=== PATIENT | female | born 1945 | race Caucasian/White ===

== ENCOUNTER → 2018-05-13 08:54 | Outpatient (CLI) | payer MEDICARE, OTHER, SELFPAY ==
[2018-05-13 10:07] LABS: Alanine Aminotransferase 28 IU/L (9-52); Albumin 4.1 g/dL (3.5-5.0); Albumin Globulin Ratio 1.3 (1.0-2.8); Alkaline Phosphatase 64 U/L (38-126); Aspartate Aminotransferase 29 IU/L (14-36); Bilirubin Total 0.6 mg/dL (0.2-1.3); Blood Urea Nitrogen 14 mg/dL (7-17); Calcium 9.2 mg/dL (8.4-10.2); Carbon Dioxide 34 mmol/L (22-32); Chloride 105 mmol/L (98-107); Cholesterol 179 mg/dL (140-199); Estimated Glomerular Filt Rate > 60.0 mL/min (>60); Globulin 3.2 g/dL (1.7-4.1); Glucose 97 mg/dL (80-110); HDL Cholesterol 59 mg/dL (40-60); HEMOLYSIS < 15 (0-50); LDL Cholesterol Calculated 105 mg/dL (<100); Potassium 4.2 mmol/L (3.4-5.1); Sodium 144 mmol/L (137-145); Total Protein 7.3 g/dL (6.3-8.2); Triglycerides 74 mg/dL (35-150)
== END ==
PROVIDERS: PCP Physician Assistant; Visit Provider Physician Assistant
DX: Z51.81 Encounter for therapeutic drug level monitoring (principal)
CPT/HCPCS: 36415; 80053; 80061

== ENCOUNTER → 2018-09-25 09:41 | Outpatient (CLI) | payer MEDICARE, OTHER, SELFPAY | PROVIDERS: PCP Physician Assistant; Visit Provider Physician Assistant | DX: R52 Pain, unspecified (principal) | CPT/HCPCS: 87077; 87086; 87186 ==

== ENCOUNTER → 2018-10-17 10:43 | Outpatient (CLI) | payer MEDICARE, OTHER, SELFPAY ==
--- NOTE | 2018-10-17 | DI.MG.S_ITS ---
BILATERAL DIGITAL SCREENING MAMMOGRAM 3D/2D WITH CAD: 10/17/2018 CLINICAL: Routine screening. Comparison is made to exams dated: 09/04/2017 mammogram, 07/10/2016 mammogram, and 06/30/2015 mammogram - [facility]. The tissue of both breasts is heterogeneously dense. This may lower the sensitivity of mammography. Current study was also evaluated with a Computer Aided Detection (CAD) system. No significant masses, calcifications, or other findings are seen in either breast. There has been no significant interval change. IMPRESSION: NEGATIVE There is no mammographic evidence of malignancy. A 1 year screening mammogram is recommended. This exam was interpreted at Station ID: [id number]. NOTE: For mammograms, a report in lay terms will be sent to the patient. Approximately 15% of breast malignancies will not be visualized mammographically. In the management of a palpable breast mass, a negative mammogram must not discourage biopsy of a clinically suspicious lesion. Electronically Signed By: Jose conde/kianna:10/17/2018 18:21:24 letter sent: Normal Exam ACR BI-RADS Category 1: Negative 3341F
== END ==
PROVIDERS: PCP Physician Assistant; Visit Provider Physician Assistant
DX: Z12.31 Encounter for screening mammogram for malignant neoplasm of breast (principal)
CPT/HCPCS: 77063; 77067

== ENCOUNTER → 2018-11-02 09:36 | Outpatient (CLI) | payer MEDICARE, OTHER, SELFPAY | PROVIDERS: PCP Physician Assistant; Visit Provider Physician Assistant | DX: R39.9 Unspecified symptoms and signs involving the genitourinary system (principal) | CPT/HCPCS: 87077; 87086; 87186 ==

== ENCOUNTER → 2019-02-04 14:39 | Outpatient (CLI) | payer MEDICARE, OTHER, SELFPAY | PROVIDERS: PCP Physician Assistant; Visit Provider Physician Assistant | DX: M81.0 Age-related osteoporosis without current pathological fracture (principal); Z78.0 Asymptomatic menopausal state; Z82.62 Family history of osteoporosis | CPT/HCPCS: 77080 ==

== ENCOUNTER → 2019-02-26 16:23 | Outpatient (CLI) | payer MEDICARE, OTHER, SELFPAY ==
[2019-02-26 18:52] LABS: Vitamin D 25 Hydroxy (D3) 29.5 ng/mL (30.0-100.0)
[2019-02-26 18:56] LABS: Add Manual Diff / Slide Review NO; Basophils Absolute Auto 0 /uL (0-100); Basophils Percent Auto 0.5 % (0-2); Eosinophils Absolute Auto 100 /uL (0-450); Eosinophils Percent Auto 1.2 % (2-4); Hematocrit 40.6 % (36-46); Hemoglobin 13.2 g/dL (12.0-16.0); Lymphocytes Absolute Auto 1600 /uL (1100-4500); Lymphocytes Percent Auto 28.5 % (25-40); Mean Corpuscular HGB Conc 32.6 % (30-36); Mean Corpuscular Hemoglobin 30.6 PG (26-34); Mean Corpuscular Volume 93.9 fL (80-100); Monocytes Absolute Auto 600 /uL (0-900); Monocytes Percent Auto 11.8 % (3-14); Neutrophils Absolute Auto 3200 /uL (1500-7000); Platelet Count 234 X10^3/uL (150-400); Red Blood Cell Count 4.32 X10^6/uL (4.0-5.2); Red Cell Distribution Width 13.2 % (11.6-14.8); White Blood Cell Count 5.5 X10^3/uL (4.5-11.0)
== END ==
PROVIDERS: PCP Physician Assistant; Visit Provider Physician Assistant
DX: M81.0 Age-related osteoporosis without current pathological fracture (principal); R79.89 Other specified abnormal findings of blood chemistry
CPT/HCPCS: 36415; 82306; 85025

== ENCOUNTER 2019-08-04 12:52 | Day surgery (SDC) | payer MEDICARE, OTHER, SELFPAY ==
[2019-08-04] VITALS (7 sets, daily range): BP systolic 95–112; BP diastolic 52–74; PULSE 61–71; RESP 11–16; TEMP 36–36.8; O2SAT 96–100; BMI 19.3
--- NOTE | 2019-08-04 15:16 | PM.HP.1 ---
History of Present Illness History of Present Illness Date Patient Seen: 08/04/19 Time Patient Seen: 15:16 Chief complaint: [id number] Narrative: This is a 74 yo woman with history of polyps found on colonoscopy 5 years ago. She returns today for follow-up colonoscopy and polypectomy as needed. She denies any melena, hematochezia, abdominal pain or unexplained weight loss. ROS: Thirteen system review is negative other than as mentioned on scanned in questioning and in HPI. PE: GENERAL: Well groomed and cooperative. Appears stated age. Answers questions promptly and appropriately. Vital signs noted. HENT: Normocephalic, atraumatic. Hearing intact. Oral mucosa is pink and moist. EYES: Conjunctiva pink, sclera white, no periorbital swelling. CARDIOVASCULAR: Regular rate. No pedal edema. RESPIRATORY: Normal respiratory rate, breathing comfortably on room air. GASTROINTESTINAL: Abdomen soft and non-distended GENITALURINARY: No flank tenderness. MUSCULOSKELETAL: Normal gait and coordination. Equal tone and mass bilaterally. SKIN: Warm, dry, soft, appropriate color for ethnicity. No other lesions, rashes, or wounds. NEURO: Alert and Oriented X 3. Good coordination. No ataxia, or sensory deficits, or cognitive issues. PSYCH: Appropriate affect and mood. Patient History Surgical History H/O eye surgery (Acute) Social History household members: spouse Smoking Status: Never smoker second hand exposure: No alcohol intake: current (a glass of wine about every 3 weeks.) substance use type: does not use Family & Social History Social History: household members spouse Tobacco & Substance use: Smoking Status Never smoker alcohol intake current Meds Home Medications and Allergies Home Medications Medication Instructions Recorded Confirmed Type Excedrin Extra Strength 1 tab PO PRN PRN #0 MDD 325 03/25/17 08/04/19 History Prevnar 13 (PF) 0.5 ml IM X1 #1 ea 03/25/17 08/04/19 Rx varicella-zoster gE-AS01B (PF) 50 50 mcg IM ONCE #1 each 11/12/18 08/04/19 Rx mcg/0.5 mL IM susp, kit raloxifene 60 mg tablet 60 mg PO DAILY #90 tab 06/15/19 08/04/19 Rx Allergies Allergy/AdvReac Type Severity Reaction Status Date / Time alendronate sodium AdvReac Mild GERD Verified 02/23/19 08:50 [From FOSAMAX] Exam Vital Signs (past 8 hours): - 08/04/19 13:17 Temperature 97.8 F Pulse Rate 71 Respiratory Rate 12 Blood Pressure 110/67 Pulse Oximetry 100 Oxygen Delivery Method Room Air Assessment & Plan Assessment and plan (1) Tubular adenoma of colon: Current visit: No Status: Resolved (2) Screening for colon cancer: Current visit: Yes Status: Acute Assessment & Plan narrative: Risk and benefits of screening colonoscopy and possible polypectomy were discussed with the patient including risk of bleeding, perforation, the risk of anesthesia. The patient desires to proceed with a colonoscopy Time Spent With Patient Time with patient: 15-24 minutes
[2019-08-04] MEDS: fentaNYL 250 MCG/5 ML INJ IV (15:52)
--- NOTE | 2019-08-04 15:52 | PM.OP.ENDO ---
Operative Date/Time/Diagnoses Date of procedure: 08/04/19 Time of procedure: 15:52 Pre-op diagnosis: history of colon polyps Post-op diagnosis: same Procedure & Clinicians Study performed: surveillance colonoscopy Same procedure as scheduled: Yes Indications: History of colon polyps 5 years ago Surgeon: Tana Mckeon Procedure Notes SCOAP/Timeout: Performed Procedure in detail: The patient was brought to the room and placed in left lateral decubitus position with all bony prominences padded. A time-out was performed and then the patient was given procedural sedation starting with 4 mg of Versed and 100 mg of fentanyl. Vitals were monitored throughout the procedure and remained stable. Once adequately sedated the procedure was begun. A rectal exam was performed revealing no abnormalities. The colonoscope was then introduced to the rectum and advanced to the cecum in the usual fashion. The colon was very tortuous and required a lot of maneuvering to make it to the cecum safely. The cecum was identified by the appendiceal orifice, the mucosal try fold, and the ileocecal valve. The scope was then retracted while rotating side to side and examining each mucosal fold. A few tiny diverticula were seen in the sigmoid colon. At the conclusion procedure retroflexion was performed and small grade 1-2 internal hemorrhoids without stigmata of bleeding were seen. The scope was then withdrawn from the rectum the procedure was concluded. The patient tolerated the procedure well was transferred to the PACU in stable condition. Scope withdrawal time: 4 Sedation minutes: 24 Findings: diverticulosis Specimen(s): none sent Complications: none Impression: Normal colonoscopy, a few tiny scattered diverticula in the sigmoid colon Post-procedure Plan for aftercare: No further colonoscopies required unless symptoms arise. Pt is 74 with normal colon on this exam. Follow up: as needed Disposition: PACU
[2019-08-04] MEDS: MIDAZOLAM 5 MG/5 ML VIAL IV (15:53)
== END 2019-08-04 16:51 | disposition home or self-care (01) ==
PROVIDERS: PCP Physician Assistant; Visit Provider Surgery
PROC: 0DJD8ZZ Inspection of Lower Intestinal Tract, Via Natural or Artificial Opening Endoscopic (ICD-10-PCS; CPT 45378; principal; 2019-08-04 14:00)
DX: Z86.010 Personal history of colon polyps (principal)
CPT/HCPCS: G0105; 99152; J2250; J3010

== ENCOUNTER → 2019-12-22 11:57 | Outpatient (CLI) | payer MEDICARE, OTHER, SELFPAY ==
--- NOTE | 2019-12-22 | DI.MG.S_ITS ---
BILATERAL DIGITAL SCREENING MAMMOGRAM 3D/2D WITH CAD: 12/22/2019 CLINICAL: Routine screening. Comparison is made to exams dated: 10/17/2018 mammogram, 09/04/2017 mammogram, and 07/10/2016 mammogram - [facility]. The tissue of both breasts is heterogeneously dense. This may lower the sensitivity of mammography. Current study was also evaluated with a Computer Aided Detection (CAD) system. There are benign vascular calcifications in the left breast. No significant masses, calcifications, or other findings are seen in either breast. There has been no significant interval change. IMPRESSION: There is no mammographic evidence of malignancy. A 1 year screening mammogram is recommended. This exam was interpreted at Station ID: [id number]. NOTE: For mammograms, a report in lay terms will be sent to the patient. Approximately 15% of breast malignancies will not be visualized mammographically. In the management of a palpable breast mass, a negative mammogram must not discourage biopsy of a clinically suspicious lesion. Electronically Signed By: Enrique malloy/kianna:12/22/2019 12:38:49 letter sent: Normal Exam ACR BI-RADS Category 2: Benign Finding(s) 3342F
== END ==
PROVIDERS: PCP Physician Assistant; Referring Provider Physician Assistant; Visit Provider Physician Assistant
DX: Z12.31 Encounter for screening mammogram for malignant neoplasm of breast (principal)
CPT/HCPCS: 77063; 77067

== ENCOUNTER → 2020-05-17 12:34 | Outpatient (CLI) | payer MEDICARE, OTHER, SELFPAY | PROVIDERS: PCP Physician Assistant; Visit Provider Physician Assistant | DX: R30.0 Dysuria (principal) | CPT/HCPCS: 87077; 87086; 87186 ==

== ENCOUNTER → 2020-05-19 08:38 | Outpatient (CLI) | payer MEDICARE, OTHER, SELFPAY ==
[2020-05-19 10:04] LABS: Alanine Aminotransferase 17 IU/L (<35); Albumin 3.8 g/dL (3.5-5.0); Albumin Globulin Ratio 1.3 (1.0-2.8); Alkaline Phosphatase 65 U/L (38-126); Aspartate Aminotransferase 33 IU/L (14-36); BUN Creatinine Ratio 16.4 (6-22); Bilirubin Total 0.6 mg/dL (0.2-1.3); Blood Urea Nitrogen 11 mg/dL (7-17); Calcium 9.1 mg/dL (8.4-10.2); Carbon Dioxide 31 mmol/L (22-32); Chloride 105 mmol/L (98-107); Estimated Glomerular Filt Rate > 60.0 mL/min (>60); Glucose 70 mg/dL (80-110); HEMOLYSIS < 15 (0-50); Potassium 4.2 mmol/L (3.4-5.1); Sodium 140 mmol/L (137-145); Total Protein 6.8 g/dL (6.3-8.2)
== END ==
PROVIDERS: PCP Registered Nurse; Referring Provider Registered Nurse; Visit Provider Registered Nurse
DX: N39.0 Urinary tract infection, site not specified (principal)
CPT/HCPCS: 36415; 80053

== ENCOUNTER → 2020-08-11 10:01 | Outpatient (CLI) | payer MEDICARE, OTHER, SELFPAY | PROVIDERS: PCP Registered Nurse; Visit Provider Registered Nurse | DX: L03.90 Cellulitis, unspecified (principal) | CPT/HCPCS: 87070; 87205 ==

== ENCOUNTER → 2021-02-25 10:24 | Outpatient (CLI) | payer MEDICARE, OTHER, SELFPAY ==
--- NOTE | 2021-02-25 10:26 | DI.MG.S_ITS ---
BILATERAL DIGITAL SCREENING MAMMOGRAM 3D/2D WITH CAD: 02/25/2021 CLINICAL: Routine screening. Comparison is made to exams dated: 12/22/2019 mammogram, 10/17/2018 mammogram, and 09/04/2017 mammogram - [facility]. The tissue of both breasts is heterogeneously dense. This may lower the sensitivity of mammography. Current study was also evaluated with a Computer Aided Detection (CAD) system. No significant masses, calcifications, or other findings are seen in either breast. There has been no significant interval change. IMPRESSION: NEGATIVE There is no mammographic evidence of malignancy. A 1 year screening mammogram is recommended. This exam was interpreted at Station ID: [id number]. NOTE: For mammograms, a report in lay terms will be sent to the patient. Approximately 15% of breast malignancies will not be visualized mammographically. In the management of a palpable breast mass, a negative mammogram must not discourage biopsy of a clinically suspicious lesion. Electronically Signed By: Joe kee/kianna:02/27/2021 07:59:21 letter sent: Normal Exam ACR BI-RADS Category 1: Negative 3341F
== END ==
PROVIDERS: PCP Registered Nurse; Referring Provider Registered Nurse; Visit Provider Registered Nurse
DX: Z12.31 Encounter for screening mammogram for malignant neoplasm of breast (principal)
CPT/HCPCS: 77063; 77067

== ENCOUNTER → 2021-05-08 09:58 | Outpatient (CLI) | payer MEDICARE, OTHER, SELFPAY ==
[2021-05-08 11:23] LABS: COVID19 -Nasal RAPID Negative (Negative)
== END ==
PROVIDERS: PCP Registered Nurse; Visit Provider Student in an Organized Health Care Education/Training Program
DX: Z01.812 Encounter for preprocedural laboratory examination (principal); Z20.822 Contact with and (suspected) exposure to COVID-19
CPT/HCPCS: 87635; C9803

== ENCOUNTER 2021-05-09 08:53 | Day surgery (SDC) | payer MEDICARE, OTHER, SELFPAY ==
[2021-05-09] MEDS: PROPARACAINE 0.5% OPHTH SOL 2 DROPS EYE-OP (09:39)
[2021-05-09 09:40] VITALS: BP 101/59; PULSE 76; RESP 16; TEMP 37.4; O2SAT 99
[2021-05-09] MEDS: CATARACT EYE COMPOUND (10 DROPS/SYRINGE) 3 DROPS EYE-OP (09:45)
--- NOTE | 2021-05-09 10:20 | PM.PREOP ---
Pre-operative Note Interval Note History & Physical reviewed/Exam performed by Physician: Yes Changes to H&P: No
--- NOTE | 2021-05-09 10:20 | PM.OP.1 ---
Operative Date/Time/Diagnoses Pre-op diagnosis: Nuclear cataract right eye Procedure & Clinicians Procedure: Cataract Surgery Same procedure as scheduled: Yes Surgeon: Harrison Hale Anesthesia Type: MAC +/- and Sedation Operative Notes Procedure in detail: Patient brought to the operating suite. Tetracaine drops placed in the right eye. Patient was prepped and draped in sterile manner. Wire lid speculum was placed in the eye. Betadine drops were placed on the eye. This was irrigated. Lidocaine jelly was placed on the eye. A paracentesis port was created with a side-port blade. 0.1 mL 1% preservative free lidocaine was injected into the anterior chamber. The anterior chamber was deepened with viscoelastic. 2.6 mm keratome was used to create a temporal clear corneal incision. Cystotome and Utrata forceps were used to create continuous tear capsulorrhexis. Balanced salt solution was used to hydro dissect the nucleus. The phacoemulsification handpiece was inserted and the nucleus was removed using the stop and chop technique. The irrigation aspiration handpiece was inserted and the remaining cortex was removed. Anterior chamber was deepened with viscoelastic. An Ayala DIB00 intraocular lens with a power of 17.0 was injected into the capsular bag. Irrigation aspiration handpiece was inserted and the remaining viscoelastic was removed. Incision was hydrated with balanced salt solution and found to be leak free with pressure with Weck-Linda sponges. 0.1 mL Vigamox injected anterior chamber. 0.3 mL Kenalog 10 mg was injected subconjunctivally. Lid speculum was removed. The patient left the operating room in excellent condition. Complications: none Post-operative Condition: stable Disposition: same day surgery
[2021-05-09] MEDS: PHENYLEPHRINE/LIDOCAINE VIAL (OR) 0.2 ML EYE-OP (10:47)
[2021-05-09] MEDS: TRIAMCINOLONE 50 MG/5 ML VIAL INJ (10:47)
[2021-05-09] MEDS: MOXIFLOXACIN INJ 4 MG/0.8 ML VIAL 0.5 MG EYE-OP (10:47)
[2021-05-09] MEDS: CHONDROIDTIN/SOD HYALURONATE 1.05 ML SYRINGE INTRAOCULA (10:47)
[2021-05-09] MEDS: TETRACAINE 0.5% OPHTH DROPS 4 ML 2 DROPS EYE-OP (10:48)
[2021-05-09] MEDS: BALANCED SALT IRRIG SOLN NO.2 500 ML, EPINEPHrine 1 MG IRR (10:48)
[2021-05-09] MEDS: LIDOCAINE 2% (GLYDO) 6 ML GEL TOP (10:48)
== END 2021-05-09 11:05 | disposition home or self-care (01) ==
PROVIDERS: PCP Registered Nurse; Referring Provider Ophthalmology; Visit Provider Ophthalmology
PROC: (CPT 66984; principal; 2021-05-09 10:45)
DX: H25.11 Age-related nuclear cataract, right eye (principal)
CPT/HCPCS: 66984; J0171; J2250; J3301

== ENCOUNTER → 2021-05-22 08:20 | Outpatient (CLI) | payer MEDICARE, OTHER, SELFPAY ==
[2021-05-22 11:54] LABS: COVID19 -Nasal RAPID Negative (Negative)
== END ==
PROVIDERS: PCP Registered Nurse; Visit Provider Physician Assistant
DX: Z01.812 Encounter for preprocedural laboratory examination (principal); Z20.822 Contact with and (suspected) exposure to COVID-19
CPT/HCPCS: 87635; C9803

== ENCOUNTER 2021-05-23 08:37 | Day surgery (SDC) | payer MEDICARE, OTHER, SELFPAY ==
[2021-05-23 09:21] VITALS: BP 124/76; PULSE 78; RESP 18; TEMP 36.6; O2SAT 97; BMI 20.7
[2021-05-23] MEDS: PROPARACAINE 0.5% OPHTH SOL 2 DROPS EYE-OP (09:30)
[2021-05-23] MEDS: CATARACT EYE COMPOUND (10 DROPS/SYRINGE) 3 DROPS EYE-OP (09:30)
--- NOTE | 2021-05-23 10:02 | PM.PREOP ---
Pre-operative Note Interval Note History & Physical reviewed/Exam performed by Physician: Yes Changes to H&P: No
--- NOTE | 2021-05-23 10:02 | PM.OP.1 ---
Operative Date/Time/Diagnoses Pre-op diagnosis: Nuclear Cataract Left eye Post-op diagnosis: same Procedure & Clinicians Same procedure as scheduled: Yes Surgeon: Harrison Hale Anesthesia Type: MAC +/- and Sedation Operative Notes Procedure in detail: Patient brought to the operating suite. Tetracaine drops placed in the left eye. Patient was prepped and draped in sterile manner. Wire lid speculum was placed in the eye. Betadine drops were placed on the eye. This was irrigated. Lidocaine jelly was placed on the eye. A paracentesis port was created with a side-port blade. 0.1 mL 1% preservative free lidocaine was injected into the anterior chamber. The anterior chamber was deepened with viscoelastic. 2.6 mm keratome was used to create a temporal clear corneal incision. Cystotome and Utrata forceps were used to create continuous tear capsulorrhexis. Balanced salt solution was used to hydro dissect the nucleus. The phacoemulsification handpiece was inserted and the nucleus was removed using the stop and chop technique. The irrigation aspiration handpiece was inserted and the remaining cortex was removed. Anterior chamber was deepened with viscoelastic. An Ayala DIB00 intraocular lens with a power of 18.5 was injected into the capsular bag. Irrigation aspiration handpiece was inserted and the remaining viscoelastic was removed. Incision was hydrated with balanced salt solution and found to be leak free with pressure with Weck-Linda sponges. 0.1 mL Vigamox injected anterior chamber. 0.3 mL Kenalog 10 mg was injected subconjunctivally. Lid speculum was removed. The patient left the operating room in excellent condition. Complications: none Post-operative Condition: stable Disposition: same day surgery
[2021-05-23] MEDS: CHONDROIDTIN/SOD HYALURONATE 1.05 ML SYRINGE INTRAOCULA (10:38)
[2021-05-23] MEDS: MOXIFLOXACIN INJ 4 MG/0.8 ML VIAL 0.5 MG EYE-OP (10:38)
[2021-05-23] MEDS: LIDOCAINE 2% (GLYDO) 6 ML GEL TOP (10:38)
[2021-05-23] MEDS: PHENYLEPHRINE/LIDOCAINE VIAL (OR) 0.2 ML EYE-OP (10:38)
[2021-05-23] MEDS: TETRACAINE 0.5% OPHTH DROPS 4 ML 2 DROPS EYE-OP (10:38)
[2021-05-23] MEDS: BALANCED SALT IRRIG SOLN NO.2 500 ML, EPINEPHrine 1 MG IRR (10:39)
[2021-05-23] MEDS: TRIAMCINOLONE 50 MG/5 ML VIAL INJ (10:39)
[2021-05-23 11:00] VITALS: BP 106/73; PULSE 79; RESP 16; TEMP 36.6; O2SAT 99
== END 2021-05-23 11:06 | disposition home or self-care (01) ==
PROVIDERS: PCP Registered Nurse; Referring Provider Ophthalmology; Visit Provider Ophthalmology
PROC: (CPT 66984; principal; 2021-05-23 10:15)
DX: H25.12 Age-related nuclear cataract, left eye (principal)
CPT/HCPCS: 66984; J0171; J2250; J3301

== ENCOUNTER → 2021-06-22 12:31 | Outpatient (CLI) | payer MEDICARE, OTHER, SELFPAY ==
--- NOTE | 2021-06-22 12:32 | DI.RAD.S_ITS ---
PROCEDURE: XR DEXA AXIAL SKELETON INDICATIONS: DEXA Scan COMPARISON: [facility], CR, XR DEXA AXIAL SKELETON, 02/04/2019, 15:10. FINDINGS: This blank DEXA report has been sent in error by the PACS system. The correct and complete report will be forthcoming in 1-2 days. Thank you for your patience and understanding. Dictated by: Juliane Gibson MD, PhD on 06/22/2021 at 13:17 Approved by: Juliane Gibson MD, PhD on 06/22/2021 at 13:18
== END ==
PROVIDERS: PCP Registered Nurse; Referring Provider Registered Nurse; Visit Provider Registered Nurse
DX: M81.0 Age-related osteoporosis without current pathological fracture (principal); Z78.0 Asymptomatic menopausal state; Z82.62 Family history of osteoporosis
CPT/HCPCS: 77080

== ENCOUNTER → 2021-07-07 07:19 | Outpatient (CLI) | payer MEDICARE, OTHER, SELFPAY ==
[2021-07-07 08:17] LABS: Alanine Aminotransferase 17 IU/L (<35); Albumin 3.9 g/dL (3.5-5.0); Albumin Globulin Ratio 1.3 (1.0-2.8); Alkaline Phosphatase 57 U/L (38-126); Aspartate Aminotransferase 31 IU/L (14-36); BUN Creatinine Ratio 15.6 (6-22); Bilirubin Total 0.6 mg/dL (0.2-1.3); Blood Urea Nitrogen 12 mg/dL (7-17); Calcium 9.1 mg/dL (8.4-10.2); Carbon Dioxide 33 mmol/L (22-32); Chloride 107 mmol/L (98-107); Cholesterol 157 mg/dL (140-199); Estimated Glomerular Filt Rate > 60.0 mL/min (>60); Glucose 96 mg/dL (80-110); HDL Cholesterol 73 mg/dL (40-60); HEMOLYSIS < 15 (0-50); LDL Cholesterol Calculated 69 mg/dL (<100); Potassium 3.9 mmol/L (3.4-5.1); Sodium 142 mmol/L (137-145); Total Protein 6.9 g/dL (6.3-8.2); Triglycerides 77 mg/dL (35-150)
[2021-07-07 08:34] LABS: Vitamin D 25 Hydroxy (D3) 97.9 ng/mL (30.0-100.0)
== END ==
PROVIDERS: PCP Registered Nurse; Referring Provider Registered Nurse; Visit Provider Registered Nurse
DX: E78.5 Hyperlipidemia, unspecified (principal); E55.9 Vitamin D deficiency, unspecified
CPT/HCPCS: 36415; 80053; 80061; 82306

== ENCOUNTER → 2022-01-22 12:25 | Outpatient (CLI) | payer MEDICARE, OTHER, SELFPAY | PROVIDERS: PCP Registered Nurse; Visit Provider Student in an Organized Health Care Education/Training Program | DX: R30.0 Dysuria (principal) | CPT/HCPCS: 87077; 87086; 87186 ==

== ENCOUNTER → 2022-03-01 08:43 | Outpatient (CLI) | payer MEDICARE, OTHER, SELFPAY ==
--- NOTE | 2022-03-01 | DI.MG.S_ITS ---
BILATERAL DIGITAL SCREENING MAMMOGRAM 3D/2D WITH CAD: 03/01/2022 CLINICAL: Routine screening. Comparison is made to exams dated: 02/25/2021 mammogram, 12/22/2019 mammogram, and 10/17/2018 mammogram - [facility]. The tissue of both breasts is heterogeneously dense. This may lower the sensitivity of mammography. Current study was also evaluated with a Computer Aided Detection (CAD) system. No significant masses, calcifications, or other findings are seen in either breast. There has been no significant interval change. IMPRESSION: NEGATIVE There is no mammographic evidence of malignancy. A 1 year screening mammogram is recommended. This exam was interpreted at Station ID: [id number]. NOTE: For mammograms, a report in lay terms will be sent to the patient. Approximately 15% of breast malignancies will not be visualized mammographically. In the management of a palpable breast mass, a negative mammogram must not discourage biopsy of a clinically suspicious lesion. Electronically Signed By: Torres Perez acr/penrad:03/01/2022 11:20:05 letter sent: Normal Exam ACR BI-RADS Category 1: Negative 3341F
== END ==
PROVIDERS: PCP Family Medicine; Referring Provider Family Medicine; Visit Provider Family Medicine
DX: Z12.31 Encounter for screening mammogram for malignant neoplasm of breast (principal)
CPT/HCPCS: 77063; 77067

== ENCOUNTER → 2022-03-17 15:25 | Outpatient (CLI) | payer MEDICARE, OTHER, SELFPAY | PROVIDERS: PCP Family Medicine; Visit Provider Physician Assistant | DX: R30.0 Dysuria (principal) | CPT/HCPCS: 87077; 87086; 87186 ==

== ENCOUNTER 2022-06-19 11:15 | Outpatient (RCR) | payer MEDICARE, OTHER, SELFPAY ==
--- NOTE | 2022-05-22 09:04 | PT.OIE ---
Current Diagnoses Cervicalgia (05/24/22) Past Medical History (Last Reviewed 03/17/22 @ 15:44 by Juan Francisco Downs PA-C) Edema of both lower extremities Osteopenia of left hip Osteopenia of spine Osteoporosis Urinary tract infection Urinary tract infection Past Surgical History (Last Reviewed 03/17/22 @ 15:44 by Juan Francisco Downs PA-C) H/O eye surgery Visit Care Team Role Provider Type Stu Cruz MD Attending Provider Physician Family Provider Primary Care Provider Referring Provider Specialty: Internal Medicine Pediatrics Address: [address] [place] [address], [id number] Phone: Fax: Email: [email or web address] Physical [facility] Initial Evaluation PT-OP-A Visit Information Start: 05/21/22 15:57 Freq: Status: Active Protocol: Document 05/22/22 10:23 AMB (Rec: 05/22/22 10:41 AMB [id number]) Out-Patient Physical Therapy Visit Information Visit Information Visit Type Initial Evaluation Visit Start Time 10:30 Visit Stop Time 11:15 Total Visit Minutes 45 Visit Number 1 PT-OP-B Current Condition Start: 05/21/22 15:57 Freq: Status: Active Protocol: Document 05/22/22 10:23 AMB (Rec: 05/22/22 10:41 AMB [id number]) Current Condition History of Current Condition Onset Date months Current Complaints neck pain History of Current Condition Rotation to the left, marielena in the afternoon is painful and stiff. Walking the dogs irritates it. Does knitting and reading which is painful. Notes wakes up ok, but then throughout the day neck is more painful, always on the left. Lives with who has dementia, so she does all the yardwork and housework. She does note pain can radiate down the left arm slightly into the shoulder, does not go lower than mid deltoid. Does have a long history of headaches. Prior Functional Status Baseline Function- ADL's Independent Baseline Function- Mobility Independent Personal Factors Other Personal Factors That May Effect Osteoporosis Therapy/Recovery PT-OP-C Subjective Start: 05/21/22 15:57 Freq: Status: Active Protocol: Document 05/22/22 10:30 AMB (Rec: 05/22/22 12:58 AMB [id number]) Patient Questionnaires Neck Disability Index NDI Score 6 Neck Disability Index Impairment 1 to 19% Impaired (Score 1-9) Quick Dash- Upper Extremity Quick Dash UE Score 11 Quick Dash UE Impairment 1 to 19% Impaired (Score 1-19) OP-PT Pain Assessment Comments Pain Comments 3/10 right neck pain PT-OP-J Posture/Palpation/Skin Start: 05/21/22 15:57 Freq: Status: Active Protocol: Document 05/22/22 10:30 AMB (Rec: 05/22/22 13:11 AMB [id number]) Posture Evaluation Comments Posture Comments Forward head, flat lumbar spine with posterior pelvic tilt and flexed knees posture. Palpation Assessment Location One Palpation Location cervical spine Palpation Findings Spasm,Muscle Guarding, Tenderness Palpation Details SCM, UT, levator scap all increased tension L>R PT-OP-K Range of Motion Start: 05/21/22 15:57 Freq: Status: Active Protocol: Document 05/22/22 10:42 AMB (Rec: 05/22/22 10:45 AMB [id number]) Cervical Spine Range of Motion Cervical Spine Active Degrees Testing Position Sitting Flexion 45 Extension 30 Rotation Left 50 Rotation Right 55 PT-OP-M Strength Start: 05/21/22 15:57 Freq: Status: Active Protocol: Document 05/22/22 10:51 AMB (Rec: 05/22/22 10:52 AMB [id number]) Shoulder Strength Shoulder Manual Muscle Testing Left Flexion 4- Good- Extension 5 Normal Abduction (C5) 4 Good External Rotation 4+ Good+ Internal Rotation 4+ Good+ PT-OP-Q Treatments Start: 05/21/22 15:57 Freq: Status: Active Protocol: Document 05/22/22 10:30 AMB (Rec: 05/22/22 13:11 AMB [id number]) Therapeutic Exercises Supine Exercises chin tuck Reps/Minutes 5x5 Standing Exercises pec stretch Standing Exercise Name doorway vs corner Reps/Minutes 30x2 Manual Therapy Treatment Soft Tissue Mobilization cervical Body Location paraspinals, sub occipitals Mobilization Type Myofascial Release,Sustained Pressure Intensity/Depth Moderate Body Position Hooklying PT-OP-T Assessment and Plan Start: 05/21/22 15:57 Freq: Status: Active Protocol: Document 05/22/22 10:30 AMB (Rec: 05/22/22 15:47 AMB [id number]) Physical Therapy Assessment Rehab Potential Rehabilitation Potential Good Evaluation Complexity Number of Personal Factors/Comorbidities 1-2 Number of Body Systems Impaired 1-2 Clinical Presentation at Evaluation Stable Impairments Impairments Activity Tolerance,Functional Activities,Pain,Posture,ROM, Soft Tissue Mobility,Strength Goals Two Impairment ROM Short Term Goal (STG) Teresa will increase her cervical rotation to at least 60 degrees bilaterally. STG Duration 4 weeks One Impairment Pain Short Term Goal (STG) Teresa will sit to read for 30 minutes without neck pain. STG Duration 4 weeks Engineer Technician Goal (LTG) Teresa will drive without neck pain. LTG Duration 10 weeks Assessment Summary Assessment Teresa attends physical therapy with an exacerbation of neck pain, that limits her ability to rotate her neck. She does have significant forward head posture. She had soft tissue tightness throughout the left cervical spine and upper trapezius area, as well as joint stiffness worse at lower cervical spine. She will benefit from physical therapy to improve her ROM, manage postural changes, improve deep neck flexor strength, so that she can move her neck with less pain. Physical Therapy Plan Frequency and Duration Frequency of Treatment 2x/Week Duration of Treatment 10 weeks Plan of Care Start Date 05/22/22 Plan of Care End Date 07/31/22 Therapeutic Interventions Therapeutic Interventions Home Exercise Program,Joint Mobilizations,Manual Therapy, Neuromuscular Re-education, Self-Care/Home Management, Therapeutic Activities, Therapeutic Exercises Modalities Cold Pack/Ice Massage,Electric Stimulation,Hot Packs, Traction- Mechanical Next Visit Focus/Plan Next Note Type Treatment Note Next Visit Plan Reassess HEP: chin tucks and pec stretch
--- NOTE | 2022-05-22 15:50 | PT.OTN ---
Current Diagnoses Cervicalgia (05/22/22) Physical Therapy Treatment Note PT-OP-A Visit Information Start: 05/21/22 15:57 Freq: Status: Active Protocol: Document 05/22/22 10:23 AMB (Rec: 05/22/22 10:41 AMB [id number]) Out-Patient Physical Therapy Visit Information Visit Information Visit Type Initial Evaluation Visit Start Time 10:30 Visit Stop Time 11:15 Total Visit Minutes 45 Visit Number 1 PT-OP-B Current Condition Start: 05/21/22 15:57 Freq: Status: Active Protocol: Document 05/22/22 10:23 AMB (Rec: 05/22/22 10:41 AMB [id number]) Current Condition History of Current Condition Onset Date months Current Complaints neck pain History of Current Condition Rotation to the left, marielena in the afternoon is painful and stiff. Walking the dogs irritates it. Does knitting and reading which is painful. Notes wakes up ok, but then throughout the day neck is more painful, always on the left. Lives with who has dementia, so she does all the yardwork and housework. She does note pain can radiate down the left arm slightly into the shoulder, does not go lower than mid deltoid. Does have a long history of headaches. Prior Functional Status Baseline Function- ADL's Independent Baseline Function- Mobility Independent Personal Factors Other Personal Factors That May Effect Osteoporosis Therapy/Recovery PT-OP-C Subjective Start: 05/21/22 15:57 Freq: Status: Active Protocol: Document 05/22/22 10:30 AMB (Rec: 05/22/22 12:58 AMB [id number]) Patient Questionnaires Neck Disability Index NDI Score 6 Neck Disability Index Impairment 1 to 19% Impaired (Score 1-9) Quick Dash- Upper Extremity Quick Dash UE Score 11 Quick Dash UE Impairment 1 to 19% Impaired (Score 1-19) OP-PT Pain Assessment Comments Pain Comments 3/10 right neck pain PT-OP-J Posture/Palpation/Skin Start: 05/21/22 15:57 Freq: Status: Active Protocol: Document 05/22/22 10:30 AMB (Rec: 05/22/22 13:11 AMB [id number]) Posture Evaluation Comments Posture Comments Forward head, flat lumbar spine with posterior pelvic tilt and flexed knees posture. Palpation Assessment Location One Palpation Location cervical spine Palpation Findings Spasm,Muscle Guarding, Tenderness Palpation Details SCM, UT, levator scap all increased tension L>R PT-OP-K Range of Motion Start: 05/21/22 15:57 Freq: Status: Active Protocol: Document 05/22/22 10:42 AMB (Rec: 05/22/22 10:45 AMB [id number]) Cervical Spine Range of Motion Cervical Spine Active Degrees Testing Position Sitting Flexion 45 Extension 30 Rotation Left 50 Rotation Right 55 PT-OP-M Strength Start: 05/21/22 15:57 Freq: Status: Active Protocol: Document 05/22/22 10:51 AMB (Rec: 05/22/22 10:52 AMB [id number]) Shoulder Strength Shoulder Manual Muscle Testing Left Flexion 4- Good- Extension 5 Normal Abduction (C5) 4 Good External Rotation 4+ Good+ Internal Rotation 4+ Good+ PT-OP-Q Treatments Start: 05/21/22 15:57 Freq: Status: Active Protocol: Document 05/22/22 10:30 AMB (Rec: 05/22/22 13:11 AMB [id number]) Therapeutic Exercises Supine Exercises chin tuck Reps/Minutes 5x5 Standing Exercises pec stretch Standing Exercise Name doorway vs corner Reps/Minutes 30x2 Manual Therapy Treatment Soft Tissue Mobilization cervical Body Location paraspinals, sub occipitals Mobilization Type Myofascial Release,Sustained Pressure Intensity/Depth Moderate Body Position Hooklying PT-OP-T Assessment and Plan Start: 05/21/22 15:57 Freq: Status: Active Protocol: Document 05/22/22 10:30 AMB (Rec: 05/22/22 15:47 AMB [id number]) Physical Therapy Assessment Rehab Potential Rehabilitation Potential Good Evaluation Complexity Number of Personal Factors/Comorbidities 1-2 Number of Body Systems Impaired 1-2 Clinical Presentation at Evaluation Stable Impairments Impairments Activity Tolerance,Functional Activities,Pain,Posture,ROM, Soft Tissue Mobility,Strength Goals Two Impairment ROM Short Term Goal (STG) Teresa will increase her cervical rotation to at least 60 degrees bilaterally. STG Duration 4 weeks One Impairment Pain Short Term Goal (STG) Teresa will sit to read for 30 minutes without neck pain. STG Duration 4 weeks Care Home Goal (LTG) Teresa will drive without neck pain. LTG Duration 10 weeks Assessment Summary Assessment Teresa attends physical therapy with an exacerbation of neck pain, that limits her ability to rotate her neck. She does have significant forward head posture. She had soft tissue tightness throughout the left cervical spine and upper trapezius area, as well as joint stiffness worse at lower cervical spine. She will benefit from physical therapy to improve her ROM, manage postural changes, improve deep neck flexor strength, so that she can move her neck with less pain. Physical Therapy Plan Frequency and Duration Frequency of Treatment 2x/Week Duration of Treatment 10 weeks Plan of Care Start Date 05/22/22 Plan of Care End Date 07/31/22 Therapeutic Interventions Therapeutic Interventions Home Exercise Program,Joint Mobilizations,Manual Therapy, Neuromuscular Re-education, Self-Care/Home Management, Therapeutic Activities, Therapeutic Exercises Modalities Cold Pack/Ice Massage,Electric Stimulation,Hot Packs, Traction- Mechanical Next Visit Focus/Plan Next Note Type Treatment Note Next Visit Plan Reassess HEP: chin tucks and pec stretch
--- NOTE | 2022-05-22 15:51 | PT.OPPOC ---
Physical, Occupational & Speech Therapy At [facility] Current Diagnoses Cervicalgia (05/22/22) Visit Care Team Role Provider Type Stu Cruz MD Attending Provider Physician Family Provider Primary Care Provider Referring Provider Specialty: Internal Medicine Pediatrics Address: [address] [place] [address], [phone] Phone: Fax: Email: [email or web address] Plan Of Care PT-OP-T Assessment and Plan Start: 05/21/22 15:57 Freq: Status: Active Protocol: Document 05/22/22 10:30 AMB (Rec: 05/22/22 15:47 AMB [id number]) Physical Therapy Assessment Rehab Potential Rehabilitation Potential Good Evaluation Complexity Number of Personal Factors/Comorbidities 1-2 Number of Body Systems Impaired 1-2 Clinical Presentation at Evaluation Stable Impairments Impairments Activity Tolerance,Functional Activities,Pain,Posture,ROM, Soft Tissue Mobility,Strength Goals Two Impairment ROM Short Term Goal (STG) Teresa will increase her cervical rotation to at least 60 degrees bilaterally. STG Duration 4 weeks One Impairment Pain Short Term Goal (STG) Teresa will sit to read for 30 minutes without neck pain. STG Duration 4 weeks Penitentiary Goal (LTG) Teresa will drive without neck pain. LTG Duration 10 weeks Assessment Summary Assessment Teresa attends physical therapy with an exacerbation of neck pain, that limits her ability to rotate her neck. She does have significant forward head posture. She had soft tissue tightness throughout the left cervical spine and upper trapezius area, as well as joint stiffness worse at lower cervical spine. She will benefit from physical therapy to improve her ROM, manage postural changes, improve deep neck flexor strength, so that she can move her neck with less pain. Physical Therapy Plan Frequency and Duration Frequency of Treatment 2x/Week Duration of Treatment 10 weeks Plan of Care Start Date 05/22/22 Plan of Care End Date 07/31/22 Therapeutic Interventions Therapeutic Interventions Home Exercise Program,Joint Mobilizations,Manual Therapy, Neuromuscular Re-education, Self-Care/Home Management, Therapeutic Activities, Therapeutic Exercises Modalities Cold Pack/Ice Massage,Electric Stimulation,Hot Packs, Traction- Mechanical Next Visit Focus/Plan Next Note Type Treatment Note Next Visit Plan Reassess HEP: chin tucks and pec stretch Plan of Care Dates Plan of Care Start Date 05/22/22 Plan of Care End Date 07/31/22 Electronically Signed by: China Todd, PT 05/22/22 1556 If you are in agreement with this Plan of Care, please return a signed and dated copy. I have reviewed this Plan of Care and certify that the skilled therapy services above are required to meet the patient?s needs. Physician Signature Date Printed Name and Credentials Clinical Instructor Signature Printed Name and Credentials
--- NOTE | 2022-05-24 13:39 | PT.OTN ---
Current Diagnoses Cervicalgia (05/24/22) Physical Therapy Treatment Note PT-OP-A Visit Information Start: 05/21/22 15:57 Freq: Status: Active Protocol: Document 05/24/22 13:33 AMB (Rec: 05/24/22 13:39 AMB [id number]) Out-Patient Physical Therapy Visit Information Visit Information Visit Type Treatment Note Visit Start Time 13:30 Visit Stop Time 14:15 Total Visit Minutes 45 Visit Number 2 PT-OP-B Current Condition Start: 05/21/22 15:57 Freq: Status: Active Protocol: Document 05/22/22 10:23 AMB (Rec: 05/22/22 10:41 AMB [id number]) Current Condition History of Current Condition Onset Date months Current Complaints neck pain History of Current Condition Rotation to the left, marielena in the afternoon is painful and stiff. Walking the dogs irritates it. Does knitting and reading which is painful. Notes wakes up ok, but then throughout the day neck is more painful, always on the left. Lives with who has dementia, so she does all the yardwork and housework. She does note pain can radiate down the left arm slightly into the shoulder, does not go lower than mid deltoid. Does have a long history of headaches. Prior Functional Status Baseline Function- ADL's Independent Baseline Function- Mobility Independent Personal Factors Other Personal Factors That May Effect Osteoporosis Therapy/Recovery PT-OP-C Subjective Start: 05/21/22 15:57 Freq: Status: Active Protocol: Document 05/24/22 13:33 AMB (Rec: 05/24/22 13:39 AMB [id number]) OP-PT Subjective Patient Comments Patient Comments Pt has been doing HEP, so far neck is feeling about the same . PT-OP-J Posture/Palpation/Skin Start: 05/21/22 15:57 Freq: Status: Active Protocol: Document 05/22/22 10:30 AMB (Rec: 05/22/22 13:11 AMB [id number]) Posture Evaluation Comments Posture Comments Forward head, flat lumbar spine with posterior pelvic tilt and flexed knees posture. Palpation Assessment Location One Palpation Location cervical spine Palpation Findings Spasm,Muscle Guarding, Tenderness Palpation Details SCM, UT, levator scap all increased tension L>R PT-OP-K Range of Motion Start: 05/21/22 15:57 Freq: Status: Active Protocol: Document 05/22/22 10:42 AMB (Rec: 05/22/22 10:45 AMB [id number]) Cervical Spine Range of Motion Cervical Spine Active Degrees Testing Position Sitting Flexion 45 Extension 30 Rotation Left 50 Rotation Right 55 PT-OP-M Strength Start: 05/21/22 15:57 Freq: Status: Active Protocol: Document 05/22/22 10:51 AMB (Rec: 05/22/22 10:52 AMB [id number]) Shoulder Strength Shoulder Manual Muscle Testing Left Flexion 4- Good- Extension 5 Normal Abduction (C5) 4 Good External Rotation 4+ Good+ Internal Rotation 4+ Good+ PT-OP-Q Treatments Start: 05/21/22 15:57 Freq: Status: Active Protocol: Document 05/24/22 13:33 AMB (Rec: 05/24/22 13:39 AMB [id number]) Therapeutic Exercises Supine Exercises chin tuck Reps/Minutes 5x5 Sitting Exercises levator scap stretch Reps/Minutes 30x2 Standing Exercises pec stretch Standing Exercise Name doorway vs corner Reps/Minutes 30x2 Manual Therapy Treatment Soft Tissue Mobilization cervical Body Location paraspinals, sub occipitals Mobilization Type Myofascial Release,Sustained Pressure Intensity/Depth Moderate Body Position Hooklying PT-OP-T Assessment and Plan Start: 05/21/22 15:57 Freq: Status: Active Protocol: Document 05/24/22 13:33 AMB (Rec: 05/24/22 13:39 AMB [id number]) Physical Therapy Assessment Goals Two Impairment ROM Short Term Goal (STG) Kong will increase her cervical rotation to at least 60 degrees bilaterally. STG Duration 4 weeks One Impairment Pain Short Term Goal (STG) Kong will sit to read for 30 minutes without neck pain. STG Duration 4 weeks Facility Supervisor Goal (LTG) Kong will drive without neck pain. LTG Duration 10 weeks Assessment Summary Assessment kong has some stretching discomfort with chin tucks, encouaged to go through comfortable ROM. Continues to have tension through cervical muscles. Pt does note she has been using pillow to read/ knit. Physical Therapy Plan Next Visit Focus/Plan Next Note Type Treatment Note Next Visit Plan Reassess HEP: chin tucks and pec stretch, levator scap stretch
--- NOTE | 2022-05-28 13:45 | PT.OTN ---
Current Diagnoses Cervicalgia (06/12/22) Physical Therapy Treatment Note PT-OP-A Visit Information Start: 05/21/22 15:57 Freq: Status: Active Protocol: Document 06/12/22 09:09 AMB (Rec: 06/12/22 09:50 AMB [id number]) Out-Patient Physical Therapy Visit Information Visit Information Visit Type Treatment Note Visit Start Time 09:00 Visit Stop Time 09:45 Total Visit Minutes 45 Visit Number 7 PT-OP-B Current Condition Start: 05/21/22 15:57 Freq: Status: Active Protocol: Document 05/22/22 10:23 AMB (Rec: 05/22/22 10:41 AMB [id number]) Current Condition History of Current Condition Onset Date months Current Complaints neck pain History of Current Condition Rotation to the left, marielena in the afternoon is painful and stiff. Walking the dogs irritates it. Does knitting and reading which is painful. Notes wakes up ok, but then throughout the day neck is more painful, always on the left. Lives with who has dementia, so she does all the yardwork and housework. She does note pain can radiate down the left arm slightly into the shoulder, does not go lower than mid deltoid. Does have a long history of headaches. Prior Functional Status Baseline Function- ADL's Independent Baseline Function- Mobility Independent Personal Factors Other Personal Factors That May Effect Osteoporosis Therapy/Recovery PT-OP-C Subjective Start: 05/21/22 15:57 Freq: Status: Active Protocol: Document 06/12/22 09:09 AMB (Rec: 06/12/22 09:50 AMB [id number]) OP-PT Subjective Patient Comments Patient Comments Teresa reports decreasing pain, can still feel it a little with turning to look at clock in bed, bu timproving. PT-OP-J Posture/Palpation/Skin Start: 05/21/22 15:57 Freq: Status: Active Protocol: Document 05/22/22 10:30 AMB (Rec: 05/22/22 13:11 AMB [id number]) Posture Evaluation Comments Posture Comments Forward head, flat lumbar spine with posterior pelvic tilt and flexed knees posture. Palpation Assessment Location One Palpation Location cervical spine Palpation Findings Spasm,Muscle Guarding, Tenderness Palpation Details SCM, UT, levator scap all increased tension L>R PT-OP-K Range of Motion Start: 05/21/22 15:57 Freq: Status: Active Protocol: Document 05/22/22 10:42 AMB (Rec: 05/22/22 10:45 AMB [id number]) Cervical Spine Range of Motion Cervical Spine Active Degrees Testing Position Sitting Flexion 45 Extension 30 Rotation Left 50 Rotation Right 55 PT-OP-M Strength Start: 05/21/22 15:57 Freq: Status: Active Protocol: Document 05/22/22 10:51 AMB (Rec: 05/22/22 10:52 AMB [id number]) Shoulder Strength Shoulder Manual Muscle Testing Left Flexion 4- Good- Extension 5 Normal Abduction (C5) 4 Good External Rotation 4+ Good+ Internal Rotation 4+ Good+ PT-OP-Q Treatments Start: 05/21/22 15:57 Freq: Status: Active Protocol: Document 06/12/22 09:09 AMB (Rec: 06/12/22 09:50 AMB [id number]) Cardio Equipment Upper Body Ergometer (UBE) Duration (Minutes) 6 Other fwd back Therapeutic Exercises Supine Exercises chin tuck Reps/Minutes 5x5 Sitting Exercises levator scap stretch Reps/Minutes 30x2 Standing Exercises t band rows Resistance #3 t band Reps/Minutes 2x10 Manual Therapy Treatment Soft Tissue Mobilization cervical Body Location paraspinals, sub occipitals, levator scap Mobilization Type Myofascial Release,Sustained Pressure Intensity/Depth Moderate Body Position Hooklying PT-OP-T Assessment and Plan Start: 05/21/22 15:57 Freq: Status: Active Protocol: Document 06/12/22 09:09 AMB (Rec: 06/12/22 09:50 AMB [id number]) Physical Therapy Assessment Goals Two Impairment ROM Short Term Goal (STG) Teresa will increase her cervical rotation to at least 60 degrees bilaterally. STG Duration 4 weeks One Impairment Pain Short Term Goal (STG) Teresa will sit to read for 30 minutes without neck pain. STG Duration 4 weeks Senior Care Goal (LTG) Teresa will drive without neck pain. LTG Duration 10 weeks Assessment Summary Assessment Teresa reports turning her head to check the clock is less painful. Reading is still a little uncomfortable, but is trying to put a pillow on her lap to improve tolerance to this. Rotation ROM is improving. Physical Therapy Plan Next Visit Focus/Plan Next Note Type Treatment Note Next Visit Plan Reassess HEP: chin tucks and pec stretch, levator scap, t band rows
--- NOTE | 2022-05-30 09:38 | PT.OTN ---
Current Diagnoses Cervicalgia (05/30/22) Physical Therapy Treatment Note PT-OP-A Visit Information Start: 05/21/22 15:57 Freq: Status: Active Protocol: Document 05/30/22 07:32 AMB (Rec: 05/30/22 09:10 AMB [id number]) Out-Patient Physical Therapy Visit Information Visit Information Visit Type Treatment Note Visit Start Time 07:30 Visit Stop Time 08:15 Total Visit Minutes 40 Visit Number 4 PT-OP-B Current Condition Start: 05/21/22 15:57 Freq: Status: Active Protocol: Document 05/22/22 10:23 AMB (Rec: 05/22/22 10:41 AMB [id number]) Current Condition History of Current Condition Onset Date months Current Complaints neck pain History of Current Condition Rotation to the left, marielena in the afternoon is painful and stiff. Walking the dogs irritates it. Does knitting and reading which is painful. Notes wakes up ok, but then throughout the day neck is more painful, always on the left. Lives with who has dementia, so she does all the yardwork and housework. She does note pain can radiate down the left arm slightly into the shoulder, does not go lower than mid deltoid. Does have a long history of headaches. Prior Functional Status Baseline Function- ADL's Independent Baseline Function- Mobility Independent Personal Factors Other Personal Factors That May Effect Osteoporosis Therapy/Recovery PT-OP-C Subjective Start: 05/21/22 15:57 Freq: Status: Active Protocol: Document 05/30/22 07:32 AMB (Rec: 05/30/22 09:10 AMB [id number]) OP-PT Subjective Patient Comments Patient Comments Very busy yesterday, so doesn' t remember the neck being especially bad. Has been working on posture. PT-OP-J Posture/Palpation/Skin Start: 05/21/22 15:57 Freq: Status: Active Protocol: Document 05/22/22 10:30 AMB (Rec: 05/22/22 13:11 AMB [id number]) Posture Evaluation Comments Posture Comments Forward head, flat lumbar spine with posterior pelvic tilt and flexed knees posture. Palpation Assessment Location One Palpation Location cervical spine Palpation Findings Spasm,Muscle Guarding, Tenderness Palpation Details SCM, UT, levator scap all increased tension L>R PT-OP-K Range of Motion Start: 05/21/22 15:57 Freq: Status: Active Protocol: Document 05/22/22 10:42 AMB (Rec: 05/22/22 10:45 AMB [id number]) Cervical Spine Range of Motion Cervical Spine Active Degrees Testing Position Sitting Flexion 45 Extension 30 Rotation Left 50 Rotation Right 55 PT-OP-M Strength Start: 05/21/22 15:57 Freq: Status: Active Protocol: Document 05/22/22 10:51 AMB (Rec: 05/22/22 10:52 AMB [id number]) Shoulder Strength Shoulder Manual Muscle Testing Left Flexion 4- Good- Extension 5 Normal Abduction (C5) 4 Good External Rotation 4+ Good+ Internal Rotation 4+ Good+ PT-OP-Q Treatments Start: 05/21/22 15:57 Freq: Status: Active Protocol: Document 05/30/22 09:29 AMB (Rec: 05/30/22 09:37 AMB [id number]) Therapeutic Exercises Sitting Exercises levator scap stretch Reps/Minutes 30x2 Standing Exercises chin tuck against wall Reps/Minutes 2x10 Comments with cues for posture Manual Therapy Treatment Soft Tissue Mobilization cervical Body Location paraspinals, sub occipitals, levator scap Mobilization Type Myofascial Release,Sustained Pressure Intensity/Depth Moderate Body Position Hooklying PT-OP-T Assessment and Plan Start: 05/21/22 15:57 Freq: Status: Active Protocol: Document 05/30/22 07:32 AMB (Rec: 05/30/22 09:10 AMB [id number]) Physical Therapy Assessment Goals Two Impairment ROM Short Term Goal (STG) Teresa will increase her cervical rotation to at least 60 degrees bilaterally. STG Duration 4 weeks One Impairment Pain Short Term Goal (STG) Teresa will sit to read for 30 minutes without neck pain. STG Duration 4 weeks Jail Goal (LTG) Teresa will drive without neck pain. LTG Duration 10 weeks Assessment Summary Assessment Teresa is doing well, was able to get through day yesterday without too much neck pain. Has been working on her posture. Physical Therapy Plan Next Visit Focus/Plan Next Note Type Treatment Note Next Visit Plan Reassess HEP: chin tucks and pec stretch, levator scap, t band rows
--- NOTE | 2022-06-05 15:53 | PT.OTN ---
Current Diagnoses Cervicalgia (06/05/22) Physical Therapy Treatment Note PT-OP-A Visit Information Start: 05/21/22 15:57 Freq: Status: Active Protocol: Document 06/05/22 13:04 AMB (Rec: 06/05/22 13:46 AMB [id number]) Out-Patient Physical Therapy Visit Information Visit Information Visit Type Treatment Note Visit Start Time 13:00 Visit Stop Time 13:45 Total Visit Minutes 40 Visit Number 5 PT-OP-B Current Condition Start: 05/21/22 15:57 Freq: Status: Active Protocol: Document 05/22/22 10:23 AMB (Rec: 05/22/22 10:41 AMB [id number]) Current Condition History of Current Condition Onset Date months Current Complaints neck pain History of Current Condition Rotation to the left, marielena in the afternoon is painful and stiff. Walking the dogs irritates it. Does knitting and reading which is painful. Notes wakes up ok, but then throughout the day neck is more painful, always on the left. Lives with who has dementia, so she does all the yardwork and housework. She does note pain can radiate down the left arm slightly into the shoulder, does not go lower than mid deltoid. Does have a long history of headaches. Prior Functional Status Baseline Function- ADL's Independent Baseline Function- Mobility Independent Personal Factors Other Personal Factors That May Effect Osteoporosis Therapy/Recovery PT-OP-C Subjective Start: 05/21/22 15:57 Freq: Status: Active Protocol: Document 06/05/22 13:00 AMB (Rec: 06/05/22 15:52 AMB [id number]) OP-PT Subjective Patient Comments Patient Comments Teresa states she is doing well PT-OP-J Posture/Palpation/Skin Start: 05/21/22 15:57 Freq: Status: Active Protocol: Document 05/22/22 10:30 AMB (Rec: 05/22/22 13:11 AMB [id number]) Posture Evaluation Comments Posture Comments Forward head, flat lumbar spine with posterior pelvic tilt and flexed knees posture. Palpation Assessment Location One Palpation Location cervical spine Palpation Findings Spasm,Muscle Guarding, Tenderness Palpation Details SCM, UT, levator scap all increased tension L>R PT-OP-K Range of Motion Start: 05/21/22 15:57 Freq: Status: Active Protocol: Document 08/02/22 10:42 AMB (Rec: 05/22/22 10:45 AMB [id number]) Cervical Spine Range of Motion Cervical Spine Active Degrees Testing Position Sitting Flexion 45 Extension 30 Rotation Left 50 Rotation Right 55 PT-OP-M Strength Start: 05/21/22 15:57 Freq: Status: Active Protocol: Document 05/22/22 10:51 AMB (Rec: 05/22/22 10:52 AMB [id number]) Shoulder Strength Shoulder Manual Muscle Testing Left Flexion 4- Good- Extension 5 Normal Abduction (C5) 4 Good External Rotation 4+ Good+ Internal Rotation 4+ Good+ PT-OP-Q Treatments Start: 05/21/22 15:57 Freq: Status: Active Protocol: Document 06/05/22 13:00 AMB (Rec: 06/05/22 15:52 AMB [id number]) Therapeutic Exercises Supine Exercises chin tuck Reps/Minutes 5x5 Standing Exercises t band rows Resistance #3 t band Reps/Minutes 2x10 quadruped UE extension Reps/Minutes 2x10 Other Exercises thread the needle Reps/Minutes 10 quadruped chin tuck Reps/Minutes 2x30 Manual Therapy Treatment Soft Tissue Mobilization cervical Body Location paraspinals, sub occipitals, levator scap Mobilization Type Myofascial Release,Sustained Pressure Intensity/Depth Moderate Body Position Hooklying PT-OP-T Assessment and Plan Start: 05/21/22 15:57 Freq: Status: Active Protocol: Document 06/05/22 13:00 AMB (Rec: 06/05/22 15:52 AMB [id number]) Physical Therapy Assessment Goals Two Impairment ROM Short Term Goal (STG) Teresa will increase her cervical rotation to at least 60 degrees bilaterally. STG Duration 4 weeks One Impairment Pain Short Term Goal (STG) Teresa will sit to read for 30 minutes without neck pain. STG Duration 4 weeks [facility] Goal (LTG) Teresa will drive without neck pain. LTG Duration 10 weeks Assessment Summary Assessment Teresa is improving her cervical range and decreasing her pain, did increase her HEP significantly this visit, so will want to see how that is going next visit. Physical Therapy Plan Next Visit Focus/Plan Next Note Type Treatment Note Next Visit Plan Reassess HEP: chin tucks and pec stretch, levator scap, t band rows
--- NOTE | 2022-06-12 09:50 | PT.OTN ---
Current Diagnoses Cervicalgia (06/12/22) Physical Therapy Treatment Note PT-OP-A Visit Information Start: 05/21/22 15:57 Freq: Status: Active Protocol: Document 06/12/22 09:09 AMB (Rec: 06/12/22 09:50 AMB [id number]) Out-Patient Physical Therapy Visit Information Visit Information Visit Type Treatment Note Visit Start Time 09:00 Visit Stop Time 09:45 Total Visit Minutes 45 Visit Number 7 PT-OP-B Current Condition Start: 05/21/22 15:57 Freq: Status: Active Protocol: Document 05/22/22 10:23 AMB (Rec: 05/22/22 10:41 AMB [id number]) Current Condition History of Current Condition Onset Date months Current Complaints neck pain History of Current Condition Rotation to the left, marielena in the afternoon is painful and stiff. Walking the dogs irritates it. Does knitting and reading which is painful. Notes wakes up ok, but then throughout the day neck is more painful, always on the left. Lives with who has dementia, so she does all the yardwork and housework. She does note pain can radiate down the left arm slightly into the shoulder, does not go lower than mid deltoid. Does have a long history of headaches. Prior Functional Status Baseline Function- ADL's Independent Baseline Function- Mobility Independent Personal Factors Other Personal Factors That May Effect Osteoporosis Therapy/Recovery PT-OP-C Subjective Start: 05/21/22 15:57 Freq: Status: Active Protocol: Document 06/12/22 09:09 AMB (Rec: 06/12/22 09:50 AMB [id number]) OP-PT Subjective Patient Comments Patient Comments Teresa reports decreasing pain, can still feel it a little with turning to look at clock in bed, bu timproving. PT-OP-J Posture/Palpation/Skin Start: 05/21/22 15:57 Freq: Status: Active Protocol: Document 05/22/22 10:30 AMB (Rec: 05/22/22 13:11 AMB [id number]) Posture Evaluation Comments Posture Comments Forward head, flat lumbar spine with posterior pelvic tilt and flexed knees posture. Palpation Assessment Location One Palpation Location cervical spine Palpation Findings Spasm,Muscle Guarding, Tenderness Palpation Details SCM, UT, levator scap all increased tension L>R PT-OP-K Range of Motion Start: 05/21/22 15:57 Freq: Status: Active Protocol: Document 05/22/22 10:42 AMB (Rec: 05/22/22 10:45 AMB [id number]) Cervical Spine Range of Motion Cervical Spine Active Degrees Testing Position Sitting Flexion 45 Extension 30 Rotation Left 50 Rotation Right 55 PT-OP-M Strength Start: 05/21/22 15:57 Freq: Status: Active Protocol: Document 05/22/22 10:51 AMB (Rec: 05/22/22 10:52 AMB [id number]) Shoulder Strength Shoulder Manual Muscle Testing Left Flexion 4- Good- Extension 5 Normal Abduction (C5) 4 Good External Rotation 4+ Good+ Internal Rotation 4+ Good+ PT-OP-Q Treatments Start: 05/21/22 15:57 Freq: Status: Active Protocol: Document 06/12/22 09:09 AMB (Rec: 06/12/22 09:50 AMB [id number]) Cardio Equipment Upper Body Ergometer (UBE) Duration (Minutes) 6 Other fwd back Therapeutic Exercises Supine Exercises chin tuck Reps/Minutes 5x5 Sitting Exercises levator scap stretch Reps/Minutes 30x2 Standing Exercises t band rows Resistance #3 t band Reps/Minutes 2x10 Manual Therapy Treatment Soft Tissue Mobilization cervical Body Location paraspinals, sub occipitals, levator scap Mobilization Type Myofascial Release,Sustained Pressure Intensity/Depth Moderate Body Position Hooklying PT-OP-T Assessment and Plan Start: 05/21/22 15:57 Freq: Status: Active Protocol: Document 06/12/22 09:09 AMB (Rec: 06/12/22 09:50 AMB [id number]) Physical Therapy Assessment Goals Two Impairment ROM Short Term Goal (STG) Teresa will increase her cervical rotation to at least 60 degrees bilaterally. STG Duration 4 weeks One Impairment Pain Short Term Goal (STG) Teresa will sit to read for 30 minutes without neck pain. STG Duration 4 weeks [facility] Goal (LTG) Teresa will drive without neck pain. LTG Duration 10 weeks Assessment Summary Assessment Teresa reports turning her head to check the clock is less painful. Reading is still a little uncomfortable, but is trying to put a pillow on her lap to improve tolerance to this. Rotation ROM is improving. Physical Therapy Plan Next Visit Focus/Plan Next Note Type Treatment Note Next Visit Plan Reassess HEP: chin tucks and pec stretch, levator scap, t band rows
--- NOTE | 2022-06-15 11:43 | PT.OTN ---
Current Diagnoses Cervicalgia (06/15/22) Physical Therapy Treatment Note PT-OP-A Visit Information Start: 05/21/22 15:57 Freq: Status: Active Protocol: Document 06/15/22 11:43 NBM (Rec: 06/15/22 13:48 [facility] [id number]) Out-Patient Physical Therapy Visit Information Visit Information Visit Type Treatment Note Visit Start Time 11:30 Visit Stop Time 12:10 Total Visit Minutes 40 Visit Number 8 PT-OP-B Current Condition Start: 05/21/22 15:57 Freq: Status: Active Protocol: Document 05/22/22 10:23 AMB (Rec: 05/22/22 10:41 AMB [id number]) Current Condition History of Current Condition Onset Date months Current Complaints neck pain History of Current Condition Rotation to the left, marielena in the afternoon is painful and stiff. Walking the dogs irritates it. Does knitting and reading which is painful. Notes wakes up ok, but then throughout the day neck is more painful, always on the left. Lives with who has dementia, so she does all the yardwork and housework. She does note pain can radiate down the left arm slightly into the shoulder, does not go lower than mid deltoid. Does have a long history of headaches. Prior Functional Status Baseline Function- ADL's Independent Baseline Function- Mobility Independent Personal Factors Other Personal Factors That May Effect Osteoporosis Therapy/Recovery PT-OP-C Subjective Start: 05/21/22 15:57 Freq: Status: Active Protocol: Document 06/15/22 11:43 NBM (Rec: 06/17/22 19:22 [facility] [phone]-) OP-PT Subjective Patient Comments Patient Comments Pt reports improving but still stiffness in L side of neck end of day and when looking at clock by bed. PT-OP-J Posture/Palpation/Skin Start: 05/21/22 15:57 Freq: Status: Active Protocol: Document 05/22/22 10:30 AMB (Rec: 05/22/22 13:11 AMB [id number]) Posture Evaluation Comments Posture Comments Forward head, flat lumbar spine with posterior pelvic tilt and flexed knees posture. Palpation Assessment Location One Palpation Location cervical spine Palpation Findings Spasm,Muscle Guarding, Tenderness Palpation Details SCM, UT, levator scap all increased tension L>R PT-OP-K Range of Motion Start: 05/21/22 15:57 Freq: Status: Active Protocol: Document 05/22/22 10:42 AMB (Rec: 05/22/22 10:45 AMB [id number]) Cervical Spine Range of Motion Cervical Spine Active Degrees Testing Position Sitting Flexion 45 Extension 30 Rotation Left 50 Rotation Right 55 PT-OP-M Strength Start: 05/21/22 15:57 Freq: Status: Active Protocol: Document 05/22/22 10:51 AMB (Rec: 05/22/22 10:52 AMB [id number]) Shoulder Strength Shoulder Manual Muscle Testing Left Flexion 4- Good- Extension 5 Normal Abduction (C5) 4 Good External Rotation 4+ Good+ Internal Rotation 4+ Good+ PT-OP-Q Treatments Start: 05/21/22 15:57 Freq: Status: Active Protocol: Document 06/15/22 11:43 NBM (Rec: 06/15/22 13:48 NBM [id number]) Therapeutic Exercises Standing Exercises t band rows Resistance #3 t band Reps/Minutes 2x10 Comments cues for elbows straight back, upright posture, scap squeeze quadruped UE extension Reps/Minutes 2x10 Other Exercises Cat/Camel Other Exercise Name added to HEP Reps/Minutes x15 Comments initial cues for form thread the needle Reps/Minutes 10 Comments cues for form quadruped chin tuck Reps/Minutes 2x30 Comments cues to reduce thoracic kyphosis, improved after cat/ camel Manual Therapy Treatment Soft Tissue Mobilization cervical Body Location paraspinals, sub occipitals, levator scap, UT Mobilization Type Myofascial Release,Sustained Pressure Intensity/Depth Moderate Body Position Hooklying Self-Care/Home Management Treatment Education Patient Education Home Exercise Program Other Education Cat/Camel added to HEP - HO given. PT-OP-T Assessment and Plan Start: 05/21/22 15:57 Freq: Status: Active Protocol: Document 06/15/22 11:43 NBM (Rec: 06/15/22 13:48 NBM [id number]) Physical Therapy Assessment Goals Two Impairment ROM Short Term Goal (STG) Teresa will increase her cervical rotation to at least 60 degrees bilaterally. STG Duration 4 weeks One Impairment Pain Short Term Goal (STG) Teresa will sit to read for 30 minutes without neck pain. STG Duration 4 weeks Intermediate Goal (LTG) Teresa will drive without neck pain. LTG Duration 10 weeks Assessment Summary Assessment Pt's self-awareness of scapular retraction improved w / cueing for holding pencil between shoulder blades. Palpable tension decreased w/ manual therapy. Cat/Camel added to HEP - HO given. Physical Therapy Plan Next Visit Focus/Plan Next Note Type Treatment Note Next Visit Plan Reassess HEP quadruped and standing rows, chin tucks and pec stretch, levator scap, t band rows
--- NOTE | 2022-06-19 13:45 | PT.OTN ---
Current Diagnoses Cervicalgia (06/19/22) Physical Therapy Treatment Note PT-OP-A Visit Information Start: 05/21/22 15:57 Freq: Status: Active Protocol: Document 06/19/22 11:22 AMB (Rec: 06/19/22 12:11 AMB [id number]) Out-Patient Physical Therapy Visit Information Visit Information Visit Type Treatment Note Visit Start Time 11:15 Visit Stop Time 12:00 Total Visit Minutes 45 Visit Number 9 PT-OP-B Current Condition Start: 05/21/22 15:57 Freq: Status: Active Protocol: Document 05/22/22 10:23 AMB (Rec: 05/22/22 10:41 AMB [id number]) Current Condition History of Current Condition Onset Date months Current Complaints neck pain History of Current Condition Rotation to the left, marielena in the afternoon is painful and stiff. Walking the dogs irritates it. Does knitting and reading which is painful. Notes wakes up ok, but then throughout the day neck is more painful, always on the left. Lives with who has dementia, so she does all the yardwork and housework. She does note pain can radiate down the left arm slightly into the shoulder, does not go lower than mid deltoid. Does have a long history of headaches. Prior Functional Status Baseline Function- ADL's Independent Baseline Function- Mobility Independent Personal Factors Other Personal Factors That May Effect Osteoporosis Therapy/Recovery PT-OP-C Subjective Start: 05/21/22 15:57 Freq: Status: Active Protocol: Document 06/19/22 11:22 AMB (Rec: 06/19/22 12:11 AMB [id number]) OP-PT Subjective Patient Comments Patient Comments Pt is wondering if today can be her last PT appointment. Feels like she has learned a lot, does have questions about a couple exercises. PT-OP-J Posture/Palpation/Skin Start: 05/21/22 15:57 Freq: Status: Active Protocol: Document 05/22/22 10:30 AMB (Rec: 05/22/22 13:11 AMB [id number]) Posture Evaluation Comments Posture Comments Forward head, flat lumbar spine with posterior pelvic tilt and flexed knees posture. Palpation Assessment Location One Palpation Location cervical spine Palpation Findings Spasm,Muscle Guarding, Tenderness Palpation Details SCM, UT, levator scap all increased tension L>R PT-OP-K Range of Motion Start: 05/21/22 15:57 Freq: Status: Active Protocol: Document 05/22/22 10:42 AMB (Rec: 05/22/22 10:45 AMB [id number]) Cervical Spine Range of Motion Cervical Spine Active Degrees Testing Position Sitting Flexion 45 Extension 30 Rotation Left 50 Rotation Right 55 PT-OP-M Strength Start: 05/21/22 15:57 Freq: Status: Active Protocol: Document 05/22/22 10:51 AMB (Rec: 05/22/22 10:52 AMB [id number]) Shoulder Strength Shoulder Manual Muscle Testing Left Flexion 4- Good- Extension 5 Normal Abduction (C5) 4 Good External Rotation 4+ Good+ Internal Rotation 4+ Good+ PT-OP-Q Treatments Start: 05/21/22 15:57 Freq: Status: Active Protocol: Document 06/19/22 11:22 AMB (Rec: 06/19/22 12:11 AMB [id number]) Cardio Equipment Upper Body Ergometer (UBE) Duration (Minutes) 6 Other fwd back Therapeutic Exercises Supine Exercises chin tuck Reps/Minutes 5x5 Other Exercises Cat/Camel Other Exercise Name added to HEP Reps/Minutes x15 Comments initial cues for form thread the needle Reps/Minutes 10 Comments cues for form Manual Therapy Treatment Soft Tissue Mobilization cervical Body Location paraspinals, sub occipitals, levator scap, UT Mobilization Type Myofascial Release,Sustained Pressure Intensity/Depth Moderate Body Position Hooklying PT-OP-T Assessment and Plan Start: 05/21/22 15:57 Freq: Status: Active Protocol: Document 06/19/22 11:22 AMB (Rec: 06/19/22 12:11 AMB [id number]) Physical Therapy Assessment Goals Two Impairment ROM Short Term Goal (STG) Teresa will increase her cervical rotation to at least 60 degrees bilaterally. STG Duration MET One Impairment Pain Short Term Goal (STG) Teresa will sit to read for 30 minutes without neck pain. In the morning, goal met. Does get sore in the evening. STG Duration PARTIALLY MET Public Affairs Officer Goal (LTG) Teresa will drive without neck pain. LTG Duration MET Assessment Summary Assessment Teresa reports she is doing better and is ready for discharge. She is happy that her range of motion has improved to 60 degrees (from 50). She does continue to have some discomfort at the end of hte day, but is continuing to work on being more mindful of her posture. She will continue to work on her exercises and be mindful to avoid extended neck flexion positions. Physical Therapy Plan Discharge Physical Therapy Discharge Reasons Goals Met Next Visit Focus/Plan Next Note Type Treatment Note
== END 2022-06-20 10:10 | disposition home or self-care (01) ==
LOC: PHYS 11:15
PROVIDERS: Family Provider Pediatrics; PCP Pediatrics; Referring Provider Pediatrics; Visit Provider Pediatrics
DX: M54.2 Cervicalgia (principal)
CPT/HCPCS: 97110; 97140; 97161

== ENCOUNTER → 2022-11-01 10:56 | Outpatient (CLI) | payer MEDICARE, OTHER, SELFPAY | PROVIDERS: Family Provider Pediatrics; PCP Family Medicine; Visit Provider Nurse Practitioner Family | DX: N39.0 Urinary tract infection, site not specified (principal) | CPT/HCPCS: 87077; 87086; 87186 ==

== ENCOUNTER → 2023-01-08 11:01 | Outpatient (CLI) | payer MEDICARE, OTHER, SELFPAY ==
[2023-01-08 11:45] LABS: Appearance Urine UA CLEAR; Bilirubin Urine UA NEGATIVE (NEGATIVE); Color Urine UA YELLOW; Glucose Urine UA NEGATIVE (Negative); Ketones Urine UA NEGATIVE (NEGATIVE); Leukocyte Esterase Urine UA NEGATIVE (NEGATIVE); Nitrite Urine UA NEGATIVE (Negative); Occult Blood Urine UA NEGATIVE (Negative); Protein Urine UA NEGATIVE (Negative); Urobilinogen Urine UA 0.2 E.U./dL (0.2)
[2023-01-08 11:46] LABS: pH Urine UA 6.5 (4.5-8.0)
[2023-01-08 11:52] LABS: Bacteria Urine None Seen; Culture Indicated Urine Cult Not Indicated; RBC Urine None Seen (0-5/HPF); Urine Comments Microscopic Normal; WBC Urine None Seen (0-5/HPF)
[2023-01-08 11:54] LABS: Add Manual Diff / Slide Review NO; Basophils Absolute Auto 100 /uL (0-100); Basophils Percent Auto 0.9 % (0-2); Eosinophils Absolute Auto 100 /uL (0-450); Eosinophils Percent Auto 1.9 % (2-4); Hematocrit 38.3 % (36-46); Hemoglobin 12.9 g/dL (12.0-16.0); Lymphocytes Absolute Auto 1700 /uL (1100-4500); Lymphocytes Percent Auto 28.3 % (25-40); Mean Corpuscular HGB Conc 33.6 % (30-36); Mean Corpuscular Hemoglobin 31.6 PG (26-34); Mean Corpuscular Volume 94.1 fL (80-100); Monocytes Absolute Auto 700 /uL (0-900); Monocytes Percent Auto 11.9 % (3-14); Neutrophils Absolute Auto 3400 /uL (1500-7000); Platelet Count 218 X10^3/uL (150-400); Red Blood Cell Count 4.06 X10^6/uL (4.0-5.2); Red Cell Distribution Width 13.1 % (11.6-14.8); White Blood Cell Count 5.9 X10^3/uL (4.5-11.0)
[2023-01-08 11:57] LABS: Hemoglobin A1C% w Est Avg Glu 5.4 % (4.0-6.0)
[2023-01-08 12:15] LABS: BUN Creatinine Ratio 18.9 (6-22); Blood Urea Nitrogen 14 mg/dL (7-17); Calcium 8.9 mg/dL (8.4-10.2); Carbon Dioxide 34 mmol/L (22-32); Chloride 103 mmol/L (98-107); Estimated Glomerular Filt Rate > 60 mL/min (>60); Glucose 96 mg/dL (80-110); HEMOLYSIS < 15 (0-50); Potassium 4.5 mmol/L (3.4-5.1); Sodium 140 mmol/L (137-145)
== END ==
PROVIDERS: Family Provider Pediatrics; PCP Family Medicine; Referring Provider Orthopaedic Surgery; Visit Provider Orthopaedic Surgery
DX: Z01.818 Encounter for other preprocedural examination (principal); R73.9 Hyperglycemia, unspecified; Z01.812 Encounter for preprocedural laboratory examination; N39.0 Urinary tract infection, site not specified
CPT/HCPCS: 36415; 80048; 81001; 83036; 85025; 93005; 93010

== ENCOUNTER → 2023-03-05 11:28 | Outpatient (CLI) | payer MEDICARE, OTHER, SELFPAY ==
--- NOTE | 2023-03-05 | DI.MG.S_ITS ---
BILATERAL DIGITAL SCREENING MAMMOGRAM 3D/2D WITH CAD: 03/05/2023 CLINICAL: Routine screening. Comparison is made to exams dated: 03/01/2022 mammogram, 02/25/2021 mammogram, and 12/22/2019 mammogram - [facility]. Both breasts are heterogeneously dense, which may obscure small masses (category c / 51-75% glandular tissue). Current study was also evaluated with a Computer Aided Detection (CAD) system. There is a possible developing round low density asymmetry in the left breast anterior depth inferior region seen on the mediolateral oblique view only. No other significant masses, calcifications, or other findings are seen in either breast. IMPRESSION: INCOMPLETE: NEEDS ADDITIONAL IMAGING EVALUATION The possible developing round low density asymmetry in the left breast is indeterminate. Additional views with possible ultrasound are recommended. Based on the Tyrer Cuzick model (a risk assessment model) the patient's lifetime risk is 4.2% and her 10 year risk is 0.0%. According to the ACR, ACS, and NCCN guidelines, an annual breast MRI exam along with mammogram is recommended if the patient's lifetime risk is 20% or greater. This exam was interpreted at Station ID: [id number]. NOTE: For mammograms, a report in lay terms will be sent to the patient. Approximately 15% of breast malignancies will not be visualized mammographically. In the management of a palpable breast mass, a negative mammogram must not discourage biopsy of a clinically suspicious lesion. Electronically Signed By: Arielle wyatt/kianna:03/05/2023 16:37:59 letter sent: Comparison Films Needed ACR BI-RADS Category 0: Incomplete 3340F
== END ==
PROVIDERS: Family Provider Pediatrics; PCP Family Medicine; Referring Provider Family Medicine; Visit Provider Family Medicine
DX: Z12.31 Encounter for screening mammogram for malignant neoplasm of breast (principal)
CPT/HCPCS: 77063; 77067

== ENCOUNTER → 2023-03-20 08:38 | Outpatient (CLI) | payer MEDICARE, OTHER, SELFPAY ==
--- NOTE | 2023-03-20 08:40 | DI.RAD.S_ITS ---
PROCEDURE: XR THORACIC SPINE 3V INDICATIONS: chronic back pain TECHNIQUE: 3 views of the thoracic spine were acquired. COMPARISON: None. FINDINGS: Bones: No acute fractures or dislocations. No acute compression fractures. Chronic appearing compression fractures involving the anterior vertebral body of T7 and L1. No acute osseous abnormalities identified otherwise. Mild osteopenia. Multilevel thoracic spondylosis. No suspicious bony lesions. 12 pairs of ribs are noted, and appear intact where visualized. Soft tissues: No paravertebral stripe thickening. IMPRESSION: Thoracic spine without acute osseous abnormalities. Chronic appearing anterior compression deformities of the T7 and L1 vertebral body. Multilevel thoracic spondylosis. Dictated by: Enrique Real M.D. on 03/20/2023 at 21:07 Approved by: Enrique Real M.D. on 03/20/2023 at 21:09
--- NOTE | 2023-03-20 08:40 | DI.RAD.S_ITS ---
PROCEDURE: XR LUMBAR SPINE 2-3V INDICATIONS: chronic back pain TECHNIQUE: 3 views of the lumbar spine were acquired. COMPARISON: None. FINDINGS: Bones: 5 [id number] vertebrae are present. There is normal bony alignment. No acute vertebral body compression fractures. Chronic anterior compression fracture of L1. Multilevel thoracolumbar spondylosis. Moderate degenerative changes at L5-S1 with associated disc space loss. No suspicious bony lesions. Soft tissues: Overlying bowel gas pattern is normal. No suspicious soft tissue calcifications. IMPRESSION: No acute osseous abnormalities. Chronic appearing L1 anterior compression fracture. Multilevel lumbar spondylosis most pronounced at L5-S1. Dictated by: Enrique Real M.D. on 03/20/2023 at 21:09 Approved by: Enrique Real M.D. on 03/20/2023 at 21:10
== END ==
PROVIDERS: Family Provider Pediatrics; PCP Family Medicine; Referring Provider Family Medicine; Visit Provider Family Medicine
DX: M47.814 Spondylosis without myelopathy or radiculopathy, thoracic region (principal); M47.817 Spondylosis without myelopathy or radiculopathy, lumbosacral region; M47.816 Spondylosis without myelopathy or radiculopathy, lumbar region; M48.54XA Collapsed vertebra, not elsewhere classified, thoracic region, initial encounter for fracture; M48.56XA Collapsed vertebra, not elsewhere classified, lumbar region, initial encounter for fracture; M54.9 Dorsalgia, unspecified
CPT/HCPCS: 72072; 72100

== ENCOUNTER → 2023-03-21 09:38 | Outpatient (CLI) | payer MEDICARE, OTHER, SELFPAY ==
--- NOTE | 2023-03-21 | DI.MG.S_ITS ---
UNILATERAL LEFT DIGITAL DIAGNOSTIC MAMMOGRAM 3D/2D WITH ADDITIONAL VIEWS: 03/21/2023 CLINICAL: Additional evaluation requested from prior study. Comparison is made to exams dated: 03/05/2023 mammogram, 03/01/2022 mammogram, 02/25/2021 mammogram, and 12/22/2019 mammogram - [facility]. The left breast is heterogeneously dense, which may obscure small masses (category c / 51-75% glandular tissue). There is a possible asymmetry in the left breast anterior depth inferior region seen on the mediolateral oblique view only. This is not seen in additional views. No other significant masses or calcifications are seen in the breast. IMPRESSION: NEGATIVE There is no mammographic evidence of malignancy. The possible asymmetry in the left breast is consistent with fibroglandular tissue and is benign. Exam findings were conveyed to the patient. A 1 year screening mammogram is recommended. Based on the Tyrer Cuzick model (a risk assessment model) the patient's lifetime risk is 3.6% and her 10 year risk is 0.0%. According to the ACR, ACS, and NCCN guidelines, an annual breast MRI exam along with mammogram is recommended if the patient's lifetime risk is 20% or greater. This exam was interpreted at Station ID: [id number]. NOTE: For mammograms, a report in lay terms will be sent to the patient. Approximately 15% of breast malignancies will not be visualized mammographically. In the management of a palpable breast mass, a negative mammogram must not discourage biopsy of a clinically suspicious lesion. Electronically Signed By: Johny Babb M.D. [facility] [place]/:03/21/2023 10:19:43 letter sent: Normal Exam ACR BI-RADS Category 1: Negative [id number]
== END ==
PROVIDERS: Family Provider Pediatrics; PCP Family Medicine; Referring Provider Family Medicine; Visit Provider Family Medicine
DX: R92.8 Other abnormal and inconclusive findings on diagnostic imaging of breast (principal); N64.89 Other specified disorders of breast
CPT/HCPCS: 77065; G0279

== ENCOUNTER 2023-04-09 11:39 | Day surgery (SDC) | payer MEDICARE, OTHER, SELFPAY ==
[2023-04-01 09:51] VITALS: BMI 20.2
[2023-04-09] VITALS (13 sets, daily range): BP systolic 95–110; BP diastolic 37–62; PULSE 61–84; RESP 12–20; TEMP 36.1–36.9; O2SAT 97–100; BMI 20.2
--- NOTE | 2023-04-09 06:00 | DI.RAD.S_ITS ---
PROCEDURE: XR KNEE LT 1TO2V INDICATIONS: TKA TECHNIQUE: 2 view(s) of the knee acquired. COMPARISON: [facility], , KNEE 1-2 VIEWS RIGHT, 10/01/2016, 10:23. FINDINGS: Bones: Patient is status post knee joint arthroplasty. Hardware components are in expected positions. Visualized bony structures are intact. Soft tissues: Overlying postoperative changes are noted. IMPRESSION: Expected appearance of left knee arthroplasty. No acute fracture. No osseous lesion. If symptoms and/or clinical suspicion for pathology persist, further assessment with repeat, or advanced imaging (e.g., CT, MRI, or bone scan) may be helpful for further assessment. Dictated by: Oscar Mcclure M.D. on 04/10/2023 at 11:28 Transcribed by: ANA on 04/10/2023 at 11:29 Approved by: Oscar Mcclure M.D. on 04/10/2023 at 16:13
[2023-04-09] MEDS: CELECOXIB 200 MG CAPSULE PO (12:15)
[2023-04-09] MEDS: LACTATED RINGERS 1,000 ML 42 ML IV ×2 (12:15→14:38)
[2023-04-09] MEDS: ACETAMINOPHEN 325 MG TABLET 975 MG PO (12:15)
[2023-04-09] MEDS: VANCOMYCIN 1,000 MG/200 ML PIGGYBACK 200 MG IV (12:50)
--- NOTE | 2023-04-09 13:37 | SUR.OPER ---
Supine on padded OR bed, head on pillow, arms secured on padded arm boards at <90 degrees abduction, legs uncrossed, safety belt ACROSS ABDOMEN, tape over blanket OVER RIGHT LOWER LEG, LEFT LEG PREPPED INTO STERILE FIELD, DEMAYO LEG SEE IN USE.
--- NOTE | 2023-04-09 13:53 | PM.PREOP ---
Pre-operative Note Interval Note History & Physical reviewed/Exam performed by Physician: Yes Changes to H&P: No
--- NOTE | 2023-04-09 13:54 | P.OP_ITS ---
Operative Date/Time/Diagnoses Date of procedure: 04/09/23 Time of procedure: 14:00 Pre-op diagnosis: left knee OA Post-op diagnosis: same Procedure & Clinicians Procedure: Left total knee arthroplasty Same procedure as scheduled: Yes Indications: The patient has had progressively worsening left knee pain with radiographic changes consistent with arthritis. Non-operative management has failed and the patient has requested total knee replacement. The risks, benefits and alternatives to surgery were discussed with the patient prior to proceeding. Risks discussed included, but were not limited to, failure to relieve pain, stiffness, infection, nerve damage, deep venous thrombosis, pulmonary embolism, stroke, coma, heart attack, permanent paralysis and , as well as the potential need for eventual revision of the prosthetic. Surgeon: Elizabeth Raygoza Baseball Pitcher: Gilberto Flores Anesthesia Type: Spinal Operative Notes Findings: Severe left knee osteoarthritis, adequate stability, adequate bone Closure Type: primary Specimen(s): none sent Prosthetic devices, grafts, tissues, transplants, or devices: Raygoza and nephew [facility] BCS 2 size femur 6, size 4 tibia, +10 poly, 35 x 7-1/2 mm patella Estimated Blood Loss (mL): 220 Blood products transfused: none Tourniquet time (min): 70 Procedure in detail: The patient was seen in the pre-operative area, where the patient identified the left knee as the operative site and this was marked with my initials. The patient received pre-operative antibiotics, and was taken to the operating room and placed on the operative table in the supine position. After satisfactory anesthesia, a it application administrator out was performed. The left leg was encircled with a tourniquet about the proximal thigh, and the leg was prepared from the toes to the tourniquet with ChloroPrep in the usual fashion and draped through sterile drapes. The leg was elevated and exsanguinated with Eschmark bandage and the tourniquet inflated to [250] mmHg pressure. The knee was approached through an approximately 18 cm incision centered over the patella and carried into the knee through a medial parapatellar arthrotomy. A portion of the medial and lateral meniscus was resected. Soft tissue was carefully mobilized around the patella the patella was measured with a caliper. Bone was resected from the patella and the patellar height was reconstituted with up an appropriate sized patellar component. A cover was then placed on the patella. A small amount of additional medial and lateral meniscus was resected. The distal femur was cut at 5?. A [+2] cut was used. It looked like an appropriate distal femoral cut and the cut was made without difficulty. An extramedullary guide was used for the tibial cut. 10 mm was resected off the least affected side.The tibia was prepared. The rotation was assessed. The patient was placed in extension residual medial and lateral meniscus as well as any residual bone was carefully resected. [No] additional tibia was resected. Hemostasis was achieved especially posteriorly. Additional local was injected into the posterior capsule. The extension gap was assessed and additional releases for gap balancing were performed as necessary. It was checked with the gap chest pain coordinator. The femoral component was trial was placed and the notch was finished. The rotation was assessed and the appropriate size femoral guide was placed on the distal femur and finishing cuts were made. There was no evidence of notching. The anterior, posterior and chamfer cuts were then made. The posterior osteophytes and soft tissues were then removed. The posterior capsule was injected with part of a mixture of 60 ml 0.25% Marcaine mixed with 20 ml Exparel for post operative pain control. The remainder of this mixture was injected into the capsule and subcutaneous tissues during cement curing. The tibial and femoral components were then placed and the knee placed through a range of motion. Range of motion was [0-130], with good stability throughout the range. The trials were then removed, and the tibia was finished. The bone was prepared with pulsatile lavage, and dried with a sponge. Cement was applied and the final prosthetics placed. Excess cement was removed during and after cement curing. A brief Betadine soak was performed. After confirming there was no extruded cement posteriorly, the final tibial insert was placed. The knee was copiously irrigated and the tourniquet deflated. Hemostasis was obtained with the Bovie cautery. A drain was placed and brought out superolaterally. The capsule was closed with interrupted nonabsorbable suture. The subcutaneous layer was closed with barbed sutures, and the skin with a running 3-0 V-Lock suture and Surgical glue. An Aquacel Ag dressing was applied and the patient was taken to recovery having tolerated the procedure well. Complications: none Post-operative Condition: stable Disposition: Acute Care Plan for aftercare: The patient will be maintained on a standard total knee replacement protocol with weight bearing as tolerated. The patient will receive aspirin and sequential compression devices for DVT prophylaxis. The patient will be discharged home when safe for the home environment.
[2023-04-09] MEDS: CEFAZOLIN 2 GM/100 ML PREMIX 100 ML IV ×2 (14:03→21:25)
[2023-04-09] MEDS: TRANEXAMIC ACID 1,000 MG VIAL 2000 MG INJ (14:39)
[2023-04-09] MEDS: BUPIVACAINE LIPOSOME 266 MG/20 ML VIAL INJ (14:40)
[2023-04-09] MEDS: BUPIVACAINE 0.25% (PF) 60 ML, EPINEPHrine 0.3 MG INJ (14:41)
[2023-04-09] MEDS: HYDROMORPHONE 2 MG INJ IV (16:31)
[2023-04-09] MEDS: OXYCODONE IR 5 MG TABLET PO ×2 (16:36→21:52)
[2023-04-09] MEDS: ACETAMINOPHEN 325 MG TABLET 650 MG PO (18:04)
[2023-04-09] MEDS: IBUPROFEN 400 MG TABLET PO ×2 (18:04→20:16)
[2023-04-09] MEDS: LACTATED RINGERS 1,000 ML 100 ML IV (18:05)
[2023-04-09] MEDS: DOCUSATE 100 MG CAPSULE PO (20:15)
[2023-04-09] MEDS: ASPIRIN EC 81 MG TABLET PO (20:16)
[2023-04-10 00:29] VITALS: BP 97/41; PULSE 73; RESP 18; TEMP 37.1; O2SAT 98
[2023-04-10 03:57] VITALS: BP 105/39; PULSE 80; RESP 20; TEMP 36.8; O2SAT 96
[2023-04-10] MEDS: OXYCODONE IR 5 MG TABLET PO ×2 (03:59→08:56)
[2023-04-10 05:00] LABS: Hematocrit 31.4 % (36-46); Hemoglobin 10.8 g/dL (12.0-16.0)
[2023-04-10] MEDS: IBUPROFEN 400 MG TABLET PO ×2 (06:00→10:10)
[2023-04-10] MEDS: ACETAMINOPHEN 325 MG TABLET 650 MG PO (06:00)
[2023-04-10] MEDS: CEFAZOLIN 2 GM/100 ML PREMIX 100 ML IV (06:00)
--- NOTE | 2023-04-10 08:01 | PM.DS.1 ---
History of Present Illness History of Present Illness Date Patient Seen: 04/10/23 Time Patient Seen: 08:01 Chief complaint: OPB Narrative: Operative Date/Time/Diagnoses Date of procedure: 04/09/23 Time of procedure: 14:00 Pre-op diagnosis: left knee OA Post-op diagnosis: same Procedure & Clinicians Procedure: Left total knee arthroplasty Same procedure as scheduled: Yes Indications: The patient has had progressively worsening left knee pain with radiographic changes consistent with arthritis. Non-operative management has failed and the patient has requested total knee replacement. The risks, benefits and alternatives to surgery were discussed with the patient prior to proceeding. Risks discussed included, but were not limited to, failure to relieve pain, stiffness, infection, nerve damage, deep venous thrombosis, pulmonary embolism, stroke, coma, heart attack, permanent paralysis and , as well as the potential need for eventual revision of the prosthetic. Surgeon: Elizabeth Raygoza Account Technician: Gilberto Flores Anesthesia Type: Spinal Operative Notes Findings: Severe left knee osteoarthritis, adequate stability, adequate bone Closure Type: primary Specimen(s): none sent Prosthetic devices, grafts, tissues, transplants, or devices: Raygoza and nephew [facility] BCS 2 size femur 6, size 4 tibia, +10 poly, 35 x 7-1/2 mm patella Estimated Blood Loss (mL): 220 Blood products transfused: none Tourniquet time (min): 70 Discharge Providers Provider Discharge Date: 04/10/23 Primary care physician: Nolvia Wyatt DO Consults: 04/01/23 12:08 Consult to Anesthesiology Routine Comment: Consulting Provider: Anesthesiologist Reason for consultation: PAC courtesy re: Abnormal pre-op EKG 04/09/23 06:00 Consult to Anesthesiology Routine Comment: Consulting Provider: Anesthesiologist Reason for consultation: Regional block for post operative pain control 04/09/23 17:33 Consult to Discharge Planning Routine Comment: Consult to Occupational Therapy Evaluate & Treat Comment: Physician Instructions: Evaluate and treat Consult to Physical Therapy Evaluate & Treat Comment: Physician Instructions: postop TKA protocol Discharge provider: Alisa Munoz PA-C Summary Hospital Course Discharge Diagnosis: Left knee osteoarthritis, s/p left total knee arthroplasty Hospital Course: Ms Champion'delphine hospital course was unremarkable. On the morning of POD# 1, she was feeling well and wanted to go home. She was eating and voiding without difficulty. Her pain was moderately well-controlled with oral medication. She had not yet been evaluated by PT. Exam Vital Signs (past 8 hours): - 04/10/23 00:29 04/10/23 03:57 Temperature 98.7 F 98.3 F Pulse Rate 73 80 Respiratory Rate 18 20 Blood Pressure 97/41 L 105/39 L Pulse Oximetry 98 96 Oxygen Delivery Method Room Air Oxygen Flow Rate 0 Narrative Exam Narrative: 5/5 strength in hip flexors, quadriceps, hamstrings, DF, PF, EHL on left. Sensation to light touch intact throughout LLE. Calf soft, compressible, nontender and without palpable cords or masses. Aquacel dressing CDI. Objective Labs 04/10/23 04:35 Labs: Laboratory Results - last 24 hr 04/10/23 04:35 Hgb 10.8 L Hct 31.4 L PFSH Medical History (Updated 04/01/23 @ 10:08 by Sharda Tiwari RN) Depression Edema of both lower extremities Osteopenia of left hip Osteopenia of spine Osteoporosis Urinary tract infection Urinary tract infection Surgical History (Updated 04/01/23 @ 10:05 by Sharda Tiwari RN) H/O eye surgery Hx of bilateral cataract extraction Status post right knee replacement Social History household members: spouse Smoking Status: Never smoker second hand exposure: No alcohol intake: current substance use type: does not use Discharge Assessment & Plan Assessment and Plan Assessment: Left knee osteoarthritis, s/p left total knee arthroplasty Plan of Treatment: Discharge home after PT if PT agrees. ASA BID x 6 weeks for VTE prophylaxis, multimodal pain control, outpt PT, f/u in office in 2 weeks as scheduled. Discharge Plan Discharge Plan Patient Disposition: Home Discharge orders & Medications Discharge Orders: Discharge (Order); Ordered 04/10/23 Ordered By: Alisa Munoz Prescriptions: Continued Excedrin Extra Strength 1 EACH tablet 1 tab PO PRN MDD 325 PRN (Reason: Headache) Qty: 0 raloxifene 60 mg tablet See Rx Instructions .ROUTE .COMPLEX Qty: 90 2RF Dose Instruction: TAKE ONE TABLET BY MOUTH ONE TIME DAILY Rx Instructions: TAKE ONE TABLET BY MOUTH ONE TIME DAILY Follow up/Referrals: Elizabeth Raygoza MD [Physician] - As previously scheduled (Follow up with Dr Raygoza on 04/24/2023 @ 3:[address] in [place].) Nolvia Wyatt DO [Primary Care Provider] - Diet/Activity/Treatments Diet: Diet as Tolerated Activity: Walk frequently! Cold/Heat Therapy: Ice to hip as needed for pain. Skin/Wound/Dressing Care Report to your healthcare provider any signs of infection, such as:: chills, fever, night sweats, unusual drainage and unusual redness Dressing: May remove YUNI wrap and shower on 04/12/2023. Leave Aquacel dressing in place until follow up in office. No bathing or otherwise soaking incision. Call the office if the dressing becomes saturated inside. Visit Report/Discharge Packet Instructions: DI for Knee Replacement Stand Alone Forms: Patient Portal/API, Surgery Discharge Discharge Data Primary Care Provider: Nolvia Wyatt Attending Provider: Elizabeth Raygoza
[2023-04-10] MEDS: ASPIRIN EC 81 MG TABLET PO (08:18)
[2023-04-10] MEDS: DOCUSATE 100 MG CAPSULE PO (08:22)
[2023-04-10 08:49] VITALS: BP 106/48; PULSE 79; RESP 16; TEMP 37.6; O2SAT 99
--- NOTE | 2023-04-10 09:40 | OT.IP.EVAL ---
Addendum entered and electronically signed by Moni Mendoza OT 04/10/23 10:46: edit Original Note: Current Diagnoses Unilateral primary osteoarthritis, left knee (04/09/23) Surgery Performed Operation Date: 04/09/23 13:45 Actual Procedures p LEFT Total Knee Arthroplasty(Left) - Elizabeth Raygoza MD Past Medical History (Last Updated 04/01/23 @ 10:08 by Sharda Tiwari, RN) Depression Edema of both lower extremities Osteopenia of left hip Osteopenia of spine Osteoporosis Urinary tract infection Urinary tract infection Surgical History (Last Updated 04/01/23 @ 10:05 by Sharda Tiwari RN) H/O eye surgery Hx of bilateral cataract extraction Status post right knee replacement Occupational Therapy Inpatient Evaluation/Re-Eval M1 PT/OT-IP Prior Functional Status Start: 04/10/23 10:24 Freq: NEEDED Status: Active Protocol: Document 04/10/23 08:55 [facility] (Rec: 04/10/23 10:40 [facility] [id number]) Medical Review Prior Functional Status Communication Independent Mobility and Gait Pt states no longer able to walk a mile and that her knee pops when she goes down the steps. Activities of Daily Living and IADL's Pt able to do but had pain. Prior Functional Level (Other details) Pt's spouse not able to assist and that her two daughters will be there to stay with her to assist. Social History Household Members spouse Living Arrangements House Number of Floors (Floors) Two Floors Number of Stairs To Enter/Railing? Pt has a split level 7 steps with bilateral rails to the main living area. Home Environment Walk in Shower Home Equipment Four Wheel Walker,Straight Cane,Raised Toilet Seat w/ Armrests,Hand Held Shower,Sock Aid Additional Social History Comment Pt's daughter to stay with her to assist pt and her . M2 OT-IP Current Condition Start: 04/10/23 10:24 Freq: Status: Active Protocol: Document 04/10/23 08:55 [facility] (Rec: 04/10/23 10:40 [facility] [id number]) Occupational Therapy Current Condition Current Condition Evaluation Date 04/10/23 Treatment Diagnosis S/P L TKA Diagnosis Onset Date 04/09/23 M3 OT- IP Subjective and Pain Start: 04/10/23 10:24 Freq: Status: Active Protocol: Document 04/10/23 08:55 [facility] (Rec: 04/10/23 10:40 [facility] [id number]) OT- Subjective Occupational Therapy Visit Type Type Initial Evaluation Visit Start Time 08:55 Visit Stop Time 09:40 Total Visit Minutes 25 Notes [phone] [phone] Occupational Therapy Visit Comments Patient Comments Pt agreed to get up. Pt's daughter present in the room for OT eval. Patient/Caregiver Goals TO go home. OT Pain Assessment Pain When Pain Assessed At Rest Pain Present Pain Present Denied Pain M4 OT- IP ADL's Start: 04/10/23 10:24 Freq: Status: Active Protocol: Document 04/10/23 08:55 [facility] (Rec: 04/10/23 10:40 [facility] [id number]) OT VLS-Ckfg-Hzaqxwn General Evaluation Self-Feeding Ability Independent OT ADL-Grooming General Evaluation Grooming Ability Independent OT ADL-Dressing General Eval Lower Body Dressing Ability Moderate Assistance Comments OT Dressing Comments ACACIA to help get brief /pants over her LLE and assist for shoes. ABle to show pt use of LB dressing equipment to increase ease for dressing. OT ADL-Toileting General Evaluation Toileting Ability Contact Guard Assistance Comments OT Toileting Comments CGA for balance while pt able to pull up her clothing on her own. OT ADL-Bathing Comments OT Bathing Comments Pt states to shower at home. M6 OT- IP Functional Cognition Start: 04/10/23 10:24 Freq: Status: Active Protocol: Document 04/10/23 08:55 [facility] (Rec: 04/10/23 10:40 [facility] [id number]) Cognitive Factors Limiting Selfcare Function Cognitive Ability Level of Alertness Alert Patient Orientation Name,Age,Birthday,Month,Date, Year,Day of Week,Place, Situation Attention Span Ability Capable of Focused Attention, Capable of Sustained Attention Ability to Follow Commands Able to Follow Multi-Step Commands Cognitive Comments Cognitive Assessment Comments Pt intact. OT- Vision and Hearing OT- Hearing Assessment OT- Hearing Assessment WFL OT- Vision Assessment Visual Acuity WFL M7 OT- IP Mobility and Balance Start: 04/10/23 10:24 Freq: Status: Active Protocol: Document 04/10/23 08:55 [facility] (Rec: 04/10/23 10:40 [facility] [id number]) OT- Bed Mobility Assessment Supine to Sit Supine to Sit Assist Contact Guard Assistance OT-Transfer Assessment Sit to and From Stand Sit to and from Stand Standby Assistance,Contact Guard Assistance,Minimal Assistance Transfers Transfer Ability Standby Assistance Technique Transfer Destination Bed,Chair,Toilet Transfer Technique Stand Step Pivot Devices Transfer Assistive Devices Gait Belt,Front Wheeled Walker Comments Mobility Comments Pt needing ACACIA to stand from the toilet otherwise from CGA to SBA depending on the height of the surface. Pt daughter able to safely assist pt for all mobility needs in the room at this time. OT- Balance Assessment Sitting Balance and Reactions Static Sitting Balance Ability Normal Dynamic Sitting Balance Ability Good Standing Balance and Reactions Static Standing Balance Ability Good Dynamic Standing Balance Ability Fair M8 OT- IP Objective Assessments Start: 04/10/23 10:24 Freq: Status: Active Protocol: Document 04/10/23 08:55 [facility] (Rec: 04/10/23 10:40 [facility] [id number]) OT Gross Range of Motion Upper Extremity Range of Motion Assessment Within Functional Limits M9 OT- IP Assessment and Plan Start: 04/10/23 10:24 Freq: Status: Active Protocol: Document 04/10/23 08:55 [facility] (Rec: 04/10/23 10:40 [facility] [id number]) OT Summary Assessment and Plan Potential Rehabilitation Potential Excellent Analytic Complexity at Evaluation Low Summary OT Impairments Pain,Functional Mobility, Dressing,Toileting,Bathing Progress Towards Goals Progressing Toward Goals Assessment Summary Pt low complexity and main barrier are pain, a little nauseous BP after use of toilet 99/36, and needing assist for LB dressing needs and to get up from low surfaces. Pt's daughter in the room and able to assist pt safely for all ADl and mobility needs in the room. Pt to go home when medically stable with assist and outpt PT. Goals Toileting Goal Independent Bathing Goal Independent Toilet Transfer Goal Independent Shower Transfer Goal Independent Days to Meet Goals 7 Frequency of Treatment Frequency Of Treatment Once a Day Treatment Plan OT Treatment Plan ADL Training,Functional Mobility,Patient/Family Education,Discharge Planning Discharge Recommendations OT Discharge Recommendations Home with Assistance, Outpatient PT Transportation Needs at Discharge Private Vehicle
--- NOTE | 2023-04-10 11:00 | PC.NURSE ---
notified PA regarding patient's blood pressure, 93/45,95/53, pt ambulated in hallways, asymptomatic. pt can go home. temp 98.6
--- NOTE | 2023-04-10 12:29 | CM.DANOTE ---
DCP: Case received, EMR reviewed and met with patient. Daughter, Kareen, was at bedside. Introduced self and role. Was able to obtain information regarding patient's baseline activity status at home prior to surgery. DCP assessment completed with information currently available. Patient is a 78 year old female who admitted yesterday morning to the care of the orthopedic team. PCP: Dr. Wyatt. Payer: Medicare/[facility] Patient came to the hospital for a surgical procedure. Patient had left total knee arthroplasty. Patient has history of left knee osteoarthritis. Met with patient in her room. She is alert, was sitting up in bed. Daughter, Kareen, was at bedside. She will be staying with patient when she goes home. Patient resides [place] with spouse, but she indicated, he is not well. Patient is independent at her baseline. She will be working with P.T. today. P: Patient is discharging home today and will do outpatient P.T. She will work with P.T. here at the hospital before she discharges. Josi Fam RN/Raw Shellfish Preparer Discharge Planning/Care Management Advanced directive, confirm from FAMILY Start: 04/09/23 17:51 Freq: Q24H Status: Discharge Protocol: Document 04/09/23 17:51 [facility] (Rec: 04/09/23 18:18 [facility] [id number]) Advance Directive, confirm on record Time 18:17 Person contacted daughter Copy received No CM Discharge Assessment Start: 04/10/23 12:28 Freq: Status: Active Protocol: Document 04/10/23 12:28 (Rec: 04/10/23 12:29 [id number]) Discharge Planning Assessment Assigned Underwriting Consultant Josi Fam RN/Raw Shellfish Preparer Advance Directives? Yes Advance Directives on File No History Provided By Patient,Medical Record Prior Living Arrangements House Household Members spouse Type of transporation used prior to Drives own vehicle admit Independent with ADL's Yes Is patient alert and oriented? Yes Caregiver for Another No Barriers to Discharge No Discharge Plan Home Transportation Arrangement Daughter Referrals Initiated None needed Whiteboard Updated in Patient Room with Yes name and ext. # of Underwriting Consultant Review Status In Process Next Review Type Continued Stay Review Pre-Anesthesia Assessment Start: 04/01/23 09:51 Freq: Status: Complete Protocol: Document 04/01/23 09:51 [facility] (Rec: 04/01/23 10:20 [facility] [id number]) Pre-Anesthesia Assessment Preferred Name Teresa Patient Information Reviewed Via Phone Assessment Assessment Completed With Patient Diagnostic Results BMP/CMP,CBC,EKG Comment Labs/EKG @ [facility] 01/08/23 Primary Care Provider Nolvia Wyatt Seen Specialist in Last 12 Months Yes Specialist Seen Orthopedist Primary Language Argentine Preferred Language Argentine Inspector Multifocal Lens Required No Height 5 ft 9 in Weight 137 lb Body Mass Index (BMI) 20.2 Hearing Ability Normal Visual Assist Glasses Dentition Type Teeth, Natural Present Barriers to Learning None Hx Anesthesia Reactions No Hx Family Anesthesia Reaction No Hx Malignant Hyperthermia No Hx Blood Transfusions No Hx Blood Transfusion Reaction No Anesthesia Review Requested Yes: PAC courtesy re: Abnormal pre-op EKG Hi Lift Operator No alcohol intake current alcohol intake frequency a few times a week Smoking Status Never smoker Substance Use Type does not use Pain Present Pain Reported Musculoskeletal Symptoms Abnormal Gait,Difficulty Walking,Joint Pain History of Falling (Recent or History of No ) Patient is completely paralyzed or No completely immobile Mental Status Oriented to own ability Is patient on oxygen? No Does patient have MCKEON/SOB No Hx Sleep Apnea No CPAP/BIPAP use not prescribed Currently Taking a Beta Radha No Can You Climb a Flight of Stairs Without Yes SOB Hx Chest Pain No Hx SOB No Hx Syncope or Dizziness Yes: Fainted when getting up right after surgery 2016 Anti-Coagulant Therapy No Has a Procurement Inspector No Cardiac Testing No Hx Pacemaker/ICD No Pacemaker Rep Required? No Cardiac Clearance Received Not Applicable Diet Type At Home Regular Dysphagia No Gastrointestinal Symptoms Constipation Bladder Pattern Frequency Urinary Catheter Present No Hx Urinary Self Catheterization No Diabetes No HgbA1C 5.4 Date 01/08/23 Patient No Lactating No Presence of External or Internal Medical Yes: Right knee prosthesis, Devices bilat eye IOLs Have you had any close contact with No someone diagnosed with COVID-19? Received a COVID vaccine? Yes Received all doses? Yes Marital Status Lives With spouse Current Living Arrangements House Number of Floors (Floors) Two Floors Number of Stairs To Enter/Railing? 2 Support System Child/Children Does the Patient Have Assistance After Yes: Daughters will stay w/pt Surgery to assist with care- has health issues Patient Discharge Plan Description Return Home Comment Pt not advised on length of stay per surgeon Feels Safe in Current Environment Yes Been Physically Hurt or Threatened By a No Person in Current Environment Do you have thoughts of harming yourself None or others? Are you currently considering suicide? No Do you have a plan to hurt yourself or No Plan others? Do You Have Any Spiritual Beliefs That No May Affect Your HC Choices? Do You Have Any Cultural Practices That No May Affect Your HC Choices? Comment Buddhist Who Can We Speak to About Patient's Care Family, friends Identifying Code for Release of Patient Declines to issue Information Health Care Proxy/Next of Kin Azul Champion (daughter) Renetta Gerard (daughter) Health Care Proxy Phone Number Azul [phone] [facility]: [phone] Emergency Contact Name Azul Champion (daughter) Renetta Gerard (daughter) Emergency Contact Phone Number Azul [phone] Renetta: [phone] Advance Directives? Yes Advance Directives on File No Requested Patient Bring Advanced Yes Directives DOS Power of Manager Medical Affairs No PAC Instructions Do not shave/clip surgical site,Durable medical equipment ,Medications to take/avoid, Nasal antibiotic,No ETOH/ petroleum product on skin DOS, NPO,Pre-surgical wash,Sensory aids,Sturdy shoes/comfortable clothes,Do not bring valuables and remove jewelry
--- NOTE | 2023-04-10 12:33 | PT.IIE ---
Current Diagnoses Unilateral primary osteoarthritis, left knee (04/09/23) Surgery Performed Operation Date: 04/09/23 13:45 Actual Procedures p LEFT Total Knee Arthroplasty(Left) - Elizabeth Raygoza MD Surgical History (Last Updated 04/01/23 @ 10:05 by Sharda Tiwari, RN) H/O eye surgery Hx of bilateral cataract extraction Status post right knee replacement Medical History (Last Updated 04/01/23 @ 10:08 by Sharda Tiwari, RN) Depression Edema of both lower extremities Osteopenia of left hip Osteopenia of spine Osteoporosis Urinary tract infection Urinary tract infection Physical Therapy Inpatient Evaluation/Re-Eval M1 PT/OT-IP Prior Functional Status Start: 04/10/23 10:24 Freq: NEEDED Status: Discharge Protocol: Document 04/10/23 08:55 [facility] (Rec: 04/10/23 10:40 [facility] [id number]) Medical Review Prior Functional Status Communication Independent Mobility and Gait Pt states no longer able to walk a mile and that her knee pops when she goes down the steps. Activities of Daily Living and IADL's Pt able to do but had pain. Prior Functional Level (Other details) Pt's spouse not able to assist and that her two daughters will be there to stay with her to assist. Social History Household Members spouse Living Arrangements House Number of Floors (Floors) Two Floors Number of Stairs To Enter/Railing? Pt has a split level 7 steps with bilateral rails to the main living area. Home Environment Walk in Shower Home Equipment Four Wheel Walker,Straight Cane,Raised Toilet Seat w/ Armrests,Hand Held Shower,Sock Aid Additional Social History Comment Pt's daughter to stay with her to [facility] pt and her . M1 PT/OT-IP Prior Functional Status Start: 04/10/23 12:14 Freq: NEEDED Status: Active Protocol: Document 04/10/23 12:14 ES (Rec: 04/10/23 12:33 ES [id number]) Medical Review Prior Functional Status Medical History Reviewed Yes Communication Independent Mobility and Gait Pt states no longer able to walk a mile and that her knee pops when she goes down the steps. Activities of Daily Living and IADL's Pt able to do but had pain. Prior Functional Level (Other details) Pt's spouse not able to assist and her two daughters will be there to stay with her to assist. Social History Household Members spouse Living Arrangements House Number of Floors (Floors) Two Floors Number of Stairs To Enter/Railing? Pt has a split level 7 steps with bilateral rails to the main living area. Home Environment Walk in Shower Home Equipment Four Wheel Walker,Straight Cane,Raised Toilet Seat w/ Armrests,Hand Held Shower,Sock Aid Additional Social History Comment Pt's daughter to stay with her to [facility] pt and her . M2 PT-IP Current Condition Start: 04/10/23 12:14 Freq: NEEDED Status: Active Protocol: Document 04/10/23 12:14 ES (Rec: 04/10/23 12:33 ES [id number]) Physical Therapy Current Condition Current Condition Evaluation Date 04/10/23 Treatment Diagnosis S/p L TKA Onset Date 04/09/23 M3 PT-IP Subjective Start: 04/10/23 12:14 Freq: NEEDED Status: Active Protocol: Document 04/10/23 12:14 ES (Rec: 04/10/23 12:33 ES [id number]) Subjective Physical Therapy Visit Type Type Initial Evaluation Visit Start Time 10:17 Visit Stop Time 10:48 Total Visit Minutes 31 Physical Therapy Visit Comments Patient Comments Patient up in chair, agreeable to work with PT. Daughter present. Therapy Pain Assessment Pain When Pain Assessed During Mobility Pain Present Pain Present Pain Reported Location Left Knee Intensity 4 Scale Used Numeric (0 - 10) M4 PT-IP Mobility and Gait Start: 04/10/23 12:14 Freq: NEEDED Status: Active Protocol: Document 04/10/23 12:14 ES (Rec: 04/10/23 12:33 ES [id number]) PT-Bed Mobility Assessment Supine to Sit Supine to Sit Standby Assistance Sit to Supine Sit to Supine Standby Assistance Scooting Scooting to Edge of Bed Independent Scooting Up and Down in Bed Independent PT-Transfer Assessment Sit to and From Stand Sit to and from Stand Independent,Use of Upper Extremities Equipment Transfer Assistive Device Gait Belt,Front Wheeled Walker Transfers Transfer Destination Bed,Chair Transfer Technique Stand Step Pivot Transfer Ability Level of Assist Independent,Use of Upper Extremities Comments Mobility Comments Initially cued for placing L foot forward during sit to/ from stand with good follow through the rest of visit. Gait Assessment Gait Gait Assistance Required: Independent Distance (Feet) 150 Assistive Devices Assistive Device Gait Belt,Front Wheeled Walker Gait Deviations General Gait Pattern Antalgic,Decreased Stride Length,Decreased Feet Clearance Factors Limiting Gait Function Factors Limiting Gait Function Decreased Strength,Limited Range of Motion,Pain Comments Gait Comments Intially step-to, then able to progress to step-through with cueing. Decreased L knee flexion during swing through noted due to limited flexion ROM. Stair Climbing Assessment Evaluation Level of Assist On Stairs Standby Assistance Devices Stair Climbing Assistive Devices Left Railing,Right Railing Technique/Endurance Stair Climbing Direction Ascend and Descend Stair Climbing Technique Step to Step Number of Steps Climbed 3 Query Text: Stair Climbing Set # Repetitions (reps) 2 Comments Stair Climbing Comments Instructed daughter so stand on downhill side for safety. PT-Balance Assessment Sitting Balance and Reactions Static Sitting Balance Ability Normal Dynamic Sitting Balance Ability Normal Standing Balance and Reactions Static Standing Balance Ability Good Dynamic Standing Balance Ability Good Device Used FWW M5 PT-IP Objective Assessments Start: 04/10/23 12:14 Freq: NEEDED Status: Active Protocol: Document 04/10/23 12:14 ES (Rec: 04/10/23 12:33 ES [id number]) Orientation Orientation/Cognition Level of Alertness Alert Orientation Name,Age,Birthday,Month,Date, Year,Day of Week,Place, Situation Language Function Ability No Deficits Noted Safety Awareness Understands Safety Issues Memory Description No Deficits Noted Gross Range of Motion Upper Extremity ROM Assessment Within Functional Limits Lower Extremity ROM Assessment Left Impaired Impairments L knee flexion 0-40 degrees Strength Upper Extremity Strength Assessment Within Functional Limits Lower Extremity Strength Assessment Left Impaired M6 PT-IP Treatment Start: 04/10/23 12:14 Freq: NEEDED Status: Active Protocol: Document 04/10/23 12:14 ES (Rec: 04/10/23 12:33 ES [id number]) Physical Therapy Treatment Exercises Exercises Ankle Pumps,Quad Sets,Heel Slides,Straight Leg Raises, Short Arc Quads,Passive Knee Extension Hang,Seated Knee Flexion/Extension Education Education Provided Precautions,Weight Bearing Status,Post-Op Packet,Safety M7 PT-IP Assessment and Plan Start: 04/10/23 12:14 Freq: NEEDED Status: Active Protocol: Document 04/10/23 12:14 ES (Rec: 04/10/23 12:33 ES [id number]) PT Summary Assessment and Plan Potential Rehabilitation Potential Excellent Status of Condition at Evaluation Stable Summary Impairments Pain,ROM,Strength,Gait Assessment Summary Patient is a 78 year old female POD 1 s/p L TKA. She presents with pain, decreased L knee ROM especially flexion, and decreased strength LLE contributing to difficulty with gait and functional mobility. She was able to demonstrate independence with getting in/out of bed and chairs, and ambulated safely with FWW for household distances. She was able to ascend/descend stairs with SBA using rails. She performed HEP with some assistance due to limited ROM and quad strength. She will benefit from OP PT to further address ROM, strength, and mobility impairments. Patient is safe to d/c home with family at this time. Frequency of Treatment Frequency Of Treatment Discharge Weight Bearing Status Weight Bearing Status Weight Bear as Tolerated Recommendations To Nursing Amount of Assist Needed Standby Assistance Discharge Recommendations PT Discharge Recommendations Home with Assistance, Outpatient PT Transportation Needs at Discharge Private Vehicle
== END 2023-04-10 11:34 | disposition home or self-care (01) ==
LOC: OR 11:41 → AC 11:42
PROVIDERS: Family Provider Pediatrics; PCP Family Medicine; Referring Provider Orthopaedic Surgery; Visit Provider Orthopaedic Surgery
PROC: 0SRD0JZ Replacement of Left Knee Joint with Synthetic Substitute, Open Approach (ICD-10-PCS; CPT 27447; principal; 2023-04-09 13:45)
DX: M17.12 Unilateral primary osteoarthritis, left knee (principal)
CPT/HCPCS: 27447; 36415; 73560; 85014; 85018; 97161; 97165; C1776; C9290; J0171; J0690; J1170; J2405; J2704

== ENCOUNTER → 2023-04-12 12:10 | Outpatient (CLI) | payer MEDICARE, OTHER, SELFPAY ==
[2023-04-09 17:46] VITALS: BMI 20.2
--- NOTE | 2023-04-12 | DI.US.S_ITS ---
PROCEDURE: US PERIPH VENOUS LOW EXTREM LT INDICATIONS: SWELLING TECHNIQUE: Real-time imaging, as well as color and pulse Doppler interrogation, were performed of the lower extremity deep veins from the inguinal ligament to the popliteal fossa. COMPARISON: [facility] [place], CR, XR KNEE 4+ VIEWS LEFT, 01/01/2023, 11:02. [facility], CR, XR KNEE LT 1TO2V, 04/09/2023, 16:17. FINDINGS: The common femoral, femoral and popliteal veins are normally compressible, and free of intraluminal thrombus. Color and pulse Doppler demonstrate normal phasic intraluminal flow. There is normal augmentation response to distal compression maneuver. There is a 6.8 x 6.4 x 1.7 cm complex cyst/fluid collection in the popliteal fossa, most likely a Ochoa's cyst. IMPRESSION: 1. No DVT in the left lower extremity. 2. A 6.8 x 6.4 x 1.7 cm complex cyst/fluid collection in the popliteal fossa, probably a Ochoa's cyst. Dictated by: Sven Love M.D. on 04/12/2023 at 12:48 Approved by: Sven Love M.D. on 04/12/2023 at 12:51
== END ==
PROVIDERS: Family Provider Pediatrics; PCP Family Medicine; Referring Provider Orthopaedic Surgery; Visit Provider Orthopaedic Surgery
DX: Z96.652 Presence of left artificial knee joint (principal); R22.42 Localized swelling, mass and lump, left lower limb
CPT/HCPCS: 93971

== ENCOUNTER → 2023-05-20 12:28 | Outpatient (CLI) | payer MEDICARE, OTHER, SELFPAY ==
[2023-04-09 17:46] VITALS: BMI 20.2
== END ==
PROVIDERS: Family Provider Pediatrics; PCP Family Medicine; Visit Provider Nurse Practitioner Family
DX: N39.0 Urinary tract infection, site not specified (principal); N89.8 Other specified noninflammatory disorders of vagina
CPT/HCPCS: 87086; 87210

== ENCOUNTER 2023-06-30 07:14 | Emergency (ER) | payer MEDICARE, OTHER, SELFPAY ==
[2023-04-09 17:46] VITALS: BMI 20.2
[2023-06-30 07:29] VITALS: BP 144/67; PULSE 65; RESP 16; TEMP 36.6; O2SAT 97; BMI 18.4
--- NOTE | 2023-06-30 09:27 | ED_ITS ---
HPI - Back Pain/Injury General Chief Complaint: Back Pain/Injury Stated Complaint: back pain Time Seen by Provider: 06/30/23 09:15 History of Present Illness HPI Narrative: Patient is a 78 year old female presenting today with 1 week of left-sided back pain. She reports that it has been her buttock radiating down her leg. It sometimes is twitchy. No changes in bowel or bladder habits. She is taken ibuprofen and Tylenol at home without significant relief. No history of sciatica before. She reports that she had knee surgery in March and actually is left over oxycodone but did not take any. Related Data Home Medications Medication Instructions Recorded Confirmed [id number] 250 1 tab PO PRN PRN Headache ##0 03/25/17 06/17/23 mg-250 mg-65 mg tablet (Excedrin Extra Strength) Previous Rx's Medication Instructions Recorded raloxifene 60 mg tablet See Rx Instructions .Route 06/14/23 .COMPLEX #90 tabs estradiol 0.01% (0.1 mg/gram) 1 g vaginal 2XW #42.5 grams 06/17/23 vaginal cream lidocaine 5 % topical patch 1 patch topical DAILY PRN pain #30 06/30/23 ea prednisone 20 mg tablet 20 mg PO DAILY #5 tabs 06/30/23 Allergies Allergy/AdvReac Type Severity Reaction Status Date / Time alendronate sodium AdvReac Mild GERD Verified 06/17/23 09:37 [From FOSAMAX] Review of Systems Review of Systems ROS Unobtainable: All systems reviewed & are unremarkable except as noted in HPI and below Patient History Medical History Depression Edema of both lower extremities Osteopenia of left hip Osteopenia of spine Osteoporosis Urinary tract infection Urinary tract infection Surgical History H/O eye surgery Hx of bilateral cataract extraction Status post right knee replacement Social History household members: spouse Smoking Status: Never smoker second hand exposure: No alcohol intake: current substance use type: does not use Smoking Status: Never smoker alcohol intake frequency: a few times a week Substance Use Type: does not use Exam Initial Vital Signs Initial Vital Signs: Vital Signs Temperature 97.9 F 06/30/23 07:29 Pulse Rate 65 06/30/23 07:29 Respiratory Rate 16 06/30/23 07:29 Blood Pressure 144/67 H 06/30/23 07:29 Pulse Oximetry 97 06/30/23 07:29 Oxygen Delivery Method Room Air 06/30/23 07:29 GENERAL: Alert well-appearing 78-year-old female standing CARDIOVASCULAR: peripheral pulses in tact, cap refill <2 sec RESPIRATORY: No respiratory distress, speaks in full sentences without difficulty BACK: No vertebral tenderness no step-offs tender left buttock and lower lumbar region sensation in lower extremities intact EXTREMITIES: Normal range of motion, no clubbing or edema. Neurovascularly intact NEUROLOGICAL: Cranial nerves II through XII grossly intact. Normal gait and speech. SKIN: Warm, dry, no petechiae, no rashes or lesions. Course Vital Signs Vital signs: Vital Signs - 8 hr 06/30/23 07:29 06/30/23 10:09 Temperature 97.9 F Pulse Rate 65 76 Respiratory Rate 16 Blood Pressure 144/67 H 134/63 Pulse Oximetry 97 99 Oxygen Delivery Method Room Air Room Air MDM - Back Pain/Injury MDM Narrative Medical decision making narrative: Patient 78-year-old healthy female appears well in lisa in the ED. Symptoms consistent with sciatica pain. Never had this previously. No concern for cauda equina, abscess or epidural hematoma. Will try supportive measures. Prednisone lidocaine patches she has opiate medication from recent knee surgery she does not want anymore. Discharge Plan Departure Patient Disposition: Home Clinical Impression: Sciatica Instructions: DI for Sciatica Activity Restrictions/Additional Instructions: *You have been diagnosed with left-sided sciatica *What to do: At this time increase activity as tolerated light activity is encouraged no strenuous activity. Try ice or heat stretching as tolerated *Continue to take medications as directed--> SAFEWAY Tylenol 1000 mg every 6 hours if needed for iwvn-bo-edznivcg pain Prednisone 20 mg once a day for 5 days (do not combine with ibuprofen) Ibuprofen 600 mg every 6 hours if needed for oaeo-bi-nykrrnhj pain Lidocaine patch at area of pain for 12 hours only then removed Oxycodone take as previously directed or at nighttime to help with sleep *Follow up with your primary care provider in 2-3 days or call [phone] *Return to ER if you should have increasing pain numbness tingling weakness change in bowel or bladder habits fever or any new, worsening or concerning symp toms CONTROLLED SUBSTANCE DISCHARGE (Narcotoic/benzodiazepine/Flexeril/Phenergan) 1. You have been prescribed narcotic medications, it does have acetaminophen/Tylenol/paracetamol in it, DO NOT TAKE MORE THAN 4,00mg in 24 hours of Tylenol. TRAMADOL DOES NOT CONTAIN TYLENOL 2. Please understand that we cannot provide further refills of narcotics, benzodiazepines or controlled substances through the ED and her pain management will need to be through your provider. 3. While on these medications you cannot drive or operate heavy machinery. 4. You cannot sign legal documents or perform any duties such as this. 5. As long as you're taking opiate pain medications he should also be taking a stool softener such as Colace, Dulcolax, MiraLAX or prune juice, to help avoid constipation. Prescriptions: New prednisone 20 mg tablet 20 mg PO DAILY Qty: 5 0RF lidocaine 5 % adhesive patch,medicated 1 patch topical DAILY PRN (Reason: pain) Qty: 30 0RF Rx Instructions: leave on most painful area for up to 12 hrs No Action Excedrin Extra Strength 1 EACH tablet 1 tab PO PRN MDD 325 PRN (Reason: Headache) Qty: 0 raloxifene 60 mg tablet See Rx Instructions .ROUTE .COMPLEX Qty: 90 2RF Dose Instruction: TAKE ONE TABLET BY MOUTH ONE TIME DAILY Rx Instructions: TAKE ONE TABLET BY MOUTH ONE TIME DAILY estradiol 0.01 % (0.1 mg/gram) cream 1 g vaginal 2XW Qty: 42.5 0RF Referrals: Nolvia Wyatt DO [Primary Care Provider] - Stand Alone Forms: Patient Portal/API
[2023-06-30 10:09] VITALS: BP 134/63; PULSE 76; O2SAT 99
== END 2023-06-30 10:13 | disposition home or self-care (01) ==
PROVIDERS: Emergency Provider Emergency Medicine; Family Provider Pediatrics; PCP Family Medicine
DX: M54.32 Sciatica, left side (principal)
CPT/HCPCS: 99281

== ENCOUNTER 2023-07-18 11:15 | Outpatient (RCR) | payer MEDICARE, OTHER, SELFPAY ==
[2023-04-09 17:46] VITALS: BMI 20.2
--- NOTE | 2023-04-16 18:24 | PT.OIE ---
Current Diagnoses Unilateral primary osteoarthritis, left knee (04/16/23) Muscle weakness (generalized) (04/16/23) Other abnormalities of gait and mobility (04/16/23) Presence of right artificial knee joint (04/16/23) Past Medical History (Last Updated 04/01/23 @ 10:08 by Sharda Tiwari RN) Depression Edema of both lower extremities Osteopenia of left hip Osteopenia of spine Osteoporosis Urinary tract infection Urinary tract infection Past Surgical History (Last Updated 04/01/23 @ 10:05 by Sharda Tiwari RN) H/O eye surgery Hx of bilateral cataract extraction Status post right knee replacement Visit Care Team Role Provider Type Nolvia Wyatt DO Primary Care Provider Physician Specialty: Medical Address: [address] [place] [address], [address], [place], [address] Email: [email or web address] [email or web address] MD Family Provider Physician Specialty: Internal Medicine Pediatrics Address: [address] [place] [address], [address] Phone: Fax: Email: [email or web address] Elizabeth Raygoza MD Attending Provider Physician Referring Provider Specialty: Orthopedics Orthopedic Surgery Address: [address] [place] [address], [id number] Email: [email or web address] Physical Therapy Initial Evaluation PT-OP-A Visit Information Start: 04/14/23 11:13 Freq: Status: Active Protocol: Document 04/16/23 13:30 LRN (Rec: 04/16/23 14:17 LRN [id number]) Out-Patient Physical Therapy Visit Information Visit Information Visit Type Initial Evaluation Visit Start Time 13:30 Visit Stop Time 14:16 Total Visit Minutes 46 Visit Number 1 Evaluation Information Evaluation Date 04/16/23 Precautions Precautions R TKA 6.5 yrs ago. PT-OP-B Current Condition Start: 04/14/23 11:13 Freq: Status: Active Protocol: Document 04/16/23 13:30 LRN (Rec: 04/16/23 14:17 LRN [id number]) Current Condition History of Current Condition Onset Date 04/09/23 Current Complaints L knee pain off /on. Worse after being stationary. History of Current Condition L TKA 6/20/23. Pt in hospital overnight. Pt has had daughter helping her with home exercises since discharge from the hospital. She states she has been doing HEP 1-2x/ day. Treatment Goals Patient/Caregiver Goals Pt goals: Pt able to bend her L knee same as R knee. Pt will be able to walk without her walker. Garden in a year. Walk dog 1/2 hour. Personal Factors Other Personal Factors That May Effect Pt has daughter(DA) helping Therapy/Recovery her for the next few weeks. DA wanted known that her mom had previous physical therapy that the PT was not very encouraging; therefore made pt feel she didn't do well; therefore pt does better with encouragement and not negativity. PT-OP-C Subjective Start: 04/14/23 11:13 Freq: Status: Active Protocol: Document 04/16/23 13:30 LRN (Rec: 04/16/23 14:17 LRN [id number]) Patient Questionnaires Lower Extremity Functional Scale LEFS Score 18 LEFS Impairment 60 to 79% Impaired (Score 17- 31) OP-PT Pain Assessment Pain Assessment Grid Paper Pain Assessment Grid Completed Yes Location L anterior knee Pain Location Details Around L knee joint., sharp pain at med & medioinferior knee jt Intensity 8 Scale Used Numeric (0 - 10) Description Aching Frequency Intermittent Pain Aggravating Factors Activity Pain Alleviating Factors Cold,Medication Other Pain Alleviating Factors 2 Tylenol and IBP helps with pain. PT-OP-D Balance Start: 04/14/23 11:13 Freq: Status: Active Protocol: Document 04/16/23 13:30 LRN (Rec: 04/16/23 14:17 LRN [id number]) OP-PT Balance Assessment Sitting Balance Static Sitting Balance Ability Good Standing Balance Static Standing Balance Ability Good Dynamic Standing Balance Ability Fair Device Used FWW Standing Balance Comments Pt has good dynamic standing balance with use of FWW. Pt is not appropriate for single leg stance testing. Perez Fall Scale Copyright Permission PT-OP-J Posture/Palpation/Skin Start: 04/14/23 11:13 Freq: Status: Active Protocol: Document 04/16/23 13:30 LRN (Rec: 04/16/23 14:17 LRN [id number]) Palpation Assessment Location L knee Palpation Location LLE Palpation Findings Edema Palpation Details Moderate+ swelling at the L ankle>lower leg> knee> distal thigh. PT-OP-K Range of Motion Start: 04/14/23 11:13 Freq: Status: Active Protocol: Document 04/16/23 13:30 LRN (Rec: 04/16/23 14:17 LRN [id number]) Knee Goniometric Range of Motion Knee Right Knee ROM WFL Yes Patient Position Supine Flexion Active (degrees) 122 Extension Active (degrees) 0 Left Knee ROM WFL No Patient Position Supine Flexion Active (degrees) 63 Extension Active (degrees) 0 Ankle and Foot Goniometric Range of Motion Ankle and Foot Right Active Ankle/Foot ROM WFL Yes Testing Position Supine Dorsiflexion with Knee Extended 10 Plantarflexion 58 Left Active Ankle/Foot ROM WFL No Testing Position Supine Dorsiflexion with Knee Extended 3 Plantarflexion 48 PT-OP-M Strength Start: 04/14/23 11:13 Freq: Status: Active Protocol: Document 04/16/23 13:30 LRN (Rec: 04/16/23 14:17 LRN [id number]) Knee Strength Knee Manual Muscle Testing Right Flexion (S2) 5 Normal Extension (L3) 5 Normal Left Flexion (S2) 3- Fair- Extension (L3) 3- Fair- Ankle/Foot Strength Ankle and Foot Manual Muscle Testing Right Dorsiflexion (L4) 5 Normal Plantarflexion (S1) 5 Normal Inversion 5 Normal Eversion (S1) 5 Normal Left Dorsiflexion (L4) 4 Good Plantarflexion (S1) 4 Good Inversion 4+ Good+ Eversion (S1) 4+ Good+ PT-OP-Q Treatments Start: 04/14/23 11:13 Freq: Status: Active Protocol: Document 04/16/23 13:30 LRN (Rec: 04/16/23 14:17 LRN [id number]) Therapeutic Exercises Supine Exercises L Knee flexion Supine Exercise Name L knee flex Side left Reps/Minutes 10x 2 Ankle DF/PF Supine Exercise Name Ankle DF/PF Side left Reps/Minutes 10x SLR Supine Exercise Name SLR Side left Reps/Minutes 10x QS Supine Exercise Name QS Side left Reps/Minutes 5 SH x 8 Self-Care/Home Management Treatment Education Patient Education Home Exercise Program Caregiver Education Educated daughter on how to assist with pt exercising to improve L knee flexion. Other Education Discussed results of evaluation, goals, and plan of care (POC). Pt agreeable to goals and POC. Educated pt and caregiver ( daughter) on use of cryotherapy after exercise. PT-OP-R Modalities Start: 04/14/23 11:13 Freq: Status: Active Protocol: Document 04/16/23 13:30 LRN (Rec: 04/16/23 14:17 LRN [id number]) Hot Pack/Cold Pack Treatment Cold Pack Location L knee in elevation Patient Position Supine Treatment Duration (minutes) 8 Patient Tolerance Good Comments Elevated leg on bolster. PT-OP-T Assessment and Plan Start: 04/14/23 11:13 Freq: Status: Active Protocol: Document 04/16/23 13:30 LRN (Rec: 04/16/23 14:17 LRN [id number]) Physical Therapy Assessment Rehab Potential Rehabilitation Potential Good Evaluation Complexity Number of Personal Factors/Comorbidities 1-2 Number of Body Systems Impaired 4 or More Clinical Presentation at Evaluation Evolving Impairments Impairments Activity Tolerance,Balance, Edema,Gait,Pain,Posture,ROM, Soft Tissue Mobility,Strength Goals Three Impairment Decreased function Impairment Pt requiring use of FWW for safe gait Pt limited in ability to walk her dog. LEFS score 18 (60-795 impaired , score 17-31) Short Term Goal (STG) Improve L knee strength/ stability with pt able to walk safely without an assistive device. STG Duration 05/31/23 Contact Acid Plant Operator Goal (LTG) Improve L knee strength/ stability with pt able to walk her dog 1/2 hour before fatigue. LTG Duration 07/15/23 Two Impairment Decreased L knee AROM limiting function Short Term Goal (STG) Improve L knee AROM to 95 deg' s flexion, with pt able to tolerate full revolution of leg on the upright bike. STG Duration 05/31/23 Contact Acid Plant Operator Goal (LTG) Improve L knee AROM to 120 deg 's flexion to be able to ambulate stairs with a step over step gait with use of 1 railing. LTG Duration 07/15/23 One Impairment HEP. Short Term Goal (STG) Pt will be educated in self care program of edema management of use of cryotherapy and post op LE lymphedema massage. STG Duration 05/03/23 Alf Goal (LTG) Pt will be independent in a self care HEP of L LE strengthening and ROM exercises. LTG Duration 07/15/23 Assessment Summary Assessment Pt is a 78 yo female who is 7 days s/p L TKA-04/09/23. The pt has moderate swelling in her LLE from the mid thigh to the foot, limiting her knee and ankle mobility. She has been cleared of possible DVT in the LLE as of 4 days ago and today demonstrated fair tolerance to ROM exercises. The pt demonstrates a very stiff LLE gait and stooped posture. She has full knee extension but her flexion mobility is quite limited at 63 deg's flexion. The pt will benefit from skilled physical therapy to improve her L knee AROM/PROM and strength, decrease swelling in the LE, improve posture, gait mechanics and endurance with activities and gait, and improve balance/stability with gait for ambulation without an assistive device. The pt is expected to do well with therapy, but will need encouragement in her progress and an extended rehabilitation time if pt is not able to make good gains within the next few weeks that her daughter is around to assist pt with exercises. Physical Therapy Plan Frequency and Duration Frequency of Treatment 2x/Week Plan of Care Start Date 04/16/23 Therapeutic Interventions Therapeutic Interventions Balance Training,Gait Training ,Home Exercise Program,Joint Mobilizations,Manual Therapy, Patient/Caregiver Education, Self-Care/Home Management,Soft Tissue Mobilization,Taping, Therapeutic Exercises Modalities Cold Pack/Ice Massage,Electric Stimulation Next Visit Focus/Plan Next Visit Plan Assess balance, stability with gait (TUG), pt education in proper posturing and gait mechanics and TKA lymphedema massage, progress L knee ROM and strengthening. Upright bike and stair training when appropriate.
--- NOTE | 2023-04-16 18:25 | PT.OIE ---
Current Diagnoses Unilateral primary osteoarthritis, left knee (04/16/23) Muscle weakness (generalized) (04/16/23) Other abnormalities of gait and mobility (04/16/23) Presence of right artificial knee joint (04/16/23) Past Medical History (Last Updated 04/01/23 @ 10:08 by Sharda Tiwari RN) Depression Edema of both lower extremities Osteopenia of left hip Osteopenia of spine Osteoporosis Urinary tract infection Urinary tract infection Past Surgical History (Last Updated 04/01/23 @ 10:05 by Sharda Tiwari RN) H/O eye surgery Hx of bilateral cataract extraction Status post right knee replacement Visit Care Team Role Provider Type Nolvia Wyatt DO Primary Care Provider Physician Specialty: Medical Address: [address] [place] [address], [address], [place], [address] Email: [email or web address] Stu Cruz MD Family Provider Physician Specialty: Internal Medicine Pediatrics Address: [address] [place] [address], [address] Phone: Fax: Email: [email or web address] Elizabeth Raygoza MD Attending Provider Physician Referring Provider Specialty: Orthopedics Orthopedic Surgery Address: [address] [place] [address], [id number] Email: [email or web address] Physical Therapy Initial Evaluation PT-OP-A Visit Information Start: 04/14/23 11:13 Freq: Status: Active Protocol: Document 04/16/23 13:30 LRN (Rec: 04/16/23 14:17 LRN [id number]) Out-Patient Physical Therapy Visit Information Visit Information Visit Type Initial Evaluation Visit Start Time 13:30 Visit Stop Time 14:16 Total Visit Minutes 46 Visit Number 1 Evaluation Information Evaluation Date 04/16/23 Precautions Precautions R TKA 6.5 yrs ago. PT-OP-B Current Condition Start: 04/14/23 11:13 Freq: Status: Active Protocol: Document 04/16/23 13:30 LRN (Rec: 04/16/23 14:17 LRN [id number]) Current Condition History of Current Condition Onset Date 04/09/23 Current Complaints L knee pain off /on. Worse after being stationary. History of Current Condition L TKA 6/20/23. Pt in hospital overnight. Pt has had daughter helping her with home exercises since discharge from the hospital. She states she has been doing HEP 1-2x/ day. Treatment Goals Patient/Caregiver Goals Pt goals: Pt able to bend her L knee same as R knee. Pt will be able to walk without her walker. Garden in a year. Walk dog 1/2 hour. Personal Factors Other Personal Factors That May Effect Pt has daughter(DA) helping Therapy/Recovery her for the next few weeks. DA wanted known that her mom had previous physical therapy that the PT was not very encouraging; therefore made pt feel she didn't do well; therefore pt does better with encouragement and not negativity. PT-OP-C Subjective Start: 04/14/23 11:13 Freq: Status: Active Protocol: Document 04/16/23 13:30 LRN (Rec: 04/16/23 14:17 LRN [id number]) Patient Questionnaires Lower Extremity Functional Scale LEFS Score 18 LEFS Impairment 60 to 79% Impaired (Score 17- 31) OP-PT Pain Assessment Pain Assessment Grid Paper Pain Assessment Grid Completed Yes Location L anterior knee Pain Location Details Around L knee joint., sharp pain at med & medioinferior knee jt Intensity 8 Scale Used Numeric (0 - 10) Description Aching Frequency Intermittent Pain Aggravating Factors Activity Pain Alleviating Factors Cold,Medication Other Pain Alleviating Factors 2 Tylenol and IBP helps with pain. PT-OP-D Balance Start: 04/14/23 11:13 Freq: Status: Active Protocol: Document 04/16/23 13:30 LRN (Rec: 04/16/23 14:17 LRN [id number]) OP-PT Balance Assessment Sitting Balance Static Sitting Balance Ability Good Standing Balance Static Standing Balance Ability Good Dynamic Standing Balance Ability Fair Device Used FWW Standing Balance Comments Pt has good dynamic standing balance with use of FWW. Pt is not appropriate for single leg stance testing. Perez Fall Scale Copyright Permission PT-OP-J Posture/Palpation/Skin Start: 04/14/23 11:13 Freq: Status: Active Protocol: Document 04/16/23 13:30 LRN (Rec: 04/16/23 14:17 LRN [id number]) Palpation Assessment Location L knee Palpation Location LLE Palpation Findings Edema Palpation Details Moderate+ swelling at the L ankle>lower leg> knee> distal thigh. PT-OP-K Range of Motion Start: 04/14/23 11:13 Freq: Status: Active Protocol: Document 04/16/23 13:30 LRN (Rec: 04/16/23 14:17 LRN [id number]) Knee Goniometric Range of Motion Knee Right Knee ROM WFL Yes Patient Position Supine Flexion Active (degrees) 122 Extension Active (degrees) 0 Left Knee ROM WFL No Patient Position Supine Flexion Active (degrees) 63 Extension Active (degrees) 0 Ankle and Foot Goniometric Range of Motion Ankle and Foot Right Active Ankle/Foot ROM WFL Yes Testing Position Supine Dorsiflexion with Knee Extended 10 Plantarflexion 58 Left Active Ankle/Foot ROM WFL No Testing Position Supine Dorsiflexion with Knee Extended 3 Plantarflexion 48 PT-OP-M Strength Start: 04/14/23 11:13 Freq: Status: Active Protocol: Document 04/16/23 13:30 LRN (Rec: 04/16/23 14:17 LRN [id number]) Knee Strength Knee Manual Muscle Testing Right Flexion (S2) 5 Normal Extension (L3) 5 Normal Left Flexion (S2) 3- Fair- Extension (L3) 3- Fair- Ankle/Foot Strength Ankle and Foot Manual Muscle Testing Right Dorsiflexion (L4) 5 Normal Plantarflexion (S1) 5 Normal Inversion 5 Normal Eversion (S1) 5 Normal Left Dorsiflexion (L4) 4 Good Plantarflexion (S1) 4 Good Inversion 4+ Good+ Eversion (S1) 4+ Good+ PT-OP-Q Treatments Start: 04/14/23 11:13 Freq: Status: Active Protocol: Document 04/16/23 13:30 LRN (Rec: 04/16/23 14:17 LRN [id number]) Therapeutic Exercises Supine Exercises L Knee flexion Supine Exercise Name L knee flex Side left Reps/Minutes 10x 2 Ankle DF/PF Supine Exercise Name Ankle DF/PF Side left Reps/Minutes 10x SLR Supine Exercise Name SLR Side left Reps/Minutes 10x QS Supine Exercise Name QS Side left Reps/Minutes 5 SH x 8 Self-Care/Home Management Treatment Education Patient Education Home Exercise Program Caregiver Education Educated daughter on how to assist with pt exercising to improve L knee flexion. Other Education Discussed results of evaluation, goals, and plan of care (POC). Pt agreeable to goals and POC. Educated pt and caregiver ( daughter) on use of cryotherapy after exercise. PT-OP-R Modalities Start: 04/14/23 11:13 Freq: Status: Active Protocol: Document 04/16/23 13:30 LRN (Rec: 04/16/23 14:17 LRN [id number]) Hot Pack/Cold Pack Treatment Cold Pack Location L knee in elevation Patient Position Supine Treatment Duration (minutes) 8 Patient Tolerance Good Comments Elevated leg on bolster. PT-OP-T Assessment and Plan Start: 04/14/23 11:13 Freq: Status: Active Protocol: Document 04/16/23 13:30 LRN (Rec: 04/16/23 14:17 LRN [id number]) Physical Therapy Assessment Rehab Potential Rehabilitation Potential Good Evaluation Complexity Number of Personal Factors/Comorbidities 1-2 Number of Body Systems Impaired 4 or More Clinical Presentation at Evaluation Evolving Impairments Impairments Activity Tolerance,Balance, Edema,Gait,Pain,Posture,ROM, Soft Tissue Mobility,Strength Goals Three Impairment Decreased function Impairment Pt requiring use of FWW for safe gait Pt limited in ability to walk her dog. LEFS score 18 (60-795 impaired , score 17-31) Short Term Goal (STG) Improve L knee strength/ stability with pt able to walk safely without an assistive device. STG Duration 05/31/23 Grove Superintendent Goal (LTG) Improve L knee strength/ stability with pt able to walk her dog 1/2 hour before fatigue. LTG Duration 07/15/23 Two Impairment Decreased L knee AROM limiting function Short Term Goal (STG) Improve L knee AROM to 95 deg' s flexion, with pt able to tolerate full revolution of leg on the upright bike. STG Duration 05/31/23 Grove Superintendent Goal (LTG) Improve L knee AROM to 120 deg 's flexion to be able to ambulate stairs with a step over step gait with use of 1 railing. LTG Duration 07/15/23 One Impairment HEP. Short Term Goal (STG) Pt will be educated in self care program of edema management of use of cryotherapy and post op LE lymphedema massage. STG Duration 05/03/23 Group Home Goal (LTG) Pt will be independent in a self care HEP of L LE strengthening and ROM exercises. LTG Duration 07/15/23 Assessment Summary Assessment Pt is a 78 yo female who is 7 days s/p L TKA-04/09/23. The pt has moderate swelling in her LLE from the mid thigh to the foot, limiting her knee and ankle mobility. She has been cleared of possible DVT in the LLE as of 4 days ago and today demonstrated fair tolerance to ROM exercises. The pt demonstrates a very stiff LLE gait and stooped posture. She has full knee extension but her flexion mobility is quite limited at 63 deg's flexion. The pt will benefit from skilled physical therapy to improve her L knee AROM/PROM and strength, decrease swelling in the LE, improve posture, gait mechanics and endurance with activities and gait, and improve balance/stability with gait for ambulation without an assistive device. The pt is expected to do well with therapy, but will need encouragement in her progress and an extended rehabilitation time if pt is not able to make good gains within the next few weeks that her daughter is around to assist pt with exercises. Physical Therapy Plan Frequency and Duration Frequency of Treatment 2x/Week Plan of Care Start Date 04/16/23 Plan of Care End Date 07/15/23 Therapeutic Interventions Therapeutic Interventions Balance Training,Gait Training ,Home Exercise Program,Joint Mobilizations,Manual Therapy, Patient/Caregiver Education, Self-Care/Home Management,Soft Tissue Mobilization,Taping, Therapeutic Exercises Modalities Cold Pack/Ice Massage,Electric Stimulation Next Visit Focus/Plan Next Visit Plan Assess balance, stability with gait (TUG), pt education in proper posturing and gait mechanics and TKA lymphedema massage, progress L knee ROM and strengthening. Upright bike and stair training when appropriate.
--- NOTE | 2023-04-16 18:25 | PT.OPPOC ---
Physical, Occupational & Speech Therapy At [facility] Current Diagnoses Unilateral primary osteoarthritis, left knee (04/16/23) Muscle weakness (generalized) (04/16/23) Other abnormalities of gait and mobility (04/16/23) Presence of right artificial knee joint (04/16/23) Visit Care Team Role Provider Type Nolvia Wyatt DO Primary Care Provider Physician Specialty: Medical Address: [address] [place] [address], [address], [place], [address] Email: [email or web address] Stu Cruz MD Family Provider Physician Specialty: Internal Medicine Pediatrics Address: [address] [place] [address], [place], [address] Phone: Fax: Email: [email or web address] Elizabeth Raygoza MD Attending Provider Physician Referring Provider Specialty: Orthopedics Orthopedic Surgery Address: [address] [place] [address], [address] Email: [email or web address] Plan Of Care PT-OP-T Assessment and Plan Start: 04/14/23 11:13 Freq: Status: Active Protocol: Document 04/16/23 13:30 LRN (Rec: 04/16/23 14:17 LRN [id number]) Physical Therapy Assessment Rehab Potential Rehabilitation Potential Good Evaluation Complexity Number of Personal Factors/Comorbidities 1-2 Number of Body Systems Impaired 4 or More Clinical Presentation at Evaluation Evolving Impairments Impairments Activity Tolerance,Balance, Edema,Gait,Pain,Posture,ROM, Soft Tissue Mobility,Strength Goals Three Impairment Decreased function Impairment Pt requiring use of FWW for safe gait Pt limited in ability to walk her dog. LEFS score 18 (60-795 impaired , score 17-31) Short Term Goal (STG) Improve L knee strength/ stability with pt able to walk safely without an assistive device. STG Duration 05/31/23 Snf Goal (LTG) Improve L knee strength/ stability with pt able to walk her dog 1/2 hour before fatigue. LTG Duration 07/15/23 Two Impairment Decreased L knee AROM limiting function Short Term Goal (STG) Improve L knee AROM to 95 deg' s flexion, with pt able to tolerate full revolution of leg on the upright bike. STG Duration 05/31/23 Snf Goal (LTG) Improve L knee AROM to 120 deg 's flexion to be able to ambulate stairs with a step over step gait with use of 1 railing. LTG Duration 07/15/23 One Impairment HEP. Short Term Goal (STG) Pt will be educated in self care program of edema management of use of cryotherapy and post op LE lymphedema massage. STG Duration 05/03/23 Snf Goal (LTG) Pt will be independent in a self care HEP of L LE strengthening and ROM exercises. LTG Duration 07/15/23 Assessment Summary Assessment Pt is a 78 yo female who is 7 days s/p L TKA-04/09/23. The pt has moderate swelling in her LLE from the mid thigh to the foot, limiting her knee and ankle mobility. She has been cleared of possible DVT in the LLE as of 4 days ago and today demonstrated fair tolerance to ROM exercises. The pt demonstrates a very stiff LLE gait and stooped posture. She has full knee extension but her flexion mobility is quite limited at 63 deg's flexion. The pt will benefit from skilled physical therapy to improve her L knee AROM/PROM and strength, decrease swelling in the LE, improve posture, gait mechanics and endurance with activities and gait, and improve balance/stability with gait for ambulation without an assistive device. The pt is expected to do well with therapy, but will need encouragement in her progress and an extended rehabilitation time if pt is not able to make good gains within the next few weeks that her daughter is around to assist pt with exercises. Physical Therapy Plan Frequency and Duration Frequency of Treatment 2x/Week Plan of Care Start Date 04/16/23 Plan of Care End Date 07/15/23 Therapeutic Interventions Therapeutic Interventions Balance Training,Gait Training ,Home Exercise Program,Joint Mobilizations,Manual Therapy, Patient/Caregiver Education, Self-Care/Home Management,Soft Tissue Mobilization,Taping, Therapeutic Exercises Modalities Cold Pack/Ice Massage,Electric Stimulation Next Visit Focus/Plan Next Visit Plan Assess balance, stability with gait (TUG), pt education in proper posturing and gait mechanics and TKA lymphedema massage, progress L knee ROM and strengthening. Upright bike and stair training when appropriate. Plan of Care Dates Plan of Care Start Date 04/16/23 Plan of Care End Date 07/15/23 Electronically Signed by: Makayla Hope, PT 04/16/23 9332 If you are in agreement with this Plan of Care, please return a signed and dated copy. I have reviewed this Plan of Care and certify that the skilled therapy services above are required to meet the patient?s needs. Physician Signature Date Printed Name and Credentials Clinical Instructor Signature Printed Name and Credentials
--- NOTE | 2023-04-18 17:46 | PT.OTN ---
Current Diagnoses Unilateral primary osteoarthritis, left knee (04/18/23) Muscle weakness (generalized) (04/18/23) Other abnormalities of gait and mobility (04/18/23) Presence of right artificial knee joint (04/18/23) Physical Therapy Treatment Note PT-OP-A Visit Information Start: 04/14/23 11:13 Freq: Status: Active Protocol: Document 04/18/23 08:51 LRN (Rec: 04/18/23 09:43 LRN [id number]) Out-Patient Physical Therapy Visit Information Visit Information Visit Type Treatment Note Visit Start Time 08:51 Visit Stop Time 09:29 Total Visit Minutes 51 Visit Number 2 Evaluation Information Evaluation Date 04/16/23 Precautions Precautions R TKA 6.5 yrs ago. PT-OP-B Current Condition Start: 04/14/23 11:13 Freq: Status: Active Protocol: Document 04/16/23 13:30 LRN (Rec: 04/16/23 14:17 LRN [id number]) Current Condition History of Current Condition Onset Date 04/09/23 Current Complaints L knee pain off /on. Worse after being stationary. History of Current Condition L TKA 04/09/23. Pt in hospital overnight. Pt has had daughter helping her with home exercises since discharge from the hospital. She states she has been doing HEP 1-2x/ day. Treatment Goals Patient/Caregiver Goals Pt goals: Pt able to bend her L knee same as R knee. Pt will be able to walk without her walker. Garden in a year. Walk dog 1/2 hour. Personal Factors Other Personal Factors That May Effect Pt has daughter(DA) helping Therapy/Recovery her for the next few weeks. DA wanted known that her mom had previous physical therapy that the PT was not very encouraging; therefore made pt feel she didn't do well; therefore pt does better with encouragement and not negativity. PT-OP-C Subjective Start: 04/14/23 11:13 Freq: Status: Active Protocol: Document 04/18/23 08:51 LRN (Rec: 04/18/23 09:43 LRN [id number]) OP-PT Subjective Patient Comments Patient Comments States the L knee hurts after sitting or laying down. PT-OP-D Balance Start: 04/14/23 11:13 Freq: Status: Active Protocol: Document 04/16/23 13:30 LRN (Rec: 04/16/23 14:17 LRN [id number]) OP-PT Balance Assessment Sitting Balance Static Sitting Balance Ability Good Standing Balance Static Standing Balance Ability Good Dynamic Standing Balance Ability Fair Device Used FWW Standing Balance Comments Pt has good dynamic standing balance with use of FWW. Pt is not appropriate for single leg stance testing. Perez Fall Scale Copyright Permission PT-OP-G Mobility & Gait Start: 04/14/23 11:13 Freq: Status: Active Protocol: Document 04/18/23 08:51 LRN (Rec: 04/18/23 09:43 LRN [id number]) OP Gait Assessment Gait Gait Assistance Required: Independent Assistive Devices Assistive Device Standard Walker Gait Deviations General Gait Pattern Decreased Stride Length, Decreased Feet Clearance, Flexed Trunk,Narrow Based Gait Factors Limiting Gait Function Factors Limiting Gait Function Decreased Activity Tolerance, Decreased Strength,Limited Range of Motion,Pain,Poor Balance Comments Gait Comments Pt FWW appears too short for patient at start of therapy. PT-OP-J Posture/Palpation/Skin Start: 04/14/23 11:13 Freq: Status: Active Protocol: Document 04/16/23 13:30 LRN (Rec: 04/16/23 14:17 LRN [id number]) Palpation Assessment Location L knee Palpation Location LLE Palpation Findings Edema Palpation Details Moderate+ swelling at the L ankle>lower leg> knee> distal thigh. PT-OP-K Range of Motion Start: 04/14/23 11:13 Freq: Status: Active Protocol: Document 04/18/23 08:51 LRN (Rec: 04/18/23 09:43 LRN [id number]) Knee Goniometric Range of Motion Knee Left Knee ROM WFL No Patient Position Sitting Flexion Active (degrees) 69 PT-OP-M Strength Start: 04/14/23 11:13 Freq: Status: Active Protocol: Document 04/16/23 13:30 LRN (Rec: 04/16/23 14:17 LRN [id number]) Knee Strength Knee Manual Muscle Testing Right Flexion (S2) 5 Normal Extension (L3) 5 Normal Left Flexion (S2) 3- Fair- Extension (L3) 3- Fair- Ankle/Foot Strength Ankle and Foot Manual Muscle Testing Right Dorsiflexion (L4) 5 Normal Plantarflexion (S1) 5 Normal Inversion 5 Normal Eversion (S1) 5 Normal Left Dorsiflexion (L4) 4 Good Plantarflexion (S1) 4 Good Inversion 4+ Good+ Eversion (S1) 4+ Good+ PT-OP-Q Treatments Start: 04/14/23 11:13 Freq: Status: Active Protocol: Document 04/18/23 08:51 LRN (Rec: 04/18/23 09:43 LRN [id number]) Therapeutic Exercises Supine Exercises Knee hang Supine Exercise Name Knee hand w/towel roll under ankle, f/b QS Side left Reps/Minutes 60+ sec Comments Extra time taken to get max tolerated stretch SAQ Supine Exercise Name SAQ Side left Reps/Minutes 15x Comments no visible difficulty L Knee flexion Supine Exercise Name L knee flex Side left Reps/Minutes 10x 2 Ankle DF/PF Supine Exercise Name Passive Ankle DF stretch Side left Reps/Minutes 5x SLR Supine Exercise Name SLR Side left Reps/Minutes 15x QS Supine Exercise Name QS after knee hang Side left Reps/Minutes 5 SH x 10 Sitting Exercises Manual Lymphatic Draininge sequence Sitting Exercise Name Manual LE lympohatic drainage sequence Side left Reps/Minutes 5x each and reverse each L LAQ Sitting Exercise Name L LAQ Side left Reps/Minutes 3 SH x 10 Knee flexion stretch Sitting Exercise Name Self knee flex stretch Side left Reps/Minutes 10 SH x 7 Knee flexion hanging Sitting Exercise Name Knee flexion hanging Side left Resistance 4' Gait Training Gait Activity Gait training Description Training for heel strike and toe off/L knee flexion Device Used FWW Level of Assistance verbal cuing Surface level Distance/Duration 5' Comments Adjusted walker to proper height Self-Care/Home Management Treatment Education Patient Education Home Exercise Program Caregiver Education DA present asking questions regarding how to identify QS, ex's to do if different from hospital ex's, Other Education Pt education in YUNI wrap of L knee. Pt and DA education in LE seated lymphedema ex's. Activities Self-Care/Home Management Activities Issued & reviewed HEP: LE seated lymphedema ex's. PT-OP-R Modalities Start: 04/14/23 11:13 Freq: Status: Active Protocol: Document 04/16/23 13:30 LRN (Rec: 04/16/23 14:17 LRN [id number]) Hot Pack/Cold Pack Treatment Cold Pack Location L knee in elevation Patient Position Supine Treatment Duration (minutes) 8 Patient Tolerance Good Comments Elevated leg on bolster. PT-OP-T Assessment and Plan Start: 04/14/23 11:13 Freq: Status: Active Protocol: Document 04/18/23 08:51 LRN (Rec: 04/18/23 09:43 LRN [id number]) Physical Therapy Assessment Goals Three Impairment Decreased function Impairment Pt requiring use of FWW for safe gait Pt limited in ability to walk her dog. LEFS score 18 (60-795 impaired , score 17-31) Short Term Goal (STG) Improve L knee strength/ stability with pt able to walk safely without an assistive device. 04/18/23: Adjusted FWW for proper hgt and did gait training for heel strike and toe off. STG Duration 05/31/23 progressed 04/18/23 Senior Living Goal (LTG) Improve L knee strength/ stability with pt able to walk her dog 1/2 hour before fatigue. LTG Duration 07/15/23 Two Impairment Decreased L knee AROM limiting function Short Term Goal (STG) Improve L knee AROM to 95 deg' s flexion, with pt able to tolerate full revolution of leg on the upright bike. STG Duration 05/31/23 Senior Living Goal (LTG) Improve L knee AROM to 120 deg 's flexion to be able to ambulate stairs with a step over step gait with use of 1 railing. LTG Duration 07/15/23 One Impairment HEP. Short Term Goal (STG) Pt will be educated in self care program of edema management of use of cryotherapy and post op LE lymphedema massage. STG Duration 05/03/23 Technology Development Intern Goal (LTG) Pt will be independent in a self care HEP of L LE strengthening and ROM exercises. 04/18/23: HEP: Manual LE lympohatic drainage sequence ex. LTG Duration 07/15/23 progressed 04/18/23 Progress Towards Goals Progress Comments Progressed HEP & gait Assessment Summary Assessment Pt appears to have a high pain tolerance to ex's. Sitting L knee flexion is 69 deg's ( previously supine ROM is 63 deg's) as noted by daughter was her measure AROM in supine at home. L ankle DF very limited in mobility and PF 10 deg's limited in motion. Pt posture and gait much improved after adjusting FWW for proper height. Physical Therapy Plan Frequency and Duration Frequency of Treatment 2x/Week Plan of Care Start Date 04/16/23 Plan of Care End Date 07/15/23 Next Visit Focus/Plan Next Visit Plan Assess balance, stability with gait (TUG). Assess response to training of proper posturing and gait mechanics and TKA lymphedema ex's (STG #1) and pt education in YUNI wrap of L knee. educated in self care program of edema management of use of cryotherapy Start L TKA lymphedema massage after removal of bandage over scar. Progress L knee ROM and strengthening. Upright bike and stair training when appropriate.
--- NOTE | 2023-04-22 12:49 | PT.OTN ---
Current Diagnoses Unilateral primary osteoarthritis, left knee (04/22/23) Muscle weakness (generalized) (04/22/23) Other abnormalities of gait and mobility (04/22/23) Presence of right artificial knee joint (04/22/23) Physical Therapy Treatment Note PT-OP-A Visit Information Start: 04/14/23 11:13 Freq: Status: Active Protocol: Document 04/22/23 12:00 SP (Rec: 04/22/23 12:50 SP [id number]) Out-Patient Physical Therapy Visit Information Visit Information Visit Type Treatment Note Visit Start Time 12:00 Visit Stop Time 12:49 Total Visit Minutes 49 Visit Number 3 Number of VP SECURITIES Visits 1 Evaluation Information Evaluation Date 04/16/23 Precautions Precautions R TKA 6.5 yrs ago. PT-OP-B Current Condition Start: 04/14/23 11:13 Freq: Status: Active Protocol: Document 04/16/23 13:30 LRN (Rec: 04/16/23 14:17 LRN [id number]) Current Condition History of Current Condition Onset Date 04/09/23 Current Complaints L knee pain off /on. Worse after being stationary. History of Current Condition L TKA 04/09/23. Pt in hospital overnight. Pt has had daughter helping her with home exercises since discharge from the hospital. She states she has been doing HEP 1-2x/ day. Treatment Goals Patient/Caregiver Goals Pt goals: Pt able to bend her L knee same as R knee. Pt will be able to walk without her walker. Garden in a year. Walk dog 1/2 hour. Personal Factors Other Personal Factors That May Effect Pt has daughter(DA) helping Therapy/Recovery her for the next few weeks. DA wanted known that her mom had previous physical therapy that the PT was not very encouraging; therefore made pt feel she didn't do well; therefore pt does better with encouragement and not negativity. PT-OP-C Subjective Start: 04/14/23 11:13 Freq: Status: Active Protocol: Document 04/22/23 12:00 SP (Rec: 04/22/23 12:50 SP [id number]) OP-PT Subjective Patient Comments Patient Comments Pt reports daughter purchased goniometry furtherest L knee flexion ROM got this am 75 deg . PT-OP-D Balance Start: 04/14/23 11:13 Freq: Status: Active Protocol: Document 04/16/23 13:30 LRN (Rec: 04/16/23 14:17 LRN [id number]) OP-PT Balance Assessment Sitting Balance Static Sitting Balance Ability Good Standing Balance Static Standing Balance Ability Good Dynamic Standing Balance Ability Fair Device Used FWW Standing Balance Comments Pt has good dynamic standing balance with use of FWW. Pt is not appropriate for single leg stance testing. Perez Fall Scale Copyright Permission PT-OP-G Mobility & Gait Start: 04/14/23 11:13 Freq: Status: Active Protocol: Document 04/18/23 08:51 LRN (Rec: 04/18/23 09:43 LRN [id number]) OP Gait Assessment Gait Gait Assistance Required: Independent Assistive Devices Assistive Device Standard Walker Gait Deviations General Gait Pattern Decreased Stride Length, Decreased Feet Clearance, Flexed Trunk,Narrow Based Gait Factors Limiting Gait Function Factors Limiting Gait Function Decreased Activity Tolerance, Decreased Strength,Limited Range of Motion,Pain,Poor Balance Comments Gait Comments Pt FWW appears too short for patient at start of therapy. PT-OP-J Posture/Palpation/Skin Start: 04/14/23 11:13 Freq: Status: Active Protocol: Document 04/16/23 13:30 LRN (Rec: 04/16/23 14:17 LRN [id number]) Palpation Assessment Location L knee Palpation Location LLE Palpation Findings Edema Palpation Details Moderate+ swelling at the L ankle>lower leg> knee> distal thigh. PT-OP-K Range of Motion Start: 04/14/23 11:13 Freq: Status: Active Protocol: Document 04/22/23 12:00 SP (Rec: 04/22/23 12:50 SP [id number]) Knee Goniometric Range of Motion Knee Left Knee ROM WFL No Patient Position Supine Flexion Active (degrees) 81 Flexion Passive (degrees) 89 Extension Active (degrees) 10 Comments post manual PT-OP-M Strength Start: 04/14/23 11:13 Freq: Status: Active Protocol: Document 04/16/23 13:30 LRN (Rec: 04/16/23 14:17 LRN [id number]) Knee Strength Knee Manual Muscle Testing Right Flexion (S2) 5 Normal Extension (L3) 5 Normal Left Flexion (S2) 3- Fair- Extension (L3) 3- Fair- Ankle/Foot Strength Ankle and Foot Manual Muscle Testing Right Dorsiflexion (L4) 5 Normal Plantarflexion (S1) 5 Normal Inversion 5 Normal Eversion (S1) 5 Normal Left Dorsiflexion (L4) 4 Good Plantarflexion (S1) 4 Good Inversion 4+ Good+ Eversion (S1) 4+ Good+ PT-OP-Q Treatments Start: 04/14/23 11:13 Freq: Status: Active Protocol: Document 04/22/23 12:00 SP (Rec: 04/22/23 12:50 SP [id number]) Cardio Equipment Recumbent Stepper (Sci-Fit) Duration (Minutes) 6 Resistance 0 Seat Position 12 Other LEs only, good feeling ROM Therapeutic Exercises Supine Exercises Knee hang Supine Exercise Name Knee hand w/towel roll under ankle, f/b QS Side left Reps/Minutes 60 SH Comments cued breath allow slowly relax SAQ Supine Exercise Name SAQ Side left Equipment Used foam roller Reps/Minutes 15x (can progress 2 sets home if ok) Comments cued ankle DF neutral L Knee flexion Supine Exercise Name L knee flex Side left Resistance LLE over 55cm Tball Equipment Used manual assist then use gait belt Reps/Minutes 10x 2 Comments good feedback response 89 deg end tx post manual Ankle DF/PF Supine Exercise Name Ankle ABCs Side left Reps/Minutes 3xday Comments good response multidirectional QS Supine Exercise Name QS after knee hang Side left Reps/Minutes 5 SH x 10, quick flick x10 Comments good form Sitting Exercises Manual Lymphatic Draininge sequence Sitting Exercise Name Manual LE lympphatic drainage sequence Side left Resistance supine manual- ed with pt and daughter. Reps/Minutes 12 min Comments neck, pec, anterior hip L hip> thigh>knee>lower leg>foot> superior Gait Training Gait Activity Gait training Description Training for heel strike and toe off/L knee flexion Device Used FWW Level of Assistance verbal cuing Surface level Distance/Duration 15 ft Treatment Focus gait phases: knee flexion swing through L knee ext, heel to then toe off Comments improved mechanics post ed/ performance, ed cues L knee extension for midstance but will come. Manual Therapy Treatment Soft Tissue Mobilization retrograde Body Location add Self-Care/Home Management Treatment Education Patient Education Home Exercise Program,Joint Protection,Safety Other Education Pt and DA education in LE seated lymphedema ex's, use CP L knee and foot, elevation with AP/ ABCs. Noted pitting edema 5 sec return during support of AAROM L knee. Next tx: review education in YUNI wrap of L knee for compression swelling reducation support.. PT-OP-R Modalities Start: 04/14/23 11:13 Freq: Status: Active Protocol: Document 04/16/23 13:30 LRN (Rec: 04/16/23 14:17 LRN [id number]) Hot Pack/Cold Pack Treatment Cold Pack Location L knee in elevation Patient Position Supine Treatment Duration (minutes) 8 Patient Tolerance Good Comments Elevated leg on bolster. PT-OP-T Assessment and Plan Start: 04/14/23 11:13 Freq: Status: Active Protocol: Document 04/22/23 12:00 SP (Rec: 04/22/23 12:50 SP [id number]) Physical Therapy Assessment Goals Three Impairment Decreased function Impairment Pt requiring use of FWW for safe gait Pt limited in ability to walk her dog. LEFS score 18 (60-795 impaired , score 17-31) Short Term Goal (STG) Improve L knee strength/ stability with pt able to walk safely without an assistive device. 04/18/23: Adjusted FWW for proper hgt and did gait training for heel strike and toe off. 04/22/23: instructed gait phase mechanics. STG Duration 05/31/23 progressed 04/22/23 Shelter Goal (LTG) Improve L knee strength/ stability with pt able to walk her dog 1/2 hour before fatigue. LTG Duration 07/15/23 Two Impairment Decreased L knee AROM limiting function Short Term Goal (STG) Improve L knee AROM to 95 deg' s flexion, with pt able to tolerate full revolution of leg on the upright bike. 04/22/23: initiated scifit recumbent stepper today with reports that feels good to move my L knee. Not measured. Biodex next for ankle ROM then progress upright bike/ recumbent bike. STG Duration 05/31/23 progressing 04/22/23 Shelter Goal (LTG) Improve L knee AROM to 120 deg 's flexion to be able to ambulate stairs with a step over step gait with use of 1 railing. 04/22/23: progressing: AROM 10- 81 deg, 89 deg self support strap. LTG Duration 07/15/23 progressing 04/22/23 One Impairment HEP. Short Term Goal (STG) Pt will be educated in self care program of edema management of use of cryotherapy and post op LE lymphedema massage. 04/22/23: progressing: review and self application assist by daughter. Discussed donning YUNI wrap for edema support. Recheck next tx. STG Duration 05/03/23 progressing 04/22/23 Charge Hand Goal (LTG) Pt will be independent in a self care HEP of L LE strengthening and ROM exercises. 04/18/23: HEP: Manual LE lympohatic drainage sequence ex. LTG Duration 07/15/23 progressed 04/18/23 Progress Towards Goals Progress Comments Progressed ROM L knee AROM: 10 -81 deg, AAROM: 89 deg using strap (LE over tball) Assessment Summary Assessment Pt good response manual and understanding for home. Improved quad facilitation post manual and AROM through tx. Good understanding elevate , use of YUNI bandage and CP for edema support. Pt declined cold modality due to husbands appt after hers need attend. Physical Therapy Plan Frequency and Duration Frequency of Treatment 2x/Week Plan of Care Start Date 04/16/23 Plan of Care End Date 07/15/23 Therapeutic Interventions Therapeutic Interventions Balance Training,Gait Training ,Home Exercise Program,Joint Mobilizations,Manual Therapy, Patient/Caregiver Education, Self-Care/Home Management,Soft Tissue Mobilization,Taping, Therapeutic Exercises Modalities Cold Pack/Ice Massage,Electric Stimulation Next Visit Focus/Plan Next Note Type Treatment Note Next Visit Plan Assess ROM pre/post. Warm up Scifit/boidex. Assess balance, stability with gait (TUG). Assess response to training of proper posturing and gait mechanics and TKA lymphedema ex's (STG #1) and pt education in YUNI wrap of L knee. educated in self care program of edema management of use of cryotherapy Start L TKA lymphedema massage after removal of bandage over scar. Progress L knee ROM and strengthening. Upright bike and stair training when appropriate.
--- NOTE | 2023-04-25 10:47 | PT.OTN ---
Current Diagnoses Unilateral primary osteoarthritis, left knee (04/25/23) Muscle weakness (generalized) (04/25/23) Other abnormalities of gait and mobility (04/25/23) Presence of right artificial knee joint (04/25/23) Physical Therapy Treatment Note PT-OP-A Visit Information Start: 04/14/23 11:13 Freq: Status: Active Protocol: Document 04/25/23 10:00 SP (Rec: 04/25/23 10:50 SP [id number]) Out-Patient Physical Therapy Visit Information Visit Information Visit Type Treatment Note Visit Note Pt 8 min late for appt Visit Start Time 10:08 Visit Stop Time 10:47 Total Visit Minutes 41 Visit Number 4 Number of BLASTER HELPER Visits 2 Evaluation Information Evaluation Date 04/16/23 Precautions Precautions R TKA 6.5 yrs ago. PT-OP-B Current Condition Start: 04/14/23 11:13 Freq: Status: Active Protocol: Document 04/16/23 13:30 LRN (Rec: 04/16/23 14:17 LRN [id number]) Current Condition History of Current Condition Onset Date 04/09/23 Current Complaints L knee pain off /on. Worse after being stationary. History of Current Condition L TKA 04/09/23. Pt in hospital overnight. Pt has had daughter helping her with home exercises since discharge from the hospital. She states she has been doing HEP 1-2x/ day. Treatment Goals Patient/Caregiver Goals Pt goals: Pt able to bend her L knee same as R knee. Pt will be able to walk without her walker. Garden in a year. Walk dog 1/2 hour. Personal Factors Other Personal Factors That May Effect Pt has daughter(DA) helping Therapy/Recovery her for the next few weeks. DA wanted known that her mom had previous physical therapy that the PT was not very encouraging; therefore made pt feel she didn't do well; therefore pt does better with encouragement and not negativity. PT-OP-C Subjective Start: 04/14/23 11:13 Freq: Status: Active Protocol: Document 04/25/23 10:00 SP (Rec: 04/25/23 10:50 SP [id number]) OP-PT Subjective Patient Comments Patient Comments Pt stated saw ortho yesterday and had to wait 1.5 hrs so was stiff by time saw Dr Raygoza, was pleased with ROM and xray looked good. Pt stated headed to [place] after appt to visit family, will be gone next week but will call and see if can get more appts when return, on cancellation list for appts due to next appt scheduled for 05/14 with PT. Pt and daughter asked when can drive, daughter with her for another 1m5 weeks. Told her to ask Dr Raygoza, forgot appt. She isnt having take pain meds. She still need daughter help with compression sock donning, but remembered has sock aid, will try at home for I. Pt asked if can start using SPC. PT-OP-D Balance Start: 04/14/23 11:13 Freq: Status: Active Protocol: Document 04/16/23 13:30 LRN (Rec: 04/16/23 14:17 LRN [id number]) OP-PT Balance Assessment Sitting Balance Static Sitting Balance Ability Good Standing Balance Static Standing Balance Ability Good Dynamic Standing Balance Ability Fair Device Used FWW Standing Balance Comments Pt has good dynamic standing balance with use of FWW. Pt is not appropriate for single leg stance testing. Perez Fall Scale Copyright Permission PT-OP-G Mobility & Gait Start: 04/14/23 11:13 Freq: Status: Active Protocol: Document 04/18/23 08:51 LRN (Rec: 04/18/23 09:43 LRN [id number]) OP Gait Assessment Gait Gait Assistance Required: Independent Assistive Devices Assistive Device Standard Walker Gait Deviations General Gait Pattern Decreased Stride Length, Decreased Feet Clearance, Flexed Trunk,Narrow Based Gait Factors Limiting Gait Function Factors Limiting Gait Function Decreased Activity Tolerance, Decreased Strength,Limited Range of Motion,Pain,Poor Balance Comments Gait Comments Pt FWW appears too short for patient at start of therapy. PT-OP-J Posture/Palpation/Skin Start: 04/14/23 11:13 Freq: Status: Active Protocol: Document 04/16/23 13:30 LRN (Rec: 04/16/23 14:17 LRN [id number]) Palpation Assessment Location L knee Palpation Location LLE Palpation Findings Edema Palpation Details Moderate+ swelling at the L ankle>lower leg> knee> distal thigh. PT-OP-K Range of Motion Start: 04/14/23 11:13 Freq: Status: Active Protocol: Document 04/25/23 10:00 SP (Rec: 04/25/23 10:50 SP [id number]) Knee Goniometric Range of Motion Knee Left Knee ROM WFL No Patient Position Supine Flexion Active (degrees) 82 Extension Active (degrees) 3 Comments AROM L knee post bike: 3-82 deg 85 deg flexion post manual AROM PT-OP-M Strength Start: 04/14/23 11:13 Freq: Status: Active Protocol: Document 04/16/23 13:30 LRN (Rec: 04/16/23 14:17 LRN [id number]) Knee Strength Knee Manual Muscle Testing Right Flexion (S2) 5 Normal Extension (L3) 5 Normal Left Flexion (S2) 3- Fair- Extension (L3) 3- Fair- Ankle/Foot Strength Ankle and Foot Manual Muscle Testing Right Dorsiflexion (L4) 5 Normal Plantarflexion (S1) 5 Normal Inversion 5 Normal Eversion (S1) 5 Normal Left Dorsiflexion (L4) 4 Good Plantarflexion (S1) 4 Good Inversion 4+ Good+ Eversion (S1) 4+ Good+ PT-OP-Q Treatments Start: 04/14/23 11:13 Freq: Status: Active Protocol: Document 04/25/23 10:00 SP (Rec: 04/25/23 10:50 SP [id number]) Cardio Equipment Recumbent Elliptical (Biodex) Duration (Minutes) 6 Resistance 1 Seat Position 7 Other LEs only, rocking, decreased tension with reps Therapeutic Exercises Supine Exercises L Knee flexion Supine Exercise Name L knee flex Side left Resistance LLE over 55cm Tball Equipment Used manual assist then use gait belt Reps/Minutes 10x 2 Comments good feedback response 89 deg end tx post manual Sitting Exercises Knee flexion stretch Sitting Exercise Name Self knee flex stretch Side left Reps/Minutes 10 SH x 7 Comments ed continue in car. Gait Training Gait Activity gait w/ SPC Description assess next tx if ready in mirror for self corrections Gait training Description Training for heel strike and toe off/L knee flexion Device Used FWW Level of Assistance verbal cuing Surface level Distance/Duration 80 ft x2 Treatment Focus gait phases: knee flexion swing through L knee ext, heel to then toe off Comments improved mechanics arrival performance, improved mid stance TKE with occasional cues. Cued for decrease UE pressure on FWW. Manual Therapy Treatment Soft Tissue Mobilization scar mobility Body Location L knee Intensity/Depth Superficial Body Position Supine Comments discussion 2 fingers either side scar, move together sup/ inf/med/lat gentle start of fascia mobility. Good response and self/daughter understanding performance retrograde Body Location prox>distal then distal proximal Mobilization Type Manual Lymphatic Drainage, Myofascial Release Intensity/Depth Superficial Body Position Supine Comments manual light initial prox> distal brush strokes, distal: foot, ankle, lower leg, knee, thigh retrograde strokes with edema mgt emphasis. Assisted don Compression sock post for support circulationr return. PT-OP-R Modalities Start: 04/14/23 11:13 Freq: Status: Active Protocol: Document 04/16/23 13:30 LRN (Rec: 04/16/23 14:17 LRN [id number]) Hot Pack/Cold Pack Treatment Cold Pack Location L knee in elevation Patient Position Supine Treatment Duration (minutes) 8 Patient Tolerance Good Comments Elevated leg on bolster. PT-OP-T Assessment and Plan Start: 04/14/23 11:13 Freq: Status: Active Protocol: Document 04/25/23 10:00 SP (Rec: 04/25/23 10:50 SP [id number]) Physical Therapy Assessment Goals Three Impairment Decreased function Impairment Pt requiring use of FWW for safe gait Pt limited in ability to walk her dog. LEFS score 18 (60-795 impaired , score 17-31) Short Term Goal (STG) Improve L knee strength/ stability with pt able to walk safely without an assistive device. 04/18/23: Adjusted FWW for proper hgt and did gait training for heel strike and toe off. 04/22/23: instructed gait phase mechanics. 04/25/23: Progressingimproved knee flexion and heel toe, still limited knee extension midstance phase. Ed for decrease UE WB on FWW needed. STG Duration 05/31/23 progressed 04/25/23 Playground Attendant Goal (LTG) Improve L knee strength/ stability with pt able to walk her dog 1/2 hour before fatigue. LTG Duration 07/15/23 Two Impairment Decreased L knee AROM limiting function Short Term Goal (STG) Improve L knee AROM to 95 deg' s flexion, with pt able to tolerate full revolution of leg on the upright bike. 04/22/23: initiated scifit recumbent stepper today with reports that feels good to move my L knee. Not measured. Biodex next for ankle ROM then progress upright bike/ recumbent bike. STG Duration 05/31/23 progressing 04/22/23 Playground Attendant Goal (LTG) Improve L knee AROM to 120 deg 's flexion to be able to ambulate stairs with a step over step gait with use of 1 railing. 04/22/23: progressing: AROM 10- 81 deg, 89 deg self support strap. LTG Duration 07/15/23 progressing 04/22/23 One Impairment HEP. Short Term Goal (STG) Pt will be educated in self care program of edema management of use of cryotherapy and post op LE lymphedema massage. 04/22/23: progressing: review and self application assist by daughter. Discussed donning YUNI wrap for edema support. Recheck next tx. 04/25/23: GOAL MET: wearing compression sock lower leg, using elevation/ice pack, there is still swelling for decreasing. STG Duration 05/03/23 progressing 04/22/23 Playground Attendant Goal (LTG) Pt will be independent in a self care HEP of L LE strengthening and ROM exercises. 04/18/23: HEP: Manual LE lympohatic drainage sequence ex. LTG Duration 07/15/23 progressed 04/18/23 Progress Towards Goals Progress Comments Progressed ROM L knee AROM: 3- 82 deg, AAROM: 85 deg using strap (LE over tball) Assessment Summary Assessment Pt making small gains in L knee flexion and good gains in extension by 7 deg from last tx. Improved gait phases, still limited mid stand LLE extension. BLASTER HELPER suggested continue FWW support and will trial SPC next tx but need start using less UE support to be able transition with improved RLE extension during mid stance. Improved decreased swelling lateral knee since last tx (forgot take measurements), continue pitting edema ankle but small improvements. Ed continue use compression sock, elevate/ice ankle and knee. Physical Therapy Plan Frequency and Duration Frequency of Treatment 2x/Week Plan of Care Start Date 04/16/23 Plan of Care End Date 07/15/23 Therapeutic Interventions Therapeutic Interventions Balance Training,Gait Training ,Home Exercise Program,Joint Mobilizations,Manual Therapy, Patient/Caregiver Education, Self-Care/Home Management,Soft Tissue Mobilization,Taping, Therapeutic Exercises Modalities Cold Pack/Ice Massage,Electric Stimulation Next Visit Focus/Plan Next Note Type Treatment Note Next Visit Plan Warm up boidex, add shuttle press low wt for assist flexion. Assess TUG. Add TKE standing if able. CP end tx, declined past 2 tx. Continue gait mechanics progress SPC if able. Recheck L knee swelling forgot to measure end tx. Continue to training of proper posturing and gait mechanics. Remind education in YUNI wrap of L knee and compression sock . Progress L knee ROM and strengthening. Upright bike and stair training when appropriate.
--- NOTE | 2023-05-14 16:12 | PT.OTN ---
Current Diagnoses Unilateral primary osteoarthritis, left knee (05/14/23) Muscle weakness (generalized) (05/14/23) Other abnormalities of gait and mobility (05/14/23) Presence of right artificial knee joint (05/14/23) Physical Therapy Treatment Note PT-OP-A Visit Information Start: 04/14/23 11:13 Freq: Status: Active Protocol: Document 05/14/23 12:34 LRN (Rec: 05/14/23 13:17 LRN [id number]) Out-Patient Physical Therapy Visit Information Visit Information Visit Type Treatment Note Visit Start Time 12:34 Visit Stop Time 13:15 Total Visit Minutes 41 Visit Number 5 Evaluation Information Evaluation Date 04/16/23 Precautions Precautions R TKA 6.5 yrs ago. PT-OP-B Current Condition Start: 04/14/23 11:13 Freq: Status: Active Protocol: Document 04/16/23 13:30 LRN (Rec: 04/16/23 14:17 LRN [id number]) Current Condition History of Current Condition Onset Date 04/09/23 Current Complaints L knee pain off /on. Worse after being stationary. History of Current Condition L TKA 04/09/23. Pt in hospital overnight. Pt has had daughter helping her with home exercises since discharge from the hospital. She states she has been doing HEP 1-2x/ day. Treatment Goals Patient/Caregiver Goals Pt goals: Pt able to bend her L knee same as R knee. Pt will be able to walk without her walker. Garden in a year. Walk dog 1/2 hour. Personal Factors Other Personal Factors That May Effect Pt has daughter(DA) helping Therapy/Recovery her for the next few weeks. DA wanted known that her mom had previous physical therapy that the PT was not very encouraging; therefore made pt feel she didn't do well; therefore pt does better with encouragement and not negativity. PT-OP-C Subjective Start: 04/14/23 11:13 Freq: Status: Active Protocol: Document 05/14/23 12:34 LRN (Rec: 05/14/23 13:17 LRN [id number]) OP-PT Subjective Patient Comments Patient Comments Will see MD next week. States she forgets where she puts her cane sometimes. States she cut her L knee ( distal end of scar) while shaving her leg. PT-OP-D Balance Start: 04/14/23 11:13 Freq: Status: Active Protocol: Document 04/16/23 13:30 LRN (Rec: 04/16/23 14:17 LRN [id number]) OP-PT Balance Assessment Sitting Balance Static Sitting Balance Ability Good Standing Balance Static Standing Balance Ability Good Dynamic Standing Balance Ability Fair Device Used FWW Standing Balance Comments Pt has good dynamic standing balance with use of FWW. Pt is not appropriate for single leg stance testing. Perez Fall Scale Copyright Permission PT-OP-G Mobility & Gait Start: 04/14/23 11:13 Freq: Status: Active Protocol: Document 04/18/23 08:51 LRN (Rec: 04/18/23 09:43 LRN [id number]) OP Gait Assessment Gait Gait Assistance Required: Independent Assistive Devices Assistive Device Standard Walker Gait Deviations General Gait Pattern Decreased Stride Length, Decreased Feet Clearance, Flexed Trunk,Narrow Based Gait Factors Limiting Gait Function Factors Limiting Gait Function Decreased Activity Tolerance, Decreased Strength,Limited Range of Motion,Pain,Poor Balance Comments Gait Comments Pt FWW appears too short for patient at start of therapy. PT-OP-J Posture/Palpation/Skin Start: 04/14/23 11:13 Freq: Status: Active Protocol: Document 04/16/23 13:30 LRN (Rec: 04/16/23 14:17 LRN [id number]) Palpation Assessment Location L knee Palpation Location LLE Palpation Findings Edema Palpation Details Moderate+ swelling at the L ankle>lower leg> knee> distal thigh. PT-OP-K Range of Motion Start: 04/14/23 11:13 Freq: Status: Active Protocol: Document 05/14/23 12:34 LRN (Rec: 05/14/23 13:17 LRN [id number]) Knee Goniometric Range of Motion Knee Left Knee ROM WFL No Patient Position Supine Flexion Active (degrees) 100 Flexion Passive (degrees) 100 Extension Active (degrees) 0 PT-OP-M Strength Start: 04/14/23 11:13 Freq: Status: Active Protocol: Document 04/16/23 13:30 LRN (Rec: 04/16/23 14:17 LRN [id number]) Knee Strength Knee Manual Muscle Testing Right Flexion (S2) 5 Normal Extension (L3) 5 Normal Left Flexion (S2) 3- Fair- Extension (L3) 3- Fair- Ankle/Foot Strength Ankle and Foot Manual Muscle Testing Right Dorsiflexion (L4) 5 Normal Plantarflexion (S1) 5 Normal Inversion 5 Normal Eversion (S1) 5 Normal Left Dorsiflexion (L4) 4 Good Plantarflexion (S1) 4 Good Inversion 4+ Good+ Eversion (S1) 4+ Good+ PT-OP-Q Treatments Start: 04/14/23 11:13 Freq: Status: Active Protocol: Document 05/14/23 12:34 LRN (Rec: 05/14/23 13:17 LRN [id number]) Cardio Equipment Recumbent Elliptical (Biodex) Duration (Minutes) 8 Resistance 1 Seat Position 7 Other LEs only Therapeutic Exercises Supine Exercises SAQ Supine Exercise Name SAQ Side left Resistance 3# Equipment Used foam roller Reps/Minutes 15x 2 Comments cued ankle DF neutral L Knee flexion Supine Exercise Name L knee flex stretch and AROM Side left Equipment Used manual assist then use gait belt Reps/Minutes 10x 2 Comments good feedback response 89 deg end tx post manual Sitting Exercises L knee flex Sitting Exercise Name L knn flex strengthening Side left Resistance Lev 2 TB Reps/Minutes 15x Knee flexion stretch Sitting Exercise Name Self knee flex stretch Side left Reps/Minutes 6' Comments Pt to do while passenger in car. Manual Therapy Treatment Soft Tissue Mobilization scar mobility Body Location L knee Intensity/Depth Superficial Body Position Supine Comments 2 fingers either side scar, move together sup/inf/med/lat gentle start of fascia mobility. Good response and self understanding performance Taping L knee Body Location I Strip on either side of well healed scar Treatment Focus Decrease swelling Type of Tape Kinesio Tape Skin Inspection Good integrity, dry flaky skin . Comments At distal end of well healed scar is a bandaid to cover spot of cut from pt shaving her leg. PT-OP-R Modalities Start: 04/14/23 11:13 Freq: Status: Active Protocol: Document 04/16/23 13:30 LRN (Rec: 04/16/23 14:17 LRN [id number]) Hot Pack/Cold Pack Treatment Cold Pack Location L knee in elevation Patient Position Supine Treatment Duration (minutes) 8 Patient Tolerance Good Comments Elevated leg on bolster. PT-OP-T Assessment and Plan Start: 04/14/23 11:13 Freq: Status: Active Protocol: Document 05/14/23 12:34 LRN (Rec: 05/14/23 13:17 LRN [id number]) Physical Therapy Assessment Goals Three Impairment Decreased function Impairment Pt requiring use of FWW for safe gait Pt limited in ability to walk her dog. LEFS score 18 (60-795 impaired , score 17-31) Short Term Goal (STG) Improve L knee strength/ stability with pt able to walk safely without an assistive device. 04/18/23: Adjusted FWW for proper hgt and did gait training for heel strike and toe off. 04/22/23: instructed gait phase mechanics. 04/25/23: Progressingimproved knee flexion and heel toe, still limited knee extension midstance phase. Ed for decrease UE WB on FWW needed. STG Duration 05/31/23 progressed 04/25/23 Rod Welder Goal (LTG) Improve L knee strength/ stability with pt able to walk her dog 1/2 hour before fatigue. LTG Duration 07/15/23 Two Impairment Decreased L knee AROM limiting function Short Term Goal (STG) Improve L knee AROM to 95 deg' s flexion, with pt able to tolerate full revolution of leg on the upright bike. 04/22/23: initiated Evifit recumbent stepper today with reports that feels good to move my L knee. Not measured. Biodex next for ankle ROM then progress upright bike/ recumbent bike. 05/14/23: L knee AROM 0-100 deg's in supine. STG Duration 05/31/23 progressing Rod Welder Goal (LTG) Improve L knee AROM to 120 deg 's flexion to be able to ambulate stairs with a step over step gait with use of 1 railing. 04/22/23: progressing: AROM 10- 81 deg, 89 deg self support strap. LTG Duration 07/15/23 progressing 04/22/23 One Impairment HEP. Short Term Goal (STG) Pt will be educated in self care program of edema management of use of cryotherapy and post op LE lymphedema massage. 04/22/23: progressing: review and self application assist by daughter. Discussed donning YUNI wrap for edema support. Recheck next tx. 04/25/23: GOAL MET: wearing compression sock lower leg, using elevation/ice pack, there is still swelling for decreasing. STG Duration 05/03/23 progressing 04/22/23 Long-Term Goal (LTG) Pt will be independent in a self care HEP of L LE strengthening and ROM exercises. 04/18/23: HEP: Manual LE lympohatic drainage sequence ex. LTG Duration 07/15/23 progressed 04/18/23 Assessment Summary Assessment Pt is ~5 weeks s/p L TKA. L Knee AROM & PROM is 0-100 deg' s as measured at end of therapy. Pt L anterior knee is warm to touch; therefore more use of cold pack at home is needed. L knee AROM/PROM is improving. Pt walking with SPC with mild antalgic gait. Physical Therapy Plan Frequency and Duration Frequency of Treatment 2x/Week Plan of Care Start Date 04/16/23 Plan of Care End Date 07/15/23 Next Visit Focus/Plan Next Note Type Treatment Note Next Visit Plan Next week will see PA for Dr. Raygoza for 6 wk follow up. Assess response to K-tape. Assess TUG. NEXT: Educate pt in LE lymphedema massage & remind education in YUNI wrap of L knee and compression sock. Start Upright bike for full revolution, add shuttle press low wt for assist flexion. Add TKE standing and start strengthening. Continue to training of proper posturing and gait mechanics. Progress L knee ROM and strengthening. Stair training when appropriate. Pt choosing to use cold pack at home.
--- NOTE | 2023-05-16 09:47 | PT.OTN ---
Current Diagnoses Unilateral primary osteoarthritis, left knee (05/16/23) Muscle weakness (generalized) (05/16/23) Other abnormalities of gait and mobility (05/16/23) Presence of right artificial knee joint (05/16/23) Physical Therapy Treatment Note PT-OP-A Visit Information Start: 04/14/23 11:13 Freq: Status: Active Protocol: Document 05/16/23 09:01 SP (Rec: 05/16/23 09:53 SP [id number]) Out-Patient Physical Therapy Visit Information Visit Information Visit Type Treatment Note Visit Note 03/30 since eval, 05/28 appt PN via PT (9th visit). Visit Start Time 09:01 Visit Stop Time 09:47 Total Visit Minutes 46 Visit Number 6 Number of SOFTWARE LICENSING ANALYST Visits 1 Evaluation Information Evaluation Date 04/16/23 Precautions Precautions R TKA 6.5 yrs ago. L TKE DOS: 04/09/23. PT-OP-B Current Condition Start: 04/14/23 11:13 Freq: Status: Active Protocol: Document 04/16/23 13:30 LRN (Rec: 04/16/23 14:17 LRN [id number]) Current Condition History of Current Condition Onset Date 04/09/23 Current Complaints L knee pain off /on. Worse after being stationary. History of Current Condition L TKA 04/09/23. Pt in hospital overnight. Pt has had daughter helping her with home exercises since discharge from the hospital. She states she has been doing HEP 1-2x/ day. Treatment Goals Patient/Caregiver Goals Pt goals: Pt able to bend her L knee same as R knee. Pt will be able to walk without her walker. Garden in a year. Walk dog 1/2 hour. Personal Factors Other Personal Factors That May Effect Pt has daughter(DA) helping Therapy/Recovery her for the next few weeks. DA wanted known that her mom had previous physical therapy that the PT was not very encouraging; therefore made pt feel she didn't do well; therefore pt does better with encouragement and not negativity. PT-OP-C Subjective Start: 04/14/23 11:13 Freq: Status: Active Protocol: Document 05/16/23 09:01 SP (Rec: 05/16/23 09:53 SP [id number]) OP-PT Subjective Patient Comments Patient Comments Pt reported able to walk with SPC now, saw ortho to take remaining stitch out bothersome missed. Is compliant with HEP, found Ktaping helpful and feel helped with swelling. Is using SPC at this point. Pt did report Ktaping helped, wanting a break and requested SOFTWARE LICENSING ANALYST remove this tx. PT-OP-D Balance Start: 04/14/23 11:13 Freq: Status: Active Protocol: Document 04/16/23 13:30 LRN (Rec: 04/16/23 14:17 LRN [id number]) OP-PT Balance Assessment Sitting Balance Static Sitting Balance Ability Good Standing Balance Static Standing Balance Ability Good Dynamic Standing Balance Ability Fair Device Used FWW Standing Balance Comments Pt has good dynamic standing balance with use of FWW. Pt is not appropriate for single leg stance testing. Perez Fall Scale Copyright Permission PT-OP-E Functional Tests Start: 04/14/23 11:13 Freq: Status: Active Protocol: Document 05/16/23 09:01 SP (Rec: 05/16/23 09:53 SP [id number]) Functional Tests Timed Up and Go (TUG) Score 11 sec, 10 sec, 8 sec Comments UE support 1st time, no UE 2nd and 3rd rep TUG Impairment Rating 0% Impaired (Score 10) PT-OP-G Mobility & Gait Start: 04/14/23 11:13 Freq: Status: Active Protocol: Document 04/18/23 08:51 LRN (Rec: 04/18/23 09:43 LRN [id number]) OP Gait Assessment Gait Gait Assistance Required: Independent Assistive Devices Assistive Device Standard Walker Gait Deviations General Gait Pattern Decreased Stride Length, Decreased Feet Clearance, Flexed Trunk,Narrow Based Gait Factors Limiting Gait Function Factors Limiting Gait Function Decreased Activity Tolerance, Decreased Strength,Limited Range of Motion,Pain,Poor Balance Comments Gait Comments Pt FWW appears too short for patient at start of therapy. PT-OP-J Posture/Palpation/Skin Start: 04/14/23 11:13 Freq: Status: Active Protocol: Document 04/16/23 13:30 LRN (Rec: 04/16/23 14:17 LRN [id number]) Palpation Assessment Location L knee Palpation Location LLE Palpation Findings Edema Palpation Details Moderate+ swelling at the L ankle>lower leg> knee> distal thigh. PT-OP-K Range of Motion Start: 04/14/23 11:13 Freq: Status: Active Protocol: Document 05/14/23 12:34 LRN (Rec: 05/14/23 13:17 LRN [id number]) Knee Goniometric Range of Motion Knee Left Knee ROM WFL No Patient Position Supine Flexion Active (degrees) 100 Flexion Passive (degrees) 100 Extension Active (degrees) 0 PT-OP-M Strength Start: 04/14/23 11:13 Freq: Status: Active Protocol: Document 04/16/23 13:30 LRN (Rec: 04/16/23 14:17 LRN [id number]) Knee Strength Knee Manual Muscle Testing Right Flexion (S2) 5 Normal Extension (L3) 5 Normal Left Flexion (S2) 3- Fair- Extension (L3) 3- Fair- Ankle/Foot Strength Ankle and Foot Manual Muscle Testing Right Dorsiflexion (L4) 5 Normal Plantarflexion (S1) 5 Normal Inversion 5 Normal Eversion (S1) 5 Normal Left Dorsiflexion (L4) 4 Good Plantarflexion (S1) 4 Good Inversion 4+ Good+ Eversion (S1) 4+ Good+ PT-OP-Q Treatments Start: 04/14/23 11:13 Freq: Status: Active Protocol: Document 05/16/23 09:01 SP (Rec: 05/16/23 09:53 SP [id number]) Cardio Equipment Recumbent Elliptical (Biodex) Duration (Minutes) 8 Resistance 1 Seat Position 7>6 Other LEs only Bicycle (Upright) Other next tx Gym Equipment Shuttle Recovery unilateral Details 100 deg Resistance 25 # (new band) Shuttle Recovery Platform Stable Reps/Time 15 reps, 10 reps bilateral Details 100> 108 deg kelsey ROM (unlocked ) Resistance 50 # ( 2 old bands) Shuttle Recovery Platform Stable Reps/Time 10 x2 sets Therapeutic Exercises Supine Exercises SAQ Supine Exercise Name SAQ Side left Resistance AROM 10 SH x10, 3# x15 Equipment Used foam roller Comments cued ankle DF neutral Sitting Exercises L knee flex Sitting Exercise Name L knn flex strengthening Side left Resistance Lev 2 TB Equipment Used seated in mesh chair Reps/Minutes 15x 2 sets, pause end feel range Comments cued slow pacing, allow thigh rest on chair L LAQ Sitting Exercise Name L LAQ- added to HEP Side left Reps/Minutes 5 SH x 10 Comments good form and mid quad fac Knee flexion stretch Sitting Exercise Name Self knee flex stretch- 103 deg Side left Reps/Minutes 10 SH x5 Comments scoot fwd in chair stretch, heel down Gait Training Gait Activity gait w/ SPC Description in mirror Device Used no AD & SPC Level of Assistance S Distance/Duration 20 ft x4 laps Treatment Focus L TKE, elongation trunk posture centering over stance LE Comments Cued L knee lateral shift into WB TKE to allow proper alignment and stability. PT-OP-R Modalities Start: 04/14/23 11:13 Freq: Status: Active Protocol: Document 04/16/23 13:30 LRN (Rec: 04/16/23 14:17 LRN [id number]) Hot Pack/Cold Pack Treatment Cold Pack Location L knee in elevation Patient Position Supine Treatment Duration (minutes) 8 Patient Tolerance Good Comments Elevated leg on bolster. PT-OP-T Assessment and Plan Start: 04/14/23 11:13 Freq: Status: Active Protocol: Document 05/16/23 09:01 SP (Rec: 05/16/23 09:53 SP [id number]) Physical Therapy Assessment Goals Three Impairment Decreased function Impairment Pt requiring use of FWW for safe gait Pt limited in ability to walk her dog. LEFS score 18 (60-795 impaired , score 17-31) Short Term Goal (STG) Improve L knee strength/ stability with pt able to walk safely without an assistive device. 04/18/23: Adjusted FWW for proper hgt and did gait training for heel strike and toe off. 04/22/23: instructed gait phase mechanics. 04/25/23: Progressingimproved knee flexion and heel toe, still limited knee extension midstance phase. Ed for decrease UE WB on FWW needed. 05/16/23: TUG 11 sec use hands arm rest to stand/sit, 10 sec no UE support, 8 sec no UE support. Time spent gait with and without SPC in mirror, cued knee alignment and TKE. STG Duration 05/31/23 progressed 05/16/23 Spring Maker Goal (LTG) Improve L knee strength/ stability with pt able to walk her dog 1/2 hour before fatigue. LTG Duration 07/15/23 Two Impairment Decreased L knee AROM limiting function Short Term Goal (STG) Improve L knee AROM to 95 deg' s flexion, with pt able to tolerate full revolution of leg on the upright bike. 04/22/23: initiated scifit recumbent stepper today with reports that feels good to move my L knee. Not measured. Biodex next for ankle ROM then progress upright bike/ recumbent bike. 05/14/23: L knee AROM 0-100 deg's in supine. 05/16/23: 108deg AAROM L knee on shuttle recovery. Upright bike next tx. STG Duration 05/31/23 progressing Spring Maker Goal (LTG) Improve L knee AROM to 120 deg 's flexion to be able to ambulate stairs with a step over step gait with use of 1 railing. 04/22/23: progressing: AROM 10- 81 deg, 89 deg self support strap. 05/16/23: progressing: AROM L knee 108 deg on shuttle recovery. LTG Duration 07/15/23 progressing 05/16/23 One Impairment HEP. Short Term Goal (STG) Pt will be educated in self care program of edema management of use of cryotherapy and post op LE lymphedema massage. 04/22/23: progressing: review and self application assist by daughter. Discussed donning YUNI wrap for edema support. Recheck next tx. 04/25/23: GOAL MET: wearing compression sock lower leg, using elevation/ice pack, there is still swelling for decreasing. STG Duration 05/03/23 GOAL MET 04/25/23 Retirement Goal (LTG) Pt will be independent in a self care HEP of L LE strengthening and ROM exercises. 04/18/23: HEP: Manual LE lympohatic drainage sequence ex. 05/17/23: SAQ, resisted HS curl , L knee flexion stretch seated, added LAQ. LTG Duration 07/15/23 progressed 05/16/23 Progress Towards Goals Progress Comments TUG 11 sec use hands arm rest to stand/sit, 10 sec no UE support, 8 sec no UE support. Assessment Summary Assessment Pt AARLEXIE on shuttle recovery 108 deg L knee flexion unlocked ROM to tolerance. She improved gait with use SPC today, ed cues for knee alignment and TKE. Good quad contraction during LAQ today AROM holds. Ed for continue use SPC for proper form support during gait. Physical Therapy Plan Frequency and Duration Frequency of Treatment 2x/Week Plan of Care Start Date 04/16/23 Plan of Care End Date 07/15/23 Therapeutic Interventions Therapeutic Interventions Balance Training,Gait Training ,Home Exercise Program,Joint Mobilizations,Manual Therapy, Patient/Caregiver Education, Self-Care/Home Management,Soft Tissue Mobilization,Taping, Therapeutic Exercises Modalities Cold Pack/Ice Massage,Electric Stimulation Next Visit Focus/Plan Next Note Type Treatment Note Next Visit Plan Next week will see PA for Dr. Raygoza for 6 wk follow up. Reapply ktape swelling if needed next tx. Start Upright bike for full revolution, continue shuttle recovery, recheck LAQ. NEXT: Educate pt in LE lymphedema massage & remind education in YUNI wrap of L knee and compression sock. Add TKE standing and start strengthening. Continue to training of proper posturing and gait mechanics. Progress L knee ROM and strengthening. Stair training when appropriate. Pt choosing to use cold pack at home.
--- NOTE | 2023-05-17 09:47 | PT.OTN ---
Current Diagnoses Unilateral primary osteoarthritis, left knee (05/16/23) Muscle weakness (generalized) (05/16/23) Other abnormalities of gait and mobility (05/16/23) Presence of right artificial knee joint (05/16/23) Physical Therapy Treatment Note PT-OP-A Visit Information Start: 04/14/23 11:13 Freq: Status: Active Protocol: Document 05/16/23 09:01 SP (Rec: 05/16/23 09:53 SP [id number]) Out-Patient Physical Therapy Visit Information Visit Information Visit Type Treatment Note Visit Note 03/30 since eval, 05/28 appt PN via PT (9th visit). Visit Start Time 09:01 Visit Stop Time 09:47 Total Visit Minutes 46 Visit Number 6 Number of STRATEGY LEAD Visits 1 Evaluation Information Evaluation Date 04/16/23 Precautions Precautions R TKA 6.5 yrs ago. L TKE DOS: 04/09/23. PT-OP-B Current Condition Start: 04/14/23 11:13 Freq: Status: Active Protocol: Document 04/16/23 13:30 LRN (Rec: 04/16/23 14:17 LRN [id number]) Current Condition History of Current Condition Onset Date 04/09/23 Current Complaints L knee pain off /on. Worse after being stationary. History of Current Condition L TKA 04/09/23. Pt in hospital overnight. Pt has had daughter helping her with home exercises since discharge from the hospital. She states she has been doing HEP 1-2x/ day. Treatment Goals Patient/Caregiver Goals Pt goals: Pt able to bend her L knee same as R knee. Pt will be able to walk without her walker. Garden in a year. Walk dog 1/2 hour. Personal Factors Other Personal Factors That May Effect Pt has daughter(DA) helping Therapy/Recovery her for the next few weeks. DA wanted known that her mom had previous physical therapy that the PT was not very encouraging; therefore made pt feel she didn't do well; therefore pt does better with encouragement and not negativity. PT-OP-C Subjective Start: 04/14/23 11:13 Freq: Status: Active Protocol: Document 05/16/23 09:01 SP (Rec: 05/16/23 09:53 SP [id number]) OP-PT Subjective Patient Comments Patient Comments Pt reported able to walk with SPC now, saw ortho to take remaining stitch out bothersome missed. Is compliant with HEP, found Ktaping helpful and feel helped with swelling. Is using SPC at this point. Pt did report Ktaping helped, wanting a break and requested STRATEGY LEAD remove this tx. PT-OP-D Balance Start: 04/14/23 11:13 Freq: Status: Active Protocol: Document 04/16/23 13:30 LRN (Rec: 04/16/23 14:17 LRN [id number]) OP-PT Balance Assessment Sitting Balance Static Sitting Balance Ability Good Standing Balance Static Standing Balance Ability Good Dynamic Standing Balance Ability Fair Device Used FWW Standing Balance Comments Pt has good dynamic standing balance with use of FWW. Pt is not appropriate for single leg stance testing. Perez Fall Scale Copyright Permission PT-OP-E Functional Tests Start: 04/14/23 11:13 Freq: Status: Active Protocol: Document 05/16/23 09:01 SP (Rec: 05/16/23 09:53 SP [id number]) Functional Tests Timed Up and Go (TUG) Score 11 sec, 10 sec, 8 sec Comments UE support 1st time, no UE 2nd and 3rd rep TUG Impairment Rating 0% Impaired (Score 10) PT-OP-G Mobility & Gait Start: 04/14/23 11:13 Freq: Status: Active Protocol: Document 04/18/23 08:51 LRN (Rec: 04/18/23 09:43 LRN [id number]) OP Gait Assessment Gait Gait Assistance Required: Independent Assistive Devices Assistive Device Standard Walker Gait Deviations General Gait Pattern Decreased Stride Length, Decreased Feet Clearance, Flexed Trunk,Narrow Based Gait Factors Limiting Gait Function Factors Limiting Gait Function Decreased Activity Tolerance, Decreased Strength,Limited Range of Motion,Pain,Poor Balance Comments Gait Comments Pt FWW appears too short for patient at start of therapy. PT-OP-J Posture/Palpation/Skin Start: 04/14/23 11:13 Freq: Status: Active Protocol: Document 04/16/23 13:30 LRN (Rec: 04/16/23 14:17 LRN [id number]) Palpation Assessment Location L knee Palpation Location LLE Palpation Findings Edema Palpation Details Moderate+ swelling at the L ankle>lower leg> knee> distal thigh. PT-OP-K Range of Motion Start: 04/14/23 11:13 Freq: Status: Active Protocol: Document 05/14/23 12:34 LRN (Rec: 05/14/23 13:17 LRN [id number]) Knee Goniometric Range of Motion Knee Left Knee ROM WFL No Patient Position Supine Flexion Active (degrees) 100 Flexion Passive (degrees) 100 Extension Active (degrees) 0 PT-OP-M Strength Start: 04/14/23 11:13 Freq: Status: Active Protocol: Document 04/16/23 13:30 LRN (Rec: 04/16/23 14:17 LRN [id number]) Knee Strength Knee Manual Muscle Testing Right Flexion (S2) 5 Normal Extension (L3) 5 Normal Left Flexion (S2) 3- Fair- Extension (L3) 3- Fair- Ankle/Foot Strength Ankle and Foot Manual Muscle Testing Right Dorsiflexion (L4) 5 Normal Plantarflexion (S1) 5 Normal Inversion 5 Normal Eversion (S1) 5 Normal Left Dorsiflexion (L4) 4 Good Plantarflexion (S1) 4 Good Inversion 4+ Good+ Eversion (S1) 4+ Good+ PT-OP-Q Treatments Start: 04/14/23 11:13 Freq: Status: Active Protocol: Document 05/16/23 09:01 SP (Rec: 05/16/23 09:53 SP [id number]) Cardio Equipment Recumbent Elliptical (Biodex) Duration (Minutes) 8 Resistance 1 Seat Position 7>6 Other LEs only Bicycle (Upright) Other next tx Gym Equipment Shuttle Recovery unilateral Details 100 deg Resistance 25 # (new band) Shuttle Recovery Platform Stable Reps/Time 15 reps, 10 reps bilateral Details 100> 108 deg kelsey ROM (unlocked ) Resistance 50 # ( 2 old bands) Shuttle Recovery Platform Stable Reps/Time 10 x2 sets Therapeutic Exercises Supine Exercises SAQ Supine Exercise Name SAQ Side left Resistance AROM 10 SH x10, 3# x15 Equipment Used foam roller Comments cued ankle DF neutral Sitting Exercises L knee flex Sitting Exercise Name L knn flex strengthening Side left Resistance Lev 2 TB Equipment Used seated in mesh chair Reps/Minutes 15x 2 sets, pause end feel range Comments cued slow pacing, allow thigh rest on chair L LAQ Sitting Exercise Name L LAQ- added to HEP Side left Reps/Minutes 5 SH x 10 Comments good form and mid quad fac Knee flexion stretch Sitting Exercise Name Self knee flex stretch- 103 deg Side left Reps/Minutes 10 SH x5 Comments scoot fwd in chair stretch, heel down Gait Training Gait Activity gait w/ SPC Description in mirror Device Used no AD & SPC Level of Assistance S Distance/Duration 20 ft x4 laps Treatment Focus L TKE, elongation trunk posture centering over stance LE Comments Cued L knee lateral shift into WB TKE to allow proper alignment and stability. PT-OP-R Modalities Start: 04/14/23 11:13 Freq: Status: Active Protocol: Document 04/16/23 13:30 LRN (Rec: 04/16/23 14:17 LRN [id number]) Hot Pack/Cold Pack Treatment Cold Pack Location L knee in elevation Patient Position Supine Treatment Duration (minutes) 8 Patient Tolerance Good Comments Elevated leg on bolster. PT-OP-T Assessment and Plan Start: 04/14/23 11:13 Freq: Status: Active Protocol: Document 05/16/23 09:01 SP (Rec: 05/16/23 09:53 SP [id number]) Physical Therapy Assessment Goals Three Impairment Decreased function Impairment Pt requiring use of FWW for safe gait Pt limited in ability to walk her dog. LEFS score 18 (60-795 impaired , score 17-31) Short Term Goal (STG) Improve L knee strength/ stability with pt able to walk safely without an assistive device. 04/18/23: Adjusted FWW for proper hgt and did gait training for heel strike and toe off. 04/22/23: instructed gait phase mechanics. 04/25/23: Progressingimproved knee flexion and heel toe, still limited knee extension midstance phase. Ed for decrease UE WB on FWW needed. 05/16/23: TUG 11 sec use hands arm rest to stand/sit, 10 sec no UE support, 8 sec no UE support. Time spent gait with and without SPC in mirror, cued knee alignment and TKE. STG Duration 05/31/23 progressed 05/16/23 Latin Professor Goal (LTG) Improve L knee strength/ stability with pt able to walk her dog 1/2 hour before fatigue. LTG Duration 07/15/23 Two Impairment Decreased L knee AROM limiting function Short Term Goal (STG) Improve L knee AROM to 95 deg' s flexion, with pt able to tolerate full revolution of leg on the upright bike. 04/22/23: initiated scifit recumbent stepper today with reports that feels good to move my L knee. Not measured. Biodex next for ankle ROM then progress upright bike/ recumbent bike. 05/14/23: L knee AROM 0-100 deg's in supine. 05/16/23: 108deg AAROM L knee on shuttle recovery. Upright bike next tx. STG Duration 05/31/23 progressing Latin Professor Goal (LTG) Improve L knee AROM to 120 deg 's flexion to be able to ambulate stairs with a step over step gait with use of 1 railing. 04/22/23: progressing: AROM 10- 81 deg, 89 deg self support strap. 05/16/23: progressing: AROM L knee 108 deg on shuttle recovery. LTG Duration 07/15/23 progressing 05/16/23 One Impairment HEP. Short Term Goal (STG) Pt will be educated in self care program of edema management of use of cryotherapy and post op LE lymphedema massage. 04/22/23: progressing: review and self application assist by daughter. Discussed donning YUNI wrap for edema support. Recheck next tx. 04/25/23: GOAL MET: wearing compression sock lower leg, using elevation/ice pack, there is still swelling for decreasing. STG Duration 05/03/23 GOAL MET 04/25/23 Longterm Goal (LTG) Pt will be independent in a self care HEP of L LE strengthening and ROM exercises. 04/18/23: HEP: Manual LE lympohatic drainage sequence ex. 05/17/23: SAQ, resisted HS curl , L knee flexion stretch seated, added LAQ. LTG Duration 07/15/23 progressed 05/16/23 Progress Towards Goals Progress Comments TUG 11 sec use hands arm rest to stand/sit, 10 sec no UE support, 8 sec no UE support. Assessment Summary Assessment Pt AARLEXIE on shuttle recovery 108 deg L knee flexion unlocked ROM to tolerance. She improved gait with use SPC today, ed cues for knee alignment and TKE. Good quad contraction during LAQ today AROM holds. Ed for continue use SPC for proper form support during gait. Physical Therapy Plan Frequency and Duration Frequency of Treatment 2x/Week Plan of Care Start Date 04/16/23 Plan of Care End Date 07/15/23 Therapeutic Interventions Therapeutic Interventions Balance Training,Gait Training ,Home Exercise Program,Joint Mobilizations,Manual Therapy, Patient/Caregiver Education, Self-Care/Home Management,Soft Tissue Mobilization,Taping, Therapeutic Exercises Modalities Cold Pack/Ice Massage,Electric Stimulation Next Visit Focus/Plan Next Note Type Treatment Note Next Visit Plan Next week will see PA for Dr. Raygoza for 6 wk follow up. Reapply ktape swelling if needed next tx. Start Upright bike for full revolution, continue shuttle recovery, recheck LAQ. NEXT: Educate pt in LE lymphedema massage & remind education in YUNI wrap of L knee and compression sock. Add TKE standing and start strengthening. Continue to training of proper posturing and gait mechanics. Progress L knee ROM and strengthening. Stair training when appropriate. Pt choosing to use cold pack at home.
--- NOTE | 2023-05-21 09:50 | PT.OTN ---
Current Diagnoses Unilateral primary osteoarthritis, left knee (05/21/23) Muscle weakness (generalized) (05/21/23) Other abnormalities of gait and mobility (05/21/23) Presence of right artificial knee joint (05/21/23) Physical Therapy Treatment Note PT-OP-A Visit Information Start: 04/14/23 11:13 Freq: Status: Active Protocol: Document 05/21/23 09:02 SP (Rec: 05/21/23 09:53 SP [id number]) Out-Patient Physical Therapy Visit Information Visit Information Visit Type Treatment Note Visit Note 04/29 since ev, 05/28 appt PN via PT (9th visit). Visit Start Time 09:02 Visit Stop Time 09:50 Total Visit Minutes 48 Visit Number 7 Number of BACK TACKER Visits 2 Evaluation Information Evaluation Date 04/16/23 Precautions Precautions R TKA 6.5 yrs ago. L TKE DOS: 04/09/23. PT-OP-B Current Condition Start: 04/14/23 11:13 Freq: Status: Active Protocol: Document 04/16/23 13:30 LRN (Rec: 04/16/23 14:17 LRN [id number]) Current Condition History of Current Condition Onset Date 04/09/23 Current Complaints L knee pain off /on. Worse after being stationary. History of Current Condition L TKA 04/09/23. Pt in hospital overnight. Pt has had daughter helping her with home exercises since discharge from the hospital. She states she has been doing HEP 1-2x/ day. Treatment Goals Patient/Caregiver Goals Pt goals: Pt able to bend her L knee same as R knee. Pt will be able to walk without her walker. Garden in a year. Walk dog 1/2 hour. Personal Factors Other Personal Factors That May Effect Pt has daughter(DA) helping Therapy/Recovery her for the next few weeks. DA wanted known that her mom had previous physical therapy that the PT was not very encouraging; therefore made pt feel she didn't do well; therefore pt does better with encouragement and not negativity. PT-OP-C Subjective Start: 04/14/23 11:13 Freq: Status: Active Protocol: Document 05/21/23 09:02 SP (Rec: 05/21/23 09:53 SP [id number]) OP-PT Subjective Patient Comments Patient Comments Pt reports has been able to walk her dog about 1/10 of mile (driveway) up/back with light use of her SPC. She is able to do her stairs and just recently has trialed step over step. She arrives without SPC today, decrease stance time and TKE L>R and PPT hunched posture is her normal. PT-OP-D Balance Start: 04/14/23 11:13 Freq: Status: Active Protocol: Document 04/16/23 13:30 LRN (Rec: 04/16/23 14:17 LRN [id number]) OP-PT Balance Assessment Sitting Balance Static Sitting Balance Ability Good Standing Balance Static Standing Balance Ability Good Dynamic Standing Balance Ability Fair Device Used FWW Standing Balance Comments Pt has good dynamic standing balance with use of FWW. Pt is not appropriate for single leg stance testing. Perez Fall Scale Copyright Permission PT-OP-E Functional Tests Start: 04/14/23 11:13 Freq: Status: Active Protocol: Document 05/16/23 09:01 SP (Rec: 05/16/23 09:53 SP [id number]) Functional Tests Timed Up and Go (TUG) Score 11 sec, 10 sec, 8 sec Comments UE support 1st time, no UE 2nd and 3rd rep TUG Impairment Rating 0% Impaired (Score 10) PT-OP-G Mobility & Gait Start: 04/14/23 11:13 Freq: Status: Active Protocol: Document 04/18/23 08:51 LRN (Rec: 04/18/23 09:43 LRN [id number]) OP Gait Assessment Gait Gait Assistance Required: Independent Assistive Devices Assistive Device Standard Walker Gait Deviations General Gait Pattern Decreased Stride Length, Decreased Feet Clearance, Flexed Trunk,Narrow Based Gait Factors Limiting Gait Function Factors Limiting Gait Function Decreased Activity Tolerance, Decreased Strength,Limited Range of Motion,Pain,Poor Balance Comments Gait Comments Pt FWW appears too short for patient at start of therapy. PT-OP-J Posture/Palpation/Skin Start: 04/14/23 11:13 Freq: Status: Active Protocol: Document 04/16/23 13:30 LRN (Rec: 04/16/23 14:17 LRN [id number]) Palpation Assessment Location L knee Palpation Location LLE Palpation Findings Edema Palpation Details Moderate+ swelling at the L ankle>lower leg> knee> distal thigh. PT-OP-K Range of Motion Start: 04/14/23 11:13 Freq: Status: Active Protocol: Document 05/21/23 09:02 SP (Rec: 05/21/23 09:53 SP [id number]) Knee Goniometric Range of Motion Knee Right Knee ROM WFL Yes Patient Position Supine Flexion Active (degrees) 127 Extension Active (degrees) 0 Comments R Knee AROM: Flexion gained 5 deg. Left Knee ROM WFL No Patient Position Supine Flexion Active (degrees) 108 Flexion Passive (degrees) 110 Extension Active (degrees) 0 Comments L knee AROM: flexion gained 8 deg L Knee AAROM flexion gained 10 deg PT-OP-M Strength Start: 04/14/23 11:13 Freq: Status: Active Protocol: Document 04/16/23 13:30 LRN (Rec: 04/16/23 14:17 LRN [id number]) Knee Strength Knee Manual Muscle Testing Right Flexion (S2) 5 Normal Extension (L3) 5 Normal Left Flexion (S2) 3- Fair- Extension (L3) 3- Fair- Ankle/Foot Strength Ankle and Foot Manual Muscle Testing Right Dorsiflexion (L4) 5 Normal Plantarflexion (S1) 5 Normal Inversion 5 Normal Eversion (S1) 5 Normal Left Dorsiflexion (L4) 4 Good Plantarflexion (S1) 4 Good Inversion 4+ Good+ Eversion (S1) 4+ Good+ PT-OP-Q Treatments Start: 04/14/23 11:13 Freq: Status: Active Protocol: Document 05/21/23 09:02 SP (Rec: 05/21/23 09:53 SP [id number]) Cardio Equipment Bicycle (Upright) Duration (Minutes) 8 Resistance 1>3 Seat Position 8 (3 min)> 7 (2 min)> 6 (3 min )- full revolutions Other cued level pelvis and upright posture, improved with cues and lower seat Gym Equipment Shuttle Recovery unilateral Details 100 deg Resistance 25 # (new band) Shuttle Recovery Platform Stable Reps/Time 10 reps, 10 reps alternating BLEs bilateral Details 106> 108 deg kelsey ROM (unlocked ) Resistance 50 # ( 2 old bands) Shuttle Recovery Platform Stable Reps/Time 10 x2 sets Therapeutic Exercises Sitting Exercises sit to stands Sitting Exercise Name added to HEP Equipment Used black Big chair, no UE support Reps/Minutes x5 reps Comments LLE slight fwd at this time, cued hip abd // knees asc/desc improved Standing Exercises step ups Standing Exercise Name added to HEP Side bilateral Resistance light 1 UE contact for balance support only Equipment Used 6 step (bottom stairs)- painfree Reps/Minutes 5 reps x2 sets lead each LE for con/ecc Comments cued glut and quad fac into R knee extension full upright lift/posture- imp TKE Standing Exercise Name added to HEP Side left Resistance TB #3 Reps/Minutes 5 reps x2, 2 SH Comments cues for set up and proper form, no trunk compensations, elong/flex posture Gait Training Gait Activity stairs Description receiprocal stepping Device Used light slide on rail 1-2 as needed Level of Assistance S/Mod I Distance/Duration 4 steps 3 sets Treatment Focus TKE R>L knee asc, eccentric flexion descend, receiprocal stepping Comments Cued quad& glut fac during asc into full extension, improves light contact rail. Manual Therapy Treatment Soft Tissue Mobilization L knee Body Location quad, HS scar mobility Body Location L knee Intensity/Depth Moderate Body Position Supine Comments MF glides retrograde Body Location MF glides with cream quad Mobilization Type Cross-Friction,Myofascial Release Intensity/Depth Superficial Body Position Supine Comments manual light initial prox> distal brush strokes, distal: foot, ankle, lower leg, knee, thigh retrograde strokes with edema mgt emphasis. Assisted don Compression sock post for support circulationr return. Neuro Re-Education Treatment Balance Activities hurdles Details next tx for functional knee flexion ROM Self-Care/Home Management Treatment Education Other Education Time spent for more elongated fwd upper trunk over pelvis during resisted TKE and carryover gait with better awareness. Added TKE and step ups to HEP for improved quad/ glut strengthening to improve quality normalizing gait. Verbal suggestion use rolling pin end tx for self massage and hand massage around knee seated for carryover home due to increased ROM post manual today. PT-OP-R Modalities Start: 04/14/23 11:13 Freq: Status: Active Protocol: Document 04/16/23 13:30 LRN (Rec: 04/16/23 14:17 LRN [id number]) Hot Pack/Cold Pack Treatment Cold Pack Location L knee in elevation Patient Position Supine Treatment Duration (minutes) 8 Patient Tolerance Good Comments Elevated leg on bolster. PT-OP-T Assessment and Plan Start: 04/14/23 11:13 Freq: Status: Active Protocol: Document 05/21/23 09:02 SP (Rec: 05/21/23 09:53 SP [id number]) Physical Therapy Assessment Goals Three Impairment Decreased function Impairment Pt requiring use of FWW for safe gait Pt limited in ability to walk her dog. LEFS score 18 (60-795 impaired , score 17-31) Short Term Goal (STG) Improve L knee strength/ stability with pt able to walk safely without an assistive device. 04/18/23: Adjusted FWW for proper hgt and did gait training for heel strike and toe off. 04/22/23: instructed gait phase mechanics. 04/25/23: Progressingimproved knee flexion and heel toe, still limited knee extension midstance phase. Ed for decrease UE WB on FWW needed. 05/16/23: TUG 11 sec use hands arm rest to stand/sit, 10 sec no UE support, 8 sec no UE support. Time spent gait with and without SPC in mirror, cued knee alignment and TKE. 05/21/23: small time spent ed cues for TKE L>R during gait into clinic and stair mgt and added step ups. Improved trunk /L knee alignment with cues. STG Duration 05/31/23 progressed 05/21/23 Jail Goal (LTG) Improve L knee strength/ stability with pt able to walk her dog 1/2 hour before fatigue. 05/21/23: able to walk dog up/ down driveway 1/10 mile and back, currently using SPC. LTG Duration 07/15/23 progressing 05/21/23 Two Impairment Decreased L knee AROM limiting function Short Term Goal (STG) Improve L knee AROM to 95 deg' s flexion, with pt able to tolerate full revolution of leg on the upright bike. 04/22/23: initiated scifit recumbent stepper today with reports that feels good to move my L knee. Not measured. Biodex next for ankle ROM then progress upright bike/ recumbent bike. 05/14/23: L knee AROM 0-100 deg's in supine. 05/16/23: 108deg AAROM L knee on shuttle recovery. Upright bike next tx. 05/21/23: GOAL MET full revolution seat 6 on upright bike, level pelvis, cued trunk posture. STG Duration 05/31/23 GOAL MET 05/21/23 Jail Goal (LTG) Improve L knee AROM to 120 deg 's flexion to be able to ambulate stairs with a step over step gait with use of 1 railing. 04/22/23: progressing: AROM 10- 81 deg, 89 deg self support strap. 05/16/23: progressing: AROM L knee 108 deg on shuttle recovery. 05/21/23: shuttle recovery 108 deg, supine up to 106-108 AROM and 114deg AAROM L knee flexion. Pt demonstrated light contact (more due to weakness than range limitations) rail asc/desc stair receiprocal gait during tx. LTG Duration 07/15/23 progressing 05/21/23 One Impairment HEP. Short Term Goal (STG) Pt will be educated in self care program of edema management of use of cryotherapy and post op LE lymphedema massage. 04/22/23: progressing: review and self application assist by daughter. Discussed donning YUNI wrap for edema support. Recheck next tx. 04/25/23: GOAL MET: wearing compression sock lower leg, using elevation/ice pack, there is still swelling for decreasing. STG Duration 05/03/23 GOAL MET 04/25/23 Filer Helper Goal (LTG) Pt will be independent in a self care HEP of L LE strengthening and ROM exercises. 04/18/23: HEP: Manual LE lympohatic drainage sequence ex. 05/17/23: SAQ, resisted HS curl , L knee flexion stretch seated, added LAQ. LTG Duration 07/15/23 progressed 05/16/23 Assessment Summary Assessment Pt slow progression AROM L knee up to 108 deg, post manual able to increase 110> 114 deg PROM flexion. Pt improvement in understanding postural awareness and quad fac L knee extension so added step ups and resisted TKE today for HEP, all painfree reported. BACK TACKER recommended continued use of SPC during longer distance for support TKE LLE. Physical Therapy Plan Frequency and Duration Frequency of Treatment 2x/Week Plan of Care Start Date 04/16/23 Plan of Care End Date 07/15/23 Therapeutic Interventions Therapeutic Interventions Balance Training,Gait Training ,Home Exercise Program,Joint Mobilizations,Manual Therapy, Patient/Caregiver Education, Self-Care/Home Management,Soft Tissue Mobilization,Taping, Therapeutic Exercises Modalities Cold Pack/Ice Massage,Electric Stimulation Next Visit Focus/Plan Next Note Type Treatment Note Next Visit Plan Ask PA/Dr. Raygoza follow up. Warm up upright bike. REcheck LAQ, TKE, STS, step ups added last tx. Measure pre/post ther ex. Progress into [place] stepping for functional strengthening SLS time, continue progress stair mgt no UE support, proper posturing and gait mechanics. POC: Reapply ktape swelling if needed next tx. Continue swelling ed/mgt as needed. Progress L knee ROM and strengthening.
--- NOTE | 2023-05-24 16:43 | PT.OTN ---
Current Diagnoses Unilateral primary osteoarthritis, left knee (05/24/23) Muscle weakness (generalized) (05/24/23) Other abnormalities of gait and mobility (05/24/23) Presence of right artificial knee joint (05/24/23) Physical Therapy Treatment Note PT-OP-A Visit Information Start: 04/14/23 11:13 Freq: Status: Active Protocol: Document 05/24/23 10:31 LRN (Rec: 05/24/23 11:18 LRN [id number]) Out-Patient Physical Therapy Visit Information Visit Information Visit Type Treatment Note Visit Note 05/30 since eval Visit Start Time 10:31 Visit Stop Time 11:10 Total Visit Minutes 39 Visit Number 8 Evaluation Information Evaluation Date 04/16/23 Precautions Precautions R TKA 6.5 yrs ago. L TKE DOS: 04/09/23. PT-OP-B Current Condition Start: 04/14/23 11:13 Freq: Status: Active Protocol: Document 04/16/23 13:30 LRN (Rec: 04/16/23 14:17 LRN [id number]) Current Condition History of Current Condition Onset Date 04/09/23 Current Complaints L knee pain off /on. Worse after being stationary. History of Current Condition L TKA 04/09/23. Pt in hospital overnight. Pt has had daughter helping her with home exercises since discharge from the hospital. She states she has been doing HEP 1-2x/ day. Treatment Goals Patient/Caregiver Goals Pt goals: Pt able to bend her L knee same as R knee. Pt will be able to walk without her walker. Garden in a year. Walk dog 1/2 hour. Personal Factors Other Personal Factors That May Effect Pt has daughter(DA) helping Therapy/Recovery her for the next few weeks. DA wanted known that her mom had previous physical therapy that the PT was not very encouraging; therefore made pt feel she didn't do well; therefore pt does better with encouragement and not negativity. PT-OP-C Subjective Start: 04/14/23 11:13 Freq: Status: Active Protocol: Document 05/24/23 10:31 LRN (Rec: 05/24/23 11:18 LRN [id number]) OP-PT Subjective Patient Comments Patient Comments States she saw Dr. Raygoza 2 days ago and states she was concerned of the swelling in the leg. Pt requests handout for home care of edema. PT-OP-D Balance Start: 04/14/23 11:13 Freq: Status: Active Protocol: Document 04/16/23 13:30 LRN (Rec: 04/16/23 14:17 LRN [id number]) OP-PT Balance Assessment Sitting Balance Static Sitting Balance Ability Good Standing Balance Static Standing Balance Ability Good Dynamic Standing Balance Ability Fair Device Used FWW Standing Balance Comments Pt has good dynamic standing balance with use of FWW. Pt is not appropriate for single leg stance testing. Perez Fall Scale Copyright Permission PT-OP-E Functional Tests Start: 04/14/23 11:13 Freq: Status: Active Protocol: Document 05/16/23 09:01 SP (Rec: 05/16/23 09:53 SP [id number]) Functional Tests Timed Up and Go (TUG) Score 11 sec, 10 sec, 8 sec Comments UE support 1st time, no UE 2nd and 3rd rep TUG Impairment Rating 0% Impaired (Score 10) PT-OP-G Mobility & Gait Start: 04/14/23 11:13 Freq: Status: Active Protocol: Document 04/18/23 08:51 LRN (Rec: 04/18/23 09:43 LRN [id number]) OP Gait Assessment Gait Gait Assistance Required: Independent Assistive Devices Assistive Device Standard Walker Gait Deviations General Gait Pattern Decreased Stride Length, Decreased Feet Clearance, Flexed Trunk,Narrow Based Gait Factors Limiting Gait Function Factors Limiting Gait Function Decreased Activity Tolerance, Decreased Strength,Limited Range of Motion,Pain,Poor Balance Comments Gait Comments Pt FWW appears too short for patient at start of therapy. PT-OP-J Posture/Palpation/Skin Start: 04/14/23 11:13 Freq: Status: Active Protocol: Document 04/16/23 13:30 LRN (Rec: 04/16/23 14:17 LRN [id number]) Palpation Assessment Location L knee Palpation Location LLE Palpation Findings Edema Palpation Details Moderate+ swelling at the L ankle>lower leg> knee> distal thigh. PT-OP-K Range of Motion Start: 04/14/23 11:13 Freq: Status: Active Protocol: Document 05/24/23 10:31 LRN (Rec: 05/24/23 11:18 LRN [id number]) Knee Goniometric Range of Motion Knee Left Knee ROM WFL No Patient Position Supine Flexion Active (degrees) 107 Flexion Passive (degrees) 110 Extension Active (degrees) 0 PT-OP-M Strength Start: 04/14/23 11:13 Freq: Status: Active Protocol: Document 04/16/23 13:30 LRN (Rec: 04/16/23 14:17 LRN [id number]) Knee Strength Knee Manual Muscle Testing Right Flexion (S2) 5 Normal Extension (L3) 5 Normal Left Flexion (S2) 3- Fair- Extension (L3) 3- Fair- Ankle/Foot Strength Ankle and Foot Manual Muscle Testing Right Dorsiflexion (L4) 5 Normal Plantarflexion (S1) 5 Normal Inversion 5 Normal Eversion (S1) 5 Normal Left Dorsiflexion (L4) 4 Good Plantarflexion (S1) 4 Good Inversion 4+ Good+ Eversion (S1) 4+ Good+ PT-OP-Q Treatments Start: 04/14/23 11:13 Freq: Status: Active Protocol: Document 05/24/23 10:31 LRN (Rec: 05/24/23 11:18 LRN [id number]) Cardio Equipment Bicycle (Upright) Duration (Minutes) 10 Resistance 1>3 Seat Position 8>5 seat hgt step down (timing : 1 min, 3 min, 3 min, 3 min, respectively) Other cued level pelvis and upright posture, improved with cues and lower seat Gym Equipment Shuttle Recovery unilateral Details 90 deg's Resistance 25 # (new band) Shuttle Recovery Platform Stable Reps/Time 10x bilateral Details 90 deg's Resistance 25#, 37#, 50# Shuttle Recovery Platform Stable Reps/Time 10x 3 reps q Therapeutic Exercises Supine Exercises L Knee flexion Supine Exercise Name L knee flex stretch and AROM Side left Equipment Used manual assist then use gait belt Reps/Minutes 10x Comments ROM taken Manual Therapy Treatment Soft Tissue Mobilization Unilateral L LE lymphedema massage Body Location Unilateral L LE lymphedema massage Mobilization Type Other Intensity/Depth Superficial Body Position Supine L LE elevated Comments Pt read through instructions during massage for pt training on how to self perform. Self-Care/Home Management Treatment Education Other Education Issued & reviewed RICE self care for edema. Educated pt in Unilateral LE lymphedma massage while performing on pt. Activities Self-Care/Home Management Activities Issued & reviewed HEP handouts : Unilateral LE lymphedma massage, and RICE handout. PT-OP-R Modalities Start: 04/14/23 11:13 Freq: Status: Active Protocol: Document 04/16/23 13:30 LRN (Rec: 04/16/23 14:17 LRN [id number]) Hot Pack/Cold Pack Treatment Cold Pack Location L knee in elevation Patient Position Supine Treatment Duration (minutes) 8 Patient Tolerance Good Comments Elevated leg on bolster. PT-OP-T Assessment and Plan Start: 04/14/23 11:13 Freq: Status: Active Protocol: Document 05/24/23 10:31 LRN (Rec: 05/24/23 11:18 LRN [id number]) Physical Therapy Assessment Goals Three Impairment Decreased function Impairment Pt requiring use of FWW for safe gait Pt limited in ability to walk her dog. LEFS score 18 (60-795 impaired , score 17-31) Short Term Goal (STG) Improve L knee strength/ stability with pt able to walk safely without an assistive device. 04/18/23: Adjusted FWW for proper hgt and did gait training for heel strike and toe off. 04/22/23: instructed gait phase mechanics. 04/25/23: Progressingimproved knee flexion and heel toe, still limited knee extension midstance phase. Ed for decrease UE WB on FWW needed. 05/16/23: TUG 11 sec use hands arm rest to stand/sit, 10 sec no UE support, 8 sec no UE support. Time spent gait with and without SPC in mirror, cued knee alignment and TKE. 05/21/23: small time spent ed cues for TKE L>R during gait into clinic and stair mgt and added step ups. Improved trunk /L knee alignment with cues. STG Duration 05/31/23 progressed 05/21/23 Prison Goal (LTG) Improve L knee strength/ stability with pt able to walk her dog 1/2 hour before fatigue. 05/21/23: able to walk dog up/ down driveway 1/10 mile and back, currently using SPC. LTG Duration 07/15/23 progressing 05/21/23 Two Impairment Decreased L knee AROM limiting function Short Term Goal (STG) Improve L knee AROM to 95 deg' s flexion, with pt able to tolerate full revolution of leg on the upright bike. 04/22/23: initiated scifit recumbent stepper today with reports that feels good to move my L knee. Not measured. Biodex next for ankle ROM then progress upright bike/ recumbent bike. 05/14/23: L knee AROM 0-100 deg's in supine. 05/16/23: 108deg AAROM L knee on shuttle recovery. Upright bike next tx. 05/21/23: GOAL MET full revolution seat 6 on upright bike, level pelvis, cued trunk posture. STG Duration 05/31/23 GOAL MET 05/21/23 Prison Goal (LTG) Improve L knee AROM to 120 deg 's flexion to be able to ambulate stairs with a step over step gait with use of 1 railing. 04/22/23: progressing: AROM 10- 81 deg, 89 deg self support strap. 05/16/23: progressing: AROM L knee 108 deg on shuttle recovery. 05/21/23: shuttle recovery 108 deg, supine up to 106-108 AROM and 114deg AAROM L knee flexion. Pt demonstrated light contact (more due to weakness than range limitations) rail asc/desc stair receiprocal gait during tx. LTG Duration 07/15/23 progressing 05/21/23 One Impairment HEP. Short Term Goal (STG) Pt will be educated in self care program of edema management of use of cryotherapy and post op LE lymphedema massage. 04/22/23: progressing: review and self application assist by daughter. Discussed donning YUNI wrap for edema support. Recheck next tx. 04/25/23: GOAL MET: wearing compression sock lower leg, using elevation/ice pack, there is still swelling for decreasing. STG Duration 05/03/23 GOAL MET 04/25/23 Blasting Cap Assembler Goal (LTG) Pt will be independent in a self care HEP of L LE strengthening and ROM exercises. 04/18/23: HEP: Manual LE lympohatic drainage sequence ex. 05/17/23: SAQ, resisted HS curl , L knee flexion stretch seated, added LAQ. LTG Duration 07/15/23 progressed 05/16/23 Assessment Summary Assessment Pt is a 78 yo female s/p L TKA -04/09/23. Pt is slowly progressing, AROM L knee up to 0-107 degs. Her L LE is still swollen, but according to Chrissy Reveles, PUTTY AND PATCH WORKER the swelling is less. The pt is almost 8 weeks po; therefore I recommend continuation of PT to improve L knee ROM for functional mobility and improve to improve gait mechanics and decrease L LE edema with lymphatic unilateral massage. Physical Therapy Plan Frequency and Duration Frequency of Treatment 2x/Week Plan of Care Start Date 04/16/23 Plan of Care End Date 07/15/23 Next Visit Focus/Plan Next Note Type Progress Note Next Visit Plan ?PN next visit if 10th visit not with PT. Measure pre/ post ther ex. Warm up upright bike to increase knee flexion . REcheck LAQ, TKE, STS, step ups added last tx. Progress into [place] stepping for functional strengthening SLS time, continue progress stair mgt no UE support, proper posturing and gait mechanics. POC: ktape (lymphatic/ inflammation) AND edema mgt. Progress L knee ROM and strengthening.
--- NOTE | 2023-05-28 11:30 | PT.OTN ---
Current Diagnoses Unilateral primary osteoarthritis, left knee (05/28/23) Muscle weakness (generalized) (05/28/23) Other abnormalities of gait and mobility (05/28/23) Presence of right artificial knee joint (05/28/23) Physical Therapy Treatment Note PT-OP-A Visit Information Start: 04/14/23 11:13 Freq: Status: Active Protocol: Document 05/28/23 08:54 LRN (Rec: 05/28/23 09:35 LRN [id number]) Out-Patient Physical Therapy Visit Information Visit Information Visit Type Treatment Note Visit Note 06/30 since eval Visit Start Time 08:54 Visit Stop Time 09:32 Total Visit Minutes 38 Visit Number 9 Evaluation Information Evaluation Date 04/16/23 Precautions Precautions R TKA 6.5 yrs ago. L TKE DOS: 04/09/23. PT-OP-B Current Condition Start: 04/14/23 11:13 Freq: Status: Active Protocol: Document 04/16/23 13:30 LRN (Rec: 04/16/23 14:17 LRN [id number]) Current Condition History of Current Condition Onset Date 04/09/23 Current Complaints L knee pain off /on. Worse after being stationary. History of Current Condition L TKA 04/09/23. Pt in hospital overnight. Pt has had daughter helping her with home exercises since discharge from the hospital. She states she has been doing HEP 1-2x/ day. Treatment Goals Patient/Caregiver Goals Pt goals: Pt able to bend her L knee same as R knee. Pt will be able to walk without her walker. Garden in a year. Walk dog 1/2 hour. Personal Factors Other Personal Factors That May Effect Pt has daughter(DA) helping Therapy/Recovery her for the next few weeks. DA wanted known that her mom had previous physical therapy that the PT was not very encouraging; therefore made pt feel she didn't do well; therefore pt does better with encouragement and not negativity. PT-OP-C Subjective Start: 04/14/23 11:13 Freq: Status: Active Protocol: Document 05/28/23 08:54 LRN (Rec: 05/28/23 09:35 LRN [id number]) OP-PT Subjective Patient Comments Patient Comments States she might have to cx TH appt due to spouse dental appt in in the early AM. PT-OP-D Balance Start: 04/14/23 11:13 Freq: Status: Active Protocol: Document 04/16/23 13:30 LRN (Rec: 04/16/23 14:17 LRN [id number]) OP-PT Balance Assessment Sitting Balance Static Sitting Balance Ability Good Standing Balance Static Standing Balance Ability Good Dynamic Standing Balance Ability Fair Device Used FWW Standing Balance Comments Pt has good dynamic standing balance with use of FWW. Pt is not appropriate for single leg stance testing. Perez Fall Scale Copyright Permission PT-OP-E Functional Tests Start: 04/14/23 11:13 Freq: Status: Active Protocol: Document 05/16/23 09:01 SP (Rec: 05/16/23 09:53 SP [id number]) Functional Tests Timed Up and Go (TUG) Score 11 sec, 10 sec, 8 sec Comments UE support 1st time, no UE 2nd and 3rd rep TUG Impairment Rating 0% Impaired (Score 10) PT-OP-G Mobility & Gait Start: 04/14/23 11:13 Freq: Status: Active Protocol: Document 04/18/23 08:51 LRN (Rec: 04/18/23 09:43 LRN [id number]) OP Gait Assessment Gait Gait Assistance Required: Independent Assistive Devices Assistive Device Standard Walker Gait Deviations General Gait Pattern Decreased Stride Length, Decreased Feet Clearance, Flexed Trunk,Narrow Based Gait Factors Limiting Gait Function Factors Limiting Gait Function Decreased Activity Tolerance, Decreased Strength,Limited Range of Motion,Pain,Poor Balance Comments Gait Comments Pt FWW appears too short for patient at start of therapy. PT-OP-J Posture/Palpation/Skin Start: 04/14/23 11:13 Freq: Status: Active Protocol: Document 04/16/23 13:30 LRN (Rec: 04/16/23 14:17 LRN [id number]) Palpation Assessment Location L knee Palpation Location LLE Palpation Findings Edema Palpation Details Moderate+ swelling at the L ankle>lower leg> knee> distal thigh. PT-OP-K Range of Motion Start: 04/14/23 11:13 Freq: Status: Active Protocol: Document 05/28/23 08:54 LRN (Rec: 05/28/23 09:35 LRN [id number]) Knee Goniometric Range of Motion Knee Left Knee ROM WFL No Patient Position Supine Flexion Active (degrees) 109 Flexion Passive (degrees) 112 PT-OP-M Strength Start: 04/14/23 11:13 Freq: Status: Active Protocol: Document 04/16/23 13:30 LRN (Rec: 04/16/23 14:17 LRN [id number]) Knee Strength Knee Manual Muscle Testing Right Flexion (S2) 5 Normal Extension (L3) 5 Normal Left Flexion (S2) 3- Fair- Extension (L3) 3- Fair- Ankle/Foot Strength Ankle and Foot Manual Muscle Testing Right Dorsiflexion (L4) 5 Normal Plantarflexion (S1) 5 Normal Inversion 5 Normal Eversion (S1) 5 Normal Left Dorsiflexion (L4) 4 Good Plantarflexion (S1) 4 Good Inversion 4+ Good+ Eversion (S1) 4+ Good+ PT-OP-Q Treatments Start: 04/14/23 11:13 Freq: Status: Active Protocol: Document 05/28/23 08:54 LRN (Rec: 05/28/23 09:35 LRN [id number]) Cardio Equipment Bicycle (Upright) Duration (Minutes) 8 Resistance 3 Seat Position 8>6>5>4 seat hgt step down ( timin min, 2 min, 1 min,3 min respectively) Other cued level pelvis and upright posture, improved with cues and lower seat Therapeutic Exercises Supine Exercises L Knee flexion Supine Exercise Name L knee flex stretch and AROM Side left Equipment Used manual assist then use gait belt Reps/Minutes 10' Comments ROM taken Prone Exercises Knee flex Prone Exercise Name Knee flex Side left Resistance 2# Reps/Minutes 10x 2 Knee flex stretch Prone Exercise Name Passive & AA flexion stretch Side left Sitting Exercises L knee flex Sitting Exercise Name L knn flex strengthening Side left Resistance Lev 2 TB Equipment Used seated Reps/Minutes 15x 2 sets, pause end feel range Comments cued slow pacing, allow thigh rest on chair Manual Therapy Treatment Taping L knee Body Location L knee Treatment Focus Decrease swelling Type of Tape Kinesio Tape Skin Inspection Good integrity of skin. Comments 2 Fan strips on either side of knee, acrossing the knee. PT-OP-R Modalities Start: 04/14/23 11:13 Freq: Status: Active Protocol: Document 04/16/23 13:30 LRN (Rec: 04/16/23 14:17 LRN [id number]) Hot Pack/Cold Pack Treatment Cold Pack Location L knee in elevation Patient Position Supine Treatment Duration (minutes) 8 Patient Tolerance Good Comments Elevated leg on bolster. PT-OP-T Assessment and Plan Start: 04/14/23 11:13 Freq: Status: Active Protocol: Document 05/28/23 08:54 LRN (Rec: 05/28/23 09:35 LRN [id number]) Physical Therapy Assessment Goals Three Impairment Decreased function Impairment Pt requiring use of FWW for safe gait Pt limited in ability to walk her dog. LEFS score 18 (60-795 impaired , score 17-31) Short Term Goal (STG) Improve L knee strength/ stability with pt able to walk safely without an assistive device. 04/18/23: Adjusted FWW for proper hgt and did gait training for heel strike and toe off. 04/22/23: instructed gait phase mechanics. 04/25/23: Progressingimproved knee flexion and heel toe, still limited knee extension midstance phase. Ed for decrease UE WB on FWW needed. 05/16/23: TUG 11 sec use hands arm rest to stand/sit, 10 sec no UE support, 8 sec no UE support. Time spent gait with and without SPC in mirror, cued knee alignment and TKE. 05/21/23: small time spent ed cues for TKE L>R during gait into clinic and stair mgt and added step ups. Improved trunk /L knee alignment with cues. 05/28/23: Pt walks into therapy safely w/o assistive device. STG Duration 05/31/23 (05/28/23: MET GOAL) Infant Lead Teacher Goal (LTG) Improve L knee strength/ stability with pt able to walk her dog 1/2 hour before fatigue. 05/21/23: able to walk dog up/ down driveway 1/10 mile and back, currently using SPC. LTG Duration 07/15/23 progressing 05/21/23 Two Impairment Decreased L knee AROM limiting function Short Term Goal (STG) Improve L knee AROM to 95 deg' s flexion, with pt able to tolerate full revolution of leg on the upright bike. 04/22/23: initiated scifit recumbent stepper today with reports that feels good to move my L knee. Not measured. Biodex next for ankle ROM then progress upright bike/ recumbent bike. 05/14/23: L knee AROM 0-100 deg's in supine. 05/16/23: 108deg AAROM L knee on shuttle recovery. Upright bike next tx. 05/21/23: GOAL MET full revolution seat 6 on upright bike, level pelvis, cued trunk posture. STG Duration 05/31/23 GOAL MET 05/21/23 Residential Goal (LTG) Improve L knee AROM to 120 deg 's flexion to be able to ambulate stairs with a step over step gait with use of 1 railing. 04/22/23: progressing: AROM 10- 81 deg, 89 deg self support strap. 05/16/23: progressing: AROM L knee 108 deg on shuttle recovery. 05/21/23: shuttle recovery 108 deg, supine up to 106-108 AROM and 114deg AAROM L knee flexion. Pt demonstrated light contact (more due to weakness than range limitations) rail asc/desc stair receiprocal gait during tx. LTG Duration 07/15/23 progressing 05/21/23 One Impairment HEP. Short Term Goal (STG) Pt will be educated in self care program of edema management of use of cryotherapy and post op LE lymphedema massage. 04/22/23: progressing: review and self application assist by daughter. Discussed donning YUNI wrap for edema support. Recheck next tx. 04/25/23: GOAL MET: wearing compression sock lower leg, using elevation/ice pack, there is still swelling for decreasing. STG Duration 05/03/23 GOAL MET 04/25/23 Infant Lead Teacher Goal (LTG) Pt will be independent in a self care HEP of L LE strengthening and ROM exercises. 04/18/23: HEP: Manual LE lympohatic drainage sequence ex. 05/17/23: SAQ, resisted HS curl , L knee flexion stretch seated, added LAQ. LTG Duration 07/15/23 progressed 05/16/23 Progress Towards Goals Progress Comments Improved L knee AROM 2 deg's at start of therapy and 4 deg' s after PROM stretching. STG #3 MET. Assessment Summary Assessment 78 yo female s/p L TKA-04/09/23 . Pt tolerated drop in Bike seat hgt to 4 very well, requiring at least 10 cycles before pain decreased. L knee PROM improved from 109 to 113 deg's after therapy. Physical Therapy Plan Frequency and Duration Frequency of Treatment 2x/Week Plan of Care Start Date 04/16/23 Plan of Care End Date 07/15/23 Next Visit Focus/Plan Next Note Type Progress Note Next Visit Plan PN next visit. Measure pre/ post ther ex. Assess response to ktape for ( lymphatic/inflammation) & edema mgt. Recheck LAQ, TKE, STS, step ups previoiusly added. Warm up upright bike (seat 6 or 5) to increase knee flexion . Progress into [place] stepping for functional strengthening SLS time, continue progress stair mgt no UE support, proper posturing and gait mechanics. POC: Progress L knee ROM and strengthening.
--- NOTE | 2023-06-04 16:39 | PT.OTN ---
Current Diagnoses Unilateral primary osteoarthritis, left knee (06/04/23) Muscle weakness (generalized) (06/04/23) Other abnormalities of gait and mobility (06/04/23) Presence of right artificial knee joint (06/04/23) Physical Therapy Treatment Note PT-OP-A Visit Information Start: 04/14/23 11:13 Freq: Status: Active Protocol: Document 06/04/23 11:18 LRN (Rec: 06/04/23 12:02 LRN [id number]) Out-Patient Physical Therapy Visit Information Visit Information Visit Type Progress Note Visit Note 07/30 since eval Visit Start Time 11:18 Visit Stop Time 12:00 Total Visit Minutes 42 Visit Number 10 Evaluation Information Evaluation Date 04/16/23 Precautions Precautions R TKA 6.5 yrs ago. L TKE DOS: 04/09/23. PT-OP-B Current Condition Start: 04/14/23 11:13 Freq: Status: Active Protocol: Document 04/16/23 13:30 LRN (Rec: 04/16/23 14:17 LRN [id number]) Current Condition History of Current Condition Onset Date 04/09/23 Current Complaints L knee pain off /on. Worse after being stationary. History of Current Condition L TKA 04/09/23. Pt in hospital overnight. Pt has had daughter helping her with home exercises since discharge from the hospital. She states she has been doing HEP 1-2x/ day. Treatment Goals Patient/Caregiver Goals Pt goals: Pt able to bend her L knee same as R knee. Pt will be able to walk without her walker. Garden in a year. Walk dog 1/2 hour. Personal Factors Other Personal Factors That May Effect Pt has daughter(DA) helping Therapy/Recovery her for the next few weeks. DA wanted known that her mom had previous physical therapy that the PT was not very encouraging; therefore made pt feel she didn't do well; therefore pt does better with encouragement and not negativity. PT-OP-C Subjective Start: 04/14/23 11:13 Freq: Status: Active Protocol: Document 06/04/23 11:18 LRN (Rec: 06/04/23 12:02 LRN [id number]) OP-PT Subjective Patient Comments Patient Comments Worried about swelling in the L knee. Patient Questionnaires Lower Extremity Functional Scale LEFS Score 54 LEFS Impairment 20 to 39% Impaired (Score 48- 62) OP-PT Pain Assessment Pain Assessment Grid Paper Pain Assessment Grid Completed Yes Location L anterior knee Pain Location Details pain along scar, medial side of patella, and 1x superomedially to patella. Intensity 4 Scale Used Numeric (0 - 10) Description Aching PT-OP-D Balance Start: 04/14/23 11:13 Freq: Status: Active Protocol: Document 04/16/23 13:30 LRN (Rec: 04/16/23 14:17 LRN [id number]) OP-PT Balance Assessment Sitting Balance Static Sitting Balance Ability Good Standing Balance Static Standing Balance Ability Good Dynamic Standing Balance Ability Fair Device Used FWW Standing Balance Comments Pt has good dynamic standing balance with use of FWW. Pt is not appropriate for single leg stance testing. Perez Fall Scale Copyright Permission PT-OP-E Functional Tests Start: 04/14/23 11:13 Freq: Status: Active Protocol: Document 05/16/23 09:01 SP (Rec: 05/16/23 09:53 SP [id number]) Functional Tests Timed Up and Go (TUG) Score 11 sec, 10 sec, 8 sec Comments UE support 1st time, no UE 2nd and 3rd rep TUG Impairment Rating 0% Impaired (Score 10) PT-OP-G Mobility & Gait Start: 04/14/23 11:13 Freq: Status: Active Protocol: Document 04/18/23 08:51 LRN (Rec: 04/18/23 09:43 LRN [id number]) OP Gait Assessment Gait Gait Assistance Required: Independent Assistive Devices Assistive Device Standard Walker Gait Deviations General Gait Pattern Decreased Stride Length, Decreased Feet Clearance, Flexed Trunk,Narrow Based Gait Factors Limiting Gait Function Factors Limiting Gait Function Decreased Activity Tolerance, Decreased Strength,Limited Range of Motion,Pain,Poor Balance Comments Gait Comments Pt FWW appears too short for patient at start of therapy. PT-OP-J Posture/Palpation/Skin Start: 04/14/23 11:13 Freq: Status: Active Protocol: Document 04/16/23 13:30 LRN (Rec: 04/16/23 14:17 LRN [id number]) Palpation Assessment Location L knee Palpation Location LLE Palpation Findings Edema Palpation Details Moderate+ swelling at the L ankle>lower leg> knee> distal thigh. PT-OP-K Range of Motion Start: 04/14/23 11:13 Freq: Status: Active Protocol: Document 06/04/23 11:18 LRN (Rec: 06/04/23 12:02 LRN [id number]) Knee Goniometric Range of Motion Knee Left Knee ROM WFL No Patient Position Supine Flexion Active (degrees) 113 Flexion Passive (degrees) 115 Extension Active (degrees) 0 PT-OP-M Strength Start: 04/14/23 11:13 Freq: Status: Active Protocol: Document 04/16/23 13:30 LRN (Rec: 04/16/23 14:17 LRN [id number]) Knee Strength Knee Manual Muscle Testing Right Flexion (S2) 5 Normal Extension (L3) 5 Normal Left Flexion (S2) 3- Fair- Extension (L3) 3- Fair- Ankle/Foot Strength Ankle and Foot Manual Muscle Testing Right Dorsiflexion (L4) 5 Normal Plantarflexion (S1) 5 Normal Inversion 5 Normal Eversion (S1) 5 Normal Left Dorsiflexion (L4) 4 Good Plantarflexion (S1) 4 Good Inversion 4+ Good+ Eversion (S1) 4+ Good+ PT-OP-Q Treatments Start: 04/14/23 11:13 Freq: Status: Active Protocol: Document 06/04/23 11:18 LRN (Rec: 06/04/23 12:02 LRN [id number]) Cardio Equipment Bicycle (Upright) Duration (Minutes) 9 Resistance 3 Seat Position 6>5>4>3 seat hgt step down ( timin min, 2 min, 2 min,4 min respectively) Other cued level pelvis and upright posture, improved with cues and lower seat Therapeutic Exercises Supine Exercises L Knee flexion Supine Exercise Name L knee flex stretch and AROM Side left Equipment Used manual assist Reps/Minutes 13' Comments ROM taken Manual Therapy Treatment Soft Tissue Mobilization Unilateral L LE lymphedema massage Body Location Unilateral L LE lymphedema massage Mobilization Type Other Intensity/Depth Superficial Body Position Supine L LE elevated Comments Pt read through instructions during massage for pt training on how to self perform. scar mobility Body Location L knee Intensity/Depth Moderate Body Position Supine Taping L knee Body Location L knee Treatment Focus Decrease swelling Type of Tape Kinesio Tape Skin Inspection Good integrity of skin. Comments 5 I-strips: one down middle and 2 shorter ones on either side of knee. Self-Care/Home Management Treatment Education Other Education Reviewed use of cryotherapy and YUNI wrapping/support stockings to help reduce swelling. PT-OP-R Modalities Start: 04/14/23 11:13 Freq: Status: Active Protocol: Document 04/16/23 13:30 LRN (Rec: 04/16/23 14:17 LRN [id number]) Hot Pack/Cold Pack Treatment Cold Pack Location L knee in elevation Patient Position Supine Treatment Duration (minutes) 8 Patient Tolerance Good Comments Elevated leg on bolster. PT-OP-T Assessment and Plan Start: 04/14/23 11:13 Freq: Status: Active Protocol: Document 06/04/23 11:18 LRN (Rec: 06/04/23 12:02 LRN [id number]) Physical Therapy Assessment Rehab Potential Rehabilitation Potential Good Evaluation Complexity Number of Personal Factors/Comorbidities 1-2 Number of Body Systems Impaired 4 or More Clinical Presentation at Evaluation Evolving Impairments Impairments Activity Tolerance,Balance, Edema,Gait,Pain,ROM,Soft Tissue Mobility,Strength Goals Three Impairment Decreased function Impairment Pt requiring use of FWW for safe gait Pt limited in ability to walk her dog. LEFS score 18 (60-795 impaired , score 17-31) Short Term Goal (STG) Improve L knee strength/ stability with pt able to walk safely without an assistive device. 04/18/23: Adjusted FWW for proper hgt and did gait training for heel strike and toe off. 04/22/23: instructed gait phase mechanics. 04/25/23: Progressingimproved knee flexion and heel toe, still limited knee extension midstance phase. Ed for decrease UE WB on FWW needed. 05/16/23: TUG 11 sec use hands arm rest to stand/sit, 10 sec no UE support, 8 sec no UE support. Time spent gait with and without SPC in mirror, cued knee alignment and TKE. 05/21/23: small time spent ed cues for TKE L>R during gait into clinic and stair mgt and added step ups. Improved trunk /L knee alignment with cues. 05/28/23: Pt walks into therapy safely w/o assistive device. STG Duration 05/31/23 (05/28/23: MET GOAL) Intermediate Goal (LTG) Improve L knee strength/ stability with pt able to walk her dog 1/2 hour before fatigue. 05/21/23: able to walk dog up/ down driveway 1/10 mile and back, currently using SPC. 06/04/23: Walking 2 dogs 1/4 mile (10 minutes up and back) a couple times a day with one dog. LEFS score is 54 (20-39 % impaired). LTG Duration 07/15/23 progressing 06/04/23 Two Impairment Decreased L knee AROM limiting function Short Term Goal (STG) Improve L knee AROM to 95 deg' s flexion, with pt able to tolerate full revolution of leg on the upright bike. 04/22/23: initiated scifit recumbent stepper today with reports that feels good to move my L knee. Not measured. Biodex next for ankle ROM then progress upright bike/ recumbent bike. 05/14/23: L knee AROM 0-100 deg's in supine. 05/16/23: 108deg AAROM L knee on shuttle recovery. Upright bike next tx. 05/21/23: GOAL MET full revolution seat 6 on upright bike, level pelvis, cued trunk posture. STG Duration 05/31/23 GOAL MET 05/21/23 Intermediate Goal (LTG) Improve L knee AROM to 120 deg 's flexion to be able to ambulate stairs with a step over step gait with use of 1 railing. 04/22/23: progressing: AROM 10- 81 deg, 89 deg self support strap. 05/16/23: progressing: AROM L knee 108 deg on shuttle recovery. 05/21/23: shuttle recovery 108 deg, supine up to 106-108 AROM and 114deg AAROM L knee flexion. Pt demonstrated light contact (more due to weakness than range limitations) rail asc/desc stair receiprocal gait during tx. 06/04/23: L knee AROM is 0-113 deg's. PROM is 0-115 deg's. LTG Duration 07/15/23 progressing 06/04/23 One Impairment HEP. Short Term Goal (STG) Pt will be educated in self care program of edema management of use of cryotherapy and post op LE lymphedema massage. 04/22/23: progressing: review and self application assist by daughter. Discussed donning YUNI wrap for edema support. Recheck next tx. 04/25/23: GOAL MET: wearing compression sock lower leg, using elevation/ice pack, there is still swelling for decreasing. STG Duration 05/03/23 GOAL MET 04/25/23 Intermediate Goal (LTG) Pt will be independent in a self care HEP of L LE strengthening and ROM exercises. 04/18/23: HEP: Manual LE lympohatic drainage sequence ex. 05/17/23: SAQ, resisted HS curl , L knee flexion stretch seated, added LAQ. LTG Duration 07/15/23 progressed 05/16/23 Assessment Summary Assessment 78 yo female s/p L TKA-04/09/23 . The pt has made continual progress due to her high pain tolerance, but is limited in her knee AROM by swelling at the knee. Pt notes swelling in her feet is less but recognizes that the swelling in the knee may be attributed to her being very active and not resting and elevating her LLE enough. L knee AROM is improved to 113 deg's from previously 109 deg's flexion. Extension is 0 deg's. She is ambulating without an assistive device but with notable increase in trunk sway . The pt will benefit from continued skilled physical therapy to improve L knee AROM and normalize her stair and gait mobility, decrease pain with incline ambulation and to improve function and safety with gait. Physical Therapy Plan Frequency and Duration Frequency of Treatment 2x/Week Duration of treatment (weeks) 7 Plan of Care Start Date 06/04/23 Plan of Care End Date 07/19/23 Therapeutic Interventions Therapeutic Interventions Balance Training,Gait Training ,Home Exercise Program,Joint Mobilizations,Manual Therapy, Patient/Caregiver Education, Self-Care/Home Management,Soft Tissue Mobilization,Taping, Therapeutic Exercises Modalities Cold Pack/Ice Massage,Electric Stimulation Next Visit Focus/Plan Next Note Type Treatment Note Next Visit Plan Progress improving ROM L knee. Recheck LAQ, TKE, STS, step ups previoiusly added and progress L knee strengthening to decrease discomfort with going down inclines. Assess response to ktape for ( lymphatic/inflammation) & edema mgt. Warm up upright bike (seat 5>3 ) to increase knee flexion. Progress into georgina stepping for functional strengthening SLS time, continue progress stair mgt no UE support, proper posturing and gait mechanics. POC: Improve L knee ROM and strengthening.
--- NOTE | 2023-06-07 10:31 | PT.OTN ---
Current Diagnoses Unilateral primary osteoarthritis, left knee (06/07/23) Muscle weakness (generalized) (06/07/23) Other abnormalities of gait and mobility (06/07/23) Presence of right artificial knee joint (06/07/23) Physical Therapy Treatment Note PT-OP-A Visit Information Start: 04/14/23 11:13 Freq: Status: Active Protocol: Document 06/07/23 09:34 LRN (Rec: 06/07/23 10:17 LRN [id number]) Out-Patient Physical Therapy Visit Information Visit Information Visit Type Treatment Note Visit Note 1 after PN Visit Start Time 09:34 Visit Stop Time 10:10 Total Visit Minutes 38 Visit Number 11 Evaluation Information Evaluation Date 04/16/23 Precautions Precautions R TKA 6.5 yrs ago. L TKE DOS: 04/09/23. PT-OP-B Current Condition Start: 04/14/23 11:13 Freq: Status: Active Protocol: Document 04/16/23 13:30 LRN (Rec: 04/16/23 14:17 LRN [id number]) Current Condition History of Current Condition Onset Date 04/09/23 Current Complaints L knee pain off /on. Worse after being stationary. History of Current Condition L TKA 04/09/23. Pt in hospital overnight. Pt has had daughter helping her with home exercises since discharge from the hospital. She states she has been doing HEP 1-2x/ day. Treatment Goals Patient/Caregiver Goals Pt goals: Pt able to bend her L knee same as R knee. Pt will be able to walk without her walker. Garden in a year. Walk dog 1/2 hour. Personal Factors Other Personal Factors That May Effect Pt has daughter(DA) helping Therapy/Recovery her for the next few weeks. DA wanted known that her mom had previous physical therapy that the PT was not very encouraging; therefore made pt feel she didn't do well; therefore pt does better with encouragement and not negativity. PT-OP-C Subjective Start: 04/14/23 11:13 Freq: Status: Active Protocol: Document 06/07/23 09:34 LRN (Rec: 06/07/23 10:17 LRN [id number]) OP-PT Subjective Patient Comments Patient Comments States her swelling is down by 1/4 inch (circumference). Walked dogs 4' more. PT-OP-D Balance Start: 04/14/23 11:13 Freq: Status: Active Protocol: Document 04/16/23 13:30 LRN (Rec: 04/16/23 14:17 LRN [id number]) OP-PT Balance Assessment Sitting Balance Static Sitting Balance Ability Good Standing Balance Static Standing Balance Ability Good Dynamic Standing Balance Ability Fair Device Used FWW Standing Balance Comments Pt has good dynamic standing balance with use of FWW. Pt is not appropriate for single leg stance testing. Perez Fall Scale Copyright Permission PT-OP-E Functional Tests Start: 04/14/23 11:13 Freq: Status: Active Protocol: Document 05/16/23 09:01 SP (Rec: 05/16/23 09:53 SP [id number]) Functional Tests Timed Up and Go (TUG) Score 11 sec, 10 sec, 8 sec Comments UE support 1st time, no UE 2nd and 3rd rep TUG Impairment Rating 0% Impaired (Score 10) PT-OP-G Mobility & Gait Start: 04/14/23 11:13 Freq: Status: Active Protocol: Document 04/18/23 08:51 LRN (Rec: 04/18/23 09:43 LRN [id number]) OP Gait Assessment Gait Gait Assistance Required: Independent Assistive Devices Assistive Device Standard Walker Gait Deviations General Gait Pattern Decreased Stride Length, Decreased Feet Clearance, Flexed Trunk,Narrow Based Gait Factors Limiting Gait Function Factors Limiting Gait Function Decreased Activity Tolerance, Decreased Strength,Limited Range of Motion,Pain,Poor Balance Comments Gait Comments Pt FWW appears too short for patient at start of therapy. PT-OP-J Posture/Palpation/Skin Start: 04/14/23 11:13 Freq: Status: Active Protocol: Document 04/16/23 13:30 LRN (Rec: 04/16/23 14:17 LRN [id number]) Palpation Assessment Location L knee Palpation Location LLE Palpation Findings Edema Palpation Details Moderate+ swelling at the L ankle>lower leg> knee> distal thigh. PT-OP-K Range of Motion Start: 04/14/23 11:13 Freq: Status: Active Protocol: Document 06/07/23 09:34 LRN (Rec: 06/07/23 10:17 LRN [id number]) Knee Goniometric Range of Motion Knee Left Knee ROM WFL No Patient Position Supine Flexion Active (degrees) 117 Flexion Passive (degrees) 118 Extension Active (degrees) 0 PT-OP-M Strength Start: 04/14/23 11:13 Freq: Status: Active Protocol: Document 04/16/23 13:30 LRN (Rec: 04/16/23 14:17 LRN [id number]) Knee Strength Knee Manual Muscle Testing Right Flexion (S2) 5 Normal Extension (L3) 5 Normal Left Flexion (S2) 3- Fair- Extension (L3) 3- Fair- Ankle/Foot Strength Ankle and Foot Manual Muscle Testing Right Dorsiflexion (L4) 5 Normal Plantarflexion (S1) 5 Normal Inversion 5 Normal Eversion (S1) 5 Normal Left Dorsiflexion (L4) 4 Good Plantarflexion (S1) 4 Good Inversion 4+ Good+ Eversion (S1) 4+ Good+ PT-OP-Q Treatments Start: 04/14/23 11:13 Freq: Status: Active Protocol: Document 06/07/23 09:34 LRN (Rec: 06/07/23 10:17 LRN [id number]) Cardio Equipment Bicycle (Upright) Duration (Minutes) 12 Resistance 3 Seat Position 5>4>3 seat hgt step down ( timin.5 min, 1.5 min, 9 min respectively) Other cued level pelvis and upright posture and foot in middle of pedal Therapeutic Exercises Supine Exercises L Knee flexion Supine Exercise Name L knee flex stretch: AROM/ AAROM/PROM Side left Equipment Used manual assist Reps/Minutes 4' active, 10' AAROM/PROM Comments ROM taken Sitting Exercises sit to stands Sitting Exercise Name added to HEP Equipment Used Plinth lowest height with Lev2 TB around knees Reps/Minutes 15 reps Comments Cuing for hip AB w/transfer L LAQ Sitting Exercise Name L LAQ review: full knee ext. Side left Reps/Minutes 15x Comments Cuing to keep pelvis in neutral Standing Exercises step ups Standing Exercise Name Step ups - review Side bilateral Equipment Used 6 step (bottom stairs)- painfree Reps/Minutes 15 reps, lead each LE for con/ ecc Comments Cued to focus at home, leading with LLE. TKE Standing Exercise Name TKE review Side left Reps/Minutes 5 reps Comments Pt able to perform with full knee ext; therefore DC from HEP PT-OP-R Modalities Start: 04/14/23 11:13 Freq: Status: Active Protocol: Document 04/16/23 13:30 LRN (Rec: 04/16/23 14:17 LRN [id number]) Hot Pack/Cold Pack Treatment Cold Pack Location L knee in elevation Patient Position Supine Treatment Duration (minutes) 8 Patient Tolerance Good Comments Elevated leg on bolster. PT-OP-T Assessment and Plan Start: 04/14/23 11:13 Freq: Status: Active Protocol: Document 06/07/23 09:34 LRN (Rec: 06/07/23 10:17 LRN [id number]) Physical Therapy Assessment Goals Three Impairment Decreased function Impairment Pt requiring use of FWW for safe gait Pt limited in ability to walk her dog. LEFS score 18 (60-795 impaired , score 17-31) Short Term Goal (STG) Improve L knee strength/ stability with pt able to walk safely without an assistive device. 04/18/23: Adjusted FWW for proper hgt and did gait training for heel strike and toe off. 04/22/23: instructed gait phase mechanics. 04/25/23: Progressingimproved knee flexion and heel toe, still limited knee extension midstance phase. Ed for decrease UE WB on FWW needed. 05/16/23: TUG 11 sec use hands arm rest to stand/sit, 10 sec no UE support, 8 sec no UE support. Time spent gait with and without SPC in mirror, cued knee alignment and TKE. 05/21/23: small time spent ed cues for TKE L>R during gait into clinic and stair mgt and added step ups. Improved trunk /L knee alignment with cues. 05/28/23: Pt walks into therapy safely w/o assistive device. STG Duration 05/31/23 (05/28/23: MET GOAL) Abalone Sheller Goal (LTG) Improve L knee strength/ stability with pt able to walk her dog 1/2 hour before fatigue. 05/21/23: able to walk dog up/ down driveway 1/10 mile and back, currently using SPC. 06/04/23: Walking 2 dogs 1/4 mile (10 minutes up and back) a couple times a day with one dog. LEFS score is 54 (20-39 % impaired). 06/07/23: Walked dogs 4' more LTG Duration 07/15/23 progressing 06/06/23 Two Impairment Decreased L knee AROM limiting function Short Term Goal (STG) Improve L knee AROM to 95 deg' s flexion, with pt able to tolerate full revolution of leg on the upright bike. 04/22/23: initiated scifit recumbent stepper today with reports that feels good to move my L knee. Not measured. Biodex next for ankle ROM then progress upright bike/ recumbent bike. 05/14/23: L knee AROM 0-100 deg's in supine. 05/16/23: 108deg AAROM L knee on shuttle recovery. Upright bike next tx. 05/21/23: GOAL MET full revolution seat 6 on upright bike, level pelvis, cued trunk posture. STG Duration 05/31/23 GOAL MET 05/21/23 Detention Goal (LTG) Improve L knee AROM to 120 deg 's flexion to be able to ambulate stairs with a step over step gait with use of 1 railing. 04/22/23: progressing: AROM 10- 81 deg, 89 deg self support strap. 05/16/23: progressing: AROM L knee 108 deg on shuttle recovery. 05/21/23: shuttle recovery 108 deg, supine up to 106-108 AROM and 114deg AAROM L knee flexion. Pt demonstrated light contact (more due to weakness than range limitations) rail asc/desc stair receiprocal gait during tx. 06/04/23: L knee AROM is 0-117 deg's (after ex). PROM is 0- 118 deg's. LTG Duration 07/15/23 progressing 06/04/23 One Impairment HEP. Short Term Goal (STG) Pt will be educated in self care program of edema management of use of cryotherapy and post op LE lymphedema massage. 04/22/23: progressing: review and self application assist by daughter. Discussed donning YUNI wrap for edema support. Recheck next tx. 04/25/23: GOAL MET: wearing compression sock lower leg, using elevation/ice pack, there is still swelling for decreasing. STG Duration 05/03/23 GOAL MET 04/25/23 Detention Goal (LTG) Pt will be independent in a self care HEP of L LE strengthening and ROM exercises. 04/18/23: HEP: Manual LE lympohatic drainage sequence ex. 05/17/23: SAQ, resisted HS curl , L knee flexion stretch seated, added LAQ. 06/07/23: Modified LAQ with ankle wgt & STS with TB around knees. LTG Duration 07/15/23 progressed 05/16/23 Assessment Summary Assessment Appears KTape has helped to reduce swelling at knee, pt measure 10/24 decreased for circumference. Stairs w/ reciprical gt but unsteady on descent. She has full knee ext but walks with knees in slight flex. Physical Therapy Plan Frequency and Duration Frequency of Treatment 2x/Week Duration of treatment (weeks) 7 Plan of Care Start Date 06/04/23 Plan of Care End Date 07/19/23 Next Visit Focus/Plan Next Note Type Treatment Note Next Visit Plan Progress ROM L knee. Progress L knee strengthening to decrease discomfort with going down inclines. Warm up upright bike (seat 5) w/foot moving back on pedal, to increase knee flexion. Progress into georgina stepping for functional strengthening SLS time, continue progress stair mgt for safety/balance, proper posturing and gait mechanics. POC: Improve L knee ROM and strengthening.
--- NOTE | 2023-06-11 10:00 | PT.OTN ---
Current Diagnoses Unilateral primary osteoarthritis, left knee (06/11/23) Muscle weakness (generalized) (06/11/23) Other abnormalities of gait and mobility (06/11/23) Presence of right artificial knee joint (06/11/23) Physical Therapy Treatment Note PT-OP-A Visit Information Start: 04/14/23 11:13 Freq: Status: Active Protocol: Document 06/11/23 09:04 SP (Rec: 06/11/23 10:26 SP [id number]) Out-Patient Physical Therapy Visit Information Visit Information Visit Type Treatment Note Visit Note 2 after PN Visit Start Time 09:04 Visit Stop Time 10:00 Total Visit Minutes 56 Visit Number 12 Number of PI[employer] MATCHER Visits 1 Evaluation Information Evaluation Date 04/16/23 Precautions Precautions R TKA 6.5 yrs ago. L TKE DOS: 04/09/23. PT-OP-B Current Condition Start: 04/14/23 11:13 Freq: Status: Active Protocol: Document 04/16/23 13:30 LRN (Rec: 04/16/23 14:17 LRN [id number]) Current Condition History of Current Condition Onset Date 04/09/23 Current Complaints L knee pain off /on. Worse after being stationary. History of Current Condition L TKA 04/09/23. Pt in hospital overnight. Pt has had daughter helping her with home exercises since discharge from the hospital. She states she has been doing HEP 1-2x/ day. Treatment Goals Patient/Caregiver Goals Pt goals: Pt able to bend her L knee same as R knee. Pt will be able to walk without her walker. Garden in a year. Walk dog 1/2 hour. Personal Factors Other Personal Factors That May Effect Pt has daughter(DA) helping Therapy/Recovery her for the next few weeks. DA wanted known that her mom had previous physical therapy that the PT was not very encouraging; therefore made pt feel she didn't do well; therefore pt does better with encouragement and not negativity. PT-OP-C Subjective Start: 04/14/23 11:13 Freq: Status: Active Protocol: Document 06/11/23 09:04 SP (Rec: 06/11/23 10:26 SP [id number]) OP-PT Subjective Patient Comments Patient Comments Pt reports swelling 14.5 to 14 1/4 today. She has been doing all instructed for swelling mgt: ice, elevation, self retrograde massage, Ktaping and seeing very little changes. She stated did have family in and has to take care of so does have to be active on her feet. She has follow up with ortho next week . PT-OP-D Balance Start: 04/14/23 11:13 Freq: Status: Active Protocol: Document 04/16/23 13:30 LRN (Rec: 04/16/23 14:17 LRN [id number]) OP-PT Balance Assessment Sitting Balance Static Sitting Balance Ability Good Standing Balance Static Standing Balance Ability Good Dynamic Standing Balance Ability Fair Device Used FWW Standing Balance Comments Pt has good dynamic standing balance with use of FWW. Pt is not appropriate for single leg stance testing. Perez Fall Scale Copyright Permission PT-OP-E Functional Tests Start: 04/14/23 11:13 Freq: Status: Active Protocol: Document 05/16/23 09:01 SP (Rec: 05/16/23 09:53 SP [id number]) Functional Tests Timed Up and Go (TUG) Score 11 sec, 10 sec, 8 sec Comments UE support 1st time, no UE 2nd and 3rd rep TUG Impairment Rating 0% Impaired (Score 10) PT-OP-G Mobility & Gait Start: 04/14/23 11:13 Freq: Status: Active Protocol: Document 04/18/23 08:51 LRN (Rec: 04/18/23 09:43 LRN [id number]) OP Gait Assessment Gait Gait Assistance Required: Independent Assistive Devices Assistive Device Standard Walker Gait Deviations General Gait Pattern Decreased Stride Length, Decreased Feet Clearance, Flexed Trunk,Narrow Based Gait Factors Limiting Gait Function Factors Limiting Gait Function Decreased Activity Tolerance, Decreased Strength,Limited Range of Motion,Pain,Poor Balance Comments Gait Comments Pt FWW appears too short for patient at start of therapy. PT-OP-J Posture/Palpation/Skin Start: 04/14/23 11:13 Freq: Status: Active Protocol: Document 06/11/23 09:04 SP (Rec: 06/11/23 10:26 SP [id number]) Skin Assessment Circumference Measurement L knee Location 5 cm below patella, mid patella, 10cm above patella Comments 36.5 cm, 41cm, 39cm PT-OP-K Range of Motion Start: 04/14/23 11:13 Freq: Status: Active Protocol: Document 06/11/23 09:04 SP (Rec: 06/11/23 10:26 SP [id number]) Knee Goniometric Range of Motion Knee Left Knee ROM WFL No Patient Position Supine Flexion Active (degrees) 118 Flexion Passive (degrees) 123 Extension Active (degrees) 0 Comments AROM post bike 111 deg ( decrease 6 deg last measured) AROM post manual 118 deg PROM post manual 123 deg PT-OP-M Strength Start: 04/14/23 11:13 Freq: Status: Active Protocol: Document 04/16/23 13:30 LRN (Rec: 04/16/23 14:17 LRN [id number]) Knee Strength Knee Manual Muscle Testing Right Flexion (S2) 5 Normal Extension (L3) 5 Normal Left Flexion (S2) 3- Fair- Extension (L3) 3- Fair- Ankle/Foot Strength Ankle and Foot Manual Muscle Testing Right Dorsiflexion (L4) 5 Normal Plantarflexion (S1) 5 Normal Inversion 5 Normal Eversion (S1) 5 Normal Left Dorsiflexion (L4) 4 Good Plantarflexion (S1) 4 Good Inversion 4+ Good+ Eversion (S1) 4+ Good+ PT-OP-Q Treatments Start: 04/14/23 11:13 Freq: Status: Active Protocol: Document 06/11/23 09:04 SP (Rec: 06/11/23 10:26 SP [id number]) Cardio Equipment Bicycle (Upright) Duration (Minutes) 12 Resistance 3 Seat Position 5>4>3 seat hgt step down ( timin min, 2 min, 8 min respectively) Other cued level pelvis, upright posture, ball of ft on pedal Therapeutic Exercises Prone Exercises Knee flex stretch Prone Exercise Name AA flexion stretch- added HEP Side left Equipment Used use strap, pelvis over pillow, up on elbows to allow UE support w/ strap Reps/Minutes 30SH x5 reps Comments good feedback quad stretch, painfree. Sitting Exercises sit to stands Sitting Exercise Name HEP REviewed Resistance RTB (green home) Equipment Used Plinth 19 height Reps/Minutes 15 reps Comments Cuing for hip AB maintain distance between BLEs asc/desc L LAQ Sitting Exercise Name L LAQ strengthening Side left Resistance 4# Reps/Minutes 2 SH x15 Comments Cuing elongated posture, keep pelvis in neutral Standing Exercises step ups Standing Exercise Name Step ups - review Side bilateral Equipment Used 6 step (bottom stairs)- painfree Reps/Minutes 15 reps, lead each LE for con/ ecc Comments Cued to focus at home, leading with LLE. Manual Therapy Treatment Soft Tissue Mobilization L knee Body Location retrograde w / knee flexion Mobilization Type Myofascial Release Intensity/Depth Moderate Joint Mobilizations tib femoral Joint L Direction AP Grade II Body Position Hooklying Comments knee flexion tibfib Joint L Direction AP Grade II Body Position Hooklying Comments knee flexion Taping L knee Body Location L knee Treatment Focus Decrease swelling Type of Tape Kinesio Tape Skin Inspection Good integrity of skin. Comments 5 I-strips: one down middle and 2 shorter ones on either side of knee. See measurements taken today and instructed to pt for carryover consistancy. Self-Care/Home Management Treatment Education Other Education added AAROM w/strap L knee PT-OP-R Modalities Start: 04/14/23 11:13 Freq: Status: Active Protocol: Document 04/16/23 13:30 LRN (Rec: 04/16/23 14:17 LRN [id number]) Hot Pack/Cold Pack Treatment Cold Pack Location L knee in elevation Patient Position Supine Treatment Duration (minutes) 8 Patient Tolerance Good Comments Elevated leg on bolster. PT-OP-T Assessment and Plan Start: 04/14/23 11:13 Freq: Status: Active Protocol: Document 06/11/23 09:04 SP (Rec: 06/11/23 10:26 SP [id number]) Physical Therapy Assessment Goals Three Impairment Decreased function Impairment Pt requiring use of FWW for safe gait Pt limited in ability to walk her dog. LEFS score 18 (60-795 impaired , score 17-31) Short Term Goal (STG) Improve L knee strength/ stability with pt able to walk safely without an assistive device. 04/18/23: Adjusted FWW for proper hgt and did gait training for heel strike and toe off. 04/22/23: instructed gait phase mechanics. 04/25/23: Progressingimproved knee flexion and heel toe, still limited knee extension midstance phase. Ed for decrease UE WB on FWW needed. 05/16/23: TUG 11 sec use hands arm rest to stand/sit, 10 sec no UE support, 8 sec no UE support. Time spent gait with and without SPC in mirror, cued knee alignment and TKE. 05/21/23: small time spent ed cues for TKE L>R during gait into clinic and stair mgt and added step ups. Improved trunk /L knee alignment with cues. 05/28/23: Pt walks into therapy safely w/o assistive device. STG Duration 05/31/23 (05/28/23: MET GOAL) Nitroglycerin Nitrator Operator Batch Goal (LTG) Improve L knee strength/ stability with pt able to walk her dog 1/2 hour before fatigue. 05/21/23: able to walk dog up/ down driveway 1/10 mile and back, currently using SPC. 06/04/23: Walking 2 dogs 1/4 mile (10 minutes up and back) a couple times a day with one dog. LEFS score is 54 (20-39 % impaired). 06/07/23: Walked dogs 4' more 06/11/23: almost met: walked almost 1/2 miles walking dog. She also walked with daughter Mikal to [facility], sat rest and back with no knee pain. LTG Duration 07/15/23 progressing 06/10/23 Two Impairment Decreased L knee AROM limiting function Short Term Goal (STG) Improve L knee AROM to 95 deg' s flexion, with pt able to tolerate full revolution of leg on the upright bike. 04/22/23: initiated scifit recumbent stepper today with reports that feels good to move my L knee. Not measured. Biodex next for ankle ROM then progress upright bike/ recumbent bike. 05/14/23: L knee AROM 0-100 deg's in supine. 05/16/23: 108deg AAROM L knee on shuttle recovery. Upright bike next tx. 05/21/23: GOAL MET full revolution seat 6 on upright bike, level pelvis, cued trunk posture. STG Duration 05/31/23 GOAL MET 05/21/23 Halfway Goal (LTG) Improve L knee AROM to 120 deg 's flexion to be able to ambulate stairs with a step over step gait with use of 1 railing. 04/22/23: progressing: AROM 10- 81 deg, 89 deg self support strap. 05/16/23: progressing: AROM L knee 108 deg on shuttle recovery. 05/21/23: shuttle recovery 108 deg, supine up to 106-108 AROM and 114deg AAROM L knee flexion. Pt demonstrated light contact (more due to weakness than range limitations) rail asc/desc stair receiprocal gait during tx. 06/04/23: L knee AROM is 0-117 deg's (after ex). PROM is 0- 118 deg's. 06/10/23: 0-124 PROM post manual. LTG Duration 07/15/23 progressing 06/10/23 One Impairment HEP. Short Term Goal (STG) Pt will be educated in self care program of edema management of use of cryotherapy and post op LE lymphedema massage. 04/22/23: progressing: review and self application assist by daughter. Discussed donning YUNI wrap for edema support. Recheck next tx. 04/25/23: GOAL MET: wearing compression sock lower leg, using elevation/ice pack, there is still swelling for decreasing. STG Duration 05/03/23 GOAL MET 04/25/23 Nitroglycerin Nitrator Operator Batch Goal (LTG) Pt will be independent in a self care HEP of L LE strengthening and ROM exercises. 04/18/23: HEP: Manual LE lympohatic drainage sequence ex. 05/17/23: SAQ, resisted HS curl , L knee flexion stretch seated, added LAQ. 06/07/23: Modified LAQ with ankle wgt & STS with TB around knees. 06/10/23: added prone AAROM L knee flexion w/ strap to HEP. LTG Duration 07/15/23 progressed 06/10/23 Progress Towards Goals Progress Comments Pt gained 5 deg L knee flexion post manual and added prone quad stretch/AAROM. Assessment Summary Assessment See circumferencial measurements L knee. Pt good response to retrograde massage and knee mobs assisted increased 118*>124* PROM. Ther ex focused and ed cues for elongated posture, quad and glut fac during resisted LAQ and step up HEP to encourage extension support for normalizing gait support, tends to walk with flexed knees. Improved post ed cues during step ups. Pt improved resisted hip abd post cues for maintain space between knees for hip abd support which carried over to gait ed tx. Physical Therapy Plan Frequency and Duration Frequency of Treatment 2x/Week Duration of treatment (weeks) 7 Plan of Care Start Date 06/04/23 Plan of Care End Date 07/19/23 Therapeutic Interventions Therapeutic Interventions Balance Training,Gait Training ,Home Exercise Program,Joint Mobilizations,Manual Therapy, Patient/Caregiver Education, Self-Care/Home Management,Soft Tissue Mobilization,Taping, Therapeutic Exercises Modalities Cold Pack/Ice Massage,Electric Stimulation Next Visit Focus/Plan Next Note Type Treatment Note Next Visit Plan Progress ROM L knee. Progress L knee strengthening to decrease discomfort with going down inclines. Next tx: add declined mini squat, georgina stepping, squat ball transfer cones for functional knee flexion. Warm up upright bike (seat 5) w/foot moving back on pedal, to increase knee flexion. POC: continue progress stair mgt for safety/balance, proper posturing and gait mechanics. POC: Improve L knee ROM and strengthening.
--- NOTE | 2023-06-14 10:23 | PT.OTN ---
Current Diagnoses Unilateral primary osteoarthritis, left knee (06/14/23) Muscle weakness (generalized) (06/14/23) Other abnormalities of gait and mobility (06/14/23) Presence of right artificial knee joint (06/14/23) Physical Therapy Treatment Note PT-OP-A Visit Information Start: 04/14/23 11:13 Freq: Status: Active Protocol: Document 06/14/23 09:29 LRN (Rec: 06/14/23 10:23 LRN [id number]) Out-Patient Physical Therapy Visit Information Visit Information Visit Type Treatment Note Visit Start Time 09:30 Visit Stop Time 10:15 Total Visit Minutes 45 Visit Number 13 Evaluation Information Evaluation Date 04/16/23 Precautions Precautions R TKA 6.5 yrs ago. L TKE DOS: 04/09/23. PT-OP-B Current Condition Start: 04/14/23 11:13 Freq: Status: Active Protocol: Document 04/16/23 13:30 LRN (Rec: 04/16/23 14:17 LRN [id number]) Current Condition History of Current Condition Onset Date 04/09/23 Current Complaints L knee pain off /on. Worse after being stationary. History of Current Condition L TKA 04/09/23. Pt in hospital overnight. Pt has had daughter helping her with home exercises since discharge from the hospital. She states she has been doing HEP 1-2x/ day. Treatment Goals Patient/Caregiver Goals Pt goals: Pt able to bend her L knee same as R knee. Pt will be able to walk without her walker. Garden in a year. Walk dog 1/2 hour. Personal Factors Other Personal Factors That May Effect Pt has daughter(DA) helping Therapy/Recovery her for the next few weeks. DA wanted known that her mom had previous physical therapy that the PT was not very encouraging; therefore made pt feel she didn't do well; therefore pt does better with encouragement and not negativity. PT-OP-C Subjective Start: 04/14/23 11:13 Freq: Status: Active Protocol: Document 06/14/23 09:29 LRN (Rec: 06/14/23 10:23 LRN [id number]) OP-PT Subjective Patient Comments Patient Comments States a neighbor thought she was walking w/o limping. PT-OP-D Balance Start: 04/14/23 11:13 Freq: Status: Active Protocol: Document 04/16/23 13:30 LRN (Rec: 04/16/23 14:17 LRN [id number]) OP-PT Balance Assessment Sitting Balance Static Sitting Balance Ability Good Standing Balance Static Standing Balance Ability Good Dynamic Standing Balance Ability Fair Device Used FWW Standing Balance Comments Pt has good dynamic standing balance with use of FWW. Pt is not appropriate for single leg stance testing. Perez Fall Scale Copyright Permission PT-OP-E Functional Tests Start: 04/14/23 11:13 Freq: Status: Active Protocol: Document 05/16/23 09:01 SP (Rec: 05/16/23 09:53 SP [id number]) Functional Tests Timed Up and Go (TUG) Score 11 sec, 10 sec, 8 sec Comments UE support 1st time, no UE 2nd and 3rd rep TUG Impairment Rating 0% Impaired (Score 10) PT-OP-G Mobility & Gait Start: 04/14/23 11:13 Freq: Status: Active Protocol: Document 04/18/23 08:51 LRN (Rec: 04/18/23 09:43 LRN [id number]) OP Gait Assessment Gait Gait Assistance Required: Independent Assistive Devices Assistive Device Standard Walker Gait Deviations General Gait Pattern Decreased Stride Length, Decreased Feet Clearance, Flexed Trunk,Narrow Based Gait Factors Limiting Gait Function Factors Limiting Gait Function Decreased Activity Tolerance, Decreased Strength,Limited Range of Motion,Pain,Poor Balance Comments Gait Comments Pt FWW appears too short for patient at start of therapy. PT-OP-J Posture/Palpation/Skin Start: 04/14/23 11:13 Freq: Status: Active Protocol: Document 06/11/23 09:04 SP (Rec: 06/11/23 10:26 SP [id number]) Skin Assessment Circumference Measurement L knee Location 5 cm below patella, mid patella, 10cm above patella Comments 36.5 cm, 41cm, 39cm PT-OP-K Range of Motion Start: 04/14/23 11:13 Freq: Status: Active Protocol: Document 06/14/23 09:29 LRN (Rec: 06/14/23 10:23 LRN [id number]) Knee Goniometric Range of Motion Knee Left Knee ROM WFL No Patient Position Supine Flexion Active (degrees) 114 Flexion Passive (degrees) 117 Extension Active (degrees) 0 PT-OP-M Strength Start: 04/14/23 11:13 Freq: Status: Active Protocol: Document 04/16/23 13:30 LRN (Rec: 04/16/23 14:17 LRN [id number]) Knee Strength Knee Manual Muscle Testing Right Flexion (S2) 5 Normal Extension (L3) 5 Normal Left Flexion (S2) 3- Fair- Extension (L3) 3- Fair- Ankle/Foot Strength Ankle and Foot Manual Muscle Testing Right Dorsiflexion (L4) 5 Normal Plantarflexion (S1) 5 Normal Inversion 5 Normal Eversion (S1) 5 Normal Left Dorsiflexion (L4) 4 Good Plantarflexion (S1) 4 Good Inversion 4+ Good+ Eversion (S1) 4+ Good+ PT-OP-Q Treatments Start: 04/14/23 11:13 Freq: Status: Active Protocol: Document 06/14/23 09:29 LRN (Rec: 06/14/23 10:23 LRN [id number]) Cardio Equipment Bicycle (Upright) Duration (Minutes) 12 Resistance 3 Seat Position 4>3 seat hgt step down (timing : 6 min, 6 min respectively) Other cued level pelvis, upright posture, ball of ft on pedal Therapeutic Exercises Supine Exercises L Knee flexion Supine Exercise Name L knee flex stretch: AROM/ AAROM/PROM Side left Equipment Used manual assist Reps/Minutes 4' active, 10' AAROM/PROM Comments ROM taken Prone Exercises Knee flex Prone Exercise Name AAROM Side left Equipment Used Pillow under hips Reps/Minutes 10 x 2 Knee flex stretch Prone Exercise Name AA flexion stretch-HEP Side left Equipment Used pelvis over pillow Reps/Minutes Contract/relax (C/R) stretch into flexion Comments Cuing for contract/relax stretch, painfree. Standing Exercises L knee flex stretch Standing Exercise Name Flexion stretch off 2nd step from bottom Side left Equipment Used Stairs Reps/Minutes 4' Gait Training Gait Activity Gait training Description Gait on level and standing posture. Device Used None Level of Assistance Manual & verbal cuing Surface Level Distance/Duration 10' Treatment Focus Hip lateral shift (to R > L) with WBing to minimize trunk sway. Comments Postural training of ribcage over hips, creating knee ext stretch. PT-OP-R Modalities Start: 04/14/23 11:13 Freq: Status: Active Protocol: Document 04/16/23 13:30 LRN (Rec: 04/16/23 14:17 LRN [id number]) Hot Pack/Cold Pack Treatment Cold Pack Location L knee in elevation Patient Position Supine Treatment Duration (minutes) 8 Patient Tolerance Good Comments Elevated leg on bolster. PT-OP-T Assessment and Plan Start: 04/14/23 11:13 Freq: Status: Active Protocol: Document 06/14/23 09:29 LRN (Rec: 06/14/23 10:23 LRN [id number]) Physical Therapy Assessment Goals Three Impairment Decreased function Impairment Pt requiring use of FWW for safe gait Pt limited in ability to walk her dog. LEFS score 18 (60-795 impaired , score 17-31) Short Term Goal (STG) Improve L knee strength/ stability with pt able to walk safely without an assistive device. 04/18/23: Adjusted FWW for proper hgt and did gait training for heel strike and toe off. 04/22/23: instructed gait phase mechanics. 04/25/23: Progressingimproved knee flexion and heel toe, still limited knee extension midstance phase. Ed for decrease UE WB on FWW needed. 05/16/23: TUG 11 sec use hands arm rest to stand/sit, 10 sec no UE support, 8 sec no UE support. Time spent gait with and without SPC in mirror, cued knee alignment and TKE. 05/21/23: small time spent ed cues for TKE L>R during gait into clinic and stair mgt and added step ups. Improved trunk /L knee alignment with cues. 05/28/23: Pt walks into therapy safely w/o assistive device. STG Duration 05/31/23 (05/28/23: MET GOAL) Prison Goal (LTG) Improve L knee strength/ stability with pt able to walk her dog 1/2 hour before fatigue. 05/21/23: able to walk dog up/ down driveway 1/10 mile and back, currently using SPC. 06/04/23: Walking 2 dogs 1/4 mile (10 minutes up and back) a couple times a day with one dog. LEFS score is 54 (20-39 % impaired). 06/07/23: Walked dogs 4' more 06/11/23: almost met: walked almost 1/2 miles walking dog. She also walked with daughter [place], sat rest and back with no knee pain. LTG Duration 07/15/23 progressing 06/10/23 Two Impairment Decreased L knee AROM limiting function Short Term Goal (STG) Improve L knee AROM to 95 deg' s flexion, with pt able to tolerate full revolution of leg on the upright bike. 04/22/23: initiated scifit recumbent stepper today with reports that feels good to move my L knee. Not measured. Biodex next for ankle ROM then progress upright bike/ recumbent bike. 05/14/23: L knee AROM 0-100 deg's in supine. 05/16/23: 108deg AAROM L knee on shuttle recovery. Upright bike next tx. 05/21/23: GOAL MET full revolution seat 6 on upright bike, level pelvis, cued trunk posture. STG Duration 05/31/23 GOAL MET 05/21/23 Prison Goal (LTG) Improve L knee AROM to 120 deg 's flexion to be able to ambulate stairs with a step over step gait with use of 1 railing. 04/22/23: progressing: AROM 10- 81 deg, 89 deg self support strap. 05/16/23: progressing: AROM L knee 108 deg on shuttle recovery. 05/21/23: shuttle recovery 108 deg, supine up to 106-108 AROM and 114deg AAROM L knee flexion. Pt demonstrated light contact (more due to weakness than range limitations) rail asc/desc stair receiprocal gait during tx. 06/04/23: L knee AROM is 0-117 deg's (after ex). PROM is 0- 118 deg's. 06/10/23: 0-124 PROM post manual. LTG Duration 07/15/23 progressing 06/10/23 One Impairment HEP. Short Term Goal (STG) Pt will be educated in self care program of edema management of use of cryotherapy and post op LE lymphedema massage. 04/22/23: progressing: review and self application assist by daughter. Discussed donning YUNI wrap for edema support. Recheck next tx. 04/25/23: GOAL MET: wearing compression sock lower leg, using elevation/ice pack, there is still swelling for decreasing. STG Duration 05/03/23 GOAL MET 04/25/23 Lithographic Proofer Goal (LTG) Pt will be independent in a self care HEP of L LE strengthening and ROM exercises. 04/18/23: HEP: Manual LE lympohatic drainage sequence ex. 05/17/23: SAQ, resisted HS curl , L knee flexion stretch seated, added LAQ. 06/07/23: Modified LAQ with ankle wgt & STS with TB around knees. 06/10/23: added prone AAROM L knee flexion w/ strap to HEP. LTG Duration 07/15/23 progressed 06/10/23 Assessment Summary Assessment Pt not able to obtain same L knee PROM as previously measure by TURPENTINE FARMER. More time spent with L knee flex ex's; therefore did not do hurdles and functional knee flex ex's. Pt stiff in L knee. Improved gait after training with minimal trunk sway, but notable sway back positioning in standing without physical cuing; therefore further traning is needed. Physical Therapy Plan Frequency and Duration Frequency of Treatment 2x/Week Duration of treatment (weeks) 7 Plan of Care Start Date 06/04/23 Plan of Care End Date 07/19/23 Next Visit Focus/Plan Next Note Type Treatment Note Next Visit Plan Progress ROM L knee. Progress L knee strengthening to decrease discomfort with going down inclines. Next tx: add declined mini squat, georgina stepping, squat ball transfer cones for functional knee flexion. Warm up upright bike (seat 5) w/foot moving back on pedal, to increase knee flexion. POC: continue progress stair mgt for safety/balance, proper posturing and gait mechanics. POC: Improve L knee ROM and strengthening.
--- NOTE | 2023-06-18 10:26 | PT.OTN ---
Current Diagnoses Unilateral primary osteoarthritis, left knee (06/18/23) Muscle weakness (generalized) (06/18/23) Other abnormalities of gait and mobility (06/18/23) Presence of right artificial knee joint (06/18/23) Physical Therapy Treatment Note PT-OP-A Visit Information Start: 04/14/23 11:13 Freq: Status: Active Protocol: Document 06/18/23 09:38 LRN (Rec: 06/18/23 10:25 LRN [id number]) Out-Patient Physical Therapy Visit Information Visit Information Visit Type Treatment Note Visit Note 4 after PN Visit Start Time 09:38 Visit Stop Time 10:16 Total Visit Minutes 40 Visit Number 14 Evaluation Information Evaluation Date 04/16/23 Precautions Precautions R TKA 6.5 yrs ago. L TKE DOS: 04/09/23. PT-OP-B Current Condition Start: 04/14/23 11:13 Freq: Status: Active Protocol: Document 04/16/23 13:30 LRN (Rec: 04/16/23 14:17 LRN [id number]) Current Condition History of Current Condition Onset Date 04/09/23 Current Complaints L knee pain off /on. Worse after being stationary. History of Current Condition L TKA 04/09/23. Pt in hospital overnight. Pt has had daughter helping her with home exercises since discharge from the hospital. She states she has been doing HEP 1-2x/ day. Treatment Goals Patient/Caregiver Goals Pt goals: Pt able to bend her L knee same as R knee. Pt will be able to walk without her walker. Garden in a year. Walk dog 1/2 hour. Personal Factors Other Personal Factors That May Effect Pt has daughter(DA) helping Therapy/Recovery her for the next few weeks. DA wanted known that her mom had previous physical therapy that the PT was not very encouraging; therefore made pt feel she didn't do well; therefore pt does better with encouragement and not negativity. PT-OP-C Subjective Start: 04/14/23 11:13 Freq: Status: Active Protocol: Document 06/18/23 09:38 LRN (Rec: 06/18/23 10:25 LRN [id number]) OP-PT Subjective Patient Comments Patient Comments States she got good knee flex a couple days ago, but yesterday stiff. Has been practicing her posture. PT-OP-D Balance Start: 04/14/23 11:13 Freq: Status: Active Protocol: Document 04/16/23 13:30 LRN (Rec: 04/16/23 14:17 LRN [id number]) OP-PT Balance Assessment Sitting Balance Static Sitting Balance Ability Good Standing Balance Static Standing Balance Ability Good Dynamic Standing Balance Ability Fair Device Used FWW Standing Balance Comments Pt has good dynamic standing balance with use of FWW. Pt is not appropriate for single leg stance testing. Perez Fall Scale Copyright Permission PT-OP-E Functional Tests Start: 04/14/23 11:13 Freq: Status: Active Protocol: Document 05/16/23 09:01 SP (Rec: 05/16/23 09:53 SP [id number]) Functional Tests Timed Up and Go (TUG) Score 11 sec, 10 sec, 8 sec Comments UE support 1st time, no UE 2nd and 3rd rep TUG Impairment Rating 0% Impaired (Score 10) PT-OP-G Mobility & Gait Start: 04/14/23 11:13 Freq: Status: Active Protocol: Document 04/18/23 08:51 LRN (Rec: 04/18/23 09:43 LRN [id number]) OP Gait Assessment Gait Gait Assistance Required: Independent Assistive Devices Assistive Device Standard Walker Gait Deviations General Gait Pattern Decreased Stride Length, Decreased Feet Clearance, Flexed Trunk,Narrow Based Gait Factors Limiting Gait Function Factors Limiting Gait Function Decreased Activity Tolerance, Decreased Strength,Limited Range of Motion,Pain,Poor Balance Comments Gait Comments Pt FWW appears too short for patient at start of therapy. PT-OP-J Posture/Palpation/Skin Start: 04/14/23 11:13 Freq: Status: Active Protocol: Document 06/11/23 09:04 SP (Rec: 06/11/23 10:26 SP [id number]) Skin Assessment Circumference Measurement L knee Location 5 cm below patella, mid patella, 10cm above patella Comments 36.5 cm, 41cm, 39cm PT-OP-K Range of Motion Start: 04/14/23 11:13 Freq: Status: Active Protocol: Document 06/18/23 09:38 LRN (Rec: 06/18/23 10:25 LRN [id number]) Knee Goniometric Range of Motion Knee Left Knee ROM WFL No Patient Position Supine Flexion Active (degrees) 117 Flexion Passive (degrees) 120 Extension Active (degrees) 0 PT-OP-M Strength Start: 04/14/23 11:13 Freq: Status: Active Protocol: Document 04/16/23 13:30 LRN (Rec: 04/16/23 14:17 LRN [id number]) Knee Strength Knee Manual Muscle Testing Right Flexion (S2) 5 Normal Extension (L3) 5 Normal Left Flexion (S2) 3- Fair- Extension (L3) 3- Fair- Ankle/Foot Strength Ankle and Foot Manual Muscle Testing Right Dorsiflexion (L4) 5 Normal Plantarflexion (S1) 5 Normal Inversion 5 Normal Eversion (S1) 5 Normal Left Dorsiflexion (L4) 4 Good Plantarflexion (S1) 4 Good Inversion 4+ Good+ Eversion (S1) 4+ Good+ PT-OP-Q Treatments Start: 04/14/23 11:13 Freq: Status: Active Protocol: Document 06/18/23 09:38 LRN (Rec: 06/18/23 10:25 LRN [id number]) Cardio Equipment Bicycle (Upright) Duration (Minutes) 10 Resistance 3 Seat Position 3 seat hgt (moving foot back every 3 minutes) Other cued level pelvis, upright posture, ball of ft moving back on pedal Therapeutic Exercises Supine Exercises L Knee flexion Supine Exercise Name L knee flex stretch: AROM/ AAROM/PROM Side left Equipment Used manual assist Reps/Minutes 4' active, 10' AAROM/PROM Comments ROM taken Prone Exercises Knee flex Prone Exercise Name Knee flexion Side left Equipment Used 1# Reps/Minutes 10x 3 Comments Extra time to determine max kelsey stretch & phys assist for mvmt Knee flex stretch Prone Exercise Name AA flexion stretch-HEP Side left Equipment Used towel roll above knee Reps/Minutes Contract/relax (C/R) stretch into flexion Comments Cuing for contract/relax stretch, painfree. Standing Exercises Posture awareness training Standing Exercise Name Posture training against wall Reps/Minutes 2' L knee flex stretch Standing Exercise Name Flexion stretch off 3rd step from bottom Side left Equipment Used Stairs Reps/Minutes 4' Gait Training Gait Activity Gait training Description Gait on level and standing posture, R hip sway. Device Used None Level of Assistance Manual & verbal cuing Surface Level Distance/Duration 3' Treatment Focus Hip lateral shift (to R > L) with WBing to minimize trunk sway. Comments Postural training of ribcage over hips, creating knee ext stretch. PT-OP-R Modalities Start: 04/14/23 11:13 Freq: Status: Active Protocol: Document 04/16/23 13:30 LRN (Rec: 04/16/23 14:17 LRN [id number]) Hot Pack/Cold Pack Treatment Cold Pack Location L knee in elevation Patient Position Supine Treatment Duration (minutes) 8 Patient Tolerance Good Comments Elevated leg on bolster. PT-OP-T Assessment and Plan Start: 04/14/23 11:13 Freq: Status: Active Protocol: Document 06/18/23 09:38 LRN (Rec: 06/18/23 10:25 LRN [id number]) Physical Therapy Assessment Goals Three Impairment Decreased function Impairment Pt requiring use of FWW for safe gait Pt limited in ability to walk her dog. LEFS score 18 (60-795 impaired , score 17-31) Short Term Goal (STG) Improve L knee strength/ stability with pt able to walk safely without an assistive device. 04/18/23: Adjusted FWW for proper hgt and did gait training for heel strike and toe off. 04/22/23: instructed gait phase mechanics. 04/25/23: Progressingimproved knee flexion and heel toe, still limited knee extension midstance phase. Ed for decrease UE WB on FWW needed. 05/16/23: TUG 11 sec use hands arm rest to stand/sit, 10 sec no UE support, 8 sec no UE support. Time spent gait with and without SPC in mirror, cued knee alignment and TKE. 05/21/23: small time spent ed cues for TKE L>R during gait into clinic and stair mgt and added step ups. Improved trunk /L knee alignment with cues. 05/28/23: Pt walks into therapy safely w/o assistive device. STG Duration 05/31/23 (05/28/23: MET GOAL) Bristle Machine Operator Goal (LTG) Improve L knee strength/ stability with pt able to walk her dog 1/2 hour before fatigue. 05/21/23: able to walk dog up/ down driveway 1/10 mile and back, currently using SPC. 06/04/23: Walking 2 dogs 1/4 mile (10 minutes up and back) a couple times a day with one dog. LEFS score is 54 (20-39 % impaired). 06/07/23: Walked dogs 4' more 06/11/23: almost met: walked almost 1/2 miles walking dog. She also walked with daughter Mikal to [employer], sat rest and back with no knee pain. LTG Duration 07/15/23 progressing 06/10/23 Two Impairment Decreased L knee AROM limiting function Short Term Goal (STG) Improve L knee AROM to 95 deg' s flexion, with pt able to tolerate full revolution of leg on the upright bike. 04/22/23: initiated scifit recumbent stepper today with reports that feels good to move my L knee. Not measured. Biodex next for ankle ROM then progress upright bike/ recumbent bike. 05/14/23: L knee AROM 0-100 deg's in supine. 05/16/23: 108deg AAROM L knee on shuttle recovery. Upright bike next tx. 05/21/23: GOAL MET full revolution seat 6 on upright bike, level pelvis, cued trunk posture. STG Duration 05/31/23 GOAL MET 05/21/23 Bristle Machine Operator Goal (LTG) Improve L knee AROM to 120 deg 's flexion to be able to ambulate stairs with a step over step gait with use of 1 railing. 04/22/23: progressing: AROM 10- 81 deg, 89 deg self support strap. 05/16/23: progressing: AROM L knee 108 deg on shuttle recovery. 05/21/23: shuttle recovery 108 deg, supine up to 106-108 AROM and 114deg AAROM L knee flexion. Pt demonstrated light contact (more due to weakness than range limitations) rail asc/desc stair receiprocal gait during tx. 06/04/23: L knee AROM is 0-117 deg's (after ex). PROM is 0- 118 deg's. 06/10/23: 0-124 PROM post manual. 06/18/23: 0-117 AAROM, s/p therapy 0-120 PROM. LTG Duration 07/15/23 progressing 06/18/23 One Impairment HEP. Short Term Goal (STG) Pt will be educated in self care program of edema management of use of cryotherapy and post op LE lymphedema massage. 04/22/23: progressing: review and self application assist by daughter. Discussed donning YUNI wrap for edema support. Recheck next tx. 04/25/23: GOAL MET: wearing compression sock lower leg, using elevation/ice pack, there is still swelling for decreasing. STG Duration 05/03/23 GOAL MET 04/25/23 Mcfp Goal (LTG) Pt will be independent in a self care HEP of L LE strengthening and ROM exercises. 04/18/23: HEP: Manual LE lympohatic drainage sequence ex. 05/17/23: SAQ, resisted HS curl , L knee flexion stretch seated, added LAQ. 06/07/23: Modified LAQ with ankle wgt & STS with TB around knees. 06/10/23: added prone AAROM L knee flexion w/ strap to HEP. 06/18/23: Pt to check posture frequently with wall staning. LTG Duration 07/15/23 progressed 06/18/23 Assessment Summary Assessment Improved L knee active flexion to start (114>117) and passive flexion to end (117> 120). Prone C/R stretch and stair stretch was very helpful to increase ROM as well as start of bike for warm up ( moving heel back) an ROM. Physical Therapy Plan Frequency and Duration Frequency of Treatment 2x/Week Duration of treatment (weeks) 7 Plan of Care Start Date 06/04/23 Plan of Care End Date 07/19/23 Next Visit Focus/Plan Next Note Type Treatment Note Next Visit Plan Focus on improving ROM L knee flexion 125 deg's. Progress L knee strengthening flex>ext for a week, to decrease discomfort with going down inclines. Tx: add when time permits ( after ROM ex's) declined mini squat, georgina stepping, squat ball transfer cones for functional knee flexion. Warm up upright bike (seat 5) w/foot moving back on pedal, to increase knee flexion. POC: L knee ROM and strengthening, stair mgt for safety/balance, proper posturing and gait mechanics.
--- NOTE | 2023-06-21 10:23 | PT.OTN ---
Current Diagnoses Unilateral primary osteoarthritis, left knee (06/21/23) Muscle weakness (generalized) (06/21/23) Other abnormalities of gait and mobility (06/21/23) Presence of right artificial knee joint (06/21/23) Physical Therapy Treatment Note PT-OP-A Visit Information Start: 04/14/23 11:13 Freq: Status: Active Protocol: Document 06/21/23 09:34 LRN (Rec: 06/21/23 10:20 LRN [id number]) Out-Patient Physical Therapy Visit Information Visit Information Visit Type Treatment Note Visit Note 5 after PN Visit Start Time 09:34 Visit Stop Time 10:12 Total Visit Minutes 38 Visit Number 15 Evaluation Information Evaluation Date 04/16/23 Precautions Precautions R TKA 6.5 yrs ago. L TKE DOS: 04/09/23. PT-OP-B Current Condition Start: 04/14/23 11:13 Freq: Status: Active Protocol: Document 04/16/23 13:30 LRN (Rec: 04/16/23 14:17 LRN [id number]) Current Condition History of Current Condition Onset Date 04/09/23 Current Complaints L knee pain off /on. Worse after being stationary. History of Current Condition L TKA 04/09/23. Pt in hospital overnight. Pt has had daughter helping her with home exercises since discharge from the hospital. She states she has been doing HEP 1-2x/ day. Treatment Goals Patient/Caregiver Goals Pt goals: Pt able to bend her L knee same as R knee. Pt will be able to walk without her walker. Garden in a year. Walk dog 1/2 hour. Personal Factors Other Personal Factors That May Effect Pt has daughter(DA) helping Therapy/Recovery her for the next few weeks. DA wanted known that her mom had previous physical therapy that the PT was not very encouraging; therefore made pt feel she didn't do well; therefore pt does better with encouragement and not negativity. PT-OP-C Subjective Start: 04/14/23 11:13 Freq: Status: Active Protocol: Document 06/21/23 09:34 LRN (Rec: 06/21/23 10:20 LRN [id number]) OP-PT Subjective Patient Comments Patient Comments Seeing doctor next week. Yesterday did L knee workout, so today is stiff. PT-OP-D Balance Start: 04/14/23 11:13 Freq: Status: Active Protocol: Document 04/16/23 13:30 LRN (Rec: 04/16/23 14:17 LRN [id number]) OP-PT Balance Assessment Sitting Balance Static Sitting Balance Ability Good Standing Balance Static Standing Balance Ability Good Dynamic Standing Balance Ability Fair Device Used FWW Standing Balance Comments Pt has good dynamic standing balance with use of FWW. Pt is not appropriate for single leg stance testing. Perez Fall Scale Copyright Permission PT-OP-E Functional Tests Start: 04/14/23 11:13 Freq: Status: Active Protocol: Document 05/16/23 09:01 SP (Rec: 05/16/23 09:53 SP [id number]) Functional Tests Timed Up and Go (TUG) Score 11 sec, 10 sec, 8 sec Comments UE support 1st time, no UE 2nd and 3rd rep TUG Impairment Rating 0% Impaired (Score 10) PT-OP-G Mobility & Gait Start: 04/14/23 11:13 Freq: Status: Active Protocol: Document 04/18/23 08:51 LRN (Rec: 04/18/23 09:43 LRN [id number]) OP Gait Assessment Gait Gait Assistance Required: Independent Assistive Devices Assistive Device Standard Walker Gait Deviations General Gait Pattern Decreased Stride Length, Decreased Feet Clearance, Flexed Trunk,Narrow Based Gait Factors Limiting Gait Function Factors Limiting Gait Function Decreased Activity Tolerance, Decreased Strength,Limited Range of Motion,Pain,Poor Balance Comments Gait Comments Pt FWW appears too short for patient at start of therapy. PT-OP-J Posture/Palpation/Skin Start: 04/14/23 11:13 Freq: Status: Active Protocol: Document 06/11/23 09:04 SP (Rec: 06/11/23 10:26 SP [id number]) Skin Assessment Circumference Measurement L knee Location 5 cm below patella, mid patella, 10cm above patella Comments 36.5 cm, 41cm, 39cm PT-OP-K Range of Motion Start: 04/14/23 11:13 Freq: Status: Active Protocol: Document 06/21/23 09:34 LRN (Rec: 06/21/23 10:20 LRN [id number]) Knee Goniometric Range of Motion Knee Right Patient Position Supine Left Patient Position Supine Flexion Passive (degrees) 120 PT-OP-M Strength Start: 04/14/23 11:13 Freq: Status: Active Protocol: Document 04/16/23 13:30 LRN (Rec: 04/16/23 14:17 LRN [id number]) Knee Strength Knee Manual Muscle Testing Right Flexion (S2) 5 Normal Extension (L3) 5 Normal Left Flexion (S2) 3- Fair- Extension (L3) 3- Fair- Ankle/Foot Strength Ankle and Foot Manual Muscle Testing Right Dorsiflexion (L4) 5 Normal Plantarflexion (S1) 5 Normal Inversion 5 Normal Eversion (S1) 5 Normal Left Dorsiflexion (L4) 4 Good Plantarflexion (S1) 4 Good Inversion 4+ Good+ Eversion (S1) 4+ Good+ PT-OP-Q Treatments Start: 04/14/23 11:13 Freq: Status: Active Protocol: Document 06/21/23 09:34 LRN (Rec: 06/21/23 10:20 LRN [id number]) Cardio Equipment Bicycle (Upright) Duration (Minutes) 10 Resistance 3 Seat Position 3 seat hgt (moving foot back every 3 minutes) Other cued upright posture, and ball of ft moving back on pedal Gym Equipment Shuttle Balance Standing balance Details Standing fwd and sideways, feet apart & together. Reps/Duration 5' Comments [employer]: Blue. Tension to black cord to minimize lateral sway in sideways standing. Therapeutic Exercises Supine Exercises L Knee flexion Supine Exercise Name L knee flex stretch: AROM/ AAROM/PROM Side left Equipment Used manual assist Reps/Minutes 2' active, ' AAROM/PROM Comments ROM taken Prone Exercises Knee flex Prone Exercise Name Knee flexion Side left Equipment Used 2#, 3# Reps/Minutes 15x 2 Comments Extra time to determine max kelsey stretch & phys assist for mvmt and ex kelsey Knee flex stretch Prone Exercise Name AA flexion stretch-HEP Side left Equipment Used towel roll above knee Reps/Minutes Contract/relax (C/R) stretch into flexion Comments Cuing for contract/relax stretch, painfree. Standing Exercises Posture awareness training Standing Exercise Name Posture training against wall Reps/Minutes 2' L knee flex stretch Standing Exercise Name Flexion stretch off 3rd step from bottom Side left Equipment Used Stairs Reps/Minutes 2' step ups Standing Exercise Name 6 Step ups Side bilateral Reps/Minutes 7' Comments cued at end w/o hands on railing. Gait Training Gait Activity Gait training Description Gait on level and standing posture, R hip sway. Device Used None Level of Assistance Manual & verbal cuing Surface Level Distance/Duration 4' Treatment Focus Hip lateral shift (to R) with WBing to minimize trunk sway. Comments Postural training of ribcage over hips, creating knee ext stretch. Neck elongation cue f/b ribs over hips. PT-OP-R Modalities Start: 04/14/23 11:13 Freq: Status: Active Protocol: Document 04/16/23 13:30 LRN (Rec: 04/16/23 14:17 LRN [id number]) Hot Pack/Cold Pack Treatment Cold Pack Location L knee in elevation Patient Position Supine Treatment Duration (minutes) 8 Patient Tolerance Good Comments Elevated leg on bolster. PT-OP-T Assessment and Plan Start: 04/14/23 11:13 Freq: Status: Active Protocol: Document 06/21/23 09:34 LRN (Rec: 06/21/23 10:20 LRN [id number]) Physical Therapy Assessment Goals Three Impairment Decreased function Impairment Pt requiring use of FWW for safe gait Pt limited in ability to walk her dog. LEFS score 18 (60-795 impaired , score 17-31) Short Term Goal (STG) Improve L knee strength/ stability with pt able to walk safely without an assistive device. 04/18/23: Adjusted FWW for proper hgt and did gait training for heel strike and toe off. 04/22/23: instructed gait phase mechanics. 04/25/23: Progressingimproved knee flexion and heel toe, still limited knee extension midstance phase. Ed for decrease UE WB on FWW needed. 05/16/23: TUG 11 sec use hands arm rest to stand/sit, 10 sec no UE support, 8 sec no UE support. Time spent gait with and without SPC in mirror, cued knee alignment and TKE. 05/21/23: small time spent ed cues for TKE L>R during gait into clinic and stair mgt and added step ups. Improved trunk /L knee alignment with cues. 05/28/23: Pt walks into therapy safely w/o assistive device. STG Duration 05/31/23 (05/28/23: MET GOAL) Wood Type Finisher Goal (LTG) Improve L knee strength/ stability with pt able to walk her dog 1/2 hour before fatigue. 05/21/23: able to walk dog up/ down driveway 1/10 mile and back, currently using SPC. 06/04/23: Walking 2 dogs 1/4 mile (10 minutes up and back) a couple times a day with one dog. LEFS score is 54 (20-39 % impaired). 06/07/23: Walked dogs 4' more 06/11/23: almost met: walked almost 1/2 miles walking dog. She [facility], sat [facility] and back with no knee pain. LTG Duration 07/15/23 progressing 06/10/23 Two Impairment Decreased L knee AROM limiting function Short Term Goal (STG) Improve L knee AROM to 95 deg' s flexion, with pt able to tolerate full revolution of leg on the upright bike. 04/22/23: initiated scifit recumbent stepper today with reports that feels good to move my L knee. Not measured. Biodex next for ankle ROM then progress upright bike/ recumbent bike. 05/14/23: L knee AROM 0-100 deg's in supine. 05/16/23: 108deg AAROM L knee on shuttle recovery. Upright bike next tx. 05/21/23: GOAL MET full revolution seat 6 on upright bike, level pelvis, cued trunk posture. STG Duration 05/31/23 GOAL MET 05/21/23 Skilled Nursing Goal (LTG) Improve L knee AROM to 120 deg 's flexion to be able to ambulate stairs with a step over step gait with use of 1 railing. 04/22/23: progressing: AROM 10- 81 deg, 89 deg self support strap. 05/16/23: progressing: AROM L knee 108 deg on shuttle recovery. 05/21/23: shuttle recovery 108 deg, supine up to 106-108 AROM and 114deg AAROM L knee flexion. Pt demonstrated light contact (more due to weakness than range limitations) rail asc/desc stair receiprocal gait during tx. 06/04/23: L knee AROM is 0-117 deg's (after ex). PROM is 0- 118 deg's. 06/10/23: 0-124 PROM post manual. 06/18/23: 0-117 AAROM, s/p therapy 0-120 PROM. LTG Duration 07/15/23 progressing 06/18/23 One Impairment HEP. Short Term Goal (STG) Pt will be educated in self care program of edema management of use of cryotherapy and post op LE lymphedema massage. 04/22/23: progressing: review and self application assist by daughter. Discussed donning YUNI wrap for edema support. Recheck next tx. 04/25/23: GOAL MET: wearing compression sock lower leg, using elevation/ice pack, there is still swelling for decreasing. STG Duration 05/03/23 GOAL MET 04/25/23 Skilled Nursing Goal (LTG) Pt will be independent in a self care HEP of L LE strengthening and ROM exercises. 04/18/23: HEP: Manual LE lympohatic drainage sequence ex. 05/17/23: SAQ, resisted HS curl , L knee flexion stretch seated, added LAQ. 06/07/23: Modified LAQ with ankle wgt & STS with TB around knees. 06/10/23: added prone AAROM L knee flexion w/ strap to HEP. 06/18/23: Pt to check posture frequently with wall staning. LTG Duration 07/15/23 progressed 06/18/23 Assessment Summary Assessment L knee PROM flexion, to start. 120 deg's. Pt had no c/o pain w/prone knee stretch although close to soft tissue end range. Pt has high pain tolerance. Physical Therapy Plan Frequency and Duration Frequency of Treatment 2x/Week Duration of treatment (weeks) 7 Plan of Care Start Date 06/04/23 Plan of Care End Date 07/19/23 Next Visit Focus/Plan Next Note Type Treatment Note Next Visit Plan Focus on improving ROM L knee flexion 125 deg's. Progress L knee strengthening flex>ext for a week, to decrease discomfort with going down inclines. Tx: add when time permits ( after ROM ex's) declined mini squat, georgina stepping, squat ball transfer cones for functional knee flexion. Warm up upright bike (seat 5) w/foot moving back on pedal, to increase knee flexion. POC: L knee ROM and strengthening, stair mgt for safety/balance, proper posturing and gait mechanics.
--- NOTE | 2023-07-02 09:03 | PT.OTN ---
Current Diagnoses Unilateral primary osteoarthritis, left knee (07/02/23) Muscle weakness (generalized) (07/02/23) Other abnormalities of gait and mobility (07/02/23) Presence of right artificial knee joint (07/02/23) Physical Therapy Treatment Note PT-OP-A Visit Information Start: 04/14/23 11:13 Freq: Status: Active Protocol: Document 07/02/23 08:17 SP (Rec: 07/02/23 09:03 SP [id number]) Out-Patient Physical Therapy Visit Information Visit Information Visit Type Treatment Note Visit Note 6 after PN Visit Start Time 08:17 Visit Stop Time 09:03 Total Visit Minutes 46 Visit Number 16 Number of PASTER HAT LINING Visits 1 Evaluation Information Evaluation Date 04/16/23 Precautions Precautions R TKA 6.5 yrs ago. L TKE DOS: 04/09/23. PT-OP-B Current Condition Start: 04/14/23 11:13 Freq: Status: Active Protocol: Document 04/16/23 13:30 LRN (Rec: 04/16/23 14:17 LRN [id number]) Current Condition History of Current Condition Onset Date 04/09/23 Current Complaints L knee pain off /on. Worse after being stationary. History of Current Condition L TKA 04/09/23. Pt in hospital overnight. Pt has had daughter helping her with home exercises since discharge from the hospital. She states she has been doing HEP 1-2x/ day. Treatment Goals Patient/Caregiver Goals Pt goals: Pt able to bend her L knee same as R knee. Pt will be able to walk without her walker. Garden in a year. Walk dog 1/2 hour. Personal Factors Other Personal Factors That May Effect Pt has daughter(DA) helping Therapy/Recovery her for the next few weeks. DA wanted known that her mom had previous physical therapy that the PT was not very encouraging; therefore made pt feel she didn't do well; therefore pt does better with encouragement and not negativity. PT-OP-C Subjective Start: 04/14/23 11:13 Freq: Status: Active Protocol: Document 07/02/23 08:17 SP (Rec: 07/02/23 09:03 SP [id number]) OP-PT Subjective Patient Comments Patient Comments Pt reports L knee is really good. She reports a week ago Saturday carrying garbage and after that back sore, was seen for Dr and strained back. She wonders if was cumulative also helping PT-OP-D Balance Start: 04/14/23 11:13 Freq: Status: Active Protocol: Document 04/16/23 13:30 LRN (Rec: 04/16/23 14:17 LRN [id number]) OP-PT Balance Assessment Sitting Balance Static Sitting Balance Ability Good Standing Balance Static Standing Balance Ability Good Dynamic Standing Balance Ability Fair Device Used FWW Standing Balance Comments Pt has good dynamic standing balance with use of FWW. Pt is not appropriate for single leg stance testing. Perez Fall Scale Copyright Permission PT-OP-E Functional Tests Start: 04/14/23 11:13 Freq: Status: Active Protocol: Document 05/16/23 09:01 SP (Rec: 05/16/23 09:53 SP [id number]) Functional Tests Timed Up and Go (TUG) Score 11 sec, 10 sec, 8 sec Comments UE support 1st time, no UE 2nd and 3rd rep TUG Impairment Rating 0% Impaired (Score 10) PT-OP-G Mobility & Gait Start: 04/14/23 11:13 Freq: Status: Active Protocol: Document 04/18/23 08:51 LRN (Rec: 04/18/23 09:43 LRN [id number]) OP Gait Assessment Gait Gait Assistance Required: Independent Assistive Devices Assistive Device Standard Walker Gait Deviations General Gait Pattern Decreased Stride Length, Decreased Feet Clearance, Flexed Trunk,Narrow Based Gait Factors Limiting Gait Function Factors Limiting Gait Function Decreased Activity Tolerance, Decreased Strength,Limited Range of Motion,Pain,Poor Balance Comments Gait Comments Pt FWW appears too short for patient at start of therapy. PT-OP-J Posture/Palpation/Skin Start: 04/14/23 11:13 Freq: Status: Active Protocol: Document 06/11/23 09:04 SP (Rec: 06/11/23 10:26 SP [id number]) Skin Assessment Circumference Measurement L knee Location 5 cm below patella, mid patella, 10cm above patella Comments 36.5 cm, 41cm, 39cm PT-OP-K Range of Motion Start: 04/14/23 11:13 Freq: Status: Active Protocol: Document 07/02/23 08:17 SP (Rec: 07/02/23 09:03 SP [id number]) Knee Goniometric Range of Motion Knee Left Knee ROM WFL No Patient Position Supine Flexion Active (degrees) 120 Flexion Passive (degrees) 123 Comments w/ dycem under foot PT-OP-M Strength Start: 04/14/23 11:13 Freq: Status: Active Protocol: Document 04/16/23 13:30 LRN (Rec: 04/16/23 14:17 LRN [id number]) Knee Strength Knee Manual Muscle Testing Right Flexion (S2) 5 Normal Extension (L3) 5 Normal Left Flexion (S2) 3- Fair- Extension (L3) 3- Fair- Ankle/Foot Strength Ankle and Foot Manual Muscle Testing Right Dorsiflexion (L4) 5 Normal Plantarflexion (S1) 5 Normal Inversion 5 Normal Eversion (S1) 5 Normal Left Dorsiflexion (L4) 4 Good Plantarflexion (S1) 4 Good Inversion 4+ Good+ Eversion (S1) 4+ Good+ PT-OP-Q Treatments Start: 04/14/23 11:13 Freq: Status: Active Protocol: Document 07/02/23 08:17 SP (Rec: 07/02/23 09:03 SP [id number]) Cardio Equipment Bicycle (Upright) Duration (Minutes) 10 Resistance 3 Seat Position 3 seat hgt (moving foot back every 3 minutes) Other cued upright posture, and ball of ft moving back on pedal Gym Equipment Shuttle Recovery unilateral Details 120 deg L knee flexion Resistance 25 # (new band)- unlocked Shuttle Recovery Platform Stable Reps/Time 8 reps- end tx Therapeutic Exercises Supine Exercises L Knee flexion Supine Exercise Name L knee flex stretch: AROM/ AAROM/PROM Side left Equipment Used manual assist Reps/Minutes 2' active, ' AAROM/PROM Comments ROM taken Prone Exercises Knee flex Prone Exercise Name Knee flexion Side left Equipment Used 3# Reps/Minutes 15x 2 Comments good tolerance Knee flex stretch Prone Exercise Name AA flexion stretch-HEP Side left Equipment Used towel roll above knee, prone over pillow for back support Reps/Minutes Contract/relax (C/R) stretch into flexion Comments Cuing for contract/relax stretch, painfree- 118 deg Standing Exercises L knee flex stretch Standing Exercise Name Flexion stretch Side left Equipment Used Stairs- 3rd step from bottom, rail support Reps/Minutes 2' Comments 122 deg flexion step ups Standing Exercise Name 6 Step ups Side left Equipment Used no rail support Reps/Minutes 2x15 reps Comments cued quad knee extension and glut fac end Manual Therapy Treatment Soft Tissue Mobilization L knee Body Location retrograde quad, HS, calf w / knee flexion Mobilization Type Myofascial Release Intensity/Depth Moderate Joint Mobilizations L talocrual jt Direction AP Grade II Body Position Hooklying Comments w/ PROM DF tib femoral Joint L Direction AP Grade II Body Position Hooklying Comments w/ increase knee flexion PT-OP-R Modalities Start: 04/14/23 11:13 Freq: Status: Active Protocol: Document 04/16/23 13:30 LRN (Rec: 04/16/23 14:17 LRN [id number]) Hot Pack/Cold Pack Treatment Cold Pack Location L knee in elevation Patient Position Supine Treatment Duration (minutes) 8 Patient Tolerance Good Comments Elevated leg on bolster. PT-OP-T Assessment and Plan Start: 04/14/23 11:13 Freq: Status: Active Protocol: Document 07/02/23 08:17 SP (Rec: 07/02/23 09:03 SP [id number]) Physical Therapy Assessment Goals Three Impairment Decreased function Impairment Pt requiring use of FWW for safe gait Pt limited in ability to walk her dog. LEFS score 18 (60-795 impaired , score 17-31) Short Term Goal (STG) Improve L knee strength/ stability with pt able to walk safely without an assistive device. 04/18/23: Adjusted FWW for proper hgt and did gait training for heel strike and toe off. 04/22/23: instructed gait phase mechanics. 04/25/23: Progressingimproved knee flexion and heel toe, still limited knee extension midstance phase. Ed for decrease UE WB on FWW needed. 05/16/23: TUG 11 sec use hands arm rest to stand/sit, 10 sec no UE support, 8 sec no UE support. Time spent gait with and without SPC in mirror, cued knee alignment and TKE. 05/21/23: small time spent ed cues for TKE L>R during gait into clinic and stair mgt and added step ups. Improved trunk /L knee alignment with cues. 05/28/23: Pt walks into therapy safely w/o assistive device. STG Duration 05/31/23 (05/28/23: MET GOAL) [place] Goal (LTG) Improve L knee strength/ stability with pt able to walk her dog 1/2 hour before fatigue. 05/21/23: able to walk dog up/ down driveway 1/10 mile and back, currently using SPC. 06/04/23: Walking 2 dogs 1/4 mile (10 minutes up and back) a couple times a day with one dog. LEFS score is 54 (20-39 % impaired). 06/07/23: Walked dogs 4' more 06/11/23: almost met: walked almost 1/2 miles walking dog. She also walked with daughter Mikal to [place], sat rest and back with no knee pain. 07/02/23: walking about 45 min on Sat with dogs, 1 at time. LTG Duration 07/15/23 progressing 07/02/23 Two Impairment Decreased L knee AROM limiting function Short Term Goal (STG) Improve L knee AROM to 95 deg' s flexion, with pt able to tolerate full revolution of leg on the upright bike. 04/22/23: initiated scifit recumbent stepper today with reports that feels good to move my L knee. Not measured. Biodex next for ankle ROM then progress upright bike/ recumbent bike. 05/14/23: L knee AROM 0-100 deg's in supine. 05/16/23: 108deg AAROM L knee on shuttle recovery. Upright bike next tx. 05/21/23: GOAL MET full revolution seat 6 on upright bike, level pelvis, cued trunk posture. STG Duration 05/31/23 GOAL MET 05/21/23 Usp Goal (LTG) Improve L knee AROM to 120 deg 's flexion to be able to ambulate stairs with a step over step gait with use of 1 railing. 04/22/23: progressing: AROM 10- 81 deg, 89 deg self support strap. 05/16/23: progressing: AROM L knee 108 deg on shuttle recovery. 05/21/23: shuttle recovery 108 deg, supine up to 106-108 AROM and 114deg AAROM L knee flexion. Pt demonstrated light contact (more due to weakness than range limitations) rail asc/desc stair receiprocal gait during tx. 06/04/23: L knee AROM is 0-117 deg's (after ex). PROM is 0- 118 deg's. 06/10/23: 0-124 PROM post manual. 06/18/23: 0-117 AAROM, s/p therapy 0-120 PROM. LTG Duration 07/15/23 progressing 06/18/23 One Impairment HEP. Short Term Goal (STG) Pt will be educated in self care program of edema management of use of cryotherapy and post op LE lymphedema massage. 04/22/23: progressing: review and self application assist by daughter. Discussed donning YUNI wrap for edema support. Recheck next tx. 04/25/23: GOAL MET: wearing compression sock lower leg, using elevation/ice pack, there is still swelling for decreasing. STG Duration 05/03/23 GOAL MET 04/25/23 Usp Goal (LTG) Pt will be independent in a self care HEP of L LE strengthening and ROM exercises. 04/18/23: HEP: Manual LE lympohatic drainage sequence ex. 05/17/23: SAQ, resisted HS curl , L knee flexion stretch seated, added LAQ. 06/07/23: Modified LAQ with ankle wgt & STS with TB around knees. 06/10/23: added prone AAROM L knee flexion w/ strap to HEP. 06/18/23: Pt to check posture frequently with wall staning. LTG Duration 07/15/23 progressed 06/18/23 Progress Towards Goals Progress Comments IMproved 3 deg PROM Assessment Summary Assessment Pt responded well to ther ex and AAROM gained 3 deg L knee flexion post manual and contract relax supine and prone activities. Pt able to tolerate initiated leg press AAROM against light resistance today with consistant approx 122 deg flexion. Physical Therapy Plan Frequency and Duration Frequency of Treatment 2x/Week Duration of treatment (weeks) 7 Plan of Care Start Date 06/04/23 Plan of Care End Date 07/19/23 Therapeutic Interventions Therapeutic Interventions Balance Training,Gait Training ,Home Exercise Program,Joint Mobilizations,Manual Therapy, Patient/Caregiver Education, Self-Care/Home Management,Soft Tissue Mobilization,Taping, Therapeutic Exercises Modalities Cold Pack/Ice Massage,Electric Stimulation Next Visit Focus/Plan Next Note Type Treatment Note Next Visit Plan Focus on improving ROM L knee flexion 125 deg's. Progress L knee strengthening flex>ext for a week, to decrease discomfort with going down inclines. Tx: add when time permits ( after ROM ex's) declined mini squat, georgina stepping, squat ball transfer cones for functional knee flexion. Warm up upright bike (seat 5) w/foot moving back on pedal, to increase knee flexion. POC: L knee ROM and strengthening, stair mgt for safety/balance, proper posturing and gait mechanics.
--- NOTE | 2023-07-05 09:45 | PT.OTN ---
Current Diagnoses Unilateral primary osteoarthritis, left knee (07/05/23) Muscle weakness (generalized) (07/05/23) Other abnormalities of gait and mobility (07/05/23) Presence of right artificial knee joint (07/05/23) Physical Therapy Treatment Note PT-OP-A Visit Information Start: 04/14/23 11:13 Freq: Status: Active Protocol: Document 07/05/23 09:01 SP (Rec: 07/05/23 10:02 SP [id number]) Out-Patient Physical Therapy Visit Information Visit Information Visit Type Treatment Note Visit Note 7 after PN Visit Start Time 09:01 Visit Stop Time 09:45 Total Visit Minutes 44 Visit Number 17 Number of ASTRONAUTICAL ENGINEER Visits 2 Evaluation Information Evaluation Date 04/16/23 Precautions Precautions R TKA 6.5 yrs ago. L TKE DOS: 04/09/23. PT-OP-B Current Condition Start: 04/14/23 11:13 Freq: Status: Active Protocol: Document 04/16/23 13:30 LRN (Rec: 04/16/23 14:17 LRN [id number]) Current Condition History of Current Condition Onset Date 04/09/23 Current Complaints L knee pain off /on. Worse after being stationary. History of Current Condition L TKA 04/09/23. Pt in hospital overnight. Pt has had daughter helping her with home exercises since discharge from the hospital. She states she has been doing HEP 1-2x/ day. Treatment Goals Patient/Caregiver Goals Pt goals: Pt able to bend her L knee same as R knee. Pt will be able to walk without her walker. Garden in a year. Walk dog 1/2 hour. Personal Factors Other Personal Factors That May Effect Pt has daughter(DA) helping Therapy/Recovery her for the next few weeks. DA wanted known that her mom had previous physical therapy that the PT was not very encouraging; therefore made pt feel she didn't do well; therefore pt does better with encouragement and not negativity. PT-OP-C Subjective Start: 04/14/23 11:13 Freq: Status: Active Protocol: Document 07/05/23 09:01 SP (Rec: 07/05/23 10:02 SP [id number]) OP-PT Subjective Patient Comments Patient Comments Pt reports saw Dr Tapia for her back (Dr Wyatt out on PTO ), placed a referral seeing PT for her back. PT-OP-D Balance Start: 04/14/23 11:13 Freq: Status: Active Protocol: Document 04/16/23 13:30 LRN (Rec: 04/16/23 14:17 LRN [id number]) OP-PT Balance Assessment Sitting Balance Static Sitting Balance Ability Good Standing Balance Static Standing Balance Ability Good Dynamic Standing Balance Ability Fair Device Used FWW Standing Balance Comments Pt has good dynamic standing balance with use of FWW. Pt is not appropriate for single leg stance testing. Perez Fall Scale Copyright Permission PT-OP-E Functional Tests Start: 04/14/23 11:13 Freq: Status: Active Protocol: Document 05/16/23 09:01 SP (Rec: 05/16/23 09:53 SP [id number]) Functional Tests Timed Up and Go (TUG) Score 11 sec, 10 sec, 8 sec Comments UE support 1st time, no UE 2nd and 3rd rep TUG Impairment Rating 0% Impaired (Score 10) PT-OP-G Mobility & Gait Start: 04/14/23 11:13 Freq: Status: Active Protocol: Document 04/18/23 08:51 LRN (Rec: 04/18/23 09:43 LRN [id number]) OP Gait Assessment Gait Gait Assistance Required: Independent Assistive Devices Assistive Device Standard Walker Gait Deviations General Gait Pattern Decreased Stride Length, Decreased Feet Clearance, Flexed Trunk,Narrow Based Gait Factors Limiting Gait Function Factors Limiting Gait Function Decreased Activity Tolerance, Decreased Strength,Limited Range of Motion,Pain,Poor Balance Comments Gait Comments Pt FWW appears too short for patient at start of therapy. PT-OP-J Posture/Palpation/Skin Start: 04/14/23 11:13 Freq: Status: Active Protocol: Document 06/11/23 09:04 SP (Rec: 06/11/23 10:26 SP [id number]) Skin Assessment Circumference Measurement L knee Location 5 cm below patella, mid patella, 10cm above patella Comments 36.5 cm, 41cm, 39cm PT-OP-K Range of Motion Start: 04/14/23 11:13 Freq: Status: Active Protocol: Document 07/05/23 09:01 SP (Rec: 07/05/23 10:02 SP [id number]) Knee Goniometric Range of Motion Knee Left Knee ROM WFL No Patient Position Supine Flexion Active (degrees) 122 Flexion Passive (degrees) 125 Comments L knee AROM: -improved 2 deg w/ dycem under foot (122 deg) -125deg on shuttle recovery w/ 25# resistance (improved 5 deg) PT-OP-M Strength Start: 04/14/23 11:13 Freq: Status: Active Protocol: Document 04/16/23 13:30 LRN (Rec: 04/16/23 14:17 LRN [id number]) Knee Strength Knee Manual Muscle Testing Right Flexion (S2) 5 Normal Extension (L3) 5 Normal Left Flexion (S2) 3- Fair- Extension (L3) 3- Fair- Ankle/Foot Strength Ankle and Foot Manual Muscle Testing Right Dorsiflexion (L4) 5 Normal Plantarflexion (S1) 5 Normal Inversion 5 Normal Eversion (S1) 5 Normal Left Dorsiflexion (L4) 4 Good Plantarflexion (S1) 4 Good Inversion 4+ Good+ Eversion (S1) 4+ Good+ PT-OP-Q Treatments Start: 04/14/23 11:13 Freq: Status: Active Protocol: Document 07/05/23 09:01 SP (Rec: 07/05/23 10:02 SP [id number]) Cardio Equipment Bicycle (Upright) Duration (Minutes) 10 Resistance 6 Seat Position 5>4>3 every 3 min Other cued upright posture, improved L ankle ROM Gym Equipment Shuttle Recovery unilateral Details 125 deg L knee flexion AAROM- cued heel down Resistance 25 # (new band)- unlocked sled Shuttle Recovery Platform Stable Reps/Time 8 reps- beginning tx Therapeutic Exercises Standing Exercises mini lunges Standing Exercise Name initiated in PT Side bilateral Equipment Used light UE on rail support Reps/Minutes x8 reps Comments cued feet alignment L knee flex stretch Standing Exercise Name Flexion stretch Side left Equipment Used L foot on chair, UE hold chair back Reps/Minutes x10 reps, 3 SH Comments cued maintain heel down/ft flat- improved flexion- not measured today Gait Training Gait Activity stairs Description receiprocal stepping Device Used no UE on rail Level of Assistance Mod I Distance/Duration 4 steps 4 sets Treatment Focus TKE R>L knee asc, eccentric flexion descend, receiprocal stepping Comments Cued quad& glut fac during asc into full extension, improves light contact rail. Slight decrease eccentric flexion SLS LLE descend. Much improved no UE support Gait training Description front mirror Device Used None Surface Level Distance/Duration 20 ft x6 laps Treatment Focus increase TKE L>R, decrease trunk lateral shift SB Comments Postural training of ribcage over hips, TKE during midstance phase, TA awareness for centering trunk alignment, improved performance with mirror for self corrections.. Neuro Re-Education Treatment Balance Activities hurdles Details 6 hurdles Reps/Duration x6 laps Comments Cued L>R knee flexion and DF with improved decrease LLE circumduction noted. PT-OP-R Modalities Start: 04/14/23 11:13 Freq: Status: Active Protocol: Document 04/16/23 13:30 LRN (Rec: 04/16/23 14:17 LRN [id number]) Hot Pack/Cold Pack Treatment Cold Pack Location L knee in elevation Patient Position Supine Treatment Duration (minutes) 8 Patient Tolerance Good Comments Elevated leg on bolster. PT-OP-T Assessment and Plan Start: 04/14/23 11:13 Freq: Status: Active Protocol: Document 07/05/23 09:01 SP (Rec: 07/05/23 10:02 SP [id number]) Physical Therapy Assessment Goals Three Impairment Decreased function Impairment Pt requiring use of FWW for safe gait Pt limited in ability to walk her dog. LEFS score 18 (60-795 impaired , score 17-31) Short Term Goal (STG) Improve L knee strength/ stability with pt able to walk safely without an assistive device. 04/18/23: Adjusted FWW for proper hgt and did gait training for heel strike and toe off. 04/22/23: instructed gait phase mechanics. 04/25/23: Progressingimproved knee flexion and heel toe, still limited knee extension midstance phase. Ed for decrease UE WB on FWW needed. 05/16/23: TUG 11 sec use hands arm rest to stand/sit, 10 sec no UE support, 8 sec no UE support. Time spent gait with and without SPC in mirror, cued knee alignment and TKE. 05/21/23: small time spent ed cues for TKE L>R during gait into clinic and stair mgt and added step ups. Improved trunk /L knee alignment with cues. 05/28/23: Pt walks into therapy safely w/o assistive device. STG Duration 05/31/23 (05/28/23: MET GOAL) Public Policy Professor Goal (LTG) Improve L knee strength/ stability with pt able to walk her dog 1/2 hour before fatigue. 05/21/23: able to walk dog up/ down driveway 1/10 mile and back, currently using SPC. 06/04/23: Walking 2 dogs 1/4 mile (10 minutes up and back) a couple times a day with one dog. LEFS score is 54 (20-39 % impaired). 06/07/23: Walked dogs 4' more 06/11/23: almost met: walked almost 1/2 miles walking dog. She also walked with daughter Mikal to [employer] [place], sat rest and back with no knee pain. 07/02/23: walking about 45 min on Sat with dogs, 1 at time. LTG Duration 07/15/23 progressing 07/02/23 Two Impairment Decreased L knee AROM limiting function Short Term Goal (STG) Improve L knee AROM to 95 deg' s flexion, with pt able to tolerate full revolution of leg on the upright bike. 04/22/23: initiated scifit recumbent stepper today with reports that feels good to move my L knee. Not measured. Biodex next for ankle ROM then progress upright bike/ recumbent bike. 05/14/23: L knee AROM 0-100 deg's in supine. 05/16/23: 108deg AAROM L knee on shuttle recovery. Upright bike next tx. 05/21/23: GOAL MET full revolution seat 6 on upright bike, level pelvis, cued trunk posture. STG Duration 05/31/23 GOAL MET 05/21/23 Skilled Nursing Goal (LTG) Improve L knee AROM to 120 deg 's flexion to be able to ambulate stairs with a step over step gait with use of 1 railing. 04/22/23: progressing: AROM 10- 81 deg, 89 deg self support strap. 05/16/23: progressing: AROM L knee 108 deg on shuttle recovery. 05/21/23: shuttle recovery 108 deg, supine up to 106-108 AROM and 114deg AAROM L knee flexion. Pt demonstrated light contact (more due to weakness than range limitations) rail asc/desc stair receiprocal gait during tx. 06/04/23: L knee AROM is 0-117 deg's (after ex). PROM is 0- 118 deg's. 06/10/23: 0-124 PROM post manual. 06/18/23: 0-117 AAROM, s/p therapy 0-120 PROM. 07/05/23: L knee AROM: -improved 2 deg w/ dycem under foot (122 deg) -125deg on shuttle recovery w/ 25# resistance (improved 5 deg), improved receiprocal stepping no UE support, slight decrease eccentric flexion LLE& stance time. LTG Duration 07/15/23 progressing 07/05/23 One Impairment HEP. Short Term Goal (STG) Pt will be educated in self care program of edema management of use of cryotherapy and post op LE lymphedema massage. 04/22/23: progressing: review and self application assist by daughter. Discussed donning YUNI wrap for edema support. Recheck next tx. 04/25/23: GOAL MET: wearing compression sock lower leg, using elevation/ice pack, there is still swelling for decreasing. STG Duration 05/03/23 GOAL MET 04/25/23 Public Policy Professor Goal (LTG) Pt will be independent in a self care HEP of L LE strengthening and ROM exercises. 04/18/23: HEP: Manual LE lympohatic drainage sequence ex. 05/17/23: SAQ, resisted HS curl , L knee flexion stretch seated, added LAQ. 06/07/23: Modified LAQ with ankle wgt & STS with TB around knees. 06/10/23: added prone AAROM L knee flexion w/ strap to HEP. 06/18/23: Pt to check posture frequently with wall standing. 07/05/23: initiated mini lunge and modified AAROM L knee flexion stretch LE on chair, recheck for HEP. LTG Duration 07/15/23 progressed 07/05/23 Progress Towards Goals Progress Comments L knee AROM: -improved 2 deg w/ dycem under foot (122 deg) -125deg on shuttle recovery w/ 25# resistance (improved 5 deg) Assessment Summary Assessment Pt improving AROM& PROM this date. Focused on functional L knee flexion during georgina stepping, stair stepping and AAROM use of shuttle recovery and use chair with good feedback response. Pt responded well to mini lunge with rail support, min cues for foot/knee alignment and focus of ROM and hip hinge support to allow progress split stance to get items off ground for gardening/yard work . Physical Therapy Plan Frequency and Duration Frequency of Treatment 2x/Week Duration of treatment (weeks) 7 Plan of Care Start Date 06/04/23 Plan of Care End Date 07/19/23 Therapeutic Interventions Therapeutic Interventions Balance Training,Gait Training ,Home Exercise Program,Joint Mobilizations,Manual Therapy, Patient/Caregiver Education, Self-Care/Home Management,Soft Tissue Mobilization,Taping, Therapeutic Exercises Modalities Cold Pack/Ice Massage,Electric Stimulation Next Visit Focus/Plan Next Note Type Treatment Note Next Visit Plan Focus AROM 125 deg. Continue mini lunge, AAROM LLE on chair flex stretch. Georgina stepping and gait normalizing. Progress L knee strengthening flex>ext for a week, to decrease discomfort with going down inclines. Tx: add when time permits ( after ROM ex's) declined mini squat, georgina stepping, squat ball transfer cones for functional knee flexion. Warm up upright bike (seat 5) w/foot moving back on pedal, to increase knee flexion. POC: L knee ROM and strengthening, stair mgt for safety/balance, proper posturing and gait mechanics.
--- NOTE | 2023-07-09 09:00 | PT.OTN ---
Current Diagnoses Unilateral primary osteoarthritis, left knee (07/09/23) Muscle weakness (generalized) (07/09/23) Other abnormalities of gait and mobility (07/09/23) Presence of right artificial knee joint (07/09/23) Physical Therapy Treatment Note PT-OP-A Visit Information Start: 04/14/23 11:13 Freq: Status: Active Protocol: Document 07/09/23 08:16 SP (Rec: 07/09/23 09:05 SP [id number]) Out-Patient Physical Therapy Visit Information Visit Information Visit Type Treatment Note Visit Start Time 08:16 Visit Stop Time 09:00 Total Visit Minutes 44 Visit Number 18 Number of SPINDLE REPAIRER Visits 3 Evaluation Information Evaluation Date 04/16/23 Precautions Precautions R TKA 6.5 yrs ago. L TKE DOS: 04/09/23. PT-OP-B Current Condition Start: 04/14/23 11:13 Freq: Status: Active Protocol: Document 04/16/23 13:30 LRN (Rec: 04/16/23 14:17 LRN [id number]) Current Condition History of Current Condition Onset Date 04/09/23 Current Complaints L knee pain off /on. Worse after being stationary. History of Current Condition L TKA 04/09/23. Pt in hospital overnight. Pt has had daughter helping her with home exercises since discharge from the hospital. She states she has been doing HEP 1-2x/ day. Treatment Goals Patient/Caregiver Goals Pt goals: Pt able to bend her L knee same as R knee. Pt will be able to walk without her walker. Garden in a year. Walk dog 1/2 hour. Personal Factors Other Personal Factors That May Effect Pt has daughter(DA) helping Therapy/Recovery her for the next few weeks. DA wanted known that her mom had previous physical therapy that the PT was not very encouraging; therefore made pt feel she didn't do well; therefore pt does better with encouragement and not negativity. PT-OP-C Subjective Start: 04/14/23 11:13 Freq: Status: Active Protocol: Document 07/09/23 08:16 SP (Rec: 07/09/23 09:05 SP [id number]) OP-PT Subjective Patient Comments Patient Comments Pt reported her balance seems to be off and not able to walk with dogs as far as would like so looked up balance exercises and added them to her regimen of ex: walking straight line, SLS 30. She states her back is feeling better back to the old soreness, she is taking some medication though to help. She is able to cut down shubbery over the weekend. PT-OP-D Balance Start: 04/14/23 11:13 Freq: Status: Active Protocol: Document 04/16/23 13:30 LRN (Rec: 04/16/23 14:17 LRN [id number]) OP-PT Balance Assessment Sitting Balance Static Sitting Balance Ability Good Standing Balance Static Standing Balance Ability Good Dynamic Standing Balance Ability Fair Device Used FWW Standing Balance Comments Pt has good dynamic standing balance with use of FWW. Pt is not appropriate for single leg stance testing. Perez Fall Scale Copyright Permission PT-OP-E Functional Tests Start: 04/14/23 11:13 Freq: Status: Active Protocol: Document 05/16/23 09:01 SP (Rec: 05/16/23 09:53 SP [id number]) Functional Tests Timed Up and Go (TUG) Score 11 sec, 10 sec, 8 sec Comments UE support 1st time, no UE 2nd and 3rd rep TUG Impairment Rating 0% Impaired (Score 10) PT-OP-G Mobility & Gait Start: 04/14/23 11:13 Freq: Status: Active Protocol: Document 04/18/23 08:51 LRN (Rec: 04/18/23 09:43 LRN [id number]) OP Gait Assessment Gait Gait Assistance Required: Independent Assistive Devices Assistive Device Standard Walker Gait Deviations General Gait Pattern Decreased Stride Length, Decreased Feet Clearance, Flexed Trunk,Narrow Based Gait Factors Limiting Gait Function Factors Limiting Gait Function Decreased Activity Tolerance, Decreased Strength,Limited Range of Motion,Pain,Poor Balance Comments Gait Comments Pt FWW appears too short for patient at start of therapy. PT-OP-J Posture/Palpation/Skin Start: 04/14/23 11:13 Freq: Status: Active Protocol: Document 06/11/23 09:04 SP (Rec: 06/11/23 10:26 SP [id number]) Skin Assessment Circumference Measurement L knee Location 5 cm below patella, mid patella, 10cm above patella Comments 36.5 cm, 41cm, 39cm PT-OP-K Range of Motion Start: 04/14/23 11:13 Freq: Status: Active Protocol: Document 07/09/23 08:16 SP (Rec: 07/09/23 09:05 SP [id number]) Knee Goniometric Range of Motion Knee Left Knee ROM WFL No Patient Position Supine Flexion Active (degrees) 121 Flexion Passive (degrees) 126 Comments L knee: AROM pre activity 108deg AROM post activity 121 deg AAROM 126 deg PT-OP-M Strength Start: 04/14/23 11:13 Freq: Status: Active Protocol: Document 04/16/23 13:30 LRN (Rec: 04/16/23 14:17 LRN [id number]) Knee Strength Knee Manual Muscle Testing Right Flexion (S2) 5 Normal Extension (L3) 5 Normal Left Flexion (S2) 3- Fair- Extension (L3) 3- Fair- Ankle/Foot Strength Ankle and Foot Manual Muscle Testing Right Dorsiflexion (L4) 5 Normal Plantarflexion (S1) 5 Normal Inversion 5 Normal Eversion (S1) 5 Normal Left Dorsiflexion (L4) 4 Good Plantarflexion (S1) 4 Good Inversion 4+ Good+ Eversion (S1) 4+ Good+ PT-OP-Q Treatments Start: 04/14/23 11:13 Freq: Status: Active Protocol: Document 07/09/23 08:16 SP (Rec: 07/09/23 09:05 SP [id number]) Cardio Equipment Bicycle (Upright) Duration (Minutes) 10 Resistance 6 Seat Position 4>3>2 every 3 min (121 deg), 1 .63 miles Other cued upright posture, improved L ankle ROM Therapeutic Exercises Supine Exercises L Knee flexion Supine Exercise Name L knee flex stretch: AROM/ AAROM/PROM Side left Equipment Used manual assist Reps/Minutes AROM 121, AAROM 126 deg end tx Comments ROM taken Prone Exercises Knee flex stretch Prone Exercise Name AA flexion stretch-HEP Side left Equipment Used 1. strap Reps/Minutes 2. AAROM Contract/relax (C/R) stretch into flexion Comments Cuing for contract/relax stretch, painfree- 118 deg Sidelying Exercises Hip abd Sidelying Exercise Name added to HEP Side left Resistance *best form and hip abd fac both legs straight Reps/Minutes 2x10 reps 3 SH Comments cued TA and no trunk rocking- improved form and muscle tiring reported Sitting Exercises sit to stands Sitting Exercise Name HEP REviewed Equipment Used 17 black chair, 16 box Reps/Minutes 5 reps> 10 reps Comments uses UEs for momentum on 16 height Standing Exercises L knee flex stretch Standing Exercise Name Flexion stretch Side left Equipment Used 1. ft on chair fwd wt shift 122 deg 2. ft on chair behind sit back Reps/Minutes x10 reps, 3 SH Comments cued maintain heel down/ft flat- improved flexion- not measured today step ups Standing Exercise Name 8 Step ups Side bilateral Equipment Used no rail support Reps/Minutes x10 Comments improved quad knee extension & glut fac end range Gait Training Gait Activity Gait training Description front mirror Device Used None Surface Level Distance/Duration 50 ft length gym end tx Treatment Focus increase TKE L>R, decrease trunk lateral shift SB Comments Postural training of ribcage over hips, TKE during midstance phase, TA awareness for centering trunk alignment, improved performance with mirror for self corrections. Neuro Re-Education Treatment Balance Activities SLS Reps/Duration LLE 3, 9, 14 sec; RLE 26sec Comments Cued for elongated/elevated posture, core fac over stance LE with TKE positioning- weak L hip abd challenged but improved post cues. hurdles Details fwd, lateral Equipment 6 hurdles Reps/Duration 3 laps each Comments Improved L hip&knee flexion and stance time during RLE mob . Decreased LS flexion compensation with cues for elevated posture and hip/knee flexion knees to chest foot clearance. Self-Care/Home Management Treatment Education Other Education Some time spent review various AAROM L knee flexion positions to gain ROM. added hip abd AROM to HEP due to decrease stance time LLE to support balance. PT-OP-R Modalities Start: 04/14/23 11:13 Freq: Status: Active Protocol: Document 04/16/23 13:30 LRN (Rec: 04/16/23 14:17 LRN [id number]) Hot Pack/Cold Pack Treatment Cold Pack Location L knee in elevation Patient Position Supine Treatment Duration (minutes) 8 Patient Tolerance Good Comments Elevated leg on bolster. PT-OP-T Assessment and Plan Start: 04/14/23 11:13 Freq: Status: Active Protocol: Document 07/09/23 08:16 SP (Rec: 07/09/23 09:05 SP [id number]) Physical Therapy Assessment Goals Three Impairment Decreased function Impairment Pt requiring use of FWW for safe gait Pt limited in ability to walk her dog. LEFS score 18 (60-795 impaired , score 17-31) Short Term Goal (STG) Improve L knee strength/ stability with pt able to walk safely without an assistive device. 04/18/23: Adjusted FWW for proper hgt and did gait training for heel strike and toe off. 04/22/23: instructed gait phase mechanics. 04/25/23: Progressingimproved knee flexion and heel toe, still limited knee extension midstance phase. Ed for decrease UE WB on FWW needed. 05/16/23: TUG 11 sec use hands arm rest to stand/sit, 10 sec no UE support, 8 sec no UE support. Time spent gait with and without SPC in mirror, cued knee alignment and TKE. 05/21/23: small time spent ed cues for TKE L>R during gait into clinic and stair mgt and added step ups. Improved trunk /L knee alignment with cues. 05/28/23: Pt walks into therapy safely w/o assistive device. STG Duration 05/31/23 (05/28/23: MET GOAL) Halfway Goal (LTG) Improve L knee strength/ stability with pt able to walk her dog 1/2 hour before fatigue. 05/21/23: able to walk dog up/ down driveway 1/10 mile and back, currently using SPC. 06/04/23: Walking 2 dogs 1/4 mile (10 minutes up and back) a couple times a day with one dog. LEFS score is 54 (20-39 % impaired). 06/07/23: Walked dogs 4' more 06/11/23: almost met: walked almost 1/2 miles walking dog. She also walked with daughter Mikal to [facility], sat rest and back with no knee pain. 07/02/23: walking about 45 min on Sat with dogs, 1 at time. 07/09/23: she walks her dogs about 1 mile total ( individually). She is able to mow her lawn in 1/2 hr. LTG Duration 07/15/23 progressing 07/09/23 Two Impairment Decreased L knee AROM limiting function Short Term Goal (STG) Improve L knee AROM to 95 deg' s flexion, with pt able to tolerate full revolution of leg on the upright bike. 04/22/23: initiated scifit recumbent stepper today with reports that feels good to move my L knee. Not measured. Biodex next for ankle ROM then progress upright bike/ recumbent bike. 05/14/23: L knee AROM 0-100 deg's in supine. 05/16/23: 108deg AAROM L knee on shuttle recovery. Upright bike next tx. 05/21/23: GOAL MET full revolution seat 6 on upright bike, level pelvis, cued trunk posture. STG Duration 05/31/23 GOAL MET 05/21/23 Halfway Goal (LTG) Improve L knee AROM to 120 deg 's flexion to be able to ambulate stairs with a step over step gait with use of 1 railing. 04/22/23: progressing: AROM 10- 81 deg, 89 deg self support strap. 05/16/23: progressing: AROM L knee 108 deg on shuttle recovery. 05/21/23: shuttle recovery 108 deg, supine up to 106-108 AROM and 114deg AAROM L knee flexion. Pt demonstrated light contact (more due to weakness than range limitations) rail asc/desc stair receiprocal gait during tx. 06/04/23: L knee AROM is 0-117 deg's (after ex). PROM is 0- 118 deg's. 06/10/23: 0-124 PROM post manual. 06/18/23: 0-117 AAROM, s/p therapy 0-120 PROM. 07/05/23: L knee AROM: -improved 2 deg w/ dycem under foot (122 deg) -125deg on shuttle recovery w/ 25# resistance (improved 5 deg), improved receiprocal stepping no UE support, slight decrease eccentric flexion LLE& stance time. 07/09/23: L knee 121 deg AROM 126 deg AAROM, end tx. LTG Duration 07/15/23 progressing 07/09/23 One Impairment HEP. Short Term Goal (STG) Pt will be educated in self care program of edema management of use of cryotherapy and post op LE lymphedema massage. 04/22/23: progressing: review and self application assist by daughter. Discussed donning YUNI wrap for edema support. Recheck next tx. 04/25/23: GOAL MET: wearing compression sock lower leg, using elevation/ice pack, there is still swelling for decreasing. STG Duration 05/03/23 GOAL MET 04/25/23 World Designer Goal (LTG) Pt will be independent in a self care HEP of L LE strengthening and ROM exercises. 04/18/23: HEP: Manual LE lympohatic drainage sequence ex. 05/17/23: SAQ, resisted HS curl , L knee flexion stretch seated, added LAQ. 06/07/23: Modified LAQ with ankle wgt & STS with TB around knees. 06/10/23: added prone AAROM L knee flexion w/ strap to HEP. 06/18/23: Pt to check posture frequently with wall standing. 07/05/23: initiated mini lunge and modified AAROM L knee flexion stretch LE on chair, recheck for HEP. 07/09/23: added hip abd on side , L knee flexion standing use chair sit back & lunge into chair, prone with strap. LTG Duration 07/15/23 progressed 07/09/23 Assessment Summary Assessment Pt continues to make small gains in AROM of L knee, time spent various positions to assist increase ROM at home prone/stand using chair. Improves TKE and hip abd fac LLE 3 sec to 14 sec with cues and use mirror for self postural, quad and glut facilitaiton awareness. She walks with improved TKE leaving. Physical Therapy Plan Frequency and Duration Frequency of Treatment 2x/Week Duration of treatment (weeks) 7 Plan of Care Start Date 06/04/23 Plan of Care End Date 07/19/23 Therapeutic Interventions Therapeutic Interventions Balance Training,Gait Training ,Home Exercise Program,Joint Mobilizations,Manual Therapy, Patient/Caregiver Education, Self-Care/Home Management,Soft Tissue Mobilization,Taping, Therapeutic Exercises Modalities Cold Pack/Ice Massage,Electric Stimulation Next Visit Focus/Plan Next Note Type Treatment Note Next Visit Plan Update POC in 2 visits. Focus AROM 125 deg. Continue A - AAROM L knee using chair facing and retro sit back, review mini lunge. Meek stepping and gait normalizing. Progress L knee strengthening flex>ext for a week, to decrease discomfort with going down inclines. Tx: add when time permits ( after ROM ex's) declined mini squat. Warm up upright bike (seat 3) w/foot moving back on pedal, to increase knee flexion. POC: L knee ROM and strengthening, stair mgt for safety/balance, proper posturing and gait mechanics.
--- NOTE | 2023-07-16 13:22 | PT.OTN ---
Current Diagnoses Unilateral primary osteoarthritis, left knee (07/16/23) Muscle weakness (generalized) (07/16/23) Other abnormalities of gait and mobility (07/16/23) Presence of right artificial knee joint (07/16/23) Physical Therapy Treatment Note PT-OP-A Visit Information Start: 04/14/23 11:13 Freq: Status: Active Protocol: Document 07/16/23 12:35 LRN (Rec: 07/16/23 13:21 LRN [id number]) Out-Patient Physical Therapy Visit Information Visit Information Visit Type Treatment Note Visit Note 9 after PN Visit Start Time 12:35 Visit Stop Time 13:14 Total Visit Minutes 41 Visit Number 19 Evaluation Information Evaluation Date 04/16/23 Precautions Precautions R TKA 6.5 yrs ago. L TKE DOS: 04/09/23. PT-OP-B Current Condition Start: 04/14/23 11:13 Freq: Status: Active Protocol: Document 04/16/23 13:30 LRN (Rec: 04/16/23 14:17 LRN [id number]) Current Condition History of Current Condition Onset Date 04/09/23 Current Complaints L knee pain off /on. Worse after being stationary. History of Current Condition L TKA 04/09/23. Pt in hospital overnight. Pt has had daughter helping her with home exercises since discharge from the hospital. She states she has been doing HEP 1-2x/ day. Treatment Goals Patient/Caregiver Goals Pt goals: Pt able to bend her L knee same as R knee. Pt will be able to walk without her walker. Garden in a year. Walk dog 1/2 hour. Personal Factors Other Personal Factors That May Effect Pt has daughter(DA) helping Therapy/Recovery her for the next few weeks. DA wanted known that her mom had previous physical therapy that the PT was not very encouraging; therefore made pt feel she didn't do well; therefore pt does better with encouragement and not negativity. PT-OP-C Subjective Start: 04/14/23 11:13 Freq: Status: Active Protocol: Document 07/16/23 12:35 LRN (Rec: 07/16/23 13:21 LRN [id number]) OP-PT Subjective Patient Comments Patient Comments States had to to go ER 2 weeks ago for L sciatic pain onset (had lifted a heavy garbage can) and now is better because of medications. L knee was doing really well prior to the Sciatic pain onset. No pain walking down inclines. PT-OP-D Balance Start: 04/14/23 11:13 Freq: Status: Active Protocol: Document 04/16/23 13:30 LRN (Rec: 04/16/23 14:17 LRN [id number]) OP-PT Balance Assessment Sitting Balance Static Sitting Balance Ability Good Standing Balance Static Standing Balance Ability Good Dynamic Standing Balance Ability Fair Device Used FWW Standing Balance Comments Pt has good dynamic standing balance with use of FWW. Pt is not appropriate for single leg stance testing. Perez Fall Scale Copyright Permission PT-OP-E Functional Tests Start: 04/14/23 11:13 Freq: Status: Active Protocol: Document 05/16/23 09:01 SP (Rec: 05/16/23 09:53 SP [id number]) Functional Tests Timed Up and Go (TUG) Score 11 sec, 10 sec, 8 sec Comments UE support 1st time, no UE 2nd and 3rd rep TUG Impairment Rating 0% Impaired (Score 10) PT-OP-G Mobility & Gait Start: 04/14/23 11:13 Freq: Status: Active Protocol: Document 04/18/23 08:51 LRN (Rec: 04/18/23 09:43 LRN [id number]) OP Gait Assessment Gait Gait Assistance Required: Independent Assistive Devices Assistive Device Standard Walker Gait Deviations General Gait Pattern Decreased Stride Length, Decreased Feet Clearance, Flexed Trunk,Narrow Based Gait Factors Limiting Gait Function Factors Limiting Gait Function Decreased Activity Tolerance, Decreased Strength,Limited Range of Motion,Pain,Poor Balance Comments Gait Comments Pt FWW appears too short for patient at start of therapy. PT-OP-J Posture/Palpation/Skin Start: 04/14/23 11:13 Freq: Status: Active Protocol: Document 06/11/23 09:04 SP (Rec: 06/11/23 10:26 SP [id number]) Skin Assessment Circumference Measurement L knee Location 5 cm below patella, mid patella, 10cm above patella Comments 36.5 cm, 41cm, 39cm PT-OP-K Range of Motion Start: 04/14/23 11:13 Freq: Status: Active Protocol: Document 07/09/23 08:16 SP (Rec: 07/09/23 09:05 SP [id number]) Knee Goniometric Range of Motion Knee Left Knee ROM WFL No Patient Position Supine Flexion Active (degrees) 121 Flexion Passive (degrees) 126 Comments L knee: AROM pre activity 108deg AROM post activity 121 deg AAROM 126 deg PT-OP-M Strength Start: 04/14/23 11:13 Freq: Status: Active Protocol: Document 04/16/23 13:30 LRN (Rec: 04/16/23 14:17 LRN [id number]) Knee Strength Knee Manual Muscle Testing Right Flexion (S2) 5 Normal Extension (L3) 5 Normal Left Flexion (S2) 3- Fair- Extension (L3) 3- Fair- Ankle/Foot Strength Ankle and Foot Manual Muscle Testing Right Dorsiflexion (L4) 5 Normal Plantarflexion (S1) 5 Normal Inversion 5 Normal Eversion (S1) 5 Normal Left Dorsiflexion (L4) 4 Good Plantarflexion (S1) 4 Good Inversion 4+ Good+ Eversion (S1) 4+ Good+ PT-OP-Q Treatments Start: 04/14/23 11:13 Freq: Status: Active Protocol: Document 07/16/23 12:35 LRN (Rec: 07/16/23 13:21 LRN [id number]) Gym Equipment Cable Column (Body Solid) Leg Curl Details Back: 3 holes showing, Resistance 20# Reps/Time 15x 2 Therapeutic Exercises Supine Exercises L Knee flexion Supine Exercise Name L knee flex stretch: AROM/ AAROM/PROM Side left Equipment Used manual assist Reps/Minutes AROM 118, AAROM 125 deg end tx Comments ROM taken Prone Exercises Knee flex stretch Prone Exercise Name AA flexion stretch-HEP Side left Equipment Used 1. strap Reps/Minutes 2. AAROM Contract/relax (C/R) stretch into flexion Comments Cuing for contract/relax stretch, painfree- 118 deg Standing Exercises step ups Standing Exercise Name 8 Step ups Side bilateral Equipment Used no rail support Reps/Minutes 15x Comments improved quad knee extension & glut fac end range PT-OP-R Modalities Start: 04/14/23 11:13 Freq: Status: Active Protocol: Document 04/16/23 13:30 LRN (Rec: 04/16/23 14:17 LRN [id number]) Hot Pack/Cold Pack Treatment Cold Pack Location L knee in elevation Patient Position Supine Treatment Duration (minutes) 8 Patient Tolerance Good Comments Elevated leg on bolster. PT-OP-T Assessment and Plan Start: 04/14/23 11:13 Freq: Status: Active Protocol: Document 07/16/23 12:35 LRN (Rec: 07/16/23 13:21 LRN [id number]) Physical Therapy Assessment Goals Three Impairment Decreased function Impairment Pt requiring use of FWW for safe gait Pt limited in ability to walk her dog. LEFS score 18 (60-795 impaired , score 17-31) Short Term Goal (STG) Improve L knee strength/ stability with pt able to walk safely without an assistive device. 04/18/23: Adjusted FWW for proper hgt and did gait training for heel strike and toe off. 04/22/23: instructed gait phase mechanics. 04/25/23: Progressingimproved knee flexion and heel toe, still limited knee extension midstance phase. Ed for decrease UE WB on FWW needed. 05/16/23: TUG 11 sec use hands arm rest to stand/sit, 10 sec no UE support, 8 sec no UE support. Time spent gait with and without SPC in mirror, cued knee alignment and TKE. 05/21/23: small time spent ed cues for TKE L>R during gait into clinic and stair mgt and added step ups. Improved trunk /L knee alignment with cues. 05/28/23: Pt walks into therapy safely w/o assistive device. STG Duration 05/31/23 (05/28/23: MET GOAL) Intermediate Goal (LTG) Improve L knee strength/ stability with pt able to walk her dog 1/2 hour before fatigue. 05/21/23: able to walk dog up/ down driveway 1/10 mile and back, currently using SPC. 06/04/23: Walking 2 dogs 1/4 mile (10 minutes up and back) a couple times a day with one dog. LEFS score is 54 (20-39 % impaired). 06/07/23: Walked dogs 4' more 06/11/23: almost met: walked almost 1/2 miles walking dog. She also walked with daughter Mikal to [employer], sat rest and back with no knee pain. 07/02/23: walking about 45 min on Sat with dogs, 1 at time. 07/09/23: she walks her dogs about 1 mile total ( individually). She is able to mow her lawn in 1/2 hr. 07/16/23: Walking dog 1/2 mile = 1/2 hr-3/4 hr. LTG Duration 07/15/23 (07/16/23: MET GOAL ) Two Impairment Decreased L knee AROM limiting function Short Term Goal (STG) Improve L knee AROM to 95 deg' s flexion, with pt able to tolerate full revolution of leg on the upright bike. 04/22/23: initiated scifit recumbent stepper today with reports that feels good to move my L knee. Not measured. Biodex next for ankle ROM then progress upright bike/ recumbent bike. 05/14/23: L knee AROM 0-100 deg's in supine. 05/16/23: 108deg AAROM L knee on shuttle recovery. Upright bike next tx. 05/21/23: GOAL MET full revolution seat 6 on upright bike, level pelvis, cued trunk posture. STG Duration 05/31/23 GOAL MET 05/21/23 Importer Or Exporter Goal (LTG) Improve L knee AROM to 120 deg 's flexion to be able to ambulate stairs with a step over step gait with use of 1 railing. 04/22/23: progressing: AROM 10- 81 deg, 89 deg self support strap. 05/16/23: progressing: AROM L knee 108 deg on shuttle recovery. 05/21/23: shuttle recovery 108 deg, supine up to 106-108 AROM and 114deg AAROM L knee flexion. Pt demonstrated light contact (more due to weakness than range limitations) rail asc/desc stair receiprocal gait during tx. 06/04/23: L knee AROM is 0-117 deg's (after ex). PROM is 0- 118 deg's. 06/10/23: 0-124 PROM post manual. 06/18/23: 0-117 AAROM, s/p therapy 0-120 PROM. 07/05/23: L knee AROM: -improved 2 deg w/ dycem under foot (122 deg) -125deg on shuttle recovery w/ 25# resistance (improved 5 deg), improved receiprocal stepping no UE support, slight decrease eccentric flexion LLE& stance time. 07/09/23: L knee 121 deg AROM 126 deg AAROM, end tx. 07/16/23: L knee 117 deg's AROM, PROM is 125 deg's. Pt ambs stairs and reportedly down inclines w/o L knee pain. LTG Duration 07/15/23 (07/16/23: MET GOAL ) One Impairment HEP. Short Term Goal (STG) Pt will be educated in self care program of edema management of use of cryotherapy and post op LE lymphedema massage. 04/22/23: progressing: review and self application assist by daughter. Discussed donning YUNI wrap for edema support. Recheck next tx. 04/25/23: GOAL MET: wearing compression sock lower leg, using elevation/ice pack, there is still swelling for decreasing. STG Duration 05/03/23 GOAL MET 04/25/23 Importer Or Exporter Goal (LTG) Pt will be independent in a self care HEP of L LE strengthening and ROM exercises. 04/18/23: HEP: Manual LE lympohatic drainage sequence ex. 05/17/23: SAQ, resisted HS curl , L knee flexion stretch seated, added LAQ. 06/07/23: Modified LAQ with ankle wgt & STS with TB around knees. 06/10/23: added prone AAROM L knee flexion w/ strap to HEP. 06/18/23: Pt to check posture frequently with wall standing. 07/05/23: initiated mini lunge and modified AAROM L knee flexion stretch LE on chair, recheck for HEP. 07/09/23: added hip abd on side , L knee flexion standing use chair sit back & lunge into chair, prone with strap. LTG Duration 07/15/23 progressed 07/09/23 Assessment Summary Assessment Pt had setback on being able to exer her L knee 2 weeks ago due to onset of L Sciatic pain, but today she reports she is much better. Pt is now able to ambulate down inclines without pain. L knee AROM is less at 118 deg's ( after stretching), PROM remains ~same 125 deg's end- range. Held balance ex's (due to L sciatic nerve onset) and retro sit backs, mini lunge. Pt gait shows excessive sway with onset of her sciatic pain . Physical Therapy Plan Frequency and Duration Frequency of Treatment 2x/Week Duration of treatment (weeks) 7 Plan of Care Start Date 06/04/23 Plan of Care End Date 07/19/23 Next Visit Focus/Plan Next Note Type Progress Note Next Visit Plan JOE next visit. Focus improving AROM > 120 deg. Continue A- AAROM L knee. Assess gait & ROM for possible DC to HEP. Tx: ?add when time permits ( after ROM ex's) declined mini squat. Warm up upright bike (seat 3) w/foot moving back on pedal, to increase knee flexion.
--- NOTE | 2023-07-18 12:11 | PT.OTN ---
Current Diagnoses Unilateral primary osteoarthritis, left knee (07/18/23) Muscle weakness (generalized) (07/18/23) Other abnormalities of gait and mobility (07/18/23) Presence of right artificial knee joint (07/18/23) Physical Therapy Treatment Note PT-OP-A Visit Information Start: 04/14/23 11:13 Freq: Status: Active Protocol: Document 07/18/23 11:18 LRN (Rec: 07/18/23 12:09 LRN [id number]) Out-Patient Physical Therapy Visit Information Visit Information Visit Type Treatment Note Visit Note 10 after PN Visit Start Time 11:18 Visit Stop Time 11:58 Total Visit Minutes 40 Visit Number 20 Evaluation Information Evaluation Date 04/16/23 Precautions Precautions R TKA 6.5 yrs ago. L TKE DOS: 04/09/23. PT-OP-B Current Condition Start: 04/14/23 11:13 Freq: Status: Active Protocol: Document 04/16/23 13:30 LRN (Rec: 04/16/23 14:17 LRN [id number]) Current Condition History of Current Condition Onset Date 04/09/23 Current Complaints L knee pain off /on. Worse after being stationary. History of Current Condition L TKA 04/09/23. Pt in hospital overnight. Pt has had daughter helping her with home exercises since discharge from the hospital. She states she has been doing HEP 1-2x/ day. Treatment Goals Patient/Caregiver Goals Pt goals: Pt able to bend her L knee same as R knee. Pt will be able to walk without her walker. Garden in a year. Walk dog 1/2 hour. Personal Factors Other Personal Factors That May Effect Pt has daughter(DA) helping Therapy/Recovery her for the next few weeks. DA wanted known that her mom had previous physical therapy that the PT was not very encouraging; therefore made pt feel she didn't do well; therefore pt does better with encouragement and not negativity. PT-OP-C Subjective Start: 04/14/23 11:13 Freq: Status: Active Protocol: Document 07/18/23 11:18 LRN (Rec: 07/18/23 12:09 LRN [id number]) OP-PT Subjective Patient Comments Patient Comments States she feels pretty good today. Pt states she feels ready for discharge from therapy. Patient Questionnaires Lower Extremity Functional Scale LEFS Score 62 LEFS Impairment 20 to 39% Impaired (Score 48- 62) PT-OP-D Balance Start: 04/14/23 11:13 Freq: Status: Active Protocol: Document 04/16/23 13:30 LRN (Rec: 04/16/23 14:17 LRN [id number]) OP-PT Balance Assessment Sitting Balance Static Sitting Balance Ability Good Standing Balance Static Standing Balance Ability Good Dynamic Standing Balance Ability Fair Device Used FWW Standing Balance Comments Pt has good dynamic standing balance with use of FWW. Pt is not appropriate for single leg stance testing. Perez Fall Scale Copyright Permission PT-OP-E Functional Tests Start: 04/14/23 11:13 Freq: Status: Active Protocol: Document 05/16/23 09:01 SP (Rec: 05/16/23 09:53 SP [id number]) Functional Tests Timed Up and Go (TUG) Score 11 sec, 10 sec, 8 sec Comments UE support 1st time, no UE 2nd and 3rd rep TUG Impairment Rating 0% Impaired (Score 10) PT-OP-G Mobility & Gait Start: 04/14/23 11:13 Freq: Status: Active Protocol: Document 04/18/23 08:51 LRN (Rec: 04/18/23 09:43 LRN [id number]) OP Gait Assessment Gait Gait Assistance Required: Independent Assistive Devices Assistive Device Standard Walker Gait Deviations General Gait Pattern Decreased Stride Length, Decreased Feet Clearance, Flexed Trunk,Narrow Based Gait Factors Limiting Gait Function Factors Limiting Gait Function Decreased Activity Tolerance, Decreased Strength,Limited Range of Motion,Pain,Poor Balance Comments Gait Comments Pt FWW appears too short for patient at start of therapy. PT-OP-J Posture/Palpation/Skin Start: 04/14/23 11:13 Freq: Status: Active Protocol: Document 06/11/23 09:04 SP (Rec: 06/11/23 10:26 SP [id number]) Skin Assessment Circumference Measurement L knee Location 5 cm below patella, mid patella, 10cm above patella Comments 36.5 cm, 41cm, 39cm PT-OP-K Range of Motion Start: 04/14/23 11:13 Freq: Status: Active Protocol: Document 07/18/23 11:18 LRN (Rec: 07/18/23 12:09 LRN [id number]) Knee Goniometric Range of Motion Knee Left Knee ROM WFL No Patient Position Supine Flexion Active (degrees) 118 Flexion Passive (degrees) 125 Comments L knee: AROM pre activity 118 deg AROM post activity 120 deg AAROM 125 deg PT-OP-M Strength Start: 04/14/23 11:13 Freq: Status: Active Protocol: Document 04/16/23 13:30 LRN (Rec: 04/16/23 14:17 LRN [id number]) Knee Strength Knee Manual Muscle Testing Right Flexion (S2) 5 Normal Extension (L3) 5 Normal Left Flexion (S2) 3- Fair- Extension (L3) 3- Fair- Ankle/Foot Strength Ankle and Foot Manual Muscle Testing Right Dorsiflexion (L4) 5 Normal Plantarflexion (S1) 5 Normal Inversion 5 Normal Eversion (S1) 5 Normal Left Dorsiflexion (L4) 4 Good Plantarflexion (S1) 4 Good Inversion 4+ Good+ Eversion (S1) 4+ Good+ PT-OP-Q Treatments Start: 04/14/23 11:13 Freq: Status: Active Protocol: Document 07/18/23 11:18 LRN (Rec: 07/18/23 12:09 LRN [id number]) Cardio Equipment Bicycle (Upright) Duration (Minutes) 10 Resistance 6 Seat Position 5 Other cued upright posture, improved L ankle ROM Gym Equipment Cable Column (Body Solid) Leg Curl Details Back: 3 holes showing, Resistance 30#, 20# Reps/Time 15x 1 each Therapeutic Exercises Supine Exercises L Knee flexion Supine Exercise Name L knee flex stretch: AROM/ AAROM/PROM Side left Equipment Used manual assist Reps/Minutes AROM 118, AAROM 125 deg end tx Comments ROM taken Prone Exercises Knee flex Prone Exercise Name Self knee flexion stretch Side left Equipment Used Belt Reps/Minutes 4' Comments Cuing for equal pull to minimize Knee flex stretch Prone Exercise Name AA flexion stretch-HEP Side left Equipment Used 1. strap Reps/Minutes 2. AAROM Contract/relax (C/R) stretch into flexion Comments Cuing for contract/relax stretch, painfree- 118 deg Standing Exercises mini lunges Standing Exercise Name Mini lunge on steps: Knee flex 125 deg's max tolerated. Side bilateral Equipment Used light UE on rail support Reps/Minutes x8 reps Comments cued feet alignment L knee flex stretch Standing Exercise Name DC step ups Standing Exercise Name 8 Step ups Side bilateral Equipment Used no rail support Reps/Minutes 15x 2 Comments improved quad knee extension & glut fac end range Gait Training Gait Activity stairs Description reciprocal stepping Device Used none Level of Assistance none Distance/Duration 4 steps Comments No pain, pt able to perform independently. PT-OP-R Modalities Start: 04/14/23 11:13 Freq: Status: Active Protocol: Document 04/16/23 13:30 LRN (Rec: 04/16/23 14:17 LRN [id number]) Hot Pack/Cold Pack Treatment Cold Pack Location L knee in elevation Patient Position Supine Treatment Duration (minutes) 8 Patient Tolerance Good Comments Elevated leg on bolster. PT-OP-T Assessment and Plan Start: 04/14/23 11:13 Freq: Status: Active Protocol: Document 07/18/23 11:18 LRN (Rec: 07/18/23 12:09 LRN [id number]) Physical Therapy Assessment Goals Three Impairment Decreased function Impairment Pt requiring use of FWW for safe gait Pt limited in ability to walk her dog. LEFS score 18 (60-795 impaired , score 17-31) Short Term Goal (STG) Improve L knee strength/ stability with pt able to walk safely without an assistive device. 04/18/23: Adjusted FWW for proper hgt and did gait training for heel strike and toe off. 04/22/23: instructed gait phase mechanics. 04/25/23: Progressingimproved knee flexion and heel toe, still limited knee extension midstance phase. Ed for decrease UE WB on FWW needed. 05/16/23: TUG 11 sec use hands arm rest to stand/sit, 10 sec no UE support, 8 sec no UE support. Time spent gait with and without SPC in mirror, cued knee alignment and TKE. 05/21/23: small time spent ed cues for TKE L>R during gait into clinic and stair mgt and added step ups. Improved trunk /L knee alignment with cues. 05/28/23: Pt walks into therapy safely w/o assistive device. STG Duration 05/31/23 (05/28/23: MET GOAL) Penitentiary Goal (LTG) Improve L knee strength/ stability with pt able to walk her dog 1/2 hour before fatigue. 05/21/23: able to walk dog up/ down driveway 1/10 mile and back, currently using SPC. 06/04/23: Walking 2 dogs 1/4 mile (10 minutes up and back) a couple times a day with one dog. LEFS score is 54 (20-39 % impaired). 06/07/23: Walked dogs 4' more 06/11/23: almost met: walked almost 1/2 miles walking dog. She also walked with daughter Mikal to [facility], sat rest and back with no knee pain. 07/02/23: walking about 45 min on Sat with dogs, 1 at time. 07/09/23: she walks her dogs about 1 mile total ( individually). She is able to mow her lawn in 1/2 hr. 07/16/23: Walking dog 1/2 mile = 1/2 hr-3/4 hr. LTG Duration 07/15/23 (07/16/23: MET GOAL ) Two Impairment Decreased L knee AROM limiting function Short Term Goal (STG) Improve L knee AROM to 95 deg' s flexion, with pt able to tolerate full revolution of leg on the upright bike. 04/22/23: initiated scifit recumbent stepper today with reports that feels good to move my L knee. Not measured. Biodex next for ankle ROM then progress upright bike/ recumbent bike. 05/14/23: L knee AROM 0-100 deg's in supine. 05/16/23: 108deg AAROM L knee on shuttle recovery. Upright bike next tx. 05/21/23: GOAL MET full revolution seat 6 on upright bike, level pelvis, cued trunk posture. STG Duration 05/31/23 GOAL MET 05/21/23 Penitentiary Goal (LTG) Improve L knee AROM to 120 deg 's flexion to be able to ambulate stairs with a step over step gait with use of 1 railing. 04/22/23: progressing: AROM 10- 81 deg, 89 deg self support strap. 05/16/23: progressing: AROM L knee 108 deg on shuttle recovery. 05/21/23: shuttle recovery 108 deg, supine up to 106-108 AROM and 114deg AAROM L knee flexion. Pt demonstrated light contact (more due to weakness than range limitations) rail asc/desc stair receiprocal gait during tx. 06/04/23: L knee AROM is 0-117 deg's (after ex). PROM is 0- 118 deg's. 06/10/23: 0-124 PROM post manual. 06/18/23: 0-117 AAROM, s/p therapy 0-120 PROM. 07/05/23: L knee AROM: -improved 2 deg w/ dycem under foot (122 deg) -125deg on shuttle recovery w/ 25# resistance (improved 5 deg), improved receiprocal stepping no UE support, slight decrease eccentric flexion LLE& stance time. 07/09/23: L knee 121 deg AROM 126 deg AAROM, end tx. 07/16/23: L knee 117 deg's AROM, PROM is 125 deg's. Pt ambs stairs and reportedly down inclines w/o L knee pain. LTG Duration 07/15/23 (07/16/23: MET GOAL ) One Impairment HEP. Short Term Goal (STG) Pt will be educated in self care program of edema management of use of cryotherapy and post op LE lymphedema massage. 04/22/23: progressing: review and self application assist by daughter. Discussed donning YUNI wrap for edema support. Recheck next tx. 04/25/23: GOAL MET: wearing compression sock lower leg, using elevation/ice pack, there is still swelling for decreasing. STG Duration 05/03/23 GOAL MET 04/25/23 Officer Lieutenant Goal (LTG) Pt will be independent in a self care HEP of L LE strengthening and ROM exercises. 04/18/23: HEP: Manual LE lympohatic drainage sequence ex. 05/17/23: SAQ, resisted HS curl , L knee flexion stretch seated, added LAQ. 06/07/23: Modified LAQ with ankle wgt & STS with TB around knees. 06/10/23: added prone AAROM L knee flexion w/ strap to HEP. 06/18/23: Pt to check posture frequently with wall standing. 07/05/23: initiated mini lunge and modified AAROM L knee flexion stretch LE on chair, recheck for HEP. 07/09/23: added hip abd on side , L knee flexion standing use chair sit back & lunge into chair, prone with strap. 07/18/23: Reviewed HEP of self knee flex stretch in prone & standing, DC'd knee flexin sit back stretch. LTG Duration 07/15/23 (07/18/23: MET GOAL) Assessment Summary Assessment Pt walking better to start with less trunk side sway. She has at end of therapy L knee AROM: 120 deg's, and PROM 125 deg's knee flexion in supine. The pt had no pain at end of therapy in the knee. She had LBP with stair ambulation last night, but does have referral for LBP which she will start now that she has completed her L knee rehab. Pt will continue with her HEP to progress her L knee ROM and strengthening. Pt function per LEFS score improved from 60-79% impaired to 20-39% impaired. Physical Therapy Plan Discharge Physical Therapy Discharge Comments Pt did well with therapy and met her goals. She is ready to be placed on an independent HEP. Thank you for your referral.
== END 2023-07-19 09:36 | disposition home or self-care (01) ==
LOC: PHYS 11:15
PROVIDERS: Family Provider Pediatrics; PCP Family Medicine; Referring Provider Orthopaedic Surgery; Visit Provider Orthopaedic Surgery
DX: M17.12 Unilateral primary osteoarthritis, left knee (principal); Z96.651 Presence of right artificial knee joint; M62.81 Muscle weakness (generalized); R26.89 Other abnormalities of gait and mobility
CPT/HCPCS: 97110; 97112; 97116; 97140; 97162

== ENCOUNTER → 2023-07-24 10:52 | Outpatient (CLI) | payer MEDICARE, OTHER, SELFPAY ==
[2023-04-09 17:46] VITALS: BMI 20.2
--- NOTE | 2023-07-24 10:53 | DI.RAD.S_ITS ---
Bone Density Report Name: FREDDY VILLELA I Age: 78 Sex: Female Ethnicity: White Date of : 1945 Indication: postmenopausal osteoporosis; Referring Provider: ANTHONY PALOMARES Study: Bone densitometry was performed. Exam Date: July 24, 2023 Accession number: [id number] Bone Density: Region BMD T-score Z-score Classification AP Spine(L1-L4) 0.946 -0.9 1.7 Normal Femoral Neck (Left) 0.611 -2.1 0.1 Osteopenia Total Hip (Left) 0.656 -2.3 -0.3 Osteopenia Femoral Neck (Right) 0.677 -1.5 0.7 Osteopenia Total Hip (Right) 0.694 -2.0 0.0 Osteopenia Total Hip Mean 0.675 -2.2 -0.2 Osteopenia World Health Organization criteria for BMD impression classify patients as: Normal (T-score at or above -1.0), Osteopenia (T-score between -1.0 and -2.5), or Osteoporosis (T-score at or below -2.5). 10-year Fracture Risk(1): Major Osteoporotic Fracture 13% Hip Fracture 4.1% Reported Risk Factors: [place] (), Neck BMD=0.611, BMI=17.7 (1) FRAX(R) Version 3.08. Fracture probability calculated for an untreated patient. Fracture probability may be lower if the patient has received treatment. Previous Exams: -- Region Exam Age BMD T-score BMD Change BMD Change Date g/cm2 vs Baseline vs Previous -- AP Spine (L1-L4) 07/24/2023 78 0.946 -0.9 0.036 (3.9%)# 0.036 (3.9%)# 06/22/2021 76 0.911 -1.2 Total Hip(Left) 07/24/2023 78 0.656 -2.3 -0.023 (-3.4%)# -0.023 (-3.4%)# 06/22/2021 76 0.680 -2.2 Total Hip(Right) 07/24/2023 78 0.694 -2.0 0.060 (9.5%)# 0.060 (9.5%)# 06/22/2021 76 0.634 -2.5 -- *Denotes significance at 95% confidence level, LSC for AP Spine = 0.022 g/cm2, LSC for Total Hip = 0.027 g/cm2 # Denotes dissimilar scan types or analysis methods Impression: The patient has low bone mass, based on the Left Total Hip T-score. The patient has an estimated ten-year risk of hip fracture of 4.1% and an estimated ten-year risk of major fracture of 13%, based on the WHO FRAX algorithm. No significant bone loss was observed. Discussion: BONE DENSITY IS LOW AT ONE OR MORE SKELETAL SITES. THE PATIENT'S BMD AND CLINICAL RISK FACTORS CONTRIBUTE TO THIS PATIENT'S INCREASED RISK OF FRACTURE. This patient's lowest T-score is low at one or more skeletal sites. It meets the World Health Organization's (WHO) criteria for low bone mass (T-score between -1.0 and -2.5). The patient's 10-year risk of hip fracture as calculated by FRAX exceeds the threshold where pharmacological therapy is recommended by the National Osteoporosis Foundation (NOF). However, all treatment decisions require clinical judgment and consideration of individual patient factors, including patient preferences, comorbidities, previous drug use, risk factors not captured in the FRAX model (e.g., frailty, falls, vitamin D deficiency, increased bone turnover, interval significant decline in bone density) and possible under or overestimation of fracture risk by FRAX. The patient should follow a healthful lifestyle (good nutrition with adequate calcium and vitamin D, and appropriate weight-bearing exercise). Follow-Up: Consider a repeat BMD and Vertebral Fracture Assessment (VFA) exam in 2 years or sooner if medically necessary, to reassess this patient's status. Reported by: NAVDEEP ALCALA M.D on 07/24/2023 11:12:00 AM.
== END ==
PROVIDERS: Family Provider Family Medicine; PCP Family Medicine; Referring Provider Physician Assistant; Visit Provider Physician Assistant
DX: M81.0 Age-related osteoporosis without current pathological fracture (principal); M85.89 Other specified disorders of bone density and structure, multiple sites
CPT/HCPCS: 77080

== ENCOUNTER → 2023-07-31 07:30 | Outpatient (CLI) | payer MEDICARE, OTHER, SELFPAY ==
[2023-04-09 17:46] VITALS: BMI 20.2
[2023-07-31 08:19] LABS: Add Manual Diff / Slide Review NO; Basophils Absolute Auto 0 /uL (0-100); Basophils Percent Auto 0.7 % (0-2); Eosinophils Absolute Auto 100 /uL (0-450); Eosinophils Percent Auto 3.1 % (2-4); Hematocrit 36.5 % (36-46); Hemoglobin 12.6 g/dL (12.0-16.0); Lymphocytes Absolute Auto 1300 /uL (1100-4500); Lymphocytes Percent Auto 31.3 % (25-40); Mean Corpuscular HGB Conc 34.6 % (30-36); Mean Corpuscular Hemoglobin 32.1 PG (26-34); Mean Corpuscular Volume 92.9 fL (80-100); Monocytes Absolute Auto 600 /uL (0-900); Monocytes Percent Auto 14.9 % (3-14); Neutrophils Absolute Auto 2000 /uL (1500-7000); Platelet Count 227 X10^3/uL (150-400); Red Blood Cell Count 3.93 X10^6/uL (4.0-5.2); Red Cell Distribution Width 13.4 % (11.6-14.8); White Blood Cell Count 4.1 X10^3/uL (4.5-11.0)
[2023-07-31 08:54] LABS: Alanine Aminotransferase 25 IU/L (<35); Albumin 3.8 g/dL (3.5-5.0); Albumin Globulin Ratio 1.2 (1.0-2.8); Alkaline Phosphatase 86 U/L (38-126); Aspartate Aminotransferase 35 IU/L (14-36); BUN Creatinine Ratio 23.3 (6-22); Bilirubin Total 0.4 mg/dL (0.2-1.3); Blood Urea Nitrogen 17 mg/dL (7-17); Calcium 9.4 mg/dL (8.4-10.2); Carbon Dioxide 27 mmol/L (22-32); Chloride 104 mmol/L (98-107); Estimated Glomerular Filt Rate > 60 mL/min (>60); Globulin 3.3 g/dL (1.7-4.1); Glucose 97 mg/dL (80-110); HEMOLYSIS < 15 (0-50); Sodium 140 mmol/L (137-145); Total Protein 7.1 g/dL (6.3-8.2)
[2023-07-31 09:02] LABS: Free T3, Triiodothyronine Free 4.15 pg/mL (2.77-5.27); Free T4, Direct Thyroxine 1.09 ng/dL (0.78-2.19)
[2023-07-31 09:15] LABS: Thyroid Stimulating Hormone 7.06 uIU/mL (0.47-4.68)
== END ==
PROVIDERS: Family Provider Family Medicine; PCP Family Medicine; Referring Provider Family Medicine; Visit Provider Family Medicine
DX: D64.9 Anemia, unspecified (principal); R63.4 Abnormal weight loss; Z63.79 Other stressful life events affecting family and household
CPT/HCPCS: 36415; 80053; 84439; 84443; 84481; 85025

== ENCOUNTER → 2023-09-20 13:07 | Outpatient (CLI) | payer MEDICARE, OTHER, SELFPAY ==
[2023-04-09 17:46] VITALS: BMI 20.2
--- NOTE | 2023-09-20 | DI.MRI.S_ITS ---
PROCEDURE: MR LUMBAR SPINE WO CON INDICATIONS: Radiculopathy, lumbar region TECHNIQUE: Noncontrast sagittal T1 spin echo and T2 fast echo, sagittal STIR, and T2 fast spin echo through the lumbar spine. In cases with scoliosis, additional coronal T2 fast spin echo may be performed. COMPARISON: None. FINDINGS: Image quality: Excellent. Alignment and Curvature: Mild S shaped scoliotic curvature is seen. Minimal retrolisthesis is seen at the L2-L3 level. There is mild retrolisthesis seen at the L5-S1 level. Bone Marrow: Marrow is of normal overall signal. No acute vertebral body compression fractures. 40% loss of height can be seen anteriorly at the L1 level, without acute features. Spinal Cord: Conus medullaris terminates at the L2 level. Visualized cord demonstrates normal signal and size. Paraspinous Soft Tissues: No paravertebral masses. There is a water signal cyst seen involving the right kidney, 1.9 cm. T12-L1: The disc height is well-preserved. Loss of disc signal is seen at this level. Mild generalized disc bulge is seen. No significant neural foraminal or central canal narrowing can be seen. L1-L2: Normal appearance. L2-L3: The disc height is well-preserved. Loss of disc signal is seen at this level. Mild to moderate disc bulge is seen, with a central disc protrusion. Mild facet joint hypertrophy is seen. Moderate bilateral neural foraminal narrowing is seen. Moderate central canal narrowing is seen. L3-L4: Mild loss of disc height is seen. Loss of disc signal is seen. Moderate generalized disc bulge is seen. There is a mild central disc extrusion, with mild inferior migration of the disc material. Moderate facet joint hypertrophy is seen. There is at least moderate right-sided and moderate to severe left-sided neural foraminal narrowing. There is a degree of compression seen upon the exiting nerve roots. Moderate to severe central canal narrowing is seen. L4-L5: Moderate to severe loss of disc height and disc signal can be seen. Moderate generalized disc bulge is seen, which is eccentric to the right. There is a mild central disc osteophyte protrusion seen. There is moderate to severe right-sided neural foraminal narrowing, with a degree of compression upon the exiting right L4 nerve root. Moderate left-sided neural foraminal narrowing is seen. Moderate central canal narrowing is seen. L5-S1: At least moderate loss of disc height and disc signal can be seen. Moderate disc bulge is seen, with a mild central disc extrusion, with mild inferior migration of the disc material. Mild facet joint hypertrophy is seen. There is moderate to severe bilateral neural foraminal narrowing seen, with an associated a degree of compression seen upon the exiting nerve roots. At least moderate central canal narrowing is seen. IMPRESSION: Multiple levels of significant lumbar spine degenerative change can be seen, which are overall worst inferiorly. Several sites of significant neural foraminal narrowing can be seen, with associated exiting nerve root compression. There is a remote L1 compression deformity seen, with 40% loss of height anteriorly. S-shaped scoliotic curvature is seen. Additional findings: Water signal right renal cyst Dictated by: Ubaldo Olguin M.D. on 09/20/2023 at 17:42 Approved by: Ubaldo Olguin M.D. on 09/20/2023 at 17:47
== END ==
PROVIDERS: Family Provider Family Medicine; PCP Family Medicine; Referring Provider Orthopaedic Surgery; Visit Provider Orthopaedic Surgery
DX: M47.26 Other spondylosis with radiculopathy, lumbar region (principal); M47.27 Other spondylosis with radiculopathy, lumbosacral region; M48.061 Spinal stenosis, lumbar region without neurogenic claudication; M48.07 Spinal stenosis, lumbosacral region; M43.8X6 Other specified deforming dorsopathies, lumbar region; M41.9 Scoliosis, unspecified; N28.1 Cyst of kidney, acquired
CPT/HCPCS: 72148

== ENCOUNTER 2023-09-30 10:30 | Outpatient (RCR) | payer MEDICARE, OTHER, SELFPAY ==
[2023-04-09 17:46] VITALS: BMI 20.2
--- NOTE | 2023-07-30 18:18 | PT.OIE ---
Current Diagnoses Other chronic pain (07/30/23) Sciatica, unspecified side (07/30/23) Low back pain, unspecified (07/30/23) Past Medical History (Last Reviewed 06/30/23 @ 09:59 by Kari Dinero DO) Depression Edema of both lower extremities Osteopenia of left hip Osteopenia of spine Osteoporosis Urinary tract infection Urinary tract infection Past Surgical History (Last Reviewed 06/30/23 @ 09:59 by Kari Dinero DO) H/O eye surgery Hx of bilateral cataract extraction Status post right knee replacement Visit Care Team Role Provider Type Nolvia Wyatt DO Family Provider Physician Primary Care Provider Specialty: Medical Address: [address] [place] [address], [address], [place], [address] Email: [email or web address] Tracie Tapia PA-C Attending Provider Advanced Panelbeater Referring Provider Specialty: Medical Wound Care Address: [address] [place] [address], [id number] Email: [email or web address] Physical Therapy Initial Evaluation PT-OP-A Visit Information Start: 07/25/23 17:46 Freq: Status: Active Protocol: Document 07/30/23 14:09 LRN (Rec: 07/30/23 15:01 NOEMYN [id number]) Out-Patient Physical Therapy Visit Information Visit Information Visit Type Initial Evaluation Visit Start Time 14:09 Visit Stop Time 15:00 Total Visit Minutes 53 Visit Number 1 Evaluation Information Evaluation Date 07/30/23 Precautions Precautions L TKA 04/09/23., R TKA ~7 yrs ago. PT-OP-B Current Condition Start: 07/25/23 17:46 Freq: Status: Active Protocol: Document 07/30/23 14:09 LRN (Rec: 07/30/23 15:01 LRN [id number]) Current Condition History of Current Condition Onset Date 06/23/23 Current Complaints L LBP rated 2/10, and R UBP rated 3/10. History of Current Condition Lifting a heavy garbage bag into a trash can (had cat litter in it) and although didn't have pain at the time she did experience onset of L low back in the afternoon. A week later she had to go to ER and was given Oxicodone and pain patches that eliminated the severe pain. Currently she has hardly any L sciatic pain and L LBP. She has been splitting wood but states her son stacks the big rolls. She hopes to get her grandson to stack the wood after she splits it. She stopped Gabapentin at night and only takes Napracin in AM and Alleve at night. She reports she sleeps really well with the medications. Pt notes she has lost a lot of weight since L TKA surgery 04/09/23. Prior Treatments and Tests Pain medications. Future Testing and Treatments Planned Initially pt saw Dr. Shraddha Tapia because Dr. Nolvia Wyatt was out of office. Saw Dr Wyatt yesterday for the R UBP (posterior shoulder). Next appt with Dr. Wyatt is October. Treatment Goals Patient/Caregiver Goals Pt goal is to be able to split wood without onset of pain, eliminate anterior L thigh pain with sleeping. She is agreeable to be on a self care HEP. 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 PT-OP-C Subjective Start: 07/25/23 17:46 Freq: Status: Active Protocol: Document 07/30/23 14:09 LRN (Rec: 07/30/23 15:01 LRN [id number]) Patient Questionnaires Quick Dash- Upper Extremity Quick Dash UE Score 4.54 Quick Dash UE Impairment 1 to 19% Impaired (Score 1-19) OP-PT Pain Assessment Pain Assessment Grid Paper Pain Assessment Grid Completed Yes Location Sciatic pain Pain Location Details L Buttock and posterior leg - no pain since meds Intensity 0 Scale Used Numeric (0 - 10) Description Sharp Description- Other When present it was sharp pain Low Back Pain Location Details Left low back Intensity 2 Scale Used Numeric (0 - 10) Description Aching Frequency At night & after activity Variations/Patterns Initially was sharp pain PT-OP-G Mobility & Gait Start: 07/25/23 17:46 Freq: Status: Active Protocol: Document 07/30/23 14:09 LRN (Rec: 07/30/23 15:01 LRN [id number]) OP Gait Assessment Gait Gait Assistance Required: Independent Able to Maintain Weight Bearing Status Yes During Gait Assistive Devices Assistive Device None Gait Deviations General Gait Pattern Antalgic,Decreased Stride Length,Lateral Trunk Lean Factors Limiting Gait Function Factors Limiting Gait Function Decreased Strength,Pain,Poor Balance Comments Gait Comments Pt ambs with heavy strike on R LE and increased L trunk sway . Postural deviations noted. Stair Climbing Evaluation Comments Stair Climbing Comments Pt able to go up/down stairs with reciprical gait and uses of rail for stability, not pain. PT-OP-H Neuro Start: 07/25/23 17:46 Freq: Status: Active Protocol: Document 07/30/23 14:09 LRN (Rec: 07/30/23 15:01 LRN [id number]) Sensation Evaluation Gross Sensation Gross Sensation WNL PT-OP-J Posture/Palpation/Skin Start: 07/25/23 17:46 Freq: Status: Active Protocol: Document 07/30/23 14:09 LRN (Rec: 07/30/23 15:01 LRN [id number]) Posture Evaluation Position Standing Head/C-Spine Posture Side Bent Left,Forward Head T-Spine Posture Increased Kyphosis L-Spine Posture Flattened,Shifted Right Shoulder Posture (L) Elevated Scapula Posture (L) Rotated Up,(L) Elevated Pelvis Posture Posterior Tilted,(L) Iliac Crest Inferior Weight Distribution Balanced Hip Posture (R) Externally Rotated Comments Posture Comments Notable sway back posturing, knees slightly flexed (7 deg's left, 9 deg's right) Palpation Assessment Location Low Back Palpation Location L3 & L5 SP posterior Palpation Findings Soft Tissue Tightness, Tenderness Palpation Details Very tender L5 PA and moderately L3. Tight L lumbar paraspinals. PT-OP-K Range of Motion Start: 07/25/23 17:46 Freq: Status: Active Protocol: Document 07/30/23 14:09 LRN (Rec: 07/30/23 15:01 LRN [id number]) Lumbar Spine Range of Motion Lumbar Spine Active Degrees Testing Position Standing Flexion 112 Extension 10 Rotation Left 20 Rotation Right 40 Lateral Flexion Left 10 Lateral Flexion Right 10 Hip Goniometric Range of Motion Hip Right Passive Testing Position Supine Straight Leg Raise 80 Internal Rotation 30 External Rotation 50 Left Passive Testing Position Supine Straight Leg Raise 65 Internal Rotation 10 External Rotation 50 PT-OP-L Special Tests Start: 07/25/23 17:46 Freq: Status: Active Protocol: Document 07/30/23 14:09 LRN (Rec: 07/30/23 15:01 LRN [id number]) Special Tests Lumbar Spine Special Tests Straight Leg Raise Test Results + left Vertical Spine Loading Test Results negative Standing Flexion Test Results positive Comments Onset of mild discomfort in L LB. PT-OP-M Strength Start: 07/25/23 17:46 Freq: Status: Active Protocol: Document 07/30/23 14:09 LRN (Rec: 07/30/23 15:01 LRN [id number]) Trunk Strength Trunk Manual Muscle Testing Core Stabilization Loss of core stabiltiy with L hip ext, Hip Strength Hip Manual Muscle Testing Right Comments Muscle groups 5/5 (hip IR/ER not tested) Left Flexion (L2) 3 Fair Extension (S1) 3 Fair Abduction 4 Good Internal Rotation 2 Poor PT-OP-Q Treatments Start: 07/25/23 17:46 Freq: Status: Active Protocol: Document 07/30/23 14:09 LRN (Rec: 07/30/23 15:01 N [id number]) Self-Care/Home Management Treatment Education Patient Education Body Mechanics,Posture Other Education Discussed results of evaluation, goals, and plan of care (POC). Pt agreeable to goals and POC. Discussed briefly proper sitting posturing, body mechanics for reaching ( supporting upper body with WBing on one arm), picking up objects (bending at knees), and stressed to avoid twisting lifting, carrying objects and to avoid one sided activities (splitting wood). PT-OP-T Assessment and Plan Start: 07/25/23 17:46 Freq: Status: Active Protocol: Document 07/30/23 14:09 LRN (Rec: 07/30/23 15:01 N [id number]) Physical Therapy Assessment Rehab Potential Rehabilitation Potential Good Evaluation Complexity Number of Personal Factors/Comorbidities 1-2 Number of Body Systems Impaired 4 or More Clinical Presentation at Evaluation Evolving Impairments Impairments Activity Tolerance,Balance, Gait,Pain,Posture,ROM,Soft Tissue Mobility,Strength, Transfers Goals Two Impairment Pain and weakness in LLE. Impairment Pain rated 2/10 in L anterior thigh & LB. SLS: 8 secs left, 4 secs right. Short Term Goal (STG) Eliminate anterior L thigh pain with sleeping. STG Duration 08/23/23 Pick Pulling Machine Operator Goal (LTG) Improve SLS with pt able to walk with less trunk sway. LTG Duration 09/24/23 One Impairment Lacks self care HEP Short Term Goal (STG) Pt educated in proper LBP care of proper transfers, proper sitting/standing posturing, and body mechanics/ADL training. STG Duration 08/07/23 Senior Living Goal (LTG) HEP of core/L hip strengthening and SLS balance exercises. LTG Duration 09/24/23 Three Impairment Decreased function Impairment Pt limited in ability to split wood. Short Term Goal (STG) Pt will be educated in best practice to split wood STG Duration 08/09/23 Pick Pulling Machine Operator Goal (LTG) Pt will be able to split wood without onset of LBP. LTG Duration 09/24/23 Assessment Summary Assessment Pt is a 78 yo female who presents with + PSLR, extreme tightness of her L hip internal rotators and neurological weakness of her LLE. She appears to have a positional dysfunction of L3 & L5 with spinous processes more posteriorly positioned in prone. She has decreased single leg standing balance on the LLE; therefore a feeling of instability with gait. In standing she demonstrates a swayback posture. Medications appear to be providing her with good pain control. The pt will benefit from skilled physical therapy to achieve her above stated goals, but if LLE weakness persists, further imaging of the LB would be appropriate. Physical Therapy Plan Frequency and Duration Frequency of Treatment 2x/Week Duration of treatment (weeks) 8 Plan of Care Start Date 07/30/23 Therapeutic Interventions Therapeutic Interventions Balance Training,Gait Training ,Home Exercise Program,Joint Mobilizations,Manual Therapy, Neuromuscular Re-education, Self-Care/Home Management,Soft Tissue Mobilization,Taping, Therapeutic Activities, Therapeutic Exercises Modalities Cold Pack/Ice Massage,Electric Stimulation,Hot Packs Next Visit Focus/Plan Next Note Type Treatment Note Next Visit Plan Pt to complete LUTHER. Pt education in back care for proper transfers, proper sitting/standing posturing, and body mechanics/ADL training. Gentle lumbar traction at pelvis, back extension program to improve lumbar ext at L3-L5 and decrease thoracic flexion posturing, self jt mob (open book). Improve core/L LE hip strength, SLS balance and gait stability and safety. Modalities for pain and EStim to promote lumbar joint mobility.
--- NOTE | 2023-07-30 18:20 | PT.OIE ---
Current Diagnoses Other chronic pain (07/30/23) Sciatica, unspecified side (07/30/23) Low back pain, unspecified (07/30/23) Past Medical History (Last Reviewed 06/30/23 @ 09:59 by Kari Dinero DO) Depression Edema of both lower extremities Osteopenia of left hip Osteopenia of spine Osteoporosis Urinary tract infection Urinary tract infection Past Surgical History (Last Reviewed 06/30/23 @ 09:59 by Kari Dinero DO) H/O eye surgery Hx of bilateral cataract extraction Status post right knee replacement Visit Care Team Role Provider Type Nolvia Wyatt DO Family Provider Physician Primary Care Provider Specialty: Medical Address: [address] [place] [address], [address], [place], [address] Email: [email or web address] Tracie Tapia PA-C Attending Provider Advanced Material Handler Loader Referring Provider Specialty: Medical Wound Care Address: [address] [place] [address], [id number] Email: [email or web address] Physical Therapy Initial Evaluation PT-OP-A Visit Information Start: 07/25/23 17:46 Freq: Status: Active Protocol: Document 07/30/23 14:09 LRN (Rec: 07/30/23 15:01 NOEMYN [id number]) Out-Patient Physical Therapy Visit Information Visit Information Visit Type Initial Evaluation Visit Start Time 14:09 Visit Stop Time 15:00 Total Visit Minutes 53 Visit Number 1 Evaluation Information Evaluation Date 07/30/23 Precautions Precautions L TKA 04/09/23., R TKA ~7 yrs ago. PT-OP-B Current Condition Start: 07/25/23 17:46 Freq: Status: Active Protocol: Document 07/30/23 14:09 LRN (Rec: 07/30/23 15:01 LRN [id number]) Current Condition History of Current Condition Onset Date 06/23/23 Current Complaints L LBP rated 2/10, and R UBP rated 3/10. History of Current Condition Lifting a heavy garbage bag into a trash can (had cat litter in it) and although didn't have pain at the time she did experience onset of L low back in the afternoon. A week later she had to go to ER and was given Oxicodone and pain patches that eliminated the severe pain. Currently she has hardly any L sciatic pain and L LBP. She has been splitting wood but states her son stacks the big rolls. She hopes to get her grandson to stack the wood after she splits it. She stopped Gabapentin at night and only takes Napracin in AM and Alleve at night. She reports she sleeps really well with the medications. Pt notes she has lost a lot of weight since L TKA surgery 04/09/23. Prior Treatments and Tests Pain medications. Future Testing and Treatments Planned Initially pt saw Dr. Shraddha Tapia because Dr. Nolvia Wyatt was out of office. Saw Dr Wyatt yesterday for the R UBP (posterior shoulder). Next appt with Dr. Wyatt is October. Treatment Goals Patient/Caregiver Goals Pt goal is to be able to split wood without onset of pain, eliminate anterior L thigh pain with sleeping. She is agreeable to be on a self care HEP. 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 PT-OP-C Subjective Start: 07/25/23 17:46 Freq: Status: Active Protocol: Document 07/30/23 14:09 LRN (Rec: 07/30/23 15:01 LRN [id number]) Patient Questionnaires Quick Dash- Upper Extremity Quick Dash UE Score 4.54 Quick Dash UE Impairment 1 to 19% Impaired (Score 1-19) OP-PT Pain Assessment Pain Assessment Grid Paper Pain Assessment Grid Completed Yes Location Sciatic pain Pain Location Details L Buttock and posterior leg - no pain since meds Intensity 0 Scale Used Numeric (0 - 10) Description Sharp Description- Other When present it was sharp pain Low Back Pain Location Details Left low back Intensity 2 Scale Used Numeric (0 - 10) Description Aching Frequency At night & after activity Variations/Patterns Initially was sharp pain PT-OP-G Mobility & Gait Start: 07/25/23 17:46 Freq: Status: Active Protocol: Document 07/30/23 14:09 LRN (Rec: 07/30/23 15:01 LRN [id number]) OP Gait Assessment Gait Gait Assistance Required: Independent Able to Maintain Weight Bearing Status Yes During Gait Assistive Devices Assistive Device None Gait Deviations General Gait Pattern Antalgic,Decreased Stride Length,Lateral Trunk Lean Factors Limiting Gait Function Factors Limiting Gait Function Decreased Strength,Pain,Poor Balance Comments Gait Comments Pt ambs with heavy strike on R LE and increased L trunk sway . Postural deviations noted. Stair Climbing Evaluation Comments Stair Climbing Comments Pt able to go up/down stairs with reciprical gait and uses of rail for stability, not pain. PT-OP-H Neuro Start: 07/25/23 17:46 Freq: Status: Active Protocol: Document 07/30/23 14:09 LRN (Rec: 07/30/23 15:01 LRN [id number]) Sensation Evaluation Gross Sensation Gross Sensation WNL PT-OP-J Posture/Palpation/Skin Start: 07/25/23 17:46 Freq: Status: Active Protocol: Document 07/30/23 14:09 LRN (Rec: 07/30/23 15:01 LRN [id number]) Posture Evaluation Position Standing Head/C-Spine Posture Side Bent Left,Forward Head T-Spine Posture Increased Kyphosis L-Spine Posture Flattened,Shifted Right Shoulder Posture (L) Elevated Scapula Posture (L) Rotated Up,(L) Elevated Pelvis Posture Posterior Tilted,(L) Iliac Crest Inferior Weight Distribution Balanced Hip Posture (R) Externally Rotated Comments Posture Comments Notable sway back posturing, knees slightly flexed (7 deg's left, 9 deg's right) Palpation Assessment Location Low Back Palpation Location L3 & L5 SP posterior Palpation Findings Soft Tissue Tightness, Tenderness Palpation Details Very tender L5 PA and moderately L3. Tight L lumbar paraspinals. PT-OP-K Range of Motion Start: 07/25/23 17:46 Freq: Status: Active Protocol: Document 07/30/23 14:09 LRN (Rec: 07/30/23 15:01 LRN [id number]) Lumbar Spine Range of Motion Lumbar Spine Active Degrees Testing Position Standing Flexion 112 Extension 10 Rotation Left 20 Rotation Right 40 Lateral Flexion Left 10 Lateral Flexion Right 10 Hip Goniometric Range of Motion Hip Right Passive Testing Position Supine Straight Leg Raise 80 Internal Rotation 30 External Rotation 50 Left Passive Testing Position Supine Straight Leg Raise 65 Internal Rotation 10 External Rotation 50 PT-OP-L Special Tests Start: 07/25/23 17:46 Freq: Status: Active Protocol: Document 07/30/23 14:09 LRN (Rec: 07/30/23 15:01 LRN [id number]) Special Tests Lumbar Spine Special Tests Straight Leg Raise Test Results + left Vertical Spine Loading Test Results negative Standing Flexion Test Results positive Comments Onset of mild discomfort in L LB. PT-OP-M Strength Start: 07/25/23 17:46 Freq: Status: Active Protocol: Document 07/30/23 14:09 LRN (Rec: 07/30/23 15:01 LRN [id number]) Trunk Strength Trunk Manual Muscle Testing Core Stabilization Loss of core stabiltiy with L hip ext, Hip Strength Hip Manual Muscle Testing Right Comments Muscle groups 5/5 (hip IR/ER not tested) Left Flexion (L2) 3 Fair Extension (S1) 3 Fair Abduction 4 Good Internal Rotation 2 Poor PT-OP-Q Treatments Start: 07/25/23 17:46 Freq: Status: Active Protocol: Document 07/30/23 14:09 LRN (Rec: 07/30/23 15:01 N [id number]) Self-Care/Home Management Treatment Education Patient Education Body Mechanics,Posture Other Education Discussed results of evaluation, goals, and plan of care (POC). Pt agreeable to goals and POC. Discussed briefly proper sitting posturing, body mechanics for reaching ( supporting upper body with WBing on one arm), picking up objects (bending at knees), and stressed to avoid twisting lifting, carrying objects and to avoid one sided activities (splitting wood). PT-OP-T Assessment and Plan Start: 07/25/23 17:46 Freq: Status: Active Protocol: Document 07/30/23 14:09 LRN (Rec: 07/30/23 15:01 N [id number]) Physical Therapy Assessment Rehab Potential Rehabilitation Potential Good Evaluation Complexity Number of Personal Factors/Comorbidities 1-2 Number of Body Systems Impaired 4 or More Clinical Presentation at Evaluation Evolving Impairments Impairments Activity Tolerance,Balance, Gait,Pain,Posture,ROM,Soft Tissue Mobility,Strength, Transfers Goals Two Impairment Pain and weakness in LLE. Impairment Pain rated 2/10 in L anterior thigh & LB. SLS: 8 secs left, 4 secs right. Short Term Goal (STG) Eliminate anterior L thigh pain with sleeping. STG Duration 08/23/23 Vaccine Key Customer Leader Goal (LTG) Improve SLS with pt able to walk with less trunk sway. LTG Duration 09/24/23 One Impairment Lacks self care HEP Short Term Goal (STG) Pt educated in proper LBP care of proper transfers, proper sitting/standing posturing, and body mechanics/ADL training. STG Duration 08/07/23 Assisted Goal (LTG) HEP of core/L hip strengthening and SLS balance exercises. LTG Duration 09/24/23 Three Impairment Decreased function Impairment Pt limited in ability to split wood. Short Term Goal (STG) Pt will be educated in best practice to split wood STG Duration 08/09/23 Vaccine Key Customer Leader Goal (LTG) Pt will be able to split wood without onset of LBP. LTG Duration 09/24/23 Assessment Summary Assessment Pt is a 78 yo female who presents with + PSLR, extreme tightness of her L hip internal rotators and neurological weakness of her LLE. She appears to have a positional dysfunction of L3 & L5 with spinous processes more posteriorly positioned in prone. She has decreased single leg standing balance on the LLE; therefore a feeling of instability with gait. In standing she demonstrates a swayback posture. Medications appear to be providing her with good pain control. The pt will benefit from skilled physical therapy to achieve her above stated goals, but if LLE weakness persists, further imaging of the LB would be appropriate. Physical Therapy Plan Frequency and Duration Frequency of Treatment 2x/Week Duration of treatment (weeks) 8 Plan of Care Start Date 07/30/23 Plan of Care End Date 09/24/23 Therapeutic Interventions Therapeutic Interventions Balance Training,Gait Training ,Home Exercise Program,Joint Mobilizations,Manual Therapy, Neuromuscular Re-education, Self-Care/Home Management,Soft Tissue Mobilization,Taping, Therapeutic Activities, Therapeutic Exercises Modalities Cold Pack/Ice Massage,Electric Stimulation,Hot Packs Next Visit Focus/Plan Next Note Type Treatment Note Next Visit Plan Pt to complete LUTHER. Pt education in back care for proper transfers, proper sitting/standing posturing, and body mechanics/ADL training. Gentle lumbar traction at pelvis, back extension program to improve lumbar ext at L3-L5 and decrease thoracic flexion posturing, self jt mob (open book). Improve core/L LE hip strength, SLS balance and gait stability and safety. Modalities for pain and EStim to promote lumbar joint mobility.
--- NOTE | 2023-07-30 18:20 | PT.OPPOC ---
Physical, Occupational & Speech Therapy At [facility] Current Diagnoses Other chronic pain (07/30/23) Sciatica, unspecified side (07/30/23) Low back pain, unspecified (07/30/23) Visit Care Team Role Provider Type Nolvia Wyatt DO Family Provider Physician Primary Care Provider Specialty: Medical Address: [address] [place] [address], [address], [place], [address] Email: [email or web address] Tracie Tapia PA-C Attending Provider Advanced Vacation Planner Referring Provider Specialty: Medical Wound Care Address: [address] [place] [address], [place], [address] Email: [email or web address] Plan Of Care PT-OP-T Assessment and Plan Start: 07/25/23 17:46 Freq: Status: Active Protocol: Document 07/30/23 14:09 LRN (Rec: 07/30/23 15:01 LRN [id number]) Physical Therapy Assessment Rehab Potential Rehabilitation Potential Good Evaluation Complexity Number of Personal Factors/Comorbidities 1-2 Number of Body Systems Impaired 4 or More Clinical Presentation at Evaluation Evolving Impairments Impairments Activity Tolerance,Balance, Gait,Pain,Posture,ROM,Soft Tissue Mobility,Strength, Transfers Goals Two Impairment Pain and weakness in LLE. Impairment Pain rated 2/10 in L anterior thigh & LB. SLS: 8 secs left, 4 secs right. Short Term Goal (STG) Eliminate anterior L thigh pain with sleeping. STG Duration 08/23/23 Disability Coordinator Goal (LTG) Improve SLS with pt able to walk with less trunk sway. LTG Duration 09/24/23 One Impairment Lacks self care HEP Short Term Goal (STG) Pt educated in proper LBP care of proper transfers, proper sitting/standing posturing, and body mechanics/ADL training. STG Duration 08/07/23 Snf Goal (LTG) HEP of core/L hip strengthening and SLS balance exercises. LTG Duration 09/24/23 Three Impairment Decreased function Impairment Pt limited in ability to split wood. Short Term Goal (STG) Pt will be educated in best practice to split wood STG Duration 08/09/23 Snf Goal (LTG) Pt will be able to split wood without onset of LBP. LTG Duration 09/24/23 Assessment Summary Assessment Pt is a 78 yo female who presents with + PSLR, extreme tightness of her L hip internal rotators and neurological weakness of her LLE. She appears to have a positional dysfunction of L3 & L5 with spinous processes more posteriorly positioned in prone. She has decreased single leg standing balance on the LLE; therefore a feeling of instability with gait. In standing she demonstrates a swayback posture. Medications appear to be providing her with good pain control. The pt will benefit from skilled physical therapy to achieve her above stated goals, but if LLE weakness persists, further imaging of the LB would be appropriate. Physical Therapy Plan Frequency and Duration Frequency of Treatment 2x/Week Duration of treatment (weeks) 8 Plan of Care Start Date 07/30/23 Plan of Care End Date 09/24/23 Therapeutic Interventions Therapeutic Interventions Balance Training,Gait Training ,Home Exercise Program,Joint Mobilizations,Manual Therapy, Neuromuscular Re-education, Self-Care/Home Management,Soft Tissue Mobilization,Taping, Therapeutic Activities, Therapeutic Exercises Modalities Cold Pack/Ice Massage,Electric Stimulation,Hot Packs Next Visit Focus/Plan Next Note Type Treatment Note Next Visit Plan Pt to complete LUTHER. Pt education in back care for proper transfers, proper sitting/standing posturing, and body mechanics/ADL training. Gentle lumbar traction at pelvis, back extension program to improve lumbar ext at L3-L5 and decrease thoracic flexion posturing, self jt mob (open book). Improve core/L LE hip strength, SLS balance and gait stability and safety. Modalities for pain and EStim to promote lumbar joint mobility. Plan of Care Dates Plan of Care Start Date 07/30/23 Plan of Care End Date 09/24/23 Electronically Signed by: Makayla Hope, PT 07/30/23 2664 If you are in agreement with this Plan of Care, please return a signed and dated copy. I have reviewed this Plan of Care and certify that the skilled therapy services above are required to meet the patient?s needs. Physician Signature Date Printed Name and Credentials Clinical Instructor Signature Printed Name and Credentials
--- NOTE | 2023-08-01 10:31 | PT.OTN ---
Current Diagnoses Other chronic pain (08/01/23) Sciatica, unspecified side (08/01/23) Low back pain, unspecified (08/01/23) Physical Therapy Treatment Note PT-OP-A Visit Information Start: 07/25/23 17:46 Freq: Status: Active Protocol: Document 08/01/23 09:37 LRN (Rec: 08/01/23 10:29 LRN [id number]) Out-Patient Physical Therapy Visit Information Visit Information Visit Type Treatment Note Visit Start Time 09:37 Visit Stop Time 10:16 Total Visit Minutes 39 Visit Number 2 Evaluation Information Evaluation Date 07/30/23 Precautions Precautions L TKA 04/09/23., R TKA ~7 yrs ago. PT-OP-B Current Condition Start: 07/25/23 17:46 Freq: Status: Active Protocol: Document 07/30/23 14:09 LRN (Rec: 07/30/23 15:01 LRN [id number]) Current Condition History of Current Condition Onset Date 06/23/23 Current Complaints L LBP rated 2/10, and R UBP rated 3/10. History of Current Condition Lifting a heavy garbage bag into a trash can (had cat litter in it) and although didn't have pain at the time she did experience onset of L low back in the afternoon. A week later she had to go to ER and was given Oxicodone and pain patches that eliminated the severe pain. Currently she has hardly any L sciatic pain and L LBP. She has been splitting wood but states her son stacks the big rolls. She hopes to get her grandson to stack the wood after she splits it. She stopped Gabapentin at night and only takes Napracin in AM and Alleve at night. She reports she sleeps really well with the medications. Pt notes she has lost a lot of weight since L TKA surgery 04/09/23. Prior Treatments and Tests Pain medications. Future Testing and Treatments Planned Initially pt saw Dr. Shraddha Tapia because Dr. Nolvia Wyatt was out of office. Saw Dr Wyatt yesterday for the R UBP (posterior shoulder). Next appt with Dr. Wyatt is October. Treatment Goals Patient/Caregiver Goals Pt goal is to be able to split wood without onset of pain, eliminate anterior L thigh pain with sleeping. She is agreeable to be on a self care HEP. 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 PT-OP-C Subjective Start: 07/25/23 17:46 Freq: Status: Active Protocol: Document 08/01/23 09:37 LRN (Rec: 08/01/23 10:29 LRN [id number]) OP-PT Subjective Patient Comments Patient Comments Didn't take any med last night and made it fine through the night except this morning was sore. Took med at 6:30 am, so no pain currently. PT-OP-G Mobility & Gait Start: 07/25/23 17:46 Freq: Status: Active Protocol: Document 07/30/23 14:09 LRN (Rec: 07/30/23 15:01 LRN [id number]) OP Gait Assessment Gait Gait Assistance Required: Independent Able to Maintain Weight Bearing Status Yes During Gait Assistive Devices Assistive Device None Gait Deviations General Gait Pattern Antalgic,Decreased Stride Length,Lateral Trunk Lean Factors Limiting Gait Function Factors Limiting Gait Function Decreased Strength,Pain,Poor Balance Comments Gait Comments Pt ambs with heavy strike on R LE and increased L trunk sway . Postural deviations noted. Stair Climbing Evaluation Comments Stair Climbing Comments Pt able to go up/down stairs with reciprical gait and uses of rail for stability, not pain. PT-OP-H Neuro Start: 07/25/23 17:46 Freq: Status: Active Protocol: Document 07/30/23 14:09 LRN (Rec: 07/30/23 15:01 LRN [id number]) Sensation Evaluation Gross Sensation Gross Sensation WNL PT-OP-J Posture/Palpation/Skin Start: 07/25/23 17:46 Freq: Status: Active Protocol: Document 07/30/23 14:09 LRN (Rec: 07/30/23 15:01 LRN [id number]) Posture Evaluation Position Standing Head/C-Spine Posture Side Bent Left,Forward Head T-Spine Posture Increased Kyphosis L-Spine Posture Flattened,Shifted Right Shoulder Posture (L) Elevated Scapula Posture (L) Rotated Up,(L) Elevated Pelvis Posture Posterior Tilted,(L) Iliac Crest Inferior Weight Distribution Balanced Hip Posture (R) Externally Rotated Comments Posture Comments Notable sway back posturing, knees slightly flexed (7 deg's left, 9 deg's right) Palpation Assessment Location Low Back Palpation Location L3 & L5 SP posterior Palpation Findings Soft Tissue Tightness, Tenderness Palpation Details Very tender L5 PA and moderately L3. Tight L lumbar paraspinals. PT-OP-K Range of Motion Start: 07/25/23 17:46 Freq: Status: Active Protocol: Document 07/30/23 14:09 LRN (Rec: 07/30/23 15:01 LRN [id number]) Lumbar Spine Range of Motion Lumbar Spine Active Degrees Testing Position Standing Flexion 112 Extension 10 Rotation Left 20 Rotation Right 40 Lateral Flexion Left 10 Lateral Flexion Right 10 Hip Goniometric Range of Motion Hip Right Passive Testing Position Supine Straight Leg Raise 80 Internal Rotation 30 External Rotation 50 Left Passive Testing Position Supine Straight Leg Raise 65 Internal Rotation 10 External Rotation 50 PT-OP-L Special Tests Start: 07/25/23 17:46 Freq: Status: Active Protocol: Document 07/30/23 14:09 LRN (Rec: 07/30/23 15:01 LRN [id number]) Special Tests Lumbar Spine Special Tests Straight Leg Raise Test Results + left Vertical Spine Loading Test Results negative Standing Flexion Test Results positive Comments Onset of mild discomfort in L LB. PT-OP-M Strength Start: 07/25/23 17:46 Freq: Status: Active Protocol: Document 07/30/23 14:09 LRN (Rec: 07/30/23 15:01 LRN [id number]) Trunk Strength Trunk Manual Muscle Testing Core Stabilization Loss of core stabiltiy with L hip ext, Hip Strength Hip Manual Muscle Testing Right Comments Muscle groups 5/5 (hip IR/ER not tested) Left Flexion (L2) 3 Fair Extension (S1) 3 Fair Abduction 4 Good Internal Rotation 2 Poor PT-OP-Q Treatments Start: 07/25/23 17:46 Freq: Status: Active Protocol: Document 08/01/23 09:37 LRN (Rec: 08/01/23 10:29 LRN [id number]) Therapeutic Exercises Supine Exercises Sit<>Supine transfer Supine Exercise Name Sit<>Supine transfer training & practice Reps/Minutes 5' Comments phys & v cuing to sidelye before rolling to back. Prone Exercises TA/Gluteal tightening Prone Exercise Name TA/Gluteal tightening Side left Reps/Minutes 5' Comments Extra time taken to determine max tolerated mvmt ANGELIKA Prone Exercise Name Prone lying for comfort to start f/b ANGELIKA Reps/Minutes 10x Comments Extra time taken to determine max tolerated mvmt and stretch Sitting Exercises Sit<>Stand Sitting Exercise Name Transfer training and practice Reps/Minutes 5' Comments Cuing for hips sitting all way back, back straight, pivot at hips. Self-Care/Home Management Treatment Education Patient Education Body Mechanics,Joint Protection,Posture Other Education Pt educated in proper LBP care (Proper Posture & Sen to Safe Movement) of proper transfers , proper sitting/standing posturing, and body mechanics/ ADL training. Activities Self-Care/Home Management Activities Issued and reviewed handouts for proper posturing (sit & stand) and transfers (stand<> sit<>supine), and proper body mechanics for ADLs. Pt chose not to take handout for back care: Sen to Safe Movement. PT-OP-T Assessment and Plan Start: 07/25/23 17:46 Freq: Status: Active Protocol: Document 08/01/23 09:37 LRN (Rec: 08/01/23 10:29 LRN [id number]) Physical Therapy Assessment Goals Two Impairment Pain and weakness in LLE. Impairment Pain rated 2/10 in L anterior thigh & LB. SLS: 8 secs left, 4 secs right. Short Term Goal (STG) Eliminate anterior L thigh pain with sleeping. 08/01/23: No pain with pain medication through night. STG Duration 08/23/23 Skilled Nursing Goal (LTG) Improve SLS with pt able to walk with less trunk sway. LTG Duration 09/24/23 One Impairment Lacks self care HEP Short Term Goal (STG) Pt educated in proper LBP care of proper transfers, proper sitting/standing posturing, and body mechanics/ADL training. STG Duration 08/07/23 (08/01/23: MET GOAL) Skilled Nursing Goal (LTG) HEP of core/L hip strengthening and SLS balance exercises. LTG Duration 09/24/23 Three Impairment Decreased function Impairment Pt limited in ability to split wood. Short Term Goal (STG) Pt will be educated in best practice to split wood STG Duration 08/09/23 Skilled Nursing Goal (LTG) Pt will be able to split wood without onset of LBP. LTG Duration 09/24/23 Assessment Summary Assessment + attitude towards posture, body mechanics training, and best practice for back care ( Sen to Safe Mvmt). Pt showed good understanding with proper transfers after education and training. Physical Therapy Plan Frequency and Duration Frequency of Treatment 2x/Week Duration of treatment (weeks) 8 Plan of Care Start Date 07/30/23 Plan of Care End Date 09/24/23 Next Visit Focus/Plan Next Note Type Treatment Note Next Visit Plan Pt to submit LUTHER. Assess response to ex & pt education on posture, body mechanics, back care. Back extension program to improve lumbar ext at L3-L5 and decrease thoracic flexion posturing, NEXT: try self jt mob of upper T/S ( open book). Improve core/L LE hip strength . Neuro-anastacia: SLS balance, Gait training: gait stability and safety. Modalities for pain and EStim to promote lumbar joint mobility. Gentle lumbar traction at PELVIS (due to TKA) as needed for LB/LLE pain.
--- NOTE | 2023-08-07 11:30 | PT.OTN ---
Current Diagnoses Other chronic pain (08/07/23) Sciatica, unspecified side (08/07/23) Low back pain, unspecified (08/07/23) Physical Therapy Treatment Note PT-OP-A Visit Information Start: 07/25/23 17:46 Freq: Status: Active Protocol: Document 08/07/23 10:47 SP (Rec: 08/07/23 11:35 SP [id number]) Out-Patient Physical Therapy Visit Information Visit Information Visit Type Treatment Note Visit Start Time 10:47 Visit Stop Time 11:30 Total Visit Minutes 43 Visit Number 3 Number of GLOBAL SALES DIRECTOR Visits 1 Evaluation Information Evaluation Date 07/30/23 Precautions Precautions L TKA 04/09/23., R TKA ~7 yrs ago. PT-OP-B Current Condition Start: 07/25/23 17:46 Freq: Status: Active Protocol: Document 07/30/23 14:09 LRN (Rec: 07/30/23 15:01 LRN [id number]) Current Condition History of Current Condition Onset Date 06/23/23 Current Complaints L LBP rated 2/10, and R UBP rated 3/10. History of Current Condition Lifting a heavy garbage bag into a trash can (had cat litter in it) and although didn't have pain at the time she did experience onset of L low back in the afternoon. A week later she had to go to ER and was given Oxicodone and pain patches that eliminated the severe pain. Currently she has hardly any L sciatic pain and L LBP. She has been splitting wood but states her son stacks the big rolls. She hopes to get her grandson to stack the wood after she splits it. She stopped Gabapentin at night and only takes Napracin in AM and Alleve at night. She reports she sleeps really well with the medications. Pt notes she has lost a lot of weight since L TKA surgery 04/09/23. Prior Treatments and Tests Pain medications. Future Testing and Treatments Planned Initially pt saw Dr. Shraddha Tapia because Dr. Nolvia Wyatt was out of office. Saw Dr Wyatt yesterday for the R UBP (posterior shoulder). Next appt with Dr. Wyatt is October. Treatment Goals Patient/Caregiver Goals Pt goal is to be able to split wood without onset of pain, eliminate anterior L thigh pain with sleeping. She is agreeable to be on a self care HEP. 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 PT-OP-C Subjective Start: 07/25/23 17:46 Freq: Status: Active Protocol: Document 08/07/23 10:47 SP (Rec: 08/07/23 11:35 SP [id number]) OP-PT Subjective Patient Comments Patient Comments Pt report lessened meds and noticing little more pain in back. Is working hard about postural/back alignment during activities: feed dog, bending get items, etc and is helping . She reports adductors are sore probably using more than was used to. PT-OP-G Mobility & Gait Start: 07/25/23 17:46 Freq: Status: Active Protocol: Document 07/30/23 14:09 LRN (Rec: 07/30/23 15:01 LRN [id number]) OP Gait Assessment Gait Gait Assistance Required: Independent Able to Maintain Weight Bearing Status Yes During Gait Assistive Devices Assistive Device None Gait Deviations General Gait Pattern Antalgic,Decreased Stride Length,Lateral Trunk Lean Factors Limiting Gait Function Factors Limiting Gait Function Decreased Strength,Pain,Poor Balance Comments Gait Comments Pt ambs with heavy strike on R LE and increased L trunk sway . Postural deviations noted. Stair Climbing Evaluation Comments Stair Climbing Comments Pt able to go up/down stairs with reciprical gait and uses of rail for stability, not pain. PT-OP-H Neuro Start: 07/25/23 17:46 Freq: Status: Active Protocol: Document 07/30/23 14:09 LRN (Rec: 07/30/23 15:01 LRN [id number]) Sensation Evaluation Gross Sensation Gross Sensation WNL PT-OP-J Posture/Palpation/Skin Start: 07/25/23 17:46 Freq: Status: Active Protocol: Document 07/30/23 14:09 LRN (Rec: 07/30/23 15:01 LRN [id number]) Posture Evaluation Position Standing Head/C-Spine Posture Side Bent Left,Forward Head T-Spine Posture Increased Kyphosis L-Spine Posture Flattened,Shifted Right Shoulder Posture (L) Elevated Scapula Posture (L) Rotated Up,(L) Elevated Pelvis Posture Posterior Tilted,(L) Iliac Crest Inferior Weight Distribution Balanced Hip Posture (R) Externally Rotated Comments Posture Comments Notable sway back posturing, knees slightly flexed (7 deg's left, 9 deg's right) Palpation Assessment Location Low Back Palpation Location L3 & L5 SP posterior Palpation Findings Soft Tissue Tightness, Tenderness Palpation Details Very tender L5 PA and moderately L3. Tight L lumbar paraspinals. PT-OP-K Range of Motion Start: 07/25/23 17:46 Freq: Status: Active Protocol: Document 07/30/23 14:09 LRN (Rec: 07/30/23 15:01 LRN [id number]) Lumbar Spine Range of Motion Lumbar Spine Active Degrees Testing Position Standing Flexion 112 Extension 10 Rotation Left 20 Rotation Right 40 Lateral Flexion Left 10 Lateral Flexion Right 10 Hip Goniometric Range of Motion Hip Right Passive Testing Position Supine Straight Leg Raise 80 Internal Rotation 30 External Rotation 50 Left Passive Testing Position Supine Straight Leg Raise 65 Internal Rotation 10 External Rotation 50 PT-OP-L Special Tests Start: 07/25/23 17:46 Freq: Status: Active Protocol: Document 07/30/23 14:09 LRN (Rec: 07/30/23 15:01 LRN [id number]) Special Tests Lumbar Spine Special Tests Straight Leg Raise Test Results + left Vertical Spine Loading Test Results negative Standing Flexion Test Results positive Comments Onset of mild discomfort in L LB. PT-OP-M Strength Start: 07/25/23 17:46 Freq: Status: Active Protocol: Document 07/30/23 14:09 LRN (Rec: 07/30/23 15:01 LRN [id number]) Trunk Strength Trunk Manual Muscle Testing Core Stabilization Loss of core stabiltiy with L hip ext, Hip Strength Hip Manual Muscle Testing Right Comments Muscle groups 5/5 (hip IR/ER not tested) Left Flexion (L2) 3 Fair Extension (S1) 3 Fair Abduction 4 Good Internal Rotation 2 Poor PT-OP-Q Treatments Start: 07/25/23 17:46 Freq: Status: Active Protocol: Document 08/07/23 10:47 SP (Rec: 08/07/23 11:35 SP [id number]) Therapeutic Exercises Supine Exercises Sit<>Supine transfer Supine Exercise Name Sit<>Supine transfer training & practice Reps/Minutes x5 reps Comments VCs to sidelye before rolling to back, reach across w/ knees bent sup>side Prone Exercises TA/Gluteal tightening Prone Exercise Name TA/Gluteal tightening, added LE lift ext (unweight off table) Side left Equipment Used pelvis over pillow Reps/Minutes x10 Comments Extra time NS/ TA draw in/Glut engage good, added lift ANGELIKA Prone Exercise Name Prone lying for comfort to start, Reps/Minutes 10x 10 SH Comments cued chin tuck, good back stretch Sidelying Exercises TA hip abd Sidelying Exercise Name added to HEP Side bilateral Resistance AROM Equipment Used pillow under top leg Reps/Minutes x10 Comments extra time trunk alignment stacked on side, no roll back, ankle flex Sitting Exercises Sit<>Stand Sitting Exercise Name Transfer training and practice Reps/Minutes 2x10 reps Comments cued scoot fwd, hip hinge asc and slower descend- good graceful/back align Self-Care/Home Management Treatment Education Patient Education Body Mechanics,Pain Management Other Education Extra time spent on trunk alignment, TA/NS, able to add hip ext and abd against gravity for HEP today, LB and L lateral leg painfree. PT-OP-T Assessment and Plan Start: 07/25/23 17:46 Freq: Status: Active Protocol: Document 08/07/23 10:47 SP (Rec: 08/07/23 11:35 SP [id number]) Physical Therapy Assessment Goals Two Impairment Pain and weakness in LLE. Impairment Pain rated 2/10 in L anterior thigh & LB. SLS: 8 secs left, 4 secs right. Short Term Goal (STG) Eliminate anterior L thigh pain with sleeping. 08/01/23: No pain with pain medication through night. 08/07/23: states taking less strong med so feeling pain into L lateral leg sleeping, being woke up. STG Duration 08/23/23 updated 08/07/23 [facility] Goal (LTG) Improve SLS with pt able to walk with less trunk sway. LTG Duration 09/24/23 One Impairment Lacks self care HEP Short Term Goal (STG) Pt educated in proper LBP care of proper transfers, proper sitting/standing posturing, and body mechanics/ADL training. STG Duration 08/07/23 (08/01/23: MET GOAL) [facility] Goal (LTG) HEP of core/L hip strengthening and SLS balance exercises. 08/17/23: added prone hip ext and side ABD. LTG Duration 09/24/23 progressin08/07/23 Three Impairment Decreased function Impairment Pt limited in ability to split wood. Short Term Goal (STG) Pt will be educated in best practice to split wood STG Duration 08/09/23 Glass Inserter Goal (LTG) Pt will be able to split wood without onset of LBP. LTG Duration 09/24/23 Assessment Summary Assessment Pt improved trunk alignment during sup<> sit with cued reps, good self corrections by end tx. She had better understanding stretch prone on elbows and TA/NS engagement during glut fac able to add LE unweight into ext lift with no reports back or leg pain, added to HEP. Noted weakness in hip abd, added side ABD, mod cues for alignment and TA/ NS with response of hip muscle tiring. She would benefit from continued instruction of core/ LE strength to support back during ADLs. Physical Therapy Plan Frequency and Duration Frequency of Treatment 2x/Week Duration of treatment (weeks) 8 Plan of Care Start Date 07/30/23 Plan of Care End Date 09/24/23 Therapeutic Interventions Therapeutic Interventions Balance Training,Gait Training ,Home Exercise Program,Joint Mobilizations,Manual Therapy, Neuromuscular Re-education, Self-Care/Home Management,Soft Tissue Mobilization,Taping, Therapeutic Activities, Therapeutic Exercises Modalities Cold Pack/Ice Massage,Electric Stimulation,Hot Packs Next Visit Focus/Plan Next Note Type Treatment Note Next Visit Plan Pt to submit LUTHER. Assess response to ex & pt education on posture, body mechanics, back care. Back extension program to improve lumbar ext at L3-L5 and decrease thoracic flexion posturing, NEXT: try self jt mob of upper T/S ( open book). Improve core/L LE hip strength . Neuro-anastacia: SLS balance, Gait training: gait stability and safety. Modalities for pain and EStim to promote lumbar joint mobility. Gentle lumbar traction at PELVIS (due to TKA) as needed for LB/LLE pain.
--- NOTE | 2023-08-13 17:49 | PT.OTN ---
Current Diagnoses Other chronic pain (08/13/23) Sciatica, unspecified side (08/13/23) Low back pain, unspecified (08/13/23) Physical Therapy Treatment Note PT-OP-A Visit Information Start: 07/25/23 17:46 Freq: Status: Active Protocol: Document 08/13/23 08:48 LRN (Rec: 08/13/23 09:27 LRN [id number]) Out-Patient Physical Therapy Visit Information Visit Information Visit Type Treatment Note Visit Start Time 08:48 Visit Stop Time 09:33 Total Visit Minutes 45 Visit Number 4 Evaluation Information Evaluation Date 07/30/23 Precautions Precautions L TKA 04/09/23., R TKA ~7 yrs ago. PT-OP-B Current Condition Start: 07/25/23 17:46 Freq: Status: Active Protocol: Document 07/30/23 14:09 LRN (Rec: 07/30/23 15:01 LRN [id number]) Current Condition History of Current Condition Onset Date 06/23/23 Current Complaints L LBP rated 2/10, and R UBP rated 3/10. History of Current Condition Lifting a heavy garbage bag into a trash can (had cat litter in it) and although didn't have pain at the time she did experience onset of L low back in the afternoon. A week later she had to go to ER and was given Oxicodone and pain patches that eliminated the severe pain. Currently she has hardly any L sciatic pain and L LBP. She has been splitting wood but states her son stacks the big rolls. She hopes to get her grandson to stack the wood after she splits it. She stopped Gabapentin at night and only takes Napracin in AM and Alleve at night. She reports she sleeps really well with the medications. Pt notes she has lost a lot of weight since L TKA surgery 04/09/23. Prior Treatments and Tests Pain medications. Future Testing and Treatments Planned Initially pt saw Dr. Shraddha Tapia because Dr. Nolvia Wyatt was out of office. Saw Dr Wyatt yesterday for the R UBP (posterior shoulder). Next appt with Dr. Wyatt is October. Treatment Goals Patient/Caregiver Goals Pt goal is to be able to split wood without onset of pain, eliminate anterior L thigh pain with sleeping. She is agreeable to be on a self care HEP. 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 PT-OP-C Subjective Start: 07/25/23 17:46 Freq: Status: Active Protocol: Document 08/13/23 08:48 LRN (Rec: 08/13/23 09:27 LRN [id number]) OP-PT Subjective Patient Comments Patient Comments States last night had a hard time sleeping due to anter L thigh pain. PT-OP-G Mobility & Gait Start: 07/25/23 17:46 Freq: Status: Active Protocol: Document 07/30/23 14:09 LRN (Rec: 07/30/23 15:01 LRN [id number]) OP Gait Assessment Gait Gait Assistance Required: Independent Able to Maintain Weight Bearing Status Yes During Gait Assistive Devices Assistive Device None Gait Deviations General Gait Pattern Antalgic,Decreased Stride Length,Lateral Trunk Lean Factors Limiting Gait Function Factors Limiting Gait Function Decreased Strength,Pain,Poor Balance Comments Gait Comments Pt ambs with heavy strike on R LE and increased L trunk sway . Postural deviations noted. Stair Climbing Evaluation Comments Stair Climbing Comments Pt able to go up/down stairs with reciprical gait and uses of rail for stability, not pain. PT-OP-H Neuro Start: 07/25/23 17:46 Freq: Status: Active Protocol: Document 07/30/23 14:09 LRN (Rec: 07/30/23 15:01 LRN [id number]) Sensation Evaluation Gross Sensation Gross Sensation WNL PT-OP-J Posture/Palpation/Skin Start: 07/25/23 17:46 Freq: Status: Active Protocol: Document 07/30/23 14:09 LRN (Rec: 07/30/23 15:01 LRN [id number]) Posture Evaluation Position Standing Head/C-Spine Posture Side Bent Left,Forward Head T-Spine Posture Increased Kyphosis L-Spine Posture Flattened,Shifted Right Shoulder Posture (L) Elevated Scapula Posture (L) Rotated Up,(L) Elevated Pelvis Posture Posterior Tilted,(L) Iliac Crest Inferior Weight Distribution Balanced Hip Posture (R) Externally Rotated Comments Posture Comments Notable sway back posturing, knees slightly flexed (7 deg's left, 9 deg's right) Palpation Assessment Location Low Back Palpation Location L3 & L5 SP posterior Palpation Findings Soft Tissue Tightness, Tenderness Palpation Details Very tender L5 PA and moderately L3. Tight L lumbar paraspinals. PT-OP-K Range of Motion Start: 07/25/23 17:46 Freq: Status: Active Protocol: Document 07/30/23 14:09 LRN (Rec: 07/30/23 15:01 LRN [id number]) Lumbar Spine Range of Motion Lumbar Spine Active Degrees Testing Position Standing Flexion 112 Extension 10 Rotation Left 20 Rotation Right 40 Lateral Flexion Left 10 Lateral Flexion Right 10 Hip Goniometric Range of Motion Hip Right Passive Testing Position Supine Straight Leg Raise 80 Internal Rotation 30 External Rotation 50 Left Passive Testing Position Supine Straight Leg Raise 65 Internal Rotation 10 External Rotation 50 PT-OP-L Special Tests Start: 07/25/23 17:46 Freq: Status: Active Protocol: Document 07/30/23 14:09 LRN (Rec: 07/30/23 15:01 LRN [id number]) Special Tests Lumbar Spine Special Tests Straight Leg Raise Test Results + left Vertical Spine Loading Test Results negative Standing Flexion Test Results positive Comments Onset of mild discomfort in L LB. PT-OP-M Strength Start: 07/25/23 17:46 Freq: Status: Active Protocol: Document 07/30/23 14:09 LRN (Rec: 07/30/23 15:01 LRN [id number]) Trunk Strength Trunk Manual Muscle Testing Core Stabilization Loss of core stabiltiy with L hip ext, Hip Strength Hip Manual Muscle Testing Right Comments Muscle groups 5/5 (hip IR/ER not tested) Left Flexion (L2) 3 Fair Extension (S1) 3 Fair Abduction 4 Good Internal Rotation 2 Poor PT-OP-Q Treatments Start: 07/25/23 17:46 Freq: Status: Active Protocol: Document 08/13/23 08:48 LRN (Rec: 08/13/23 09:27 LRN [id number]) Therapeutic Exercises Sidelying Exercises Clamshell Sidelying Exercise Name TA-trunk ext/Clamshell Side left Reps/Minutes 10x Manual Therapy Treatment Soft Tissue Mobilization MWM Body Location L rot of L3 Body Position R sidelye Comments Pain eliminated with clamshell after 3rd set of 10 reps of mvmt. Joint Mobilizations L/S Joint L1, L3, L5 Direction PA and L rot of L3 PT-OP-R Modalities Start: 07/25/23 17:46 Freq: Status: Active Protocol: Document 08/13/23 08:48 LRN (Rec: 08/13/23 09:27 LRN [id number]) Electric Stimulation Electric Stimulation Interferential Current (IFC) Body Location [L3] Duration (Minutes) 10 Intensity 25 Target/Sweep Sweep Patient Position Hooklying Combined With Heat/Cold Hot Pack Comments Extra time to determine tolerated intensity. PT-OP-T Assessment and Plan Start: 07/25/23 17:46 Freq: Status: Active Protocol: Document 08/13/23 08:48 LRN (Rec: 08/13/23 09:27 LRN [id number]) Physical Therapy Assessment Goals Two Impairment Pain and weakness in LLE. Impairment Pain rated 2/10 in L anterior thigh & LB. SLS: 8 secs left, 4 secs right. Short Term Goal (STG) Eliminate anterior L thigh pain with sleeping. 08/01/23: No pain with pain medication through night. 08/07/23: states taking less strong med so feeling pain into L lateral leg sleeping, being woke up. STG Duration 08/23/23 updated 08/07/23 Transit Clerk Goal (LTG) Improve SLS with pt able to walk with less trunk sway. LTG Duration 09/24/23 One Impairment Lacks self care HEP Short Term Goal (STG) Pt educated in proper LBP care of proper transfers, proper sitting/standing posturing, and body mechanics/ADL training. STG Duration 08/07/23 (08/01/23: MET GOAL) [facility] Goal (LTG) HEP of core/L hip strengthening and SLS balance exercises. 08/17/23: added prone hip ext and side ABD. LTG Duration 09/24/23 progressin08/07/23 Three Impairment Decreased function Impairment Pt limited in ability to split wood. Short Term Goal (STG) Pt will be educated in best practice to split wood STG Duration 08/09/23 [facility] Goal (LTG) Pt will be able to split wood without onset of LBP. LTG Duration 09/24/23 Assessment Summary Assessment Pt initially present with +L PSLR, extreme tightness of her L hip IR's and neurological weakness of her LLE. She appeared to have a positional dysfunction of L3 & L5 with spinous processes more posteriorly positioned in prone. She no longer has + L PSLR (pt is taking Gabapentin) . She has tightness of L hip IR's and has positional dysfunction of L3, L5 posteriorly positioned and L3 L rotated causing L anterior knee pain. After MWM pt had less anterior thigh pain. Pt is being more aware of proper back posturing. Physical Therapy Plan Frequency and Duration Frequency of Treatment 2x/Week Duration of treatment (weeks) 8 Plan of Care Start Date 07/30/23 Plan of Care End Date 09/24/23 Next Visit Focus/Plan Next Note Type Treatment Note Next Visit Plan Pt to submit LUTHER. Assess response to EStim. Review w/ pt modifications to small of back if sidelying at nighttime . Back extension program to improve lumbar ext at L3-L5 and decrease thoracic flexion posturing, NEXT: try self jt mob of upper T/S (open book). Asssess and Improve L LE hip/ core strength. Neuro-anastacia: SLS balance, Gait training: gait stability and safety. Modalities for pain and EStim to promote lumbar joint mobility. Gentle lumbar traction at PELVIS (due to TKA) as needed for LB/LLE pain.
--- NOTE | 2023-08-16 09:47 | PT.OTN ---
Current Diagnoses Other chronic pain (08/16/23) Sciatica, unspecified side (08/16/23) Low back pain, unspecified (08/16/23) Physical Therapy Treatment Note PT-OP-A Visit Information Start: 07/25/23 17:46 Freq: Status: Active Protocol: Document 08/16/23 09:08 SP (Rec: 08/16/23 09:58 SP [id number]) Out-Patient Physical Therapy Visit Information Visit Information Visit Type Treatment Note Visit Start Time 09:08 Visit Stop Time 09:47 Total Visit Minutes 39 Visit Number 5 Number of MILL ATTENDANT Visits 1 Evaluation Information Evaluation Date 07/30/23 Precautions Precautions L TKA 04/09/23., R TKA ~7 yrs ago. PT-OP-B Current Condition Start: 07/25/23 17:46 Freq: Status: Active Protocol: Document 07/30/23 14:09 LRN (Rec: 07/30/23 15:01 LRN [id number]) Current Condition History of Current Condition Onset Date 06/23/23 Current Complaints L LBP rated 2/10, and R UBP rated 3/10. History of Current Condition Lifting a heavy garbage bag into a trash can (had cat litter in it) and although didn't have pain at the time she did experience onset of L low back in the afternoon. A week later she had to go to ER and was given Oxicodone and pain patches that eliminated the severe pain. Currently she has hardly any L sciatic pain and L LBP. She has been splitting wood but states her son stacks the big rolls. She hopes to get her grandson to stack the wood after she splits it. She stopped Gabapentin at night and only takes Napracin in AM and Alleve at night. She reports she sleeps really well with the medications. Pt notes she has lost a lot of weight since L TKA surgery 04/09/23. Prior Treatments and Tests Pain medications. Future Testing and Treatments Planned Initially pt saw Dr. Shraddha Tapia because Dr. Nolvia Wyatt was out of office. Saw Dr Wyatt yesterday for the R UBP (posterior shoulder). Next appt with Dr. Wyatt is October. Treatment Goals Patient/Caregiver Goals Pt goal is to be able to split wood without onset of pain, eliminate anterior L thigh pain with sleeping. She is agreeable to be on a self care HEP. 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 PT-OP-C Subjective Start: 07/25/23 17:46 Freq: Status: Active Protocol: Document 08/16/23 09:08 SP (Rec: 08/16/23 09:58 SP [id number]) OP-PT Subjective Patient Comments Patient Comments Pt reports L lateral quad, hip and glut sore upon arrival. Doing well with exercises, no pain with them. She states sleeping with pillow between LEs and feels better. She also only having to use Tylenol for pain assist. PT-OP-G Mobility & Gait Start: 07/25/23 17:46 Freq: Status: Active Protocol: Document 07/30/23 14:09 LRN (Rec: 07/30/23 15:01 LRN [id number]) OP Gait Assessment Gait Gait Assistance Required: Independent Able to Maintain Weight Bearing Status Yes During Gait Assistive Devices Assistive Device None Gait Deviations General Gait Pattern Antalgic,Decreased Stride Length,Lateral Trunk Lean Factors Limiting Gait Function Factors Limiting Gait Function Decreased Strength,Pain,Poor Balance Comments Gait Comments Pt ambs with heavy strike on R LE and increased L trunk sway . Postural deviations noted. Stair Climbing Evaluation Comments Stair Climbing Comments Pt able to go up/down stairs with reciprical gait and uses of rail for stability, not pain. PT-OP-H Neuro Start: 07/25/23 17:46 Freq: Status: Active Protocol: Document 07/30/23 14:09 LRN (Rec: 07/30/23 15:01 LRN [id number]) Sensation Evaluation Gross Sensation Gross Sensation WNL PT-OP-J Posture/Palpation/Skin Start: 07/25/23 17:46 Freq: Status: Active Protocol: Document 07/30/23 14:09 LRN (Rec: 07/30/23 15:01 LRN [id number]) Posture Evaluation Position Standing Head/C-Spine Posture Side Bent Left,Forward Head T-Spine Posture Increased Kyphosis L-Spine Posture Flattened,Shifted Right Shoulder Posture (L) Elevated Scapula Posture (L) Rotated Up,(L) Elevated Pelvis Posture Posterior Tilted,(L) Iliac Crest Inferior Weight Distribution Balanced Hip Posture (R) Externally Rotated Comments Posture Comments Notable sway back posturing, knees slightly flexed (7 deg's left, 9 deg's right) Palpation Assessment Location Low Back Palpation Location L3 & L5 SP posterior Palpation Findings Soft Tissue Tightness, Tenderness Palpation Details Very tender L5 PA and moderately L3. Tight L lumbar paraspinals. PT-OP-K Range of Motion Start: 07/25/23 17:46 Freq: Status: Active Protocol: Document 07/30/23 14:09 LRN (Rec: 07/30/23 15:01 LRN [id number]) Lumbar Spine Range of Motion Lumbar Spine Active Degrees Testing Position Standing Flexion 112 Extension 10 Rotation Left 20 Rotation Right 40 Lateral Flexion Left 10 Lateral Flexion Right 10 Hip Goniometric Range of Motion Hip Right Passive Testing Position Supine Straight Leg Raise 80 Internal Rotation 30 External Rotation 50 Left Passive Testing Position Supine Straight Leg Raise 65 Internal Rotation 10 External Rotation 50 PT-OP-L Special Tests Start: 07/25/23 17:46 Freq: Status: Active Protocol: Document 07/30/23 14:09 LRN (Rec: 07/30/23 15:01 LRN [id number]) Special Tests Lumbar Spine Special Tests Straight Leg Raise Test Results + left Vertical Spine Loading Test Results negative Standing Flexion Test Results positive Comments Onset of mild discomfort in L LB. PT-OP-M Strength Start: 07/25/23 17:46 Freq: Status: Active Protocol: Document 07/30/23 14:09 LRN (Rec: 07/30/23 15:01 LRN [id number]) Trunk Strength Trunk Manual Muscle Testing Core Stabilization Loss of core stabiltiy with L hip ext, Hip Strength Hip Manual Muscle Testing Right Comments Muscle groups 5/5 (hip IR/ER not tested) Left Flexion (L2) 3 Fair Extension (S1) 3 Fair Abduction 4 Good Internal Rotation 2 Poor PT-OP-Q Treatments Start: 07/25/23 17:46 Freq: Status: Active Protocol: Document 08/16/23 09:08 SP (Rec: 08/16/23 09:58 SP [id number]) Therapeutic Exercises Prone Exercises TA/Gluteal tightening Prone Exercise Name TA/Gluteal tightening, reviewed LE lift ext (unweight off table) Side left Equipment Used no pillow Reps/Minutes x5 reps x2 sets- light PA ossilations Comments Ed UE and head pos, NS/ TA draw in/Glut engage good, lift ANGELIKA Prone Exercise Name Prone lying for comfort to start, on elbows, Reps/Minutes 10x 10-20 SH Comments cued chin tuck, light anterior hip and back stretch Other Exercises quadruped Other Exercise Name 1. cat camel 2. child's pose Equipment Used see HO Reps/Minutes 1. x5 SH x5 reps 2. 10 SH x5 reps Comments good feedback back stretch Manual Therapy Treatment Soft Tissue Mobilization L hip Body Location glut med, max, piriformis, TFL Mobilization Type Sustained Pressure,Other Intensity/Depth Moderate Body Position Prone Comments MWM PROM hip IR/ ER c/ knee bent. Good feedback response less tightness, discomfort in lateral L hip. Joint Mobilizations L/S Joint L1, L3, L5 Direction PA Body Position Prone Comments PA gentle sustained pressure ossilations L5, L3 Self-Care/Home Management Treatment Education Other Education added cat cow, modified child' s pose. trialed standing end tx, LB slight arch standing with improved wt shift COG over MED , painfree but a challenged with mobility due to rounded posture, not used to it but reports painfree. PT-OP-R Modalities Start: 07/25/23 17:46 Freq: Status: Active Protocol: Document 08/13/23 08:48 LRN (Rec: 08/13/23 09:27 LRN [id number]) Electric Stimulation Electric Stimulation Interferential Current (IFC) Body Location [L3] Duration (Minutes) 10 Intensity 25 Target/Sweep Sweep Patient Position Hooklying Combined With Heat/Cold Hot Pack Comments Extra time to determine tolerated intensity. PT-OP-T Assessment and Plan Start: 07/25/23 17:46 Freq: Status: Active Protocol: Document 08/16/23 09:08 SP (Rec: 08/16/23 09:58 SP [id number]) Physical Therapy Assessment Goals Two Impairment Pain and weakness in LLE. Impairment Pain rated 2/10 in L anterior thigh & LB. SLS: 8 secs left, 4 secs right. Short Term Goal (STG) Eliminate anterior L thigh pain with sleeping. 08/01/23: No pain with pain medication through night. 08/07/23: states taking less strong med so feeling pain into L lateral leg sleeping, being woke up. STG Duration 08/23/23 updated 08/07/23 Custodial Goal (LTG) Improve SLS with pt able to walk with less trunk sway. LTG Duration 09/24/23 One Impairment Lacks self care HEP Short Term Goal (STG) Pt educated in proper LBP care of proper transfers, proper sitting/standing posturing, and body mechanics/ADL training. STG Duration 08/07/23 (08/01/23: MET GOAL) Supervisor Asphalt Paving Goal (LTG) HEP of core/L hip strengthening and SLS balance exercises. 08/17/23: added prone hip ext and side ABD. LTG Duration 09/24/23 progressin08/07/23 Three Impairment Decreased function Impairment Pt limited in ability to split wood. Short Term Goal (STG) Pt will be educated in best practice to split wood STG Duration 08/09/23 Supervisor Asphalt Paving Goal (LTG) Pt will be able to split wood without onset of LBP. LTG Duration 09/24/23 Assessment Summary Assessment Pt good feedback response less tension over anterior hip and low back post manual and prone ther ex. Able to get on/ off floor to perform this location with chair support. Cues for LB slight arch standing with improved wt shift COG over MED, painfree but a challenged with mobility , not used to it but reports painfree. Physical Therapy Plan Frequency and Duration Frequency of Treatment 2x/Week Duration of treatment (weeks) 8 Plan of Care Start Date 07/30/23 Plan of Care End Date 09/24/23 Therapeutic Interventions Therapeutic Interventions Balance Training,Gait Training ,Home Exercise Program,Joint Mobilizations,Manual Therapy, Neuromuscular Re-education, Self-Care/Home Management,Soft Tissue Mobilization,Taping, Therapeutic Activities, Therapeutic Exercises Modalities Cold Pack/Ice Massage,Electric Stimulation,Hot Packs Next Visit Focus/Plan Next Note Type Treatment Note Next Visit Plan Pt to submit LUTHER. Assess response to EStim. Review w/ pt modifications to small of back if sidelying at nighttime . Back extension program to improve lumbar ext at L3-L5 and decrease thoracic flexion posturing, NEXT: try self jt mob of upper T/S (open book). Asssess and Improve L LE hip/ core strength. Neuro-anastacia: SLS balance, Gait training: gait stability and safety. Modalities for pain and EStim to promote lumbar joint mobility. Gentle lumbar traction at PELVIS (due to TKA) as needed for LB/LLE pain.
--- NOTE | 2023-08-19 10:45 | PT.OTN ---
Current Diagnoses Other chronic pain (08/19/23) Sciatica, unspecified side (08/19/23) Low back pain, unspecified (08/19/23) Physical Therapy Treatment Note PT-OP-A Visit Information Start: 07/25/23 17:46 Freq: Status: Active Protocol: Document 08/19/23 10:02 SP (Rec: 08/19/23 10:49 SP [id number]) Out-Patient Physical Therapy Visit Information Visit Information Visit Type Treatment Note Visit Start Time 10:02 Visit Stop Time 10:45 Total Visit Minutes 43 Visit Number 6 Number of CABINET INSTALLER Visits 2 Evaluation Information Evaluation Date 07/30/23 Precautions Precautions L TKA 04/09/23., R TKA ~7 yrs ago. PT-OP-B Current Condition Start: 07/25/23 17:46 Freq: Status: Active Protocol: Document 07/30/23 14:09 LRN (Rec: 07/30/23 15:01 LRN [id number]) Current Condition History of Current Condition Onset Date 06/23/23 Current Complaints L LBP rated 2/10, and R UBP rated 3/10. History of Current Condition Lifting a heavy garbage bag into a trash can (had cat litter in it) and although didn't have pain at the time she did experience onset of L low back in the afternoon. A week later she had to go to ER and was given Oxicodone and pain patches that eliminated the severe pain. Currently she has hardly any L sciatic pain and L LBP. She has been splitting wood but states her son stacks the big rolls. She hopes to get her grandson to stack the wood after she splits it. She stopped Gabapentin at night and only takes Napracin in AM and Alleve at night. She reports she sleeps really well with the medications. Pt notes she has lost a lot of weight since L TKA surgery 04/09/23. Prior Treatments and Tests Pain medications. Future Testing and Treatments Planned Initially pt saw Dr. Shraddha Tapia because Dr. Nolvia Wyatt was out of office. Saw Dr Wyatt yesterday for the R UBP (posterior shoulder). Next appt with Dr. Wyatt is October. Treatment Goals Patient/Caregiver Goals Pt goal is to be able to split wood without onset of pain, eliminate anterior L thigh pain with sleeping. She is agreeable to be on a self care HEP. 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 PT-OP-C Subjective Start: 07/25/23 17:46 Freq: Status: Active Protocol: Document 08/19/23 10:02 SP (Rec: 08/19/23 10:49 SP [id number]) OP-PT Subjective Patient Comments Patient Comments Pt reports the new cat shelly helps back feel better. She said her back is sore in the am but gets better as day goes on. PT-OP-G Mobility & Gait Start: 07/25/23 17:46 Freq: Status: Active Protocol: Document 07/30/23 14:09 LRN (Rec: 07/30/23 15:01 LRN [id number]) OP Gait Assessment Gait Gait Assistance Required: Independent Able to Maintain Weight Bearing Status Yes During Gait Assistive Devices Assistive Device None Gait Deviations General Gait Pattern Antalgic,Decreased Stride Length,Lateral Trunk Lean Factors Limiting Gait Function Factors Limiting Gait Function Decreased Strength,Pain,Poor Balance Comments Gait Comments Pt ambs with heavy strike on R LE and increased L trunk sway . Postural deviations noted. Stair Climbing Evaluation Comments Stair Climbing Comments Pt able to go up/down stairs with reciprical gait and uses of rail for stability, not pain. PT-OP-H Neuro Start: 07/25/23 17:46 Freq: Status: Active Protocol: Document 07/30/23 14:09 LRN (Rec: 07/30/23 15:01 LRN [id number]) Sensation Evaluation Gross Sensation Gross Sensation WNL PT-OP-J Posture/Palpation/Skin Start: 07/25/23 17:46 Freq: Status: Active Protocol: Document 07/30/23 14:09 LRN (Rec: 07/30/23 15:01 LRN [id number]) Posture Evaluation Position Standing Head/C-Spine Posture Side Bent Left,Forward Head T-Spine Posture Increased Kyphosis L-Spine Posture Flattened,Shifted Right Shoulder Posture (L) Elevated Scapula Posture (L) Rotated Up,(L) Elevated Pelvis Posture Posterior Tilted,(L) Iliac Crest Inferior Weight Distribution Balanced Hip Posture (R) Externally Rotated Comments Posture Comments Notable sway back posturing, knees slightly flexed (7 deg's left, 9 deg's right) Palpation Assessment Location Low Back Palpation Location L3 & L5 SP posterior Palpation Findings Soft Tissue Tightness, Tenderness Palpation Details Very tender L5 PA and moderately L3. Tight L lumbar paraspinals. PT-OP-K Range of Motion Start: 07/25/23 17:46 Freq: Status: Active Protocol: Document 07/30/23 14:09 LRN (Rec: 07/30/23 15:01 LRN [id number]) Lumbar Spine Range of Motion Lumbar Spine Active Degrees Testing Position Standing Flexion 112 Extension 10 Rotation Left 20 Rotation Right 40 Lateral Flexion Left 10 Lateral Flexion Right 10 Hip Goniometric Range of Motion Hip Right Passive Testing Position Supine Straight Leg Raise 80 Internal Rotation 30 External Rotation 50 Left Passive Testing Position Supine Straight Leg Raise 65 Internal Rotation 10 External Rotation 50 PT-OP-L Special Tests Start: 07/25/23 17:46 Freq: Status: Active Protocol: Document 07/30/23 14:09 LRN (Rec: 07/30/23 15:01 LRN [id number]) Special Tests Lumbar Spine Special Tests Straight Leg Raise Test Results + left Vertical Spine Loading Test Results negative Standing Flexion Test Results positive Comments Onset of mild discomfort in L LB. PT-OP-M Strength Start: 07/25/23 17:46 Freq: Status: Active Protocol: Document 07/30/23 14:09 LRN (Rec: 07/30/23 15:01 LRN [id number]) Trunk Strength Trunk Manual Muscle Testing Core Stabilization Loss of core stabiltiy with L hip ext, Hip Strength Hip Manual Muscle Testing Right Comments Muscle groups 5/5 (hip IR/ER not tested) Left Flexion (L2) 3 Fair Extension (S1) 3 Fair Abduction 4 Good Internal Rotation 2 Poor PT-OP-Q Treatments Start: 07/25/23 17:46 Freq: Status: Active Protocol: Document 08/19/23 10:02 SP (Rec: 08/19/23 10:49 SP [id number]) Gym Equipment Sport Cord red Exercise Details fwd & lateral 5 reps, fwd/ bwd down 4 step Cord/Resistance red Comments improve TA and trunk alignment decrease PPT/retro COG more fwd- back painfree. Therapeutic Exercises Prone Exercises TA/Gluteal tightening Prone Exercise Name TA/Gluteal tightening, reviewed LE lift ext (unweight off table) Side left Equipment Used no pillow Reps/Minutes x5 reps x2 sets- light PA ossilations L3, L5 Comments Ed UE and head pos, NS/ TA draw in/Glut engage good, lift ANGELIKA Prone Exercise Name Prone lying for comfort to start, on elbows, Reps/Minutes 10x 10-20 SH Comments cued chin tuck, light anterior hip and back stretch Sidelying Exercises TA hip abd Sidelying Exercise Name reviewed HEP Side bilateral Resistance AROM Equipment Used no pillow today Reps/Minutes x10 Comments improved TA, trunk stability stacked on side 10/30 Sitting Exercises Sit<>Stand Sitting Exercise Name TA & fwd posture over mid- forefoot at full stand Equipment Used mesh chair no UE support Reps/Minutes x10 Comments improved trunk&spinal alignment Standing Exercises wall posture Standing Exercise Name chest lift, LB arch neutral- added to HEP Reps/Minutes 3 reps 10 SH Comments improve spinal alignment and more mid over COG- no LBP Other Exercises quadruped Other Exercise Name 1. cat camel 2. child's pose Equipment Used see HO Reps/Minutes 1. x5 SH x5 reps 2. 10 SH x5 reps Comments good feedback back stretch Manual Therapy Treatment Joint Mobilizations L/S Joint L1, L3, L5 Direction PA Body Position Prone Comments PA gentle sustained pressure ossilations L5, L3 Neuro Re-Education Treatment Balance Activities hurdles Details fwd Surface 6 hurdles receiprocal stepping Comments improved wt shift fwd COG over MED and spinal alignment LS ext and TS ext with TA and post sport cord. Cues for increase L knee flexion ft clearance improved decrease circumduction. PT-OP-R Modalities Start: 07/25/23 17:46 Freq: Status: Active Protocol: Document 08/13/23 08:48 LRN (Rec: 08/13/23 09:27 LRN [id number]) Electric Stimulation Electric Stimulation Interferential Current (IFC) Body Location [L3] Duration (Minutes) 10 Intensity 25 Target/Sweep Sweep Patient Position Hooklying Combined With Heat/Cold Hot Pack Comments Extra time to determine tolerated intensity. PT-OP-T Assessment and Plan Start: 07/25/23 17:46 Freq: Status: Active Protocol: Document 08/19/23 10:02 SP (Rec: 08/19/23 10:49 SP [id number]) Physical Therapy Assessment Goals Two Impairment Pain and weakness in LLE. Impairment Pain rated 2/10 in L anterior thigh & LB. SLS: 8 secs left, 4 secs right. Short Term Goal (STG) Eliminate anterior L thigh pain with sleeping. 08/01/23: No pain with pain medication through night. 08/07/23: states taking less strong med so feeling pain into L lateral leg sleeping, being woke up. STG Duration 08/23/23 updated 08/07/23 Fdc Goal (LTG) Improve SLS with pt able to walk with less trunk sway. LTG Duration 09/24/23 One Impairment Lacks self care HEP Short Term Goal (STG) Pt educated in proper LBP care of proper transfers, proper sitting/standing posturing, and body mechanics/ADL training. STG Duration 08/07/23 (08/01/23: MET GOAL) Fdc Goal (LTG) HEP of core/L hip strengthening and SLS balance exercises. 08/17/23: added prone hip ext and side ABD. LTG Duration 09/24/23 progressin08/07/23 Three Impairment Decreased function Impairment Pt limited in ability to split wood. Short Term Goal (STG) Pt will be educated in best practice to split wood STG Duration 08/09/23 Jewelry Bearing Maker Goal (LTG) Pt will be able to split wood without onset of LBP. LTG Duration 09/24/23 Assessment Summary Assessment Pt improved elevated spinal alignment posturing post use of wall with cues LS ext and CS nod flexion neutral. Provided cues with CS TS extension neutral posture with increased more neutral LS extension COG over MED during resisted side/fwd/back stepping and step up/back downs with on complaints of back pain. REviewed prone HEP with almost no pain more reported muscle soreness like working. Physical Therapy Plan Frequency and Duration Frequency of Treatment 2x/Week Duration of treatment (weeks) 8 Plan of Care Start Date 07/30/23 Plan of Care End Date 09/24/23 Therapeutic Interventions Therapeutic Interventions Balance Training,Gait Training ,Home Exercise Program,Joint Mobilizations,Manual Therapy, Neuromuscular Re-education, Self-Care/Home Management,Soft Tissue Mobilization,Taping, Therapeutic Activities, Therapeutic Exercises Modalities Cold Pack/Ice Massage,Electric Stimulation,Hot Packs Next Visit Focus/Plan Next Note Type Treatment Note Next Visit Plan Add Ktaping to LS if can remove self for LS neutral spine corrections during mobility. Trial use calf stretch LONNIE with LS ext ex. Pt to submit LUTHER. Assess response to EStim. Review w/ pt modifications to small of back if sidelying at nighttime . Back extension program to improve lumbar ext at L3-L5 and decrease thoracic flexion posturing, NEXT: try self jt mob of upper T/S (open book). Asssess and Improve L LE hip/ core strength. Neuro-anastacia: SLS balance, Gait training: gait stability and safety. Modalities for pain and EStim to promote lumbar joint mobility. Gentle lumbar traction at PELVIS (due to TKA) as needed for LB/LLE pain.
--- NOTE | 2023-08-21 10:46 | PT.OTN ---
Current Diagnoses Other chronic pain (08/21/23) Sciatica, unspecified side (08/21/23) Low back pain, unspecified (08/21/23) Physical Therapy Treatment Note PT-OP-A Visit Information Start: 07/25/23 17:46 Freq: Status: Active Protocol: Document 08/21/23 10:00 SP (Rec: 08/21/23 10:50 SP [id number]) Out-Patient Physical Therapy Visit Information Visit Information Visit Type Treatment Note Visit Start Time 10:00 Visit Stop Time 10:46 Total Visit Minutes 45 Visit Number 7 Number of MANPOWER DEVELOPMENT SPECIALIST Visits 3 Evaluation Information Evaluation Date 07/30/23 Precautions Precautions L TKA 04/09/23., R TKA ~7 yrs ago. PT-OP-B Current Condition Start: 07/25/23 17:46 Freq: Status: Active Protocol: Document 07/30/23 14:09 LRN (Rec: 07/30/23 15:01 LRN [id number]) Current Condition History of Current Condition Onset Date 06/23/23 Current Complaints L LBP rated 2/10, and R UBP rated 3/10. History of Current Condition Lifting a heavy garbage bag into a trash can (had cat litter in it) and although didn't have pain at the time she did experience onset of L low back in the afternoon. A week later she had to go to ER and was given Oxicodone and pain patches that eliminated the severe pain. Currently she has hardly any L sciatic pain and L LBP. She has been splitting wood but states her son stacks the big rolls. She hopes to get her grandson to stack the wood after she splits it. She stopped Gabapentin at night and only takes Napracin in AM and Alleve at night. She reports she sleeps really well with the medications. Pt notes she has lost a lot of weight since L TKA surgery 04/09/23. Prior Treatments and Tests Pain medications. Future Testing and Treatments Planned Initially pt saw Dr. Shraddha Tapia because Dr. Nolvia Wyatt was out of office. Saw Dr Wyatt yesterday for the R UBP (posterior shoulder). Next appt with Dr. Wyatt is October. Treatment Goals Patient/Caregiver Goals Pt goal is to be able to split wood without onset of pain, eliminate anterior L thigh pain with sleeping. She is agreeable to be on a self care HEP. 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 PT-OP-C Subjective Start: 07/25/23 17:46 Freq: Status: Active Protocol: Document 08/21/23 10:00 SP (Rec: 08/21/23 10:50 SP [id number]) OP-PT Subjective Patient Comments Patient Comments Pt reported L quad tight today . PT-OP-G Mobility & Gait Start: 07/25/23 17:46 Freq: Status: Active Protocol: Document 07/30/23 14:09 LRN (Rec: 07/30/23 15:01 LRN [id number]) OP Gait Assessment Gait Gait Assistance Required: Independent Able to Maintain Weight Bearing Status Yes During Gait Assistive Devices Assistive Device None Gait Deviations General Gait Pattern Antalgic,Decreased Stride Length,Lateral Trunk Lean Factors Limiting Gait Function Factors Limiting Gait Function Decreased Strength,Pain,Poor Balance Comments Gait Comments Pt ambs with heavy strike on R LE and increased L trunk sway . Postural deviations noted. Stair Climbing Evaluation Comments Stair Climbing Comments Pt able to go up/down stairs with reciprical gait and uses of rail for stability, not pain. PT-OP-H Neuro Start: 07/25/23 17:46 Freq: Status: Active Protocol: Document 07/30/23 14:09 LRN (Rec: 07/30/23 15:01 LRN [id number]) Sensation Evaluation Gross Sensation Gross Sensation WNL PT-OP-J Posture/Palpation/Skin Start: 07/25/23 17:46 Freq: Status: Active Protocol: Document 07/30/23 14:09 LRN (Rec: 07/30/23 15:01 LRN [id number]) Posture Evaluation Position Standing Head/C-Spine Posture Side Bent Left,Forward Head T-Spine Posture Increased Kyphosis L-Spine Posture Flattened,Shifted Right Shoulder Posture (L) Elevated Scapula Posture (L) Rotated Up,(L) Elevated Pelvis Posture Posterior Tilted,(L) Iliac Crest Inferior Weight Distribution Balanced Hip Posture (R) Externally Rotated Comments Posture Comments Notable sway back posturing, knees slightly flexed (7 deg's left, 9 deg's right) Palpation Assessment Location Low Back Palpation Location L3 & L5 SP posterior Palpation Findings Soft Tissue Tightness, Tenderness Palpation Details Very tender L5 PA and moderately L3. Tight L lumbar paraspinals. PT-OP-K Range of Motion Start: 07/25/23 17:46 Freq: Status: Active Protocol: Document 07/30/23 14:09 LRN (Rec: 07/30/23 15:01 LRN [id number]) Lumbar Spine Range of Motion Lumbar Spine Active Degrees Testing Position Standing Flexion 112 Extension 10 Rotation Left 20 Rotation Right 40 Lateral Flexion Left 10 Lateral Flexion Right 10 Hip Goniometric Range of Motion Hip Right Passive Testing Position Supine Straight Leg Raise 80 Internal Rotation 30 External Rotation 50 Left Passive Testing Position Supine Straight Leg Raise 65 Internal Rotation 10 External Rotation 50 PT-OP-L Special Tests Start: 07/25/23 17:46 Freq: Status: Active Protocol: Document 07/30/23 14:09 LRN (Rec: 07/30/23 15:01 LRN [id number]) Special Tests Lumbar Spine Special Tests Straight Leg Raise Test Results + left Vertical Spine Loading Test Results negative Standing Flexion Test Results positive Comments Onset of mild discomfort in L LB. PT-OP-M Strength Start: 07/25/23 17:46 Freq: Status: Active Protocol: Document 07/30/23 14:09 LRN (Rec: 07/30/23 15:01 LRN [id number]) Trunk Strength Trunk Manual Muscle Testing Core Stabilization Loss of core stabiltiy with L hip ext, Hip Strength Hip Manual Muscle Testing Right Comments Muscle groups 5/5 (hip IR/ER not tested) Left Flexion (L2) 3 Fair Extension (S1) 3 Fair Abduction 4 Good Internal Rotation 2 Poor PT-OP-Q Treatments Start: 07/25/23 17:46 Freq: Status: Active Protocol: Document 08/21/23 10:00 SP (Rec: 08/21/23 10:50 SP [id number]) Therapeutic Exercises Supine Exercises Knee flexion stretch Supine Exercise Name L lower leg off table- passive quad stretch Side left Resistance dangle then added slight knee flexion AROM Reps/Minutes 3 min total Comments Bowler LE flexion/ft on table, cued NS-improved decrease quad end tx Prone Exercises TA/Gluteal tightening Prone Exercise Name TA/Gluteal tightening, reviewed LE lift ext (unweight off table) Side left Equipment Used no pillow Reps/Minutes x5 reps x2 sets- light PA ossilations L3, L5 Comments Ed UE and head pos, NS/ TA draw in/Glut engage good, lift ANGELIKA Prone Exercise Name Prone lying for comfort to start, on elbows, Reps/Minutes 10x 10-20 SH Comments cued chin tuck, light anterior hip and back stretch Sitting Exercises Sit<>Stand Sitting Exercise Name TA & fwd posture over mid- forefoot at full stand Equipment Used mesh chair no UE support Reps/Minutes x10 Comments improved trunk&spinal alignment Gait Training Gait Activity spinal alignment Description chest lift, COG over forefoot, CS retract/NS Device Used 0 Level of Assistance S Distance/Duration 20 ft x4 laps front mirror Treatment Focus increase upright/more fwd postural spinal alignment, hip extension Comments improved increased stride, spinal alignment with cuing. Manual Therapy Treatment Soft Tissue Mobilization L hip Body Location sustained compression piriformis Mobilization Type Sustained Pressure,Other Intensity/Depth Moderate Body Position Prone Comments MWM PROM hip IR/ ER c/ knee bent. Good feedback response less tightness, discomfort in andterior L hip. Joint Mobilizations L/S Joint L1, L3, L5 Direction PA Body Position Prone Comments PA gentle sustained pressure ossilations L5, L3 Taping ktape Body Location B ES L1-L4 Treatment Focus awareness of LS extension neutral spine, more forward COG over MED Type of Tape Kinesio Tape Comments I strips along ES L1-L4- 25% tension States does feel tension little bit if relaxes into slouched posture, felt would give her feedback for posturing correction support. Understands adverse affects redness/itching/tingling/any irritation remove immediately. Suggested able to wear in shower. Wear 2 hrs if ok then up to 24 hrs, if ok no more than 48 hrs. Take off gently with oil product for safety skin integrity. If isn't helpful then remove. PT-OP-R Modalities Start: 07/25/23 17:46 Freq: Status: Active Protocol: Document 08/13/23 08:48 LRN (Rec: 08/13/23 09:27 LRN [id number]) Electric Stimulation Electric Stimulation Interferential Current (IFC) Body Location [L3] Duration (Minutes) 10 Intensity 25 Target/Sweep Sweep Patient Position Hooklying Combined With Heat/Cold Hot Pack Comments Extra time to determine tolerated intensity. PT-OP-T Assessment and Plan Start: 07/25/23 17:46 Freq: Status: Active Protocol: Document 08/21/23 10:00 SP (Rec: 08/21/23 10:50 SP [id number]) Physical Therapy Assessment Goals Two Impairment Pain and weakness in LLE. Impairment Pain rated 2/10 in L anterior thigh & LB. SLS: 8 secs left, 4 secs right. Short Term Goal (STG) Eliminate anterior L thigh pain with sleeping. 08/01/23: No pain with pain medication through night. 08/07/23: states taking less strong med so feeling pain into L lateral leg sleeping, being woke up. STG Duration 08/23/23 updated 08/07/23 Gas Attendant Goal (LTG) Improve SLS with pt able to walk with less trunk sway. LTG Duration 09/24/23 One Impairment Lacks self care HEP Short Term Goal (STG) Pt educated in proper LBP care of proper transfers, proper sitting/standing posturing, and body mechanics/ADL training. STG Duration 08/07/23 (08/01/23: MET GOAL) Gas Attendant Goal (LTG) HEP of core/L hip strengthening and SLS balance exercises. 08/17/23: added prone hip ext and side ABD. LTG Duration 09/24/23 progressin08/17/23 Three Impairment Decreased function Impairment Pt limited in ability to split wood. Short Term Goal (STG) Pt will be educated in best practice to split wood STG Duration 08/09/23 Intermediate Goal (LTG) Pt will be able to split wood without onset of LBP. LTG Duration 09/24/23 Assessment Summary Assessment Pt responded well to HEP extension review, no adverse affects. Good response decrease quad tightness post manual and stretching. Time spent gait/posturing corrections, use of Ktaping for LS ext NS support with good feedback. Ended tx with STS no UE support for functional lumbar flexion stretch after reported felt tight, good response felt better/ more flexibile. Physical Therapy Plan Frequency and Duration Frequency of Treatment 2x/Week Duration of treatment (weeks) 8 Plan of Care Start Date 07/30/23 Plan of Care End Date 09/24/23 Next Visit Focus/Plan Next Note Type Treatment Note Next Visit Plan Ask Ktaping ES response, Quad stretch. Next: Trial use calf stretch LONNIE with LS ext ex. Pt to submit LUTHER. Assess response to EStim. Review w/ pt modifications to small of back if sidelying at nighttime . Back extension program to improve lumbar ext at L3-L5 and decrease thoracic flexion posturing, NEXT: try self jt mob of upper T/S (open book). Asssess and Improve L LE hip/ core strength. Neuro-anastacia: SLS balance, Gait training: gait stability and safety. Modalities for pain and EStim to promote lumbar joint mobility. Gentle lumbar traction at PELVIS (due to TKA) as needed for LB/LLE pain.
--- NOTE | 2023-08-27 12:07 | PT.OTN ---
Current Diagnoses Other chronic pain (08/27/23) Sciatica, unspecified side (08/27/23) Low back pain, unspecified (08/27/23) Physical Therapy Treatment Note PT-OP-A Visit Information Start: 07/25/23 17:46 Freq: Status: Active Protocol: Document 08/27/23 11:20 LRN (Rec: 08/27/23 12:06 LRN [id number]) Out-Patient Physical Therapy Visit Information Visit Information Visit Type Treatment Note Visit Start Time 11:20 Visit Stop Time 12:00 Total Visit Minutes 40 Visit Number 8 Evaluation Information Evaluation Date 07/30/23 Precautions Precautions L TKA 04/09/23., R TKA ~7 yrs ago. PT-OP-B Current Condition Start: 07/25/23 17:46 Freq: Status: Active Protocol: Document 07/30/23 14:09 LRN (Rec: 07/30/23 15:01 LRN [id number]) Current Condition History of Current Condition Onset Date 06/23/23 Current Complaints L LBP rated 2/10, and R UBP rated 3/10. History of Current Condition Lifting a heavy garbage bag into a trash can (had cat litter in it) and although didn't have pain at the time she did experience onset of L low back in the afternoon. A week later she had to go to ER and was given Oxicodone and pain patches that eliminated the severe pain. Currently she has hardly any L sciatic pain and L LBP. She has been splitting wood but states her son stacks the big rolls. She hopes to get her grandson to stack the wood after she splits it. She stopped Gabapentin at night and only takes Napracin in AM and Alleve at night. She reports she sleeps really well with the medications. Pt notes she has lost a lot of weight since L TKA surgery 04/09/23. Prior Treatments and Tests Pain medications. Future Testing and Treatments Planned Initially pt saw Dr. Shraddha Tapia because Dr. Nolvia Wyatt was out of office. Saw Dr Wyatt yesterday for the R UBP (posterior shoulder). Next appt with Dr. Wyatt is October. Treatment Goals Patient/Caregiver Goals Pt goal is to be able to split wood without onset of pain, eliminate anterior L thigh pain with sleeping. She is agreeable to be on a self care HEP. 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 PT-OP-C Subjective Start: 07/25/23 17:46 Freq: Status: Active Protocol: Document 08/27/23 11:20 LRN (Rec: 08/27/23 12:06 LRN [id number]) OP-PT Subjective Patient Comments Patient Comments States she is doing well today , but last night was painful in pain. PT-OP-G Mobility & Gait Start: 07/25/23 17:46 Freq: Status: Active Protocol: Document 07/30/23 14:09 LRN (Rec: 07/30/23 15:01 LRN [id number]) OP Gait Assessment Gait Gait Assistance Required: Independent Able to Maintain Weight Bearing Status Yes During Gait Assistive Devices Assistive Device None Gait Deviations General Gait Pattern Antalgic,Decreased Stride Length,Lateral Trunk Lean Factors Limiting Gait Function Factors Limiting Gait Function Decreased Strength,Pain,Poor Balance Comments Gait Comments Pt ambs with heavy strike on R LE and increased L trunk sway . Postural deviations noted. Stair Climbing Evaluation Comments Stair Climbing Comments Pt able to go up/down stairs with reciprical gait and uses of rail for stability, not pain. PT-OP-H Neuro Start: 07/25/23 17:46 Freq: Status: Active Protocol: Document 07/30/23 14:09 LRN (Rec: 07/30/23 15:01 LRN [id number]) Sensation Evaluation Gross Sensation Gross Sensation WNL PT-OP-J Posture/Palpation/Skin Start: 07/25/23 17:46 Freq: Status: Active Protocol: Document 07/30/23 14:09 LRN (Rec: 07/30/23 15:01 LRN [id number]) Posture Evaluation Position Standing Head/C-Spine Posture Side Bent Left,Forward Head T-Spine Posture Increased Kyphosis L-Spine Posture Flattened,Shifted Right Shoulder Posture (L) Elevated Scapula Posture (L) Rotated Up,(L) Elevated Pelvis Posture Posterior Tilted,(L) Iliac Crest Inferior Weight Distribution Balanced Hip Posture (R) Externally Rotated Comments Posture Comments Notable sway back posturing, knees slightly flexed (7 deg's left, 9 deg's right) Palpation Assessment Location Low Back Palpation Location L3 & L5 SP posterior Palpation Findings Soft Tissue Tightness, Tenderness Palpation Details Very tender L5 PA and moderately L3. Tight L lumbar paraspinals. PT-OP-K Range of Motion Start: 07/25/23 17:46 Freq: Status: Active Protocol: Document 07/30/23 14:09 LRN (Rec: 07/30/23 15:01 LRN [id number]) Lumbar Spine Range of Motion Lumbar Spine Active Degrees Testing Position Standing Flexion 112 Extension 10 Rotation Left 20 Rotation Right 40 Lateral Flexion Left 10 Lateral Flexion Right 10 Hip Goniometric Range of Motion Hip Right Passive Testing Position Supine Straight Leg Raise 80 Internal Rotation 30 External Rotation 50 Left Passive Testing Position Supine Straight Leg Raise 65 Internal Rotation 10 External Rotation 50 PT-OP-L Special Tests Start: 07/25/23 17:46 Freq: Status: Active Protocol: Document 07/30/23 14:09 LRN (Rec: 07/30/23 15:01 LRN [id number]) Special Tests Lumbar Spine Special Tests Straight Leg Raise Test Results + left Vertical Spine Loading Test Results negative Standing Flexion Test Results positive Comments Onset of mild discomfort in L LB. PT-OP-M Strength Start: 07/25/23 17:46 Freq: Status: Active Protocol: Document 07/30/23 14:09 LRN (Rec: 07/30/23 15:01 LRN [id number]) Trunk Strength Trunk Manual Muscle Testing Core Stabilization Loss of core stabiltiy with L hip ext, Hip Strength Hip Manual Muscle Testing Right Comments Muscle groups 5/5 (hip IR/ER not tested) Left Flexion (L2) 3 Fair Extension (S1) 3 Fair Abduction 4 Good Internal Rotation 2 Poor PT-OP-Q Treatments Start: 07/25/23 17:46 Freq: Status: Active Protocol: Document 08/27/23 11:20 LRN (Rec: 08/27/23 12:06 LRN [id number]) Therapeutic Exercises Sidelying Exercises TA hip abd Sidelying Exercise Name Hip AB Side bilateral Resistance AROM Equipment Used Towel roll under small of back Reps/Minutes x20 Comments improved TA, trunk stability stacked on side 10 Manual Therapy Treatment Soft Tissue Mobilization MWM Body Location L5,L3 & L1 PA with Trunk ext ( ANGELIKA, anter pelvic tilt & arm/ leg lifts) Mobilization Type Myofascial Release Intensity/Depth Superficial Body Position Prone Joint Mobilizations L/S Joint L1, L3, L5 Direction PA Body Position Prone Comments PA gentle sustained pressure ossilations L5, L3 Self-Care/Home Management Treatment Education Other Education Discussed nighttime sleeping position, recommending placing folded towel in area of small of back when on back and checking mattress for replacement (dip in mattress). Pt to try guest bed and folded towel for sleeping. PT-OP-R Modalities Start: 07/25/23 17:46 Freq: Status: Active Protocol: Document 08/13/23 08:48 LRN (Rec: 08/13/23 09:27 LRN [id number]) Electric Stimulation Electric Stimulation Interferential Current (IFC) Body Location [L3] Duration (Minutes) 10 Intensity 25 Target/Sweep Sweep Patient Position Hooklying Combined With Heat/Cold Hot Pack Comments Extra time to determine tolerated intensity. PT-OP-T Assessment and Plan Start: 07/25/23 17:46 Freq: Status: Active Protocol: Document 08/27/23 11:20 LRN (Rec: 08/27/23 12:06 LRN [id number]) Physical Therapy Assessment Goals Two Impairment Pain and weakness in LLE. Impairment Pain rated 2/10 in L anterior thigh & LB. SLS: 8 secs left, 4 secs right. Short Term Goal (STG) Eliminate anterior L thigh pain with sleeping. 08/01/23: No pain with pain medication through night. 08/07/23: states taking less strong med so feeling pain into L lateral leg sleeping, being woke up. STG Duration 08/23/23 updated 08/07/23 Plastic Installer Goal (LTG) Improve SLS with pt able to walk with less trunk sway. LTG Duration 09/24/23 One Impairment Lacks self care HEP Short Term Goal (STG) Pt educated in proper LBP care of proper transfers, proper sitting/standing posturing, and body mechanics/ADL training. STG Duration 08/07/23 (08/01/23: MET GOAL) Plastic Installer Goal (LTG) HEP of core/L hip strengthening and SLS balance exercises. 08/17/23: added prone hip ext and side ABD. LTG Duration 09/24/23 progressin08/17/23 Three Impairment Decreased function Impairment Pt limited in ability to split wood. Short Term Goal (STG) Pt will be educated in best practice to split wood STG Duration 08/09/23 Mcc Goal (LTG) Pt will be able to split wood without onset of LBP. LTG Duration 09/24/23 Assessment Summary Assessment No significance difference with K-tape. Pt L5, L3, and L1 Spinous process posteriorly positioned. No pain with exercise. Physical Therapy Plan Frequency and Duration Frequency of Treatment 2x/Week Duration of treatment (weeks) 8 Plan of Care Start Date 07/30/23 Plan of Care End Date 09/24/23 Next Visit Focus/Plan Next Note Type Treatment Note Next Visit Plan Trial use calf stretch LONNIE with LS ext ex. Assess response to EStim when used. Review w/pt modifications to small of back if supine at nighttime. Back extension program to improve lumbar ext at L1-L5 with over pressure at L1, L3, L5, and decrease thoracic flexion posturing, NEXT: try self jt mob of upper T/S (open book). Asssess and Improve L LE hip/ core strength. Neuro-anastacia: SLS balance, Gait training: gait stability and safety. Modalities for pain and EStim to promote lumbar joint mobility. Gentle lumbar traction at PELVIS (due to TKA) as needed for LB/LLE pain.
--- NOTE | 2023-08-29 16:03 | PT-OP ANOTE ---
Late Entry: Rec'd LUTHER questionnaire. Score is 4/50 or 8/100 (1-19% impaired, score 1-19).
--- NOTE | 2023-08-30 11:35 | PT.OTN ---
Current Diagnoses Other chronic pain (08/30/23) Sciatica, unspecified side (08/30/23) Low back pain, unspecified (08/30/23) Physical Therapy Treatment Note PT-OP-A Visit Information Start: 07/25/23 17:46 Freq: Status: Active Protocol: Document 08/30/23 11:04 SP (Rec: 08/30/23 11:45 SP [id number]) Out-Patient Physical Therapy Visit Information Visit Information Visit Type Treatment Note Visit Start Time 10:52 Visit Stop Time 11:35 Total Visit Minutes 43 Visit Number 9 Number of CHARGING OPERATOR Visits 1 Evaluation Information Evaluation Date 07/30/23 Precautions Precautions L TKA 04/09/23., R TKA ~7 yrs ago. PT-OP-B Current Condition Start: 07/25/23 17:46 Freq: Status: Active Protocol: Document 07/30/23 14:09 LRN (Rec: 07/30/23 15:01 LRN [id number]) Current Condition History of Current Condition Onset Date 06/23/23 Current Complaints L LBP rated 2/10, and R UBP rated 3/10. History of Current Condition Lifting a heavy garbage bag into a trash can (had cat litter in it) and although didn't have pain at the time she did experience onset of L low back in the afternoon. A week later she had to go to ER and was given Oxicodone and pain patches that eliminated the severe pain. Currently she has hardly any L sciatic pain and L LBP. She has been splitting wood but states her son stacks the big rolls. She hopes to get her grandson to stack the wood after she splits it. She stopped Gabapentin at night and only takes Napracin in AM and Alleve at night. She reports she sleeps really well with the medications. Pt notes she has lost a lot of weight since L TKA surgery 04/09/23. Prior Treatments and Tests Pain medications. Future Testing and Treatments Planned Initially pt saw Dr. Shraddha Tapai because Dr. Nolvia Wyatt was out of office. Saw Dr Wyatt yesterday for the R UBP (posterior shoulder). Next appt with Dr. Wyatt is October. Treatment Goals Patient/Caregiver Goals Pt goal is to be able to split wood without onset of pain, eliminate anterior L thigh pain with sleeping. She is agreeable to be on a self care HEP. 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 PT-OP-C Subjective Start: 07/25/23 17:46 Freq: Status: Active Protocol: Document 08/30/23 11:04 SP (Rec: 08/30/23 11:45 SP [id number]) OP-PT Subjective Patient Comments Patient Comments Pt reports felt pretty good after last tx. Still some pain with sleeping. PT-OP-G Mobility & Gait Start: 07/25/23 17:46 Freq: Status: Active Protocol: Document 07/30/23 14:09 LRN (Rec: 07/30/23 15:01 LRN [id number]) OP Gait Assessment Gait Gait Assistance Required: Independent Able to Maintain Weight Bearing Status Yes During Gait Assistive Devices Assistive Device None Gait Deviations General Gait Pattern Antalgic,Decreased Stride Length,Lateral Trunk Lean Factors Limiting Gait Function Factors Limiting Gait Function Decreased Strength,Pain,Poor Balance Comments Gait Comments Pt ambs with heavy strike on R LE and increased L trunk sway . Postural deviations noted. Stair Climbing Evaluation Comments Stair Climbing Comments Pt able to go up/down stairs with reciprical gait and uses of rail for stability, not pain. PT-OP-H Neuro Start: 07/25/23 17:46 Freq: Status: Active Protocol: Document 07/30/23 14:09 LRN (Rec: 07/30/23 15:01 LRN [id number]) Sensation Evaluation Gross Sensation Gross Sensation WNL PT-OP-J Posture/Palpation/Skin Start: 07/25/23 17:46 Freq: Status: Active Protocol: Document 07/30/23 14:09 LRN (Rec: 07/30/23 15:01 LRN [id number]) Posture Evaluation Position Standing Head/C-Spine Posture Side Bent Left,Forward Head T-Spine Posture Increased Kyphosis L-Spine Posture Flattened,Shifted Right Shoulder Posture (L) Elevated Scapula Posture (L) Rotated Up,(L) Elevated Pelvis Posture Posterior Tilted,(L) Iliac Crest Inferior Weight Distribution Balanced Hip Posture (R) Externally Rotated Comments Posture Comments Notable sway back posturing, knees slightly flexed (7 deg's left, 9 deg's right) Palpation Assessment Location Low Back Palpation Location L3 & L5 SP posterior Palpation Findings Soft Tissue Tightness, Tenderness Palpation Details Very tender L5 PA and moderately L3. Tight L lumbar paraspinals. PT-OP-K Range of Motion Start: 07/25/23 17:46 Freq: Status: Active Protocol: Document 07/30/23 14:09 LRN (Rec: 07/30/23 15:01 LRN [id number]) Lumbar Spine Range of Motion Lumbar Spine Active Degrees Testing Position Standing Flexion 112 Extension 10 Rotation Left 20 Rotation Right 40 Lateral Flexion Left 10 Lateral Flexion Right 10 Hip Goniometric Range of Motion Hip Right Passive Testing Position Supine Straight Leg Raise 80 Internal Rotation 30 External Rotation 50 Left Passive Testing Position Supine Straight Leg Raise 65 Internal Rotation 10 External Rotation 50 PT-OP-L Special Tests Start: 07/25/23 17:46 Freq: Status: Active Protocol: Document 07/30/23 14:09 LRN (Rec: 07/30/23 15:01 LRN [id number]) Special Tests Lumbar Spine Special Tests Straight Leg Raise Test Results + left Vertical Spine Loading Test Results negative Standing Flexion Test Results positive Comments Onset of mild discomfort in L LB. PT-OP-M Strength Start: 07/25/23 17:46 Freq: Status: Active Protocol: Document 07/30/23 14:09 LRN (Rec: 07/30/23 15:01 LRN [id number]) Trunk Strength Trunk Manual Muscle Testing Core Stabilization Loss of core stabiltiy with L hip ext, Hip Strength Hip Manual Muscle Testing Right Comments Muscle groups 5/5 (hip IR/ER not tested) Left Flexion (L2) 3 Fair Extension (S1) 3 Fair Abduction 4 Good Internal Rotation 2 Poor PT-OP-Q Treatments Start: 07/25/23 17:46 Freq: Status: Active Protocol: Document 08/30/23 11:04 SP (Rec: 08/30/23 11:45 SP [id number]) Therapeutic Exercises Prone Exercises TA/Gluteal tightening Prone Exercise Name TA/Gluteal tightening, reviewed LE lift ext (unweight off table) Side left Equipment Used no pillow Reps/Minutes x5 reps x2 sets- light PA ossilations L3, L5 Comments Ed UE and head pos, NS/ TA draw in/Glut engage good, lift ANGELIKA Prone Exercise Name Prone lying for comfort to start, on elbows, Reps/Minutes 10x 10-20 SH Comments cued CS retraction, light anterior hip and back stretch Sidelying Exercises open book Sidelying Exercise Name added to HEP-head turn with arm 1/2 through range Side bilateral Resistance AROM long arm axis Reps/Minutes 5 reps x3 breath hold Comments tactile cues scapular retraction/depression no anterior GH stress. TA hip abd Sidelying Exercise Name Hip AB Side bilateral Resistance AROM Equipment Used Towel roll under small of back Reps/Minutes x20 Comments cued stacked on side, roll little fwd, kickback lift- better alignment Standing Exercises step ups Standing Exercise Name added to HEP Equipment Used rail light contact as needed ( 2) Reps/Minutes x10 each LE wall posture Standing Exercise Name chest lift, LB arch neutral- reviewed HEP Equipment Used towel roll behind head Reps/Minutes 3 reps 10 SH Comments cued buttock/shld/CS retraction touch towel, Chest lift/LB arch/UE ER anato Gait Training Gait Activity spinal alignment Description chest lift, COG over forefoot, CS retract/NS Device Used 0 Level of Assistance S Distance/Duration 40 ft x4 laps front mirror Treatment Focus increase upright/more fwd postural spinal alignment, hip extension Comments cued chest lift, LB arch, soft stepping improved almost even raquel and spinal alignment over MED. Manual Therapy Treatment Soft Tissue Mobilization MWM Body Location L5,L3 & L1 PA with Trunk ext ( ANGELIKA, anter pelvic tilt & arm/ leg lifts) Mobilization Type Myofascial Release Intensity/Depth Superficial Body Position Prone Joint Mobilizations L/S Joint L1, L3, L5 Direction PA Body Position Prone Comments PA gentle sustained pressure ossilations L5, L3 PT-OP-R Modalities Start: 07/25/23 17:46 Freq: Status: Active Protocol: Document 08/13/23 08:48 LRN (Rec: 08/13/23 09:27 LRN [id number]) Electric Stimulation Electric Stimulation Interferential Current (IFC) Body Location [L3] Duration (Minutes) 10 Intensity 25 Target/Sweep Sweep Patient Position Hooklying Combined With Heat/Cold Hot Pack Comments Extra time to determine tolerated intensity. PT-OP-T Assessment and Plan Start: 07/25/23 17:46 Freq: Status: Active Protocol: Document 08/30/23 11:04 SP (Rec: 08/30/23 11:45 SP [id number]) Physical Therapy Assessment Goals Two Impairment Pain and weakness in LLE. Impairment Pain rated 2/10 in L anterior thigh & LB. SLS: 8 secs left, 4 secs right. Short Term Goal (STG) Eliminate anterior L thigh pain with sleeping. 08/01/23: No pain with pain medication through night. 08/07/23: states taking less strong med so feeling pain into L lateral leg sleeping, being woke up. STG Duration 08/23/23 updated 08/07/23 Pattern Marking Supervisor Goal (LTG) Improve SLS with pt able to walk with less trunk sway. LTG Duration 09/24/23 One Impairment Lacks self care HEP Short Term Goal (STG) Pt educated in proper LBP care of proper transfers, proper sitting/standing posturing, and body mechanics/ADL training. STG Duration 08/07/23 (08/01/23: MET GOAL) [facility] Goal (LTG) HEP of core/L hip strengthening and SLS balance exercises. 08/17/23: added prone hip ext and side ABD. 08/30/23: added open book, step ups c/ TS & posturing LTG Duration 09/24/23 progressin08/17/23 Three Impairment Decreased function Impairment Pt limited in ability to split wood. Short Term Goal (STG) Pt will be educated in best practice to split wood STG Duration 08/09/23 [facility] Goal (LTG) Pt will be able to split wood without onset of LBP. LTG Duration 09/24/23 Assessment Summary Assessment Pt improved spinal alignment over MED with cues for chest lift, LB arch and CS retraction neutral with added soft raquel decrease lateral trunk wt shift and TA/glut fac . Added open book for postural ROtation ROM and step up glut firing with better Fwd wt shift c/ trunk alignment over MED, almost no UE support required.Pt reports painfree throughout tx. Physical Therapy Plan Frequency and Duration Frequency of Treatment 2x/Week Duration of treatment (weeks) 8 Plan of Care Start Date 07/30/23 Plan of Care End Date 09/24/23 Therapeutic Interventions Therapeutic Interventions Balance Training,Gait Training ,Home Exercise Program,Joint Mobilizations,Manual Therapy, Neuromuscular Re-education, Self-Care/Home Management,Soft Tissue Mobilization,Taping, Therapeutic Activities, Therapeutic Exercises Modalities Cold Pack/Ice Massage,Electric Stimulation,Hot Packs Next Visit Focus/Plan Next Note Type Treatment Note Next Visit Plan REcheck open book & step ups. NExt tx: Trial use calf stretch LONNIE with LS ext ex. Assess response to EStim when used. Review w/pt modifications to small of back if supine at nighttime. Back extension program to improve lumbar ext at L1-L5 with over pressure at L1, L3, L5, and decrease thoracic flexion posturing, Asssess and Improve L LE hip/ core strength. Neuro-anastacia: SLS balance, Gait training: gait stability and safety. Modalities for pain and EStim to promote lumbar joint mobility. Gentle lumbar traction at PELVIS (due to TKA) as needed for LB/LLE pain.
--- NOTE | 2023-09-03 15:36 | PT.OTN ---
Current Diagnoses Other chronic pain (09/03/23) Sciatica, unspecified side (09/03/23) Low back pain, unspecified (09/03/23) Physical Therapy Treatment Note PT-OP-A Visit Information Start: 07/25/23 17:46 Freq: Status: Active Protocol: Document 09/03/23 10:32 LRN (Rec: 09/03/23 11:37 LRN [id number]) Out-Patient Physical Therapy Visit Information Visit Information Visit Type Progress Note Visit Start Time 10:32 Visit Stop Time 11:15 Total Visit Minutes 43 Visit Number 10 Number of VIDEO GAME DESIGNER Visits 1 Evaluation Information Evaluation Date 07/30/23 Precautions Precautions L TKA 04/09/23., R TKA ~7 yrs ago. PT-OP-B Current Condition Start: 07/25/23 17:46 Freq: Status: Active Protocol: Document 07/30/23 14:09 LRN (Rec: 07/30/23 15:01 LRN [id number]) Current Condition History of Current Condition Onset Date 06/23/23 Current Complaints L LBP rated 2/10, and R UBP rated 3/10. History of Current Condition Lifting a heavy garbage bag into a trash can (had cat litter in it) and although didn't have pain at the time she did experience onset of L low back in the afternoon. A week later she had to go to ER and was given Oxicodone and pain patches that eliminated the severe pain. Currently she has hardly any L sciatic pain and L LBP. She has been splitting wood but states her son stacks the big rolls. She hopes to get her grandson to stack the wood after she splits it. She stopped Gabapentin at night and only takes Napracin in AM and Alleve at night. She reports she sleeps really well with the medications. Pt notes she has lost a lot of weight since L TKA surgery 04/09/23. Prior Treatments and Tests Pain medications. Future Testing and Treatments Planned Initially pt saw Dr. Shraddha Tapia because Dr. Nolvia Wyatt was out of office. Saw Dr Wyatt yesterday for the R UBP (posterior shoulder). Next appt with Dr. Wyatt is October. Treatment Goals Patient/Caregiver Goals Pt goal is to be able to split wood without onset of pain, eliminate anterior L thigh pain with sleeping. She is agreeable to be on a self care HEP. 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 PT-OP-C Subjective Start: 07/25/23 17:46 Freq: Status: Active Protocol: Document 09/03/23 10:32 LRN (Rec: 09/03/23 11:37 LRN [id number]) OP-PT Subjective Patient Comments Patient Comments Last 2 night have slept in recliner chair and has been able to sleep through the night with ASA. L leg doesn't feel like its giving out anymore. Not taking pain for LBP, only ASA for anterior thigh pain, having only a little LBP. OP-PT Pain Assessment Pain Assessment Grid Paper Pain Assessment Grid Completed Yes Location Sciatic pain Pain Location Details L hip lateral thigh and L buttock (w/o pain meds) Intensity 2 Scale Used Numeric (0 - 10) Description- Other Left: Lateral thigh pain w/o meds is 0-5/10, at knee 0-3/10 Low Back Pain Location Details Left low back Intensity 0 Scale Used Numeric (0 - 10) PT-OP-D Balance Start: 09/03/23 14:37 Freq: Status: Active Protocol: Document 09/03/23 10:32 LRN (Rec: 09/03/23 14:39 LRN [id number]) Balance Tests Single Limb Standing Single Limb- Right 4 secs, 7 secs x 2 (avg is 6 secs) Single Limb- Left 2 secs, 4 secs x 2 (avg is 3.3 secs) PT-OP-G Mobility & Gait Start: 07/25/23 17:46 Freq: Status: Active Protocol: Document 09/03/23 10:32 LRN (Rec: 09/03/23 12:54 LRN [id number]) OP Gait Assessment Gait Gait Assistance Required: Independent Able to Maintain Weight Bearing Status Yes During Gait Assistive Devices Assistive Device None Gait Deviations General Gait Pattern Lateral Trunk Lean Factors Limiting Gait Function Factors Limiting Gait Function Decreased Strength,Poor Balance Comments Gait Comments Pt ambs with increased R lateral trunk sway and decreased L trunk sway/greater lateral hip shift. Sway back is mild with v cuing for core stabilization PT-OP-H Neuro Start: 07/25/23 17:46 Freq: Status: Active Protocol: Document 07/30/23 14:09 LRN (Rec: 07/30/23 15:01 LRN [id number]) Sensation Evaluation Gross Sensation Gross Sensation WNL PT-OP-J Posture/Palpation/Skin Start: 07/25/23 17:46 Freq: Status: Active Protocol: Document 09/03/23 10:32 LRN (Rec: 09/03/23 12:54 LRN [id number]) Posture Evaluation Position Standing T-Spine Posture Neutral L-Spine Posture Neutral Comments Posture Comments Sway back posturing w/o cuing. No sway back posturing w/phys & v cuing. Palpation Assessment Location Low Back Palpation Location L3 & L5 Spinous processes posteriorly displaced Palpation Findings Soft Tissue Tightness, Tenderness Palpation Details Tender L5 PA and L3. Tight L lumbar paraspinals. PT-OP-K Range of Motion Start: 07/25/23 17:46 Freq: Status: Active Protocol: Document 09/03/23 10:32 LRN (Rec: 09/03/23 12:54 LRN [id number]) Hip Goniometric Range of Motion Hip Right Passive Testing Position Supine Straight Leg Raise 75 Left Passive Testing Position Supine Straight Leg Raise 70 PT-OP-L Special Tests Start: 07/25/23 17:46 Freq: Status: Active Protocol: Document 07/30/23 14:09 LRN (Rec: 07/30/23 15:01 LRN [id number]) Special Tests Lumbar Spine Special Tests Straight Leg Raise Test Results + left Vertical Spine Loading Test Results negative Standing Flexion Test Results positive Comments Onset of mild discomfort in L LB. PT-OP-M Strength Start: 07/25/23 17:46 Freq: Status: Active Protocol: Document 09/03/23 10:32 LRN (Rec: 09/03/23 12:56 LRN [id number]) Hip Strength Hip Manual Muscle Testing Right Flexion (L2) 4- Good- Extension (S1) 4+ Good+ Left Flexion (L2) 3 Fair Extension (S1) 4- Good- PT-OP-Q Treatments Start: 07/25/23 17:46 Freq: Status: Active Protocol: Document 09/03/23 10:32 LRN (Rec: 09/03/23 11:37 LRN [id number]) Therapeutic Exercises Supine Exercises Bridge Supine Exercise Name Bridge Comments Hip Ext MMT taken. SLR Supine Exercise Name SLR lifts and stretch Side bilateral Reps/Minutes 2x Comments MMT taken (PSLR is 70 deg's L , 75 deg's R) Iliopsoas stretch Supine Exercise Name Iliopsoas stretch Side left Reps/Minutes 30 SH x 4 Comments Extra time to determine max tolerated stretch Sidelying Exercises open book Sidelying Exercise Name head turn with arm 1/2 through range (HEP ex) Side bilateral Resistance AROM long arm axis Reps/Minutes 5 reps x3 breath hold Comments tactile cues scapular retraction/depression no anterior GH stress. Manual Therapy Treatment Soft Tissue Mobilization L anter Quads Body Location L anterior Quads Mobilization Type Rolling,Strumming,Other Intensity/Depth Moderate Body Position Supine Comments C/R stretch. L hip Body Location Relaxation L Iliopsoas, ADD release, Trp anter L Iliacus ( inner innominate) Mobilization Type Sustained Pressure,Other Intensity/Depth Moderate Body Position Prone Comments Relaxation of L Iliopsoas while on pillows Neuro Re-Education Treatment Balance Activities SLS Details SLS, arms crossed over chest, w/o shoes Surface Level, firm Comments SLS Left: 4 secs, 7 sec x 2 ( avg 6 secs) SLS Right: 2 secs, 4 secs x 2 (avg 3 secs) Self-Care/Home Management Treatment Activities Self-Care/Home Management Activities Pt I/S she could start SLR exer for quad strengthening, alternating legs. PT-OP-R Modalities Start: 07/25/23 17:46 Freq: Status: Active Protocol: Document 08/13/23 08:48 LRN (Rec: 08/13/23 09:27 LRN [id number]) Electric Stimulation Electric Stimulation Interferential Current (IFC) Body Location [L3] Duration (Minutes) 10 Intensity 25 Target/Sweep Sweep Patient Position Hooklying Combined With Heat/Cold Hot Pack Comments Extra time to determine tolerated intensity. PT-OP-T Assessment and Plan Start: 07/25/23 17:46 Freq: Status: Active Protocol: Document 09/03/23 10:32 LRN (Rec: 09/03/23 11:37 LRN [id number]) Physical Therapy Assessment Rehab Potential Rehabilitation Potential Good Evaluation Complexity Number of Personal Factors/Comorbidities 1-2 Number of Body Systems Impaired 4 or More Clinical Presentation at Evaluation Evolving Impairments Impairments Activity Tolerance,Balance, Gait,Pain,Posture,ROM,Soft Tissue Mobility,Strength Goals Two Impairment Pain and weakness in LLE. Impairment Pain rated 2/10 in L anterior thigh & LB. SLS: 8 secs left, 4 secs right. Short Term Goal (STG) Eliminate anterior L thigh pain with sleeping. 08/01/23: No pain with pain medication through night. 08/07/23: states taking less strong med so feeling pain into L lateral leg sleeping, being woke up. 09/03/23: Persists unless elevates back. Only ASA at night, no pain meds. STG Duration 09/19/23 updated 09/03/23, no change pain, less use of meds. Clinical Sciences Professor Goal (LTG) Improve SLS with pt able to walk with less trunk sway. 09/03/23: SLS: 6 secs left, 3.3 secs right. LTG Duration 10/04/23 One Impairment Lacks self care HEP Short Term Goal (STG) Pt educated in proper LBP care of proper transfers, proper sitting/standing posturing, and body mechanics/ADL training. STG Duration 08/07/23 (08/01/23: MET GOAL) Clinical Sciences Professor Goal (LTG) HEP of core/L hip strengthening and SLS balance exercises. 08/17/23: added prone hip ext and side ABD. 08/30/23: added open book, step ups c/ TS & posturing LTG Duration 10/04/23 progressin Three Impairment Decreased function Impairment Pt limited in ability to split wood. Short Term Goal (STG) Pt will be educated in best practice to split wood. 07/30/23: educated pt to avoid twisting lifting, carrying objects and to avoid one sided activities ( splitting wood). 09/03/23: Recommended pt not split would be reviewed best practice to splitting would with symmetrical movement chopping (not twisting). STG Duration 08/09/23 (09/03/23: GOAL MET w/Modification) Clinical Sciences Professor Goal (LTG) Pt will be able to split wood without onset of LBP. LTG Duration 10/04/23 Assessment Summary Assessment Pt is a 78 yo female who initially presented with + PSLR, extreme tightness with L hip internal rotators and what appeared to be LE neurological weakness. She has a positional dysfunction of L3 & L5 with spinous processes, being more posteriorly positioned. Single leg standing balance is decreased leading to instability with gait. She has a swayback posture that she can correct with physical and verbal cuing. She no longer complains of low back pain, but does have mild L lateral hip and lateral thigh pain, LLE weakness and diffulty sleeping at night due to L hip pain. She could benefit from 4 more weeks of skilled physical therapy to focus on decreasing her L hip pain, improving core stability , posture, and balance. It would be appropriate for the pt to be assessed for possible indications for LE neurological weakness (lumbar MRI) and L lateral hip/thigh pain. Physical Therapy Plan Frequency and Duration Frequency of Treatment 2x/Week Duration of treatment (weeks) 4 Plan of Care Start Date 09/03/23 Plan of Care End Date 10/04/23 Therapeutic Interventions Therapeutic Interventions Balance Training,Gait Training ,Home Exercise Program,Joint Mobilizations,Neuromuscular Re -education,Self-Care/Home Management,Soft Tissue Mobilization,Therapeutic Activities,Therapeutic Exercises Modalities Cold Pack/Ice Massage,Electric Stimulation,Hot Packs Next Visit Focus/Plan Next Note Type Treatment Note Next Visit Plan Recheck step ups. Next tx: End with EStim to Back. Start STM/stretch for L hip flexors and manual Iliopsoas & hip flexor strengthening. Trial use calf stretch LONNIE with LS ext ex. Back extension program to improve lumbar ext at L1-L5 with mild over pressure oscillations at L1, L3, L5, and decrease thoracic flexion posturing, Assess and Improve L LE hip strength/core strength. Neuro-anastacia: SLS balance, Gait training: gait stability and safety. Modalities for pain and EStim to promote lumbar joint mobility. Gentle lumbar traction at PELVIS (due to TKA) as needed for LB/LLE pain.
--- NOTE | 2023-09-03 15:37 | PT.OPPOC ---
Physical, Occupational & Speech Therapy At [facility] Current Diagnoses Other chronic pain (09/03/23) Sciatica, unspecified side (09/03/23) Low back pain, unspecified (09/03/23) Visit Care Team Role Provider Type Nolvia Wyatt DO Family Provider Physician Primary Care Provider Specialty: Medical Address: [address] [place] [address], [address], [place], [address] Email: [email or web address] Tracie Tapia PA-C Attending Provider Advanced Outside Physical Damage Appraiser Referring Provider Specialty: Medical Wound Care Address: [address] [place] [address], [place], [address] Email: [email or web address] Plan Of Care PT-OP-T Assessment and Plan Start: 07/25/23 17:46 Freq: Status: Active Protocol: Document 09/03/23 10:32 LRN (Rec: 09/03/23 11:37 LRN [id number]) Physical Therapy Assessment Rehab Potential Rehabilitation Potential Good Evaluation Complexity Number of Personal Factors/Comorbidities 1-2 Number of Body Systems Impaired 4 or More Clinical Presentation at Evaluation Evolving Impairments Impairments Activity Tolerance,Balance, Gait,Pain,Posture,ROM,Soft Tissue Mobility,Strength Goals Two Impairment Pain and weakness in LLE. Impairment Pain rated 2/10 in L anterior thigh & LB. SLS: 8 secs left, 4 secs right. Short Term Goal (STG) Eliminate anterior L thigh pain with sleeping. 08/01/23: No pain with pain medication through night. 08/07/23: states taking less strong med so feeling pain into L lateral leg sleeping, being woke up. 09/03/23: Persists unless elevates back. Only ASA at night, no pain meds. STG Duration 09/19/23 updated 09/03/23, no change pain, less use of meds. Custodial Goal (LTG) Improve SLS with pt able to walk with less trunk sway. 09/03/23: SLS: 6 secs left, 3.3 secs right. LTG Duration 10/04/23 One Impairment Lacks self care HEP Short Term Goal (STG) Pt educated in proper LBP care of proper transfers, proper sitting/standing posturing, and body mechanics/ADL training. STG Duration 08/07/23 (08/01/23: MET GOAL) Custodial Goal (LTG) HEP of core/L hip strengthening and SLS balance exercises. 08/17/23: added prone hip ext and side ABD. 08/30/23: added open book, step ups c/ TS & posturing LTG Duration 10/04/23 progressin Three Impairment Decreased function Impairment Pt limited in ability to split wood. Short Term Goal (STG) Pt will be educated in best practice to split wood. 07/30/23: educated pt to avoid twisting lifting, carrying objects and to avoid one sided activities ( splitting wood). 09/03/23: Recommended pt not split would be reviewed best practice to splitting would with symmetrical movement chopping (not twisting). STG Duration 08/09/23 (09/03/23: GOAL MET w/Modification) Custodial Goal (LTG) Pt will be able to split wood without onset of LBP. LTG Duration 10/04/23 Assessment Summary Assessment Pt is a 78 yo female who initially presented with + PSLR, extreme tightness with L hip internal rotators and what appeared to be LE neurological weakness. She has a positional dysfunction of L3 & L5 with spinous processes, being more posteriorly positioned. Single leg standing balance is decreased leading to instability with gait. She has a swayback posture that she can correct with physical and verbal cuing. She no longer complains of low back pain, but does have mild L lateral hip and lateral thigh pain, LLE weakness and diffulty sleeping at night due to L hip pain. She could benefit from 4 more weeks of skilled physical therapy to focus on decreasing her L hip pain, improving core stability , posture, and balance. It would be appropriate for the pt to be assessed for possible indications for LE neurological weakness (lumbar MRI) and L lateral hip/thigh pain. Physical Therapy Plan Frequency and Duration Frequency of Treatment 2x/Week Duration of treatment (weeks) 4 Plan of Care Start Date 09/03/23 Plan of Care End Date 10/04/23 Therapeutic Interventions Therapeutic Interventions Balance Training,Gait Training ,Home Exercise Program,Joint Mobilizations,Neuromuscular Re -education,Self-Care/Home Management,Soft Tissue Mobilization,Therapeutic Activities,Therapeutic Exercises Modalities Cold Pack/Ice Massage,Electric Stimulation,Hot Packs Next Visit Focus/Plan Next Note Type Treatment Note Next Visit Plan Recheck step ups. Next tx: End with EStim to Back. Start STM/stretch for L hip flexors and manual Iliopsoas & hip flexor strengthening. Trial use calf stretch LONNIE with LS ext ex. Back extension program to improve lumbar ext at L1-L5 with mild over pressure oscillations at L1, L3, L5, and decrease thoracic flexion posturing, Assess and Improve L LE hip strength/core strength. Neuro-anastacia: SLS balance, Gait training: gait stability and safety. Modalities for pain and EStim to promote lumbar joint mobility. Gentle lumbar traction at PELVIS (due to TKA) as needed for LB/LLE pain. Plan of Care Dates Plan of Care Start Date 09/03/23 Plan of Care End Date 10/04/23 Electronically Signed by: Makayla Hope, PT 09/03/23 2620 If you are in agreement with this Plan of Care, please return a signed and dated copy. I have reviewed this Plan of Care and certify that the skilled therapy services above are required to meet the patient?s needs. Physician Signature Date Printed Name and Credentials Clinical Instructor Signature Printed Name and Credentials
--- NOTE | 2023-09-05 10:33 | PT.OTN ---
Current Diagnoses Other chronic pain (09/09/23) Sciatica, unspecified side (09/09/23) Low back pain, unspecified (09/09/23) Physical Therapy Treatment Note PT-OP-A Visit Information Start: 07/25/23 17:46 Freq: Status: Active Protocol: Document 09/09/23 11:00 SP (Rec: 09/05/23 10:35 SP [id number]) Out-Patient Physical Therapy Visit Information Visit Information Visit Type Treatment Note Visit Note 10/30 post PN. Visit Start Time 09:50 Visit Stop Time 10:33 Total Visit Minutes 43 Visit Number 11 Number of MUFFLER INSTALLER Visits 1 Evaluation Information Evaluation Date 07/30/23 Precautions Precautions L TKA 04/09/23., R TKA ~7 yrs ago. PT-OP-B Current Condition Start: 07/25/23 17:46 Freq: Status: Active Protocol: Document 07/30/23 14:09 LRN (Rec: 07/30/23 15:01 LRN [id number]) Current Condition History of Current Condition Onset Date 06/23/23 Current Complaints L LBP rated 2/10, and R UBP rated 3/10. History of Current Condition Lifting a heavy garbage bag into a trash can (had cat litter in it) and although didn't have pain at the time she did experience onset of L low back in the afternoon. A week later she had to go to ER and was given Oxicodone and pain patches that eliminated the severe pain. Currently she has hardly any L sciatic pain and L LBP. She has been splitting wood but states her son stacks the big rolls. She hopes to get her grandson to stack the wood after she splits it. She stopped Gabapentin at night and only takes Napracin in AM and Alleve at night. She reports she sleeps really well with the medications. Pt notes she has lost a lot of weight since L TKA surgery 04/09/23. Prior Treatments and Tests Pain medications. Future Testing and Treatments Planned Initially pt saw Dr. Shraddha Tapia because Dr. Nolvia Wyatt was out of office. Saw Dr Wyatt yesterday for the R UBP (posterior shoulder). Next appt with Dr. Wyatt is October. Treatment Goals Patient/Caregiver Goals Pt goal is to be able to split wood without onset of pain, eliminate anterior L thigh pain with sleeping. She is agreeable to be on a self care HEP. 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 PT-OP-C Subjective Start: 07/25/23 17:46 Freq: Status: Active Protocol: Document 09/09/23 11:00 SP (Rec: 09/05/23 10:35 SP [id number]) OP-PT Subjective Patient Comments Patient Comments Pt reports sleeps in elevated bed gradual increase (similar to black wedge in PT and pillow under head plays for height) and reports helps with lessening to no pain. PT-OP-D Balance Start: 09/03/23 14:37 Freq: Status: Active Protocol: Document 09/03/23 10:32 LRN (Rec: 09/03/23 14:39 LRN [id number]) Balance Tests Single Limb Standing Single Limb- Right 4 secs, 7 secs x 2 (avg is 6 secs) Single Limb- Left 2 secs, 4 secs x 2 (avg is 3.3 secs) PT-OP-G Mobility & Gait Start: 07/25/23 17:46 Freq: Status: Active Protocol: Document 09/03/23 10:32 LRN (Rec: 09/03/23 12:54 LRN [id number]) OP Gait Assessment Gait Gait Assistance Required: Independent Able to Maintain Weight Bearing Status Yes During Gait Assistive Devices Assistive Device None Gait Deviations General Gait Pattern Lateral Trunk Lean Factors Limiting Gait Function Factors Limiting Gait Function Decreased Strength,Poor Balance Comments Gait Comments Pt ambs with increased R lateral trunk sway and decreased L trunk sway/greater lateral hip shift. Sway back is mild with v cuing for core stabilization PT-OP-H Neuro Start: 07/25/23 17:46 Freq: Status: Active Protocol: Document 07/30/23 14:09 LRN (Rec: 07/30/23 15:01 LRN [id number]) Sensation Evaluation Gross Sensation Gross Sensation WNL PT-OP-J Posture/Palpation/Skin Start: 07/25/23 17:46 Freq: Status: Active Protocol: Document 09/03/23 10:32 LRN (Rec: 09/03/23 12:54 LRN [id number]) Posture Evaluation Position Standing T-Spine Posture Neutral L-Spine Posture Neutral Comments Posture Comments Sway back posturing w/o cuing. No sway back posturing w/phys & v cuing. Palpation Assessment Location Low Back Palpation Location L3 & L5 Spinous processes posteriorly displaced Palpation Findings Soft Tissue Tightness, Tenderness Palpation Details Tender L5 PA and L3. Tight L lumbar paraspinals. PT-OP-K Range of Motion Start: 07/25/23 17:46 Freq: Status: Active Protocol: Document 09/03/23 10:32 LRN (Rec: 09/03/23 12:54 LRN [id number]) Hip Goniometric Range of Motion Hip Right Passive Testing Position Supine Straight Leg Raise 75 Left Passive Testing Position Supine Straight Leg Raise 70 PT-OP-L Special Tests Start: 07/25/23 17:46 Freq: Status: Active Protocol: Document 07/30/23 14:09 LRN (Rec: 07/30/23 15:01 LRN [id number]) Special Tests Lumbar Spine Special Tests Straight Leg Raise Test Results + left Vertical Spine Loading Test Results negative Standing Flexion Test Results positive Comments Onset of mild discomfort in L LB. PT-OP-M Strength Start: 07/25/23 17:46 Freq: Status: Active Protocol: Document 09/03/23 10:32 LRN (Rec: 09/03/23 12:56 LRN [id number]) Hip Strength Hip Manual Muscle Testing Right Flexion (L2) 4- Good- Extension (S1) 4+ Good+ Left Flexion (L2) 3 Fair Extension (S1) 4- Good- PT-OP-Q Treatments Start: 07/25/23 17:46 Freq: Status: Active Protocol: Document 09/09/23 11:00 SP (Rec: 09/05/23 10:35 SP [id number]) Therapeutic Exercises Supine Exercises SLR Supine Exercise Name SLR lifts and stretch Side bilateral Equipment Used long trifolded towel across LS Reps/Minutes 2x10 each LE (opp LE bent) Comments cued TKE/ankle neutral DF- improved quad, hip flexor Standing Exercises step ups Standing Exercise Name added to HEP Equipment Used 6 step, 8' step, light contact rail same side Reps/Minutes x10 each LE each height Comments cued knee align with mid ft, Manual Therapy Treatment Soft Tissue Mobilization L anter Quads Body Location L anterior Quad, adductor, TFL Mobilization Type Cross-Friction,Myofascial Release,Rolling Intensity/Depth Moderate Body Position Supine and LE off EO table Comments manual with feedback on pressure tolerant. L hip Body Location Relaxation L Iliopsoas Mobilization Type Sustained Pressure,Other Intensity/Depth Moderate Body Position Hooklying Comments Relaxation of L Iliopsoas while LEs supported on pillows , improved pliability and able lay leg flat on table without anterior L hip tension. Neuro Re-Education Treatment Balance Activities SLS Details corner balance: tandem and SLS Surface Level, firm Equipment (back to corner, chair front) Comments SLS Left: 19 sec SLS Right: 12 sec Tandem: cues for chest lift posture over MED f/b/lateral / c heel down able HTs corrections- PRN contact walll /chair PT-OP-R Modalities Start: 07/25/23 17:46 Freq: Status: Active Protocol: Document 08/13/23 08:48 LRN (Rec: 08/13/23 09:27 LRN [id number]) Electric Stimulation Electric Stimulation Interferential Current (IFC) Body Location [L3] Duration (Minutes) 10 Intensity 25 Target/Sweep Sweep Patient Position Hooklying Combined With Heat/Cold Hot Pack Comments Extra time to determine tolerated intensity. PT-OP-T Assessment and Plan Start: 07/25/23 17:46 Freq: Status: Active Protocol: Document 09/09/23 11:00 SP (Rec: 09/05/23 10:35 SP [id number]) Physical Therapy Assessment Goals Two Impairment Pain and weakness in LLE. Impairment Pain rated 2/10 in L anterior thigh & LB. SLS: 8 secs left, 4 secs right. Short Term Goal (STG) Eliminate anterior L thigh pain with sleeping. 08/01/23: No pain with pain medication through night. 08/07/23: states taking less strong med so feeling pain into L lateral leg sleeping, being woke up. 09/03/23: Persists unless elevates back. Only ASA at night, no pain meds. STG Duration 09/19/23 updated 09/03/23, no change pain, less use of meds. Senior Care Goal (LTG) Improve SLS with pt able to walk with less trunk sway. 09/03/23: SLS: 6 secs left, 3.3 secs right. LTG Duration 10/04/23 One Impairment Lacks self care HEP Short Term Goal (STG) Pt educated in proper LBP care of proper transfers, proper sitting/standing posturing, and body mechanics/ADL training. STG Duration 08/07/23 (08/01/23: MET GOAL) Scene Painter Goal (LTG) HEP of core/L hip strengthening and SLS balance exercises. 08/17/23: added prone hip ext and side ABD. 08/30/23: added open book, step ups c/ TS & posturing 09/05/23: added corner balance : tandem and SLS. LTG Duration 10/04/23 progressin Three Impairment Decreased function Impairment Pt limited in ability to split wood. Short Term Goal (STG) Pt will be educated in best practice to split wood. 07/30/23: educated pt to avoid twisting lifting, carrying objects and to avoid one sided activities ( splitting wood). 09/03/23: Recommended pt not split would be reviewed best practice to splitting would with symmetrical movement chopping (not twisting). STG Duration 08/09/23 (09/03/23: GOAL MET w/Modification) Senior Care Goal (LTG) Pt will be able to split wood without onset of LBP. LTG Duration 10/04/23 Assessment Summary Assessment Pt improved SLS time increase of 12 sec LLE and 8 sec on RLE , improve postural corrections anterior tilt/chest lift and noted glut with cues wt shift fwd COG over MED, was able to complete small range head turns with PRN contact arm to wall and or chair support for safety. Pt reported no anterior hip or LB pain so didnt feel need for modalities end tx, not provided. Physical Therapy Plan Frequency and Duration Frequency of Treatment 2x/Week Duration of treatment (weeks) 4 Plan of Care Start Date 09/03/23 Plan of Care End Date 10/04/23 Therapeutic Interventions Therapeutic Interventions Balance Training,Gait Training ,Home Exercise Program,Joint Mobilizations,Neuromuscular Re -education,Self-Care/Home Management,Soft Tissue Mobilization,Therapeutic Activities,Therapeutic Exercises Modalities Cold Pack/Ice Massage,Electric Stimulation,Hot Packs Next Visit Focus/Plan Next Note Type Treatment Note Next Visit Plan Recheck step ups. Next tx: End with EStim to Back. Start STM/stretch for L hip flexors and manual Iliopsoas & hip flexor strengthening. Trial use calf stretch LONNIE with LS ext ex. Back extension program to improve lumbar ext at L1-L5 with mild over pressure oscillations at L1, L3, L5, and decrease thoracic flexion posturing, Assess and Improve L LE hip strength/core strength. Neuro-anastacia: SLS balance, Gait training: gait stability and safety. Modalities for pain and EStim to promote lumbar joint mobility. Gentle lumbar traction at PELVIS (due to TKA) as needed for LB/LLE pain.
--- NOTE | 2023-09-09 11:15 | PT.OTN ---
Current Diagnoses Other chronic pain (09/09/23) Sciatica, unspecified side (09/09/23) Low back pain, unspecified (09/09/23) Physical Therapy Treatment Note PT-OP-A Visit Information Start: 07/25/23 17:46 Freq: Status: Active Protocol: Document 09/09/23 10:35 SP (Rec: 09/09/23 11:33 SP [id number]) Out-Patient Physical Therapy Visit Information Visit Information Visit Type Treatment Note Visit Note 2 post PN. Visit Start Time 10:35 Visit Stop Time 11:15 Total Visit Minutes 40 Visit Number 12 Number of IMMIGRATION ASSOCIATE Visits 1 Evaluation Information Evaluation Date 07/30/23 Precautions Precautions L TKA 04/09/23., R TKA ~7 yrs ago. PT-OP-B Current Condition Start: 07/25/23 17:46 Freq: Status: Active Protocol: Document 07/30/23 14:09 LRN (Rec: 07/30/23 15:01 LRN [id number]) Current Condition History of Current Condition Onset Date 06/23/23 Current Complaints L LBP rated 2/10, and R UBP rated 3/10. History of Current Condition Lifting a heavy garbage bag into a trash can (had cat litter in it) and although didn't have pain at the time she did experience onset of L low back in the afternoon. A week later she had to go to ER and was given Oxicodone and pain patches that eliminated the severe pain. Currently she has hardly any L sciatic pain and L LBP. She has been splitting wood but states her son stacks the big rolls. She hopes to get her grandson to stack the wood after she splits it. She stopped Gabapentin at night and only takes Napracin in AM and Alleve at night. She reports she sleeps really well with the medications. Pt notes she has lost a lot of weight since L TKA surgery 04/09/23. Prior Treatments and Tests Pain medications. Future Testing and Treatments Planned Initially pt saw Dr. Shraddha Tapia because Dr. Nolvia Wyatt was out of office. Saw Dr Wyatt yesterday for the R UBP (posterior shoulder). Next appt with Dr. Wyatt is October. Treatment Goals Patient/Caregiver Goals Pt goal is to be able to split wood without onset of pain, eliminate anterior L thigh pain with sleeping. She is agreeable to be on a self care HEP. 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 PT-OP-C Subjective Start: 07/25/23 17:46 Freq: Status: Active Protocol: Document 09/09/23 10:35 SP (Rec: 09/09/23 11:33 SP [id number]) OP-PT Subjective Patient Comments Patient Comments Pt reports L quad and little inside adductor still sore, stated SLR is challenging and able to 8 reps. PT-OP-D Balance Start: 09/03/23 14:37 Freq: Status: Active Protocol: Document 09/03/23 10:32 LRN (Rec: 09/03/23 14:39 LRN [id number]) Balance Tests Single Limb Standing Single Limb- Right 4 secs, 7 secs x 2 (avg is 6 secs) Single Limb- Left 2 secs, 4 secs x 2 (avg is 3.3 secs) PT-OP-G Mobility & Gait Start: 07/25/23 17:46 Freq: Status: Active Protocol: Document 09/03/23 10:32 LRN (Rec: 09/03/23 12:54 LRN [id number]) OP Gait Assessment Gait Gait Assistance Required: Independent Able to Maintain Weight Bearing Status Yes During Gait Assistive Devices Assistive Device None Gait Deviations General Gait Pattern Lateral Trunk Lean Factors Limiting Gait Function Factors Limiting Gait Function Decreased Strength,Poor Balance Comments Gait Comments Pt ambs with increased R lateral trunk sway and decreased L trunk sway/greater lateral hip shift. Sway back is mild with v cuing for core stabilization PT-OP-H Neuro Start: 07/25/23 17:46 Freq: Status: Active Protocol: Document 07/30/23 14:09 LRN (Rec: 07/30/23 15:01 LRN [id number]) Sensation Evaluation Gross Sensation Gross Sensation WNL PT-OP-J Posture/Palpation/Skin Start: 07/25/23 17:46 Freq: Status: Active Protocol: Document 09/03/23 10:32 LRN (Rec: 09/03/23 12:54 LRN [id number]) Posture Evaluation Position Standing T-Spine Posture Neutral L-Spine Posture Neutral Comments Posture Comments Sway back posturing w/o cuing. No sway back posturing w/phys & v cuing. Palpation Assessment Location Low Back Palpation Location L3 & L5 Spinous processes posteriorly displaced Palpation Findings Soft Tissue Tightness, Tenderness Palpation Details Tender L5 PA and L3. Tight L lumbar paraspinals. PT-OP-K Range of Motion Start: 07/25/23 17:46 Freq: Status: Active Protocol: Document 09/03/23 10:32 LRN (Rec: 09/03/23 12:54 LRN [id number]) Hip Goniometric Range of Motion Hip Right Passive Testing Position Supine Straight Leg Raise 75 Left Passive Testing Position Supine Straight Leg Raise 70 PT-OP-L Special Tests Start: 07/25/23 17:46 Freq: Status: Active Protocol: Document 07/30/23 14:09 LRN (Rec: 07/30/23 15:01 LRN [id number]) Special Tests Lumbar Spine Special Tests Straight Leg Raise Test Results + left Vertical Spine Loading Test Results negative Standing Flexion Test Results positive Comments Onset of mild discomfort in L LB. PT-OP-M Strength Start: 07/25/23 17:46 Freq: Status: Active Protocol: Document 09/03/23 10:32 LRN (Rec: 09/03/23 12:56 LRN [id number]) Hip Strength Hip Manual Muscle Testing Right Flexion (L2) 4- Good- Extension (S1) 4+ Good+ Left Flexion (L2) 3 Fair Extension (S1) 4- Good- PT-OP-Q Treatments Start: 07/25/23 17:46 Freq: Status: Active Protocol: Document 09/09/23 10:35 SP (Rec: 09/09/23 11:33 SP [id number]) Therapeutic Exercises Supine Exercises stretching pre quad strength ex Supine Exercise Name 1. SKTC 2. HS stretch 3. HS stretch with Ankle pump Side bilateral Resistance added to HEP Reps/Minutes 1. 30 sec 2. 30 sec 3. 10 ankle pumps Comments improved hip&knee flexion SLR Supine Exercise Name Modified KTC/hip/knee flexion and ext AROM Side bilateral Equipment Used long trifolded towel across LS Reps/Minutes 2x10 each LE (opp LE straight) Comments Cued maintain pelvis on table, improved decrease LB compensation post strch Prone Exercises HS curl Resistance AROM Equipment Used LE off end table Reps/Minutes x20 Comments cued maintain hips on table Standing Exercises step ups Standing Exercise Name HEP reviewed: step up/ downs Equipment Used 6 step, no rail Reps/Minutes x10 each LE each height Comments improved fluid asc/desc almost no momentum, ed little glut fac full ext Other Exercises quadruped Other Exercise Name child's pose- review for LB and open chain hip flexion stretch Equipment Used pillow behind knees Reps/Minutes 20SH x3 reps Comments good feedback sit back stretch - not as good stretch on L due to limit Flex Manual Therapy Treatment Soft Tissue Mobilization L anter Quads Body Location L anterior Quads Mobilization Type Rolling,Strumming Intensity/Depth Moderate Body Position Supine Comments manual PT-OP-R Modalities Start: 07/25/23 17:46 Freq: Status: Active Protocol: Document 08/13/23 08:48 LRN (Rec: 08/13/23 09:27 LRN [id number]) Electric Stimulation Electric Stimulation Interferential Current (IFC) Body Location [L3] Duration (Minutes) 10 Intensity 25 Target/Sweep Sweep Patient Position Hooklying Combined With Heat/Cold Hot Pack Comments Extra time to determine tolerated intensity. PT-OP-T Assessment and Plan Start: 07/25/23 17:46 Freq: Status: Active Protocol: Document 09/09/23 10:35 SP (Rec: 09/09/23 11:33 SP [id number]) Physical Therapy Assessment Goals Two Impairment Pain and weakness in LLE. Impairment Pain rated 2/10 in L anterior thigh & LB. SLS: 8 secs left, 4 secs right. Short Term Goal (STG) Eliminate anterior L thigh pain with sleeping. 08/01/23: No pain with pain medication through night. 08/07/23: states taking less strong med so feeling pain into L lateral leg sleeping, being woke up. 09/03/23: Persists unless elevates back. Only ASA at night, no pain meds. STG Duration 09/19/23 updated 09/03/23, no change pain, less use of meds. Physiotherapist'S Assistant Goal (LTG) Improve SLS with pt able to walk with less trunk sway. 09/03/23: SLS: 6 secs left, 3.3 secs right. LTG Duration 10/04/23 One Impairment Lacks self care HEP Short Term Goal (STG) Pt educated in proper LBP care of proper transfers, proper sitting/standing posturing, and body mechanics/ADL training. STG Duration 08/07/23 (08/01/23: MET GOAL) Fdc Goal (LTG) HEP of core/L hip strengthening and SLS balance exercises. 08/17/23: added prone hip ext and side ABD. 08/30/23: added open book, step ups c/ TS & posturing LTG Duration 10/04/23 progressin Three Impairment Decreased function Impairment Pt limited in ability to split wood. Short Term Goal (STG) Pt will be educated in best practice to split wood. 07/30/23: educated pt to avoid twisting lifting, carrying objects and to avoid one sided activities ( splitting wood). 09/03/23: Recommended pt not split would be reviewed best practice to splitting would with symmetrical movement chopping (not twisting). STG Duration 08/09/23 (09/03/23: GOAL MET w/Modification) Fdc Goal (LTG) Pt will be able to split wood without onset of LBP. LTG Duration 10/04/23 Assessment Summary Assessment Pt improved less LB compensations noted after posterior chain stretching and modified hip&knee flexion AROM vs SLR with more fluid movement with cues for slower pacing. Same carryover during step ups, no pain and less momentum noted with reps without UE support. Physical Therapy Plan Frequency and Duration Frequency of Treatment 2x/Week Duration of treatment (weeks) 4 Plan of Care Start Date 09/03/23 Plan of Care End Date 10/04/23 Therapeutic Interventions Therapeutic Interventions Balance Training,Gait Training ,Home Exercise Program,Joint Mobilizations,Neuromuscular Re -education,Self-Care/Home Management,Soft Tissue Mobilization,Therapeutic Activities,Therapeutic Exercises Modalities Cold Pack/Ice Massage,Electric Stimulation,Hot Packs Next Visit Focus/Plan Next Note Type Treatment Note Next Visit Plan Recheck step ups, modified knee/hip flexion AROM vs SLR and added posterior stretching pre hip flexion ther ex. Next tx: End with EStim to Back. Start STM/stretch for L hip flexors and manual Iliopsoas & hip flexor strengthening. Trial use calf stretch LONNIE with LS ext ex. Back extension program to improve lumbar ext at L1-L5 with mild over pressure oscillations at L1, L3, L5, and decrease thoracic flexion posturing, Assess and Improve L LE hip strength/core strength. Neuro-anastacia: SLS balance, Gait training: gait stability and safety. Modalities for pain and EStim to promote lumbar joint mobility. Gentle lumbar traction at PELVIS (due to TKA) as needed for LB/LLE pain.
--- NOTE | 2023-09-11 11:20 | PT.OTN ---
Current Diagnoses Other chronic pain (09/11/23) Sciatica, unspecified side (09/11/23) Low back pain, unspecified (09/11/23) Physical Therapy Treatment Note PT-OP-A Visit Information Start: 07/25/23 17:46 Freq: Status: Active Protocol: Document 09/11/23 10:36 SP (Rec: 09/11/23 11:34 SP [id number]) Out-Patient Physical Therapy Visit Information Visit Information Visit Type Treatment Note Visit Note 3 post PN. Visit Start Time 10:36 Visit Stop Time 11:20 Total Visit Minutes 44 Visit Number 13 Number of MANAGER MEAT Visits 2 Evaluation Information Evaluation Date 07/30/23 Precautions Precautions L TKA 04/09/23., R TKA ~7 yrs ago. PT-OP-B Current Condition Start: 07/25/23 17:46 Freq: Status: Active Protocol: Document 07/30/23 14:09 LRN (Rec: 07/30/23 15:01 LRN [id number]) Current Condition History of Current Condition Onset Date 06/23/23 Current Complaints L LBP rated 2/10, and R UBP rated 3/10. History of Current Condition Lifting a heavy garbage bag into a trash can (had cat litter in it) and although didn't have pain at the time she did experience onset of L low back in the afternoon. A week later she had to go to ER and was given Oxicodone and pain patches that eliminated the severe pain. Currently she has hardly any L sciatic pain and L LBP. She has been splitting wood but states her son stacks the big rolls. She hopes to get her grandson to stack the wood after she splits it. She stopped Gabapentin at night and only takes Napracin in AM and Alleve at night. She reports she sleeps really well with the medications. Pt notes she has lost a lot of weight since L TKA surgery 04/09/23. Prior Treatments and Tests Pain medications. Future Testing and Treatments Planned Initially pt saw Dr. Shraddha Tapia because Dr. Nolvia Wyatt was out of office. Saw Dr Wyatt yesterday for the R UBP (posterior shoulder). Next appt with Dr. Wyatt is October. Treatment Goals Patient/Caregiver Goals Pt goal is to be able to split wood without onset of pain, eliminate anterior L thigh pain with sleeping. She is agreeable to be on a self care HEP. 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 PT-OP-C Subjective Start: 07/25/23 17:46 Freq: Status: Active Protocol: Document 09/11/23 10:36 SP (Rec: 09/11/23 11:34 SP [id number]) OP-PT Subjective Patient Comments Patient Comments Pt reports since starting that stretching and doing knees to chest vs SLR is better on her quad and not as much sore and tightness. PT-OP-D Balance Start: 09/03/23 14:37 Freq: Status: Active Protocol: Document 09/03/23 10:32 LRN (Rec: 09/03/23 14:39 LRN [id number]) Balance Tests Single Limb Standing Single Limb- Right 4 secs, 7 secs x 2 (avg is 6 secs) Single Limb- Left 2 secs, 4 secs x 2 (avg is 3.3 secs) PT-OP-G Mobility & Gait Start: 07/25/23 17:46 Freq: Status: Active Protocol: Document 09/03/23 10:32 LRN (Rec: 09/03/23 12:54 LRN [id number]) OP Gait Assessment Gait Gait Assistance Required: Independent Able to Maintain Weight Bearing Status Yes During Gait Assistive Devices Assistive Device None Gait Deviations General Gait Pattern Lateral Trunk Lean Factors Limiting Gait Function Factors Limiting Gait Function Decreased Strength,Poor Balance Comments Gait Comments Pt ambs with increased R lateral trunk sway and decreased L trunk sway/greater lateral hip shift. Sway back is mild with v cuing for core stabilization PT-OP-H Neuro Start: 07/25/23 17:46 Freq: Status: Active Protocol: Document 07/30/23 14:09 LRN (Rec: 07/30/23 15:01 LRN [id number]) Sensation Evaluation Gross Sensation Gross Sensation WNL PT-OP-J Posture/Palpation/Skin Start: 07/25/23 17:46 Freq: Status: Active Protocol: Document 09/03/23 10:32 LRN (Rec: 09/03/23 12:54 LRN [id number]) Posture Evaluation Position Standing T-Spine Posture Neutral L-Spine Posture Neutral Comments Posture Comments Sway back posturing w/o cuing. No sway back posturing w/phys & v cuing. Palpation Assessment Location Low Back Palpation Location L3 & L5 Spinous processes posteriorly displaced Palpation Findings Soft Tissue Tightness, Tenderness Palpation Details Tender L5 PA and L3. Tight L lumbar paraspinals. PT-OP-K Range of Motion Start: 07/25/23 17:46 Freq: Status: Active Protocol: Document 09/03/23 10:32 LRN (Rec: 09/03/23 12:54 LRN [id number]) Hip Goniometric Range of Motion Hip Right Passive Testing Position Supine Straight Leg Raise 75 Left Passive Testing Position Supine Straight Leg Raise 70 PT-OP-L Special Tests Start: 07/25/23 17:46 Freq: Status: Active Protocol: Document 07/30/23 14:09 LRN (Rec: 07/30/23 15:01 LRN [id number]) Special Tests Lumbar Spine Special Tests Straight Leg Raise Test Results + left Vertical Spine Loading Test Results negative Standing Flexion Test Results positive Comments Onset of mild discomfort in L LB. PT-OP-M Strength Start: 07/25/23 17:46 Freq: Status: Active Protocol: Document 09/03/23 10:32 LRN (Rec: 09/03/23 12:56 LRN [id number]) Hip Strength Hip Manual Muscle Testing Right Flexion (L2) 4- Good- Extension (S1) 4+ Good+ Left Flexion (L2) 3 Fair Extension (S1) 4- Good- PT-OP-Q Treatments Start: 07/25/23 17:46 Freq: Status: Active Protocol: Document 09/11/23 10:36 SP (Rec: 09/11/23 11:34 SP [id number]) Therapeutic Exercises Supine Exercises stretching pre quad strength ex Supine Exercise Name 1. SKTC 2. HS stretch 3. HS stretch with Ankle pump Side bilateral Resistance reviewed HEP Reps/Minutes 1. 30 sec 2. 30 sec 3. 10 ankle pumps Comments improved hip&knee flexion SLR Supine Exercise Name Modified KTC/hip/knee flexion and ext AROM Side bilateral Equipment Used long trifolded towel across LS Reps/Minutes 2x10 each LE (opp LE straight) Comments Cued maintain pelvis on table, improved decrease LB compensation post strch Iliopsoas stretch Supine Exercise Name hip flexor and quad stretch ( added knee flex last couple sec) Side left Reps/Minutes 30 SH x 4 Comments improved tolerance Standing Exercises step ups Standing Exercise Name progressed repeated step up/ back down Side left Equipment Used 6 step, no rail Reps/Minutes 2x10 Comments improved fluid asc/desc no momentum Manual Therapy Treatment Soft Tissue Mobilization HS, calf Body Location L>R Mobilization Type Strumming,Sustained Pressure, Other Intensity/Depth Moderate Body Position Prone L anter Quads Body Location L anterior Quads & adductor Mobilization Type Rolling,Strumming Intensity/Depth Moderate Body Position Supine Comments manual STMs, supine and LE off edge table L hip Body Location Relaxation L Iliopsoas Mobilization Type Sustained Pressure,Other Intensity/Depth Moderate Body Position Hooklying Comments Relaxation of L Iliopsoas while LEs supported on pillows , improved pliability and able lay leg flat on table without anterior L hip tension. Neuro Re-Education Treatment Balance Activities SLS Details corner balance: tandem and SLS Surface Level, firm Equipment (back to corner, chair front) Comments SLS Left: 12 sec SLS Right: 24 sec Tandem: cues for chest lift posture over MED f/b/lateral / c heel down able HTs arms across chest corrections- PRN contact wall/chair hurdles Details fwd Surface 1 over back, 6 hurdles receiprocal stepping Comments improved wt shift fwd COG over MED and spinal alignment and interscap engagement /c TA center stability. Cues for increase L knee flexion ft clearance improved decrease circumduction. PT-OP-R Modalities Start: 07/25/23 17:46 Freq: Status: Active Protocol: Document 08/13/23 08:48 LRN (Rec: 08/13/23 09:27 LRN [id number]) Electric Stimulation Electric Stimulation Interferential Current (IFC) Body Location [L3] Duration (Minutes) 10 Intensity 25 Target/Sweep Sweep Patient Position Hooklying Combined With Heat/Cold Hot Pack Comments Extra time to determine tolerated intensity. PT-OP-T Assessment and Plan Start: 07/25/23 17:46 Freq: Status: Active Protocol: Document 09/11/23 10:36 SP (Rec: 09/11/23 11:34 SP [id number]) Physical Therapy Assessment Goals Two Impairment Pain and weakness in LLE. Impairment Pain rated 2/10 in L anterior thigh & LB. SLS: 8 secs left, 4 secs right. Short Term Goal (STG) Eliminate anterior L thigh pain with sleeping. 08/01/23: No pain with pain medication through night. 08/07/23: states taking less strong med so feeling pain into L lateral leg sleeping, being woke up. 09/03/23: Persists unless elevates back. Only ASA at night, no pain meds. 09/11/23: report since stretch and modified SLR to hip/knee flexion/ext, only soreness/ tightness no pain STG Duration 09/19/23 updated 09/11/23. Long-Term Goal (LTG) Improve SLS with pt able to walk with less trunk sway. 09/03/23: SLS: 6 secs left, 3.3 secs right. LTG Duration 10/04/23 One Impairment Lacks self care HEP Short Term Goal (STG) Pt educated in proper LBP care of proper transfers, proper sitting/standing posturing, and body mechanics/ADL training. STG Duration 08/07/23 (08/01/23: MET GOAL) Shutdown Coordinator Goal (LTG) HEP of core/L hip strengthening and SLS balance exercises. 08/17/23: added prone hip ext and side ABD. 08/30/23: added open book, step ups c/ TS & posturing 09/11/23: modified SLR to hip/ knee flex/ext opp LE straight LTG Duration 10/04/23 progressin Three Impairment Decreased function Impairment Pt requiring use of FWW for safe gait Pt limited in ability to walk her dog. LEFS score 18 ([id number] impaired , score 17-31) Short Term Goal (STG) Pt will be educated in best practice to split wood. 07/30/23: educated pt to avoid twisting lifting, carrying objects and to avoid one sided activities ( splitting wood). 09/03/23: Recommended pt not split would be reviewed best practice to splitting would with symmetrical movement chopping (not twisting). STG Duration 08/09/23 (09/03/23: GOAL MET w/Modification) Long-Term Goal (LTG) Pt will be able to split wood without onset of LBP. LTG Duration 10/04/23 Assessment Summary Assessment Pt improved SLS LLE by 7 sec but decrease of 12 sec RLE. Improved self corrections COG over MED during tandem, not timed. Pt continues to have limited L knee flexion and hip flexor strength noted during hurdles, cues for slowering pacing and emphasis on trunk alignment over advanced LE noted glut firing and SLS time more stable and less circumduction. She has good effort during repeated step ups almost no momentum and no need contact rail to progress carrying items up stairs needed at home. Pt reports no pain and declined modalities last 2 treatments. Physical Therapy Plan Frequency and Duration Frequency of Treatment 2x/Week Duration of treatment (weeks) 4 Plan of Care Start Date 09/03/23 Plan of Care End Date 10/04/23 Therapeutic Interventions Therapeutic Interventions Balance Training,Gait Training ,Home Exercise Program,Joint Mobilizations,Neuromuscular Re -education,Self-Care/Home Management,Soft Tissue Mobilization,Therapeutic Activities,Therapeutic Exercises Modalities Cold Pack/Ice Massage,Electric Stimulation,Hot Packs Next Visit Focus/Plan Next Note Type Treatment Note Next Visit Plan Recheck step ups and progress stepping uneven surfaces for outdoor yard work balance/ strengthening. Continue L hip flexor manual/stretching and strengthening. Check if need: End with EStim to Back. Start STM/stretch for L hip flexors and manual Iliopsoas & hip flexor strengthening. Trial use calf stretch LONNIE with LS ext ex. Back extension program to improve lumbar ext at L1-L5 with mild over pressure oscillations at L1, L3, L5, and decrease thoracic flexion posturing, Assess and Improve L LE hip strength/core strength. Neuro-anastacia: SLS balance, Gait training: gait stability and safety. Modalities for pain and EStim to promote lumbar joint mobility. Gentle lumbar traction at PELVIS (due to TKA) as needed for LB/LLE pain.
--- NOTE | 2023-09-23 15:57 | PT.OTN ---
Current Diagnoses Other chronic pain (09/23/23) Sciatica, unspecified side (09/23/23) Low back pain, unspecified (09/23/23) Physical Therapy Treatment Note PT-OP-A Visit Information Start: 07/25/23 17:46 Freq: Status: Active Protocol: Document 09/23/23 10:37 LRN (Rec: 09/23/23 11:20 LRN [id number]) Out-Patient Physical Therapy Visit Information Visit Information Visit Type Treatment Note Visit Note 01/28 post PN. Visit Start Time 10:37 Visit Stop Time 11:17 Total Visit Minutes 40 Visit Number 14 Number of MONOTYPE MECHANIC Visits 2 Evaluation Information Evaluation Date 07/30/23 Precautions Precautions L TKA 04/09/23., R TKA ~7 yrs ago. PT-OP-B Current Condition Start: 07/25/23 17:46 Freq: Status: Active Protocol: Document 07/30/23 14:09 LRN (Rec: 07/30/23 15:01 LRN [id number]) Current Condition History of Current Condition Onset Date 06/23/23 Current Complaints L LBP rated 2/10, and R UBP rated 3/10. History of Current Condition Lifting a heavy garbage bag into a trash can (had cat litter in it) and although didn't have pain at the time she did experience onset of L low back in the afternoon. A week later she had to go to ER and was given Oxicodone and pain patches that eliminated the severe pain. Currently she has hardly any L sciatic pain and L LBP. She has been splitting wood but states her son stacks the big rolls. She hopes to get her grandson to stack the wood after she splits it. She stopped Gabapentin at night and only takes Napracin in AM and Alleve at night. She reports she sleeps really well with the medications. Pt notes she has lost a lot of weight since L TKA surgery 04/09/23. Prior Treatments and Tests Pain medications. Future Testing and Treatments Planned Initially pt saw Dr. Shraddha Tapia because Dr. Nolvia Wyatt was out of office. Saw Dr Wyatt yesterday for the R UBP (posterior shoulder). Next appt with Dr. Wyatt is October. Treatment Goals Patient/Caregiver Goals Pt goal is to be able to split wood without onset of pain, eliminate anterior L thigh pain with sleeping. She is agreeable to be on a self care HEP. 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 PT-OP-C Subjective Start: 07/25/23 17:46 Freq: Status: Active Protocol: Document 09/23/23 10:37 LRN (Rec: 09/23/23 11:20 LRN [id number]) OP-PT Subjective Patient Comments Patient Comments Saw Dr. Sanches day before last . Had MRI last Sat and will see her this Sat. Her back is like it was before, when she rests it takes away her back pain. L lateral thigh is painful to touch and knee hurts. X-ray of knees are normal. Can sleep well at night and on the sides. PT-OP-D Balance Start: 09/03/23 14:37 Freq: Status: Active Protocol: Document 09/23/23 10:37 LRN (Rec: 09/23/23 12:56 LRN [id number]) Balance Tests Single Limb Standing Single Limb- Right 8 Single Limb- Left 6 PT-OP-G Mobility & Gait Start: 07/25/23 17:46 Freq: Status: Active Protocol: Document 09/03/23 10:32 LRN (Rec: 09/03/23 12:54 LRN [id number]) OP Gait Assessment Gait Gait Assistance Required: Independent Able to Maintain Weight Bearing Status Yes During Gait Assistive Devices Assistive Device None Gait Deviations General Gait Pattern Lateral Trunk Lean Factors Limiting Gait Function Factors Limiting Gait Function Decreased Strength,Poor Balance Comments Gait Comments Pt ambs with increased R lateral trunk sway and decreased L trunk sway/greater lateral hip shift. Sway back is mild with v cuing for core stabilization PT-OP-H Neuro Start: 07/25/23 17:46 Freq: Status: Active Protocol: Document 07/30/23 14:09 LRN (Rec: 07/30/23 15:01 LRN [id number]) Sensation Evaluation Gross Sensation Gross Sensation WNL PT-OP-J Posture/Palpation/Skin Start: 07/25/23 17:46 Freq: Status: Active Protocol: Document 09/03/23 10:32 LRN (Rec: 09/03/23 12:54 LRN [id number]) Posture Evaluation Position Standing T-Spine Posture Neutral L-Spine Posture Neutral Comments Posture Comments Sway back posturing w/o cuing. No sway back posturing w/phys & v cuing. Palpation Assessment Location Low Back Palpation Location L3 & L5 Spinous processes posteriorly displaced Palpation Findings Soft Tissue Tightness, Tenderness Palpation Details Tender L5 PA and L3. Tight L lumbar paraspinals. PT-OP-K Range of Motion Start: 07/25/23 17:46 Freq: Status: Active Protocol: Document 09/03/23 10:32 LRN (Rec: 09/03/23 12:54 LRN [id number]) Hip Goniometric Range of Motion Hip Right Passive Testing Position Supine Straight Leg Raise 75 Left Passive Testing Position Supine Straight Leg Raise 70 PT-OP-L Special Tests Start: 07/25/23 17:46 Freq: Status: Active Protocol: Document 07/30/23 14:09 LRN (Rec: 07/30/23 15:01 LRN [id number]) Special Tests Lumbar Spine Special Tests Straight Leg Raise Test Results + left Vertical Spine Loading Test Results negative Standing Flexion Test Results positive Comments Onset of mild discomfort in L LB. PT-OP-M Strength Start: 07/25/23 17:46 Freq: Status: Active Protocol: Document 09/03/23 10:32 LRN (Rec: 09/03/23 12:56 LRN [id number]) Hip Strength Hip Manual Muscle Testing Right Flexion (L2) 4- Good- Extension (S1) 4+ Good+ Left Flexion (L2) 3 Fair Extension (S1) 4- Good- PT-OP-Q Treatments Start: 07/25/23 17:46 Freq: Status: Active Protocol: Document 09/23/23 10:37 LRN (Rec: 09/23/23 11:20 LRN [id number]) Therapeutic Exercises Supine Exercises DKTC stretch Supine Exercise Name DKTC stretch Reps/Minutes 3' SLR Supine Exercise Name SLR Side left Equipment Used long trifolded towel across LS Reps/Minutes 1x10 Comments Cued neutral spine (slight ext from full flattening of low back) Standing Exercises Hamstring stretch Standing Exercise Name At stairs: Foot on 2nd step Side bilateral Equipment Used Stairs Reps/Minutes 4' Manual Therapy Treatment Soft Tissue Mobilization L anter Quads Body Location L anterior Quads & adductor Mobilization Type Rolling,Strumming Intensity/Depth Moderate Body Position Supine Comments manual STMs, supine and LE off edge table L hip Body Location Relaxation L Iliopsoas Mobilization Type Sustained Pressure,Other Intensity/Depth Moderate Body Position Hooklying Comments Relaxation of L Iliopsoas while LEs supported on pillows , improved pliability and able lay leg flat on table without anterior L hip tension. Manual Traction Lumbar Details Traction with belt over thighs Body Position Hooklying Reps/Duration 13' Comments Resolution of L thigh tendereness. Neuro Re-Education Treatment Balance Activities SLS Details SLS w/hands hovering over // bars Surface Level, firm Comments SLS Left: 6 sec SLS Right: 8 sec PT-OP-R Modalities Start: 07/25/23 17:46 Freq: Status: Active Protocol: Document 08/13/23 08:48 LRN (Rec: 08/13/23 09:27 LRN [id number]) Electric Stimulation Electric Stimulation Interferential Current (IFC) Body Location [L3] Duration (Minutes) 10 Intensity 25 Target/Sweep Sweep Patient Position Hooklying Combined With Heat/Cold Hot Pack Comments Extra time to determine tolerated intensity. PT-OP-T Assessment and Plan Start: 07/25/23 17:46 Freq: Status: Active Protocol: Document 09/23/23 10:37 LRN (Rec: 09/23/23 11:20 LRN [id number]) Physical Therapy Assessment Goals Two Impairment Pain and weakness in LLE. Impairment Pain rated 2/10 in L anterior thigh & LB. SLS: 8 secs left, 4 secs right. Short Term Goal (STG) Eliminate anterior L thigh pain with sleeping. 08/01/23: No pain with pain medication through night. 08/07/23: states taking less strong med so feeling pain into L lateral leg sleeping, being woke up. 09/03/23: Persists unless elevates back. Only ASA at night, no pain meds. 09/11/23: report since stretch and modified SLR to hip/knee flexion/ext, only soreness/ tightness no pain 09/23/23: Occasional pain in L thigh with sleeping. STG Duration 09/19/23 updated 09/23/23. Printer Slotter Feeder Goal (LTG) Improve SLS with pt able to walk with less trunk sway. 09/03/23: SLS: 6 secs left, 3.3 secs right. 09/23/23: SLS: 6 secs left, 8 secs right. LTG Duration 10/04/23 improved R SLS 02/10 One Impairment Lacks self care HEP Short Term Goal (STG) Pt educated in proper LBP care of proper transfers, proper sitting/standing posturing, and body mechanics/ADL training. STG Duration 08/07/23 (08/01/23: MET GOAL) Printer Slotter Feeder Goal (LTG) HEP of core/L hip strengthening and SLS balance exercises. 08/17/23: added prone hip ext and side ABD. 08/30/23: added open book, step ups c/ TS & posturing 09/11/23: modified SLR to hip/ knee flex/ext opp LE straight LTG Duration 10/04/23 progressin Three Impairment Decreased function Impairment Pt requiring use of FWW for safe gait Pt limited in ability to walk her dog. LEFS score 18 ([id number] impaired , score 17-31) Short Term Goal (STG) Pt will be educated in best practice to split wood. 07/30/23: educated pt to avoid twisting lifting, carrying objects and to avoid one sided activities ( splitting wood). 09/03/23: Recommended pt not split would be reviewed best practice to splitting would with symmetrical movement chopping (not twisting). STG Duration 08/09/23 (09/03/23: GOAL MET w/Modification) Halfway Goal (LTG) Pt will be able to split wood without onset of LBP. LTG Duration 10/04/23 Assessment Summary Assessment Recent MRI shows L/S spine degeneration & several sites of neural foraminal narrowing associated w/nerve root compression; L1 compression deformity and scoliosis. She appears to have a positional dysfunction of L3 & L5 spinous processes. She has extreme tightness with L hip internal rotators and probable LE neurological weakness; SLS LLE ~6 secs, RLE ~8 secs. L lateral thigh pain w/palpation resolves with lumbar traction , L knee pain doesn't appear to be related to neural L/S. Physical Therapy Plan Frequency and Duration Frequency of Treatment 2x/Week Duration of treatment (weeks) 4 Plan of Care Start Date 09/03/23 Plan of Care End Date 10/04/23 Next Visit Focus/Plan Next Note Type Treatment Note Next Visit Plan Check if need to end with EStim to Back. Recheck step ups and progress stepping uneven surfaces for outdoor yard work balance/ strengthening. Address splitting wood without onset of LBP. Continue L hip flexor manual/stretching and strengthening. Start STM/stretch for L hip flexors and manual Iliopsoas & hip flexor strengthening. Trial use calf stretch LONNIE with LS ext ex. Minimal back extension program to improve lumbar ext at L1-L5 with mild over pressure oscillations at L1, L3, L5, and decrease thoracic flexion posturing, Assess and Improve L LE hip strength/core strength. Neuro-anastacia: SLS balance, Gait training: gait stability and safety. Modalities for pain and EStim to promote lumbar joint mobility. Gentle lumbar traction at PELVIS or anterior THIGHS (due to TKA) as needed for LB/LLE pain.
--- NOTE | 2023-09-26 16:22 | PT.OTN ---
Current Diagnoses Other chronic pain (09/26/23) Sciatica, unspecified side (09/26/23) Low back pain, unspecified (09/26/23) Physical Therapy Treatment Note PT-OP-A Visit Information Start: 07/25/23 17:46 Freq: Status: Active Protocol: Document 09/26/23 13:01 LRN (Rec: 09/26/23 13:50 LRN [id number]) Out-Patient Physical Therapy Visit Information Visit Information Visit Type Progress Note Visit Note 02/27 post PN. Visit Start Time 13:01 Visit Stop Time 13:47 Total Visit Minutes 38 Visit Number 15 Evaluation Information Evaluation Date 07/30/23 Precautions Precautions L TKA 04/09/23., R TKA ~7 yrs ago. PT-OP-B Current Condition Start: 07/25/23 17:46 Freq: Status: Active Protocol: Document 07/30/23 14:09 LRN (Rec: 07/30/23 15:01 LRN [id number]) Current Condition History of Current Condition Onset Date 06/23/23 Current Complaints L LBP rated 2/10, and R UBP rated 3/10. History of Current Condition Lifting a heavy garbage bag into a trash can (had cat litter in it) and although didn't have pain at the time she did experience onset of L low back in the afternoon. A week later she had to go to ER and was given Oxicodone and pain patches that eliminated the severe pain. Currently she has hardly any L sciatic pain and L LBP. She has been splitting wood but states her son stacks the big rolls. She hopes to get her grandson to stack the wood after she splits it. She stopped Gabapentin at night and only takes Napracin in AM and Alleve at night. She reports she sleeps really well with the medications. Pt notes she has lost a lot of weight since L TKA surgery 04/09/23. Prior Treatments and Tests Pain medications. Future Testing and Treatments Planned Initially pt saw Dr. Shraddha Tapia because Dr. Nolvia Wyatt was out of office. Saw Dr Wyatt yesterday for the R UBP (posterior shoulder). Next appt with Dr. Wyatt is October. Treatment Goals Patient/Caregiver Goals Pt goal is to be able to split wood without onset of pain, eliminate anterior L thigh pain with sleeping. She is agreeable to be on a self care HEP. 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 PT-OP-C Subjective Start: 07/25/23 17:46 Freq: Status: Active Protocol: Document 09/26/23 13:01 LRN (Rec: 09/26/23 13:50 LRN [id number]) OP-PT Subjective Patient Comments Patient Comments Back is good is good, midback is sore due to carrying books. Hasn't had any R hip pain with sleeping on sides. States she put pillow btn the knees to sleep. L anterior thigh pain is minimal, primarily when first lying down and sometimes during the day. Patient Questionnaires Oswestry Low Back Index Oswestry Score 1 Oswestry Impairment 1 to 19% Impaired (Score 1-19) PT-OP-D Balance Start: 09/03/23 14:37 Freq: Status: Active Protocol: Document 09/26/23 13:01 LRN (Rec: 09/26/23 15:59 LRN [id number]) Balance Tests Single Limb Standing Single Limb- Right Avg of 3 trials (7, 11, 7) - 8 secs Single Limb- Left Avg of 3 trials (7, 12, 5) - 8 secs PT-OP-G Mobility & Gait Start: 07/25/23 17:46 Freq: Status: Active Protocol: Document 09/26/23 13:01 LRN (Rec: 09/26/23 16:01 LRN [id number]) OP Gait Assessment Gait Gait Assistance Required: Independent Assistive Devices Assistive Device None Gait Deviations General Gait Pattern Lateral Trunk Lean Factors Limiting Gait Function Factors Limiting Gait Function Decreased Strength Comments Gait Comments Trunk L lean with gait. Pt is stable and safe with gait. PT-OP-H Neuro Start: 07/25/23 17:46 Freq: Status: Active Protocol: Document 07/30/23 14:09 LRN (Rec: 07/30/23 15:01 LRN [id number]) Sensation Evaluation Gross Sensation Gross Sensation WNL PT-OP-J Posture/Palpation/Skin Start: 07/25/23 17:46 Freq: Status: Active Protocol: Document 09/03/23 10:32 LRN (Rec: 09/03/23 12:54 LRN [id number]) Posture Evaluation Position Standing T-Spine Posture Neutral L-Spine Posture Neutral Comments Posture Comments Sway back posturing w/o cuing. No sway back posturing w/phys & v cuing. Palpation Assessment Location Low Back Palpation Location L3 & L5 Spinous processes posteriorly displaced Palpation Findings Soft Tissue Tightness, Tenderness Palpation Details Tender L5 PA and L3. Tight L lumbar paraspinals. PT-OP-K Range of Motion Start: 07/25/23 17:46 Freq: Status: Active Protocol: Document 09/03/23 10:32 LRN (Rec: 09/03/23 12:54 LRN [id number]) Hip Goniometric Range of Motion Hip Right Passive Testing Position Supine Straight Leg Raise 75 Left Passive Testing Position Supine Straight Leg Raise 70 PT-OP-L Special Tests Start: 07/25/23 17:46 Freq: Status: Active Protocol: Document 07/30/23 14:09 LRN (Rec: 07/30/23 15:01 LRN [id number]) Special Tests Lumbar Spine Special Tests Straight Leg Raise Test Results + left Vertical Spine Loading Test Results negative Standing Flexion Test Results positive Comments Onset of mild discomfort in L LB. PT-OP-M Strength Start: 07/25/23 17:46 Freq: Status: Active Protocol: Document 09/03/23 10:32 LRN (Rec: 09/03/23 12:56 LRN [id number]) Hip Strength Hip Manual Muscle Testing Right Flexion (L2) 4- Good- Extension (S1) 4+ Good+ Left Flexion (L2) 3 Fair Extension (S1) 4- Good- PT-OP-Q Treatments Start: 07/25/23 17:46 Freq: Status: Active Protocol: Document 09/26/23 13:01 LRN (Rec: 09/26/23 13:50 LRN [id number]) Therapeutic Exercises Supine Exercises DKTC stretch Supine Exercise Name DKTC stretch Reps/Minutes 3' SLR Supine Exercise Name SLR Side left Equipment Used long trifolded towel across LS Reps/Minutes 10 SH + 10 ankle pumps x 3 Comments Cued neutral spine (slight ext from full flattening of low back) Manual Therapy Treatment Soft Tissue Mobilization L anter Quads Body Location L adductors Mobilization Type Rolling,Strumming Intensity/Depth Moderate Body Position Supine Comments manual STMs, supine L hip Body Location Relaxation L Iliopsoas Mobilization Type Sustained Pressure,Other Intensity/Depth Moderate Body Position Hooklying Comments Relaxation of L Iliopsoas while LEs supported on pillows , improved pliability and able lay leg flat on table without anterior L hip tension. Manual Traction Lumbar Details Traction with belt over thighs Body Position Hooklying Reps/Duration 13' Comments Resolution of L thigh tendereness. Neuro Re-Education Treatment Balance Activities SLS Details SLS w/hands hovering over // bars Surface Level, firm Comments SLS avg of 8 secs bilaterally. PT-OP-R Modalities Start: 07/25/23 17:46 Freq: Status: Active Protocol: Document 08/13/23 08:48 LRN (Rec: 08/13/23 09:27 LRN [id number]) Electric Stimulation Electric Stimulation Interferential Current (IFC) Body Location [L3] Duration (Minutes) 10 Intensity 25 Target/Sweep Sweep Patient Position Hooklying Combined With Heat/Cold Hot Pack Comments Extra time to determine tolerated intensity. PT-OP-T Assessment and Plan Start: 07/25/23 17:46 Freq: Status: Active Protocol: Document 09/26/23 13:01 LRN (Rec: 09/26/23 13:50 LRN [id number]) Physical Therapy Assessment Goals Two Impairment Pain and weakness in LLE. Impairment Pain rated 2/10 in L anterior thigh & LB. SLS: 8 secs left, 4 secs right. Short Term Goal (STG) Eliminate anterior L thigh pain with sleeping. 08/01/23: No pain with pain medication through night. 08/07/23: states taking less strong med so feeling pain into L lateral leg sleeping, being woke up. 09/03/23: Persists unless elevates back. Only ASA at night, no pain meds. 09/11/23: report since stretch and modified SLR to hip/knee flexion/ext, only soreness/ tightness no pain 09/23/23: Occasional pain in L thigh with sleeping. 09/26/23: Tiny bit of L thigh pain at first lying down, no L hip/thigh pain with sleeping . Present sometimes during the day. STG Duration 09/19/23 (09/26/23: MOSTLY MET GOAL). Detention Goal (LTG) Improve SLS with pt able to walk with less trunk sway. 09/03/23: SLS: 6 secs left, 3.3 secs right. 09/23/23: SLS: 6 secs left, 8 secs right. 09/26/23: SLS: 8 secs bilaterally. LTG Duration 10/04/23 (09/26/23: NOT MET GOAL, but improved SLS). One Impairment Lacks self care HEP Short Term Goal (STG) Pt educated in proper LBP care of proper transfers, proper sitting/standing posturing, and body mechanics/ADL training. STG Duration 08/07/23 (08/01/23: MET GOAL) Track Fitter Goal (LTG) HEP of core/L hip strengthening and SLS balance exercises. 08/17/23: added prone hip ext and side ABD. 08/30/23: added open book, step ups c/ TS & posturing 09/11/23: modified SLR to hip/ knee flex/ext opp LE straight LTG Duration 10/04/23 progressin Three Impairment Decreased function Impairment Pt requiring use of FWW for safe gait Pt limited in ability to walk her dog. LEFS score 18 (60-795 impaired , score 17-31) Short Term Goal (STG) Pt will be educated in best practice to split wood. 07/30/23: educated pt to avoid twisting lifting, carrying objects and to avoid one sided activities ( splitting wood). 09/03/23: Recommended pt not split would be reviewed best practice to splitting would with symmetrical movement chopping (not twisting). STG Duration 08/09/23 (09/03/23: GOAL MET w/Modification) Detention Goal (LTG) Pt will be able to split wood without onset of LBP. 09/26/23: Pt agreeable to not pursuing this goal unless she can be painfree in the LB/L thigh for a prolonged period ( 1 yr). LTG Duration 10/04/23 (09/26/23: DC GOAL , not appropriate.) Assessment Summary Assessment Pt is now able to sleep on sides without lateral hip pain . L anterior thigh pain is minimal, primarily when first lying down and sometimes during the day. She has a visible L lateral trunk sway when not tightening her core due to her feeling weakness of her LE. Teresa feels ready for discharge to her HEP to work on her core & LE strengthening but would like to be seen for one more visit for review of her HEP. This is appropriate. LUTHER indicates 1 % functional impairement. Physical Therapy Plan Frequency and Duration Frequency of Treatment 2x/Week Duration of treatment (weeks) 4 Plan of Care Start Date 09/03/23 Plan of Care End Date 10/04/23 Next Visit Focus/Plan Next Note Type Treatment Note Next Visit Plan DC next visit after review and set up of HEP (add hip flex/ AB & Quad/Hamstring strengthening, and balance ex' s (SLS & corner ex's). Assess SLS balance. NOTE: Core stab with hip flex /AB strengthening) Recheck step ups and progress stepping uneven surfaces for outdoor yard work balance/ strengthening. If needed: EStim to promote lumbar joint mobility & decr pain. If needed: Gentle lumbar traction at PELVIS or anterior THIGHS (due to TKA), for LB/ LLE pain.
--- NOTE | 2023-09-30 11:20 | PT.OTN ---
Current Diagnoses Other chronic pain (09/30/23) Sciatica, unspecified side (09/30/23) Low back pain, unspecified (09/30/23) Physical Therapy Treatment Note PT-OP-A Visit Information Start: 07/25/23 17:46 Freq: Status: Active Protocol: Document 09/30/23 10:35 SP (Rec: 09/30/23 11:31 SP [id number]) Out-Patient Physical Therapy Visit Information Visit Information Visit Type Treatment Note Visit Note 10/30 post PN. 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 PT-OP-B Current Condition Start: 07/25/23 17:46 Freq: Status: Active Protocol: Document 07/30/23 14:09 LRN (Rec: 07/30/23 15:01 LRN [id number]) Current Condition History of Current Condition Onset Date 06/23/23 Current Complaints L LBP rated 2/10, and R UBP rated 3/10. History of Current Condition Lifting a heavy garbage bag into a trash can (had cat litter in it) and although didn't have pain at the time she did experience onset of L low back in the afternoon. A week later she had to go to ER and was given Oxicodone and pain patches that eliminated the severe pain. Currently she has hardly any L sciatic pain and L LBP. She has been splitting wood but states her son stacks the big rolls. She hopes to get her grandson to stack the wood after she splits it. She stopped Gabapentin at night and only takes Napracin in AM and Alleve at night. She reports she sleeps really well with the medications. Pt notes she has lost a lot of weight since L TKA surgery 04/09/23. Prior Treatments and Tests Pain medications. Future Testing and Treatments Planned Initially pt saw Dr. Shraddha Tapia because Dr. Nolvia Wyatt was out of office. Saw Dr Wyatt yesterday for the R UBP (posterior shoulder). Next appt with Dr. Wyatt is October. Treatment Goals Patient/Caregiver Goals Pt goal is to be able to split wood without onset of pain, eliminate anterior L thigh pain with sleeping. She is agreeable to be on a self care HEP. 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 PT-OP-C Subjective Start: 07/25/23 17:46 Freq: Status: Active Protocol: Document 09/30/23 10:35 SP (Rec: 09/30/23 11:31 SP [id number]) OP-PT Subjective Patient Comments Patient Comments Pt reports brought all her HEP HOs for review her last tx today. PT-OP-D Balance Start: 09/03/23 14:37 Freq: Status: Active Protocol: Document 09/26/23 13:01 LRN (Rec: 09/26/23 15:59 LRN [id number]) Balance Tests Single Limb Standing Single Limb- Right Avg of 3 trials (7, 11, 7) - 8 secs Single Limb- Left Avg of 3 trials (7, 12, 5) - 8 secs PT-OP-G Mobility & Gait Start: 07/25/23 17:46 Freq: Status: Active Protocol: Document 09/26/23 13:01 LRN (Rec: 09/26/23 16:01 LRN [id number]) OP Gait Assessment Gait Gait Assistance Required: Independent Assistive Devices Assistive Device None Gait Deviations General Gait Pattern Lateral Trunk Lean Factors Limiting Gait Function Factors Limiting Gait Function Decreased Strength Comments Gait Comments Trunk L lean with gait. Pt is stable and safe with gait. PT-OP-H Neuro Start: 07/25/23 17:46 Freq: Status: Active Protocol: Document 07/30/23 14:09 LRN (Rec: 07/30/23 15:01 LRN [id number]) Sensation Evaluation Gross Sensation Gross Sensation WNL PT-OP-J Posture/Palpation/Skin Start: 07/25/23 17:46 Freq: Status: Active Protocol: Document 09/03/23 10:32 LRN (Rec: 09/03/23 12:54 LRN [id number]) Posture Evaluation Position Standing T-Spine Posture Neutral L-Spine Posture Neutral Comments Posture Comments Sway back posturing w/o cuing. No sway back posturing w/phys & v cuing. Palpation Assessment Location Low Back Palpation Location L3 & L5 Spinous processes posteriorly displaced Palpation Findings Soft Tissue Tightness, Tenderness Palpation Details Tender L5 PA and L3. Tight L lumbar paraspinals. PT-OP-K Range of Motion Start: 07/25/23 17:46 Freq: Status: Active Protocol: Document 09/03/23 10:32 LRN (Rec: 09/03/23 12:54 LRN [id number]) Hip Goniometric Range of Motion Hip Right Passive Testing Position Supine Straight Leg Raise 75 Left Passive Testing Position Supine Straight Leg Raise 70 PT-OP-L Special Tests Start: 07/25/23 17:46 Freq: Status: Active Protocol: Document 07/30/23 14:09 LRN (Rec: 07/30/23 15:01 LRN [id number]) Special Tests Lumbar Spine Special Tests Straight Leg Raise Test Results + left Vertical Spine Loading Test Results negative Standing Flexion Test Results positive Comments Onset of mild discomfort in L LB. PT-OP-M Strength Start: 07/25/23 17:46 Freq: Status: Active Protocol: Document 09/03/23 10:32 LRN (Rec: 09/03/23 12:56 LRN [id number]) Hip Strength Hip Manual Muscle Testing Right Flexion (L2) 4- Good- Extension (S1) 4+ Good+ Left Flexion (L2) 3 Fair Extension (S1) 4- Good- PT-OP-Q Treatments Start: 07/25/23 17:46 Freq: Status: Active Protocol: Document 09/30/23 10:35 SP (Rec: 09/30/23 11:31 SP [id number]) Therapeutic Exercises Supine Exercises HS stretch Supine Exercise Name reviewed HEP: 1. HS 2. sciatic nerve glide/active HS stretch Reps/Minutes 3' total Comments good HS stretch reported for need home DKTC stretch Supine Exercise Name SKTC stretch Reps/Minutes 30 Comments good back Prone Exercises TA/Gluteal tightening Prone Exercise Name TA/Gluteal tightening, reviewed LE lift ext (unweight off table) Side left Equipment Used pillow under hip Reps/Minutes x10 Comments good TA fac pre lift, painfree Sidelying Exercises open book Sidelying Exercise Name HEP reviewed Side bilateral Resistance AROM long arm axis Reps/Minutes 5 reps x3 breath hold Comments cue for stacked alignment, head turn with arm and only range scap glide TA hip abd Sidelying Exercise Name Hip AB Side bilateral Resistance AROM Equipment Used Towel roll under small of back Reps/Minutes x20 Comments cued stacked on side, roll little fwd, kickback lift- better alignment Standing Exercises step ups Standing Exercise Name progressed repeated step up/ back down Side left Equipment Used 6 bottom step, no rail Reps/Minutes 2x10 Comments improved fluid asc/desc no momentum Other Exercises past knee ROM HEP Other Exercise Name 1. foot on chair AAROM 2. quad stretch contact rail sit back Side bilateral Reps/Minutes 3 ' Comments good quad and inside knee stretch Therapeutic Activity Therapeutic Activity Seated Postural alignment Reps/Minutes 4' Comments review pillow behind low back for spinal alignment and decrease LB irritation states get once in while sitting. log roll technique Reps/Minutes 4 reps 4' Comments good alignment performance Neuro Re-Education Treatment Balance Activities SLS Details SLS w/hands hovering over // bars Surface Level, firm Comments SLS 15 sec RLE, 9 sec LLE * was an improvement with cues for elongated posture over stance LE, TA Self-Care/Home Management Treatment Education Patient Education Body Mechanics,Joint Protection,Pain Management, Posture Other Education Ed for awareness of posturing gait for increase TA and less LB recrutiment, she reports feels better when thinks about it. PT-OP-R Modalities Start: 07/25/23 17:46 Freq: Status: Active Protocol: Document 08/13/23 08:48 LRN (Rec: 08/13/23 09:27 LRN [id number]) Electric Stimulation Electric Stimulation Interferential Current (IFC) Body Location [L3] Duration (Minutes) 10 Intensity 25 Target/Sweep Sweep Patient Position Hooklying Combined With Heat/Cold Hot Pack Comments Extra time to determine tolerated intensity. PT-OP-T Assessment and Plan Start: 07/25/23 17:46 Freq: Status: Active Protocol: Document 09/30/23 10:35 SP (Rec: 09/30/23 11:31 SP [id number]) Physical Therapy Assessment Goals Two Impairment Pain and weakness in LLE. Impairment Pain rated 2/10 in L anterior thigh & LB. SLS: 8 secs left, 4 secs right. Short Term Goal (STG) Eliminate anterior L thigh pain with sleeping. 08/01/23: No pain with pain medication through night. 08/07/23: states taking less strong med so feeling pain into L lateral leg sleeping, being woke up. 09/03/23: Persists unless elevates back. Only ASA at night, no pain meds. 09/11/23: report since stretch and modified SLR to hip/knee flexion/ext, only soreness/ tightness no pain 09/23/23: Occasional pain in L thigh with sleeping. 09/26/23: Tiny bit of L thigh pain at first lying down, no L hip/thigh pain with sleeping . Present sometimes during the day. 09/30/23: pt states almost no pain, better after stretching and mindfulness of gait better posture. STG Duration 09/19/23 (09/30/23: MOSTLY MET GOAL). Beveler Goal (LTG) Improve SLS with pt able to walk with less trunk sway. 09/03/23: SLS: 6 secs left, 3.3 secs right. 09/23/23: SLS: 6 secs left, 8 secs right. 09/26/23: SLS: 8 secs bilaterally. 09/30/23: 15 sec RLE, LLE 9 sec LTG Duration 10/04/23 (09/30/23: NOT MET GOAL, but improved SLS). One Impairment Lacks self care HEP Short Term Goal (STG) Pt educated in proper LBP care of proper transfers, proper sitting/standing posturing, and body mechanics/ADL training. STG Duration 08/07/23 (08/01/23: MET GOAL) Mcc Goal (LTG) HEP of core/L hip strengthening and SLS balance exercises. 08/17/23: added prone hip ext and side ABD. 08/30/23: added open book, step ups c/ TS & posturing 09/11/23: modified SLR to hip/ knee flex/ext opp LE straight 09/30/23: reviewed HEP hand outs, see objective LTG Duration 10/04/23 progressin Three Impairment Decreased function Impairment Pt requiring use of FWW for safe gait Pt limited in ability to walk her dog. LEFS score 18 (60-795 impaired , score 17-31) Short Term Goal (STG) Pt will be educated in best practice to split wood. 07/30/23: educated pt to avoid twisting lifting, carrying objects and to avoid one sided activities ( splitting wood). 09/03/23: Recommended pt not split would be reviewed best practice to splitting would with symmetrical movement chopping (not twisting). STG Duration 08/09/23 (09/03/23: GOAL MET w/Modification) Mcc Goal (LTG) Pt will be able to split wood without onset of LBP. 09/26/23: Pt agreeable to not pursuing this goal unless she can be painfree in the LB/L thigh for a prolonged period ( 1 yr). LTG Duration 10/04/23 (09/26/23: DC GOAL , not appropriate.) Assessment Summary Assessment Pt responded well to HEP review using her hand outs for self performance. Cued feedback for patient request good set up and how long holding. She reports back feels good and her R knee increase ROM with stretching review. Ed for awareness of posturing gait for increase TA and less LB recrutiment, she reports feels better when thinks about it. She states ready to DC to continue on own . Provided Ed if anything changes in her back or need gain more mobility in knee can ask for another referral to come back. Physical Therapy Plan Frequency and Duration Frequency of Treatment 2x/Week Duration of treatment (weeks) 4 Plan of Care Start Date 09/03/23 Plan of Care End Date 10/04/23 Therapeutic Interventions Therapeutic Interventions Balance Training,Gait Training ,Home Exercise Program,Joint Mobilizations,Neuromuscular Re -education,Self-Care/Home Management,Soft Tissue Mobilization,Therapeutic Activities,Therapeutic Exercises Modalities Cold Pack/Ice Massage,Electric Stimulation,Hot Packs Discharge Physical Therapy Discharge Reasons Goals Met Next Visit Focus/Plan Next Note Type Discharge Summary Next Visit Plan Updated goals this tx and HEP reviewed, PT to complete DC today.
--- NOTE | 2023-09-30 17:58 | PT.OPDS ---
Current Diagnoses Other chronic pain (09/30/23) Sciatica, unspecified side (09/30/23) Low back pain, unspecified (09/30/23) Visit Care Team Role Provider Type Nolvia Wyatt DO Family Provider Physician Primary Care Provider Specialty: Medical Address: [address] [place] [address], [address], [place], [address] Email: [email or web address] Tracie Tapia PA-C Attending Provider Advanced Assistant Manager Bilingual Referring Provider Specialty: Medical Wound Care Address: [address] [place] [address], [place], [address] Email: [email or web address] Visit Number Visit Number 16 Discharge Summary PT-OP-B Current Condition Start: 07/25/23 17:46 Freq: Status: Active Protocol: Document 07/30/23 14:09 LRN (Rec: 07/30/23 15:01 LRN [id number]) Current Condition History of Current Condition Onset Date 06/23/23 Current Complaints L LBP rated 2/10, and R UBP rated 3/10. History of Current Condition Lifting a heavy garbage bag into a trash can (had cat litter in it) and although didn't have pain at the time she did experience onset of L low back in the afternoon. A week later she had to go to ER and was given Oxicodone and pain patches that eliminated the severe pain. Currently she has hardly any L sciatic pain and L LBP. She has been splitting wood but states her son stacks the big rolls. She hopes to get her grandson to stack the wood after she splits it. She stopped Gabapentin at night and only takes Napracin in AM and Alleve at night. She reports she sleeps really well with the medications. Pt notes she has lost a lot of weight since L TKA surgery 04/09/23. Prior Treatments and Tests Pain medications. Future Testing and Treatments Planned Initially pt saw Dr. Shraddha Tapia because Dr. Nolvia Wyatt was out of office. Saw Dr Wyatt yesterday for the R UBP (posterior shoulder). Next appt with Dr. Wyatt is October. Treatment Goals Patient/Caregiver Goals Pt goal is to be able to split wood without onset of pain, eliminate anterior L thigh pain with sleeping. She is agreeable to be on a self care HEP. 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 PT-OP-C Subjective Start: 07/25/23 17:46 Freq: Status: Active Protocol: Document 09/30/23 10:35 SP (Rec: 09/30/23 11:31 SP [id number]) OP-PT Subjective Patient Comments Patient Comments Pt reports brought all her HEP HOs for review her last tx today. PT-OP-D Balance Start: 09/03/23 14:37 Freq: Status: Active Protocol: Document 09/26/23 13:01 LRN (Rec: 09/26/23 15:59 LRN [id number]) Balance Tests Single Limb Standing Single Limb- Right Avg of 3 trials (7, 11, 7) - 8 secs Single Limb- Left Avg of 3 trials (7, 12, 5) - 8 secs PT-OP-G Mobility & Gait Start: 07/25/23 17:46 Freq: Status: Active Protocol: Document 09/26/23 13:01 LRN (Rec: 09/26/23 16:01 LRN [id number]) OP Gait Assessment Gait Gait Assistance Required: Independent Assistive Devices Assistive Device None Gait Deviations General Gait Pattern Lateral Trunk Lean Factors Limiting Gait Function Factors Limiting Gait Function Decreased Strength Comments Gait Comments Trunk L lean with gait. Pt is stable and safe with gait. PT-OP-H Neuro Start: 07/25/23 17:46 Freq: Status: Active Protocol: Document 07/30/23 14:09 LRN (Rec: 07/30/23 15:01 LRN [id number]) Sensation Evaluation Gross Sensation Gross Sensation WNL PT-OP-J Posture/Palpation/Skin Start: 07/25/23 17:46 Freq: Status: Active Protocol: Document 09/03/23 10:32 LRN (Rec: 09/03/23 12:54 LRN [id number]) Posture Evaluation Position Standing T-Spine Posture Neutral L-Spine Posture Neutral Comments Posture Comments Sway back posturing w/o cuing. No sway back posturing w/phys & v cuing. Palpation Assessment Location Low Back Palpation Location L3 & L5 Spinous processes posteriorly displaced Palpation Findings Soft Tissue Tightness, Tenderness Palpation Details Tender L5 PA and L3. Tight L lumbar paraspinals. PT-OP-K Range of Motion Start: 07/25/23 17:46 Freq: Status: Active Protocol: Document 09/03/23 10:32 LRN (Rec: 09/03/23 12:54 LRN [id number]) Hip Goniometric Range of Motion Hip Right Passive Testing Position Supine Straight Leg Raise 75 Left Passive Testing Position Supine Straight Leg Raise 70 PT-OP-L Special Tests Start: 07/25/23 17:46 Freq: Status: Active Protocol: Document 07/30/23 14:09 LRN (Rec: 07/30/23 15:01 LRN [id number]) Special Tests Lumbar Spine Special Tests Straight Leg Raise Test Results + left Vertical Spine Loading Test Results negative Standing Flexion Test Results positive Comments Onset of mild discomfort in L LB. PT-OP-M Strength Start: 07/25/23 17:46 Freq: Status: Active Protocol: Document 09/03/23 10:32 LRN (Rec: 09/03/23 12:56 LRN [id number]) Hip Strength Hip Manual Muscle Testing Right Flexion (L2) 4- Good- Extension (S1) 4+ Good+ Left Flexion (L2) 3 Fair Extension (S1) 4- Good- PT-OP-T Assessment and Plan Start: 07/25/23 17:46 Freq: Status: Active Protocol: Document 09/30/23 17:49 LRN (Rec: 09/30/23 17:58 LRN [id number]) Physical Therapy Assessment Goals Two Impairment Pain and weakness in LLE. Impairment Pain rated 2/10 in L anterior thigh & LB. SLS: 8 secs left, 4 secs right. Short Term Goal (STG) Eliminate anterior L thigh pain with sleeping. 08/01/23: No pain with pain medication through night. 08/07/23: states taking less strong med so feeling pain into L lateral leg sleeping, being woke up. 09/03/23: Persists unless elevates back. Only ASA at night, no pain meds. 09/11/23: report since stretch and modified SLR to hip/knee flexion/ext, only soreness/ tightness no pain 09/23/23: Occasional pain in L thigh with sleeping. 09/26/23: Tiny bit of L thigh pain at first lying down, no L hip/thigh pain with sleeping . Present sometimes during the day. 09/30/23: pt states almost no pain, better after stretching and mindfulness of gait better posture. STG Duration 09/19/23 (09/30/23: MOSTLY MET GOAL). Lunch Truck Operator Goal (LTG) Improve SLS with pt able to walk with less trunk sway. 09/03/23: SLS: 6 secs left, 3.3 secs right. 09/23/23: SLS: 6 secs left, 8 secs right. 09/26/23: SLS: 8 secs bilaterally. 09/30/23: 15 sec RLE, LLE 9 sec LTG Duration 10/04/23 (09/30/23: NOT MET GOAL, but improved SLS). One Impairment Lacks self care HEP Short Term Goal (STG) Pt educated in proper LBP care of proper transfers, proper sitting/standing posturing, and body mechanics/ADL training. STG Duration 08/07/23 (08/01/23: MET GOAL) Lunch Truck Operator Goal (LTG) HEP of core/L hip strengthening and SLS balance exercises. 08/17/23: added prone hip ext and side ABD. 08/30/23: added open book, step ups c/ TS & posturing 09/11/23: modified SLR to hip/ knee flex/ext opp LE straight 09/30/23: reviewed HEP hand outs, see objective LTG Duration 10/04/23 (09/30/23: MET GOAL) Three Impairment Decreased function Impairment Pt requiring use of FWW for safe gait Pt limited in ability to walk her dog. LEFS score 18 (60-795 impaired , score 17-31) Short Term Goal (STG) Pt will be educated in best practice to split wood. 07/30/23: educated pt to avoid twisting lifting, carrying objects and to avoid one sided activities ( splitting wood). 09/03/23: Recommended pt not split would be reviewed best practice to splitting would with symmetrical movement chopping (not twisting). STG Duration 08/09/23 (09/03/23: GOAL MET w/Modification) Lunch Truck Operator Goal (LTG) Pt will be able to split wood without onset of LBP. 09/26/23: Pt agreeable to not pursuing this goal unless she can be painfree in the LB/L thigh for a prolonged period ( 1 yr). LTG Duration 10/04/23 (09/26/23: DC GOAL , not appropriate.) Assessment Summary Assessment The pt had her HEP and appears to be confident with her HEP, as previously discussed with pt. She has met or mostly met the goals that were appropriate for her to achieve . Her [place] Disability Index was 1 (1% impaired). She has mainly has deficit in her LLE SLS of 9 secs (15 sec RLE). She has a little L hip pain with sidelie sleeping that is probably neural in nature, and trunk L lean with gait, due to hip AB weakness, possibly neural related. If the pt is not able to maintain her core stability and hip strength, then therapy in the future would be appropriate. The pt feels ready to be placed on her HEP and is aware that if needed she could seek another referral for PT. Physical Therapy Plan Discharge Physical Therapy Discharge Reasons Goals Met Discharge Comments See Assessment above. Thank you for your referral.
== END 2023-10-10 13:30 | disposition home or self-care (01) ==
LOC: PHYS 10:30
PROVIDERS: Family Provider Family Medicine; PCP Family Medicine; Referring Provider Physician Assistant; Visit Provider Physician Assistant
DX: M54.30 Sciatica, unspecified side (principal); M54.50 Low back pain, unspecified; G89.29 Other chronic pain
CPT/HCPCS: 97014; 97110; 97112; 97116; 97140; 97162; 97530; 97535; G0283

== ENCOUNTER → 2024-03-12 08:03 | Outpatient (CLI) | payer MEDICARE, OTHER, SELFPAY ==
[2023-04-09 17:46] VITALS: BMI 20.2
--- NOTE | 2024-03-12 08:03 | DI.MG.S_ITS ---
BILATERAL DIGITAL SCREENING MAMMOGRAM 3D/2D WITH CAD: 03/12/2024 CLINICAL: Routine screening. Comparison is made to exams dated: 03/21/2023 mammogram, 03/05/2023 mammogram, 03/01/2022 mammogram, and 02/25/2021 mammogram - . Both breasts are heterogeneously dense, which may obscure small masses (category c / 51-75% glandular tissue). Current study was also evaluated with a Computer Aided Detection (CAD) system. No significant masses, calcifications, or other findings are seen in either breast. There has been no significant interval change. IMPRESSION: NEGATIVE There is no mammographic evidence of malignancy. A 1 year screening mammogram is recommended. Based on the Tyrer Cuzick model (a risk assessment model) the patient's lifetime risk is 3.6% and her 10 year risk is 0.0%. According to the ACR, ACS, and NCCN guidelines, an annual breast MRI exam along with mammogram is recommended if the patient's lifetime risk is 20% or greater. This exam was interpreted at Station ID: [id number]. NOTE: For mammograms, a report in lay terms will be sent to the patient. Approximately 15% of breast malignancies will not be visualized mammographically. In the management of a palpable breast mass, a negative mammogram must not discourage biopsy of a clinically suspicious lesion. Electronically Signed By: Destiny Irving M.D., Ph.D. [email or web address]:03/13/2024 01:58:08 letter sent: Normal Exam ACR BI-RADS Category 1: Negative [id number]
== END ==
LOC: MAMMO 08:03
PROVIDERS: Family Provider Family Medicine; PCP Family Medicine; Referring Provider Family Medicine; Visit Provider Family Medicine
DX: Z12.31 Encounter for screening mammogram for malignant neoplasm of breast (principal); R92.333 Mammographic heterogeneous density, bilateral breasts
CPT/HCPCS: 77063; 77067

== ENCOUNTER → 2024-08-20 07:31 | Outpatient (CLI) | payer MEDICARE, OTHER, SELFPAY ==
[2023-04-09 17:46] VITALS: BMI 20.2
[2024-08-20 08:14] LABS: Add Manual Diff / Slide Review NO; Basophils Absolute Auto 0 /uL (0-100); Basophils Percent Auto 0.8 % (0-2); Eosinophils Absolute Auto 200 /uL (0-450); Eosinophils Percent Auto 3.8 % (2-4); Hemoglobin 13.6 g/dL (12.0-16.0); Lymphocytes Absolute Auto 1600 /uL (1100-4500); Lymphocytes Percent Auto 36.3 % (25-40); Mean Corpuscular HGB Conc 34.1 % (30-36); Mean Corpuscular Hemoglobin 32.3 PG (26-34); Mean Corpuscular Volume 94.7 fL (80-100); Monocytes Absolute Auto 600 /uL (0-900); Monocytes Percent Auto 14.8 % (3-14); Neutrophils Absolute Auto 1900 /uL (1500-7000); Neutrophils Percent Auto 44.3 % (50-75); Platelet Count 222 X10^3/uL (150-400); Red Blood Cell Count 4.23 X10^6/uL (4.0-5.2); Red Cell Distribution Width 12.4 % (11.6-14.8); White Blood Cell Count 4.4 X10^3/uL (4.5-11.0)
[2024-08-20 08:48] LABS: Alanine Aminotransferase 22 IU/L (<35); Albumin 3.7 g/dL (3.5-5.0); Albumin Globulin Ratio 1.2 (1.0-2.8); Alkaline Phosphatase 81 U/L (38-126); Aspartate Aminotransferase 36 IU/L (14-36); BUN Creatinine Ratio 25.3 (6-22); Bilirubin Total 0.5 mg/dL (0.2-1.3); Blood Urea Nitrogen 19 mg/dL (7-17); Calcium 9.1 mg/dL (8.4-10.2); Carbon Dioxide 29 mmol/L (22-32); Chloride 106 mmol/L (98-107); Estimated Glomerular Filt Rate > 60 mL/min (>60); Globulin 3.1 g/dL (1.7-4.1); Glucose 94 mg/dL (80-110); HEMOLYSIS < 15 (0-50); Potassium 4.3 mmol/L (3.4-5.1); Sodium 139 mmol/L (137-145); Total Protein 6.8 g/dL (6.3-8.2)
[2024-08-20 18:46] LABS: Free T4, Direct Thyroxine 1.07 ng/dL (0.78-2.19)
== END ==
PROVIDERS: Family Provider Family Medicine; PCP Family Medicine; Referring Provider Physician Assistant; Visit Provider Physician Assistant
DX: D64.9 Anemia, unspecified (principal); R79.89 Other specified abnormal findings of blood chemistry; H69.93 Unspecified Eustachian tube disorder, bilateral
CPT/HCPCS: 36415; 80053; 84439; 84443; 85025

== ENCOUNTER → 2024-10-16 09:10 | Outpatient (CLI) | payer MEDICARE, OTHER, SELFPAY ==
[2023-04-09 17:46] VITALS: BMI 20.2
[2024-10-16 10:45] LABS: Free T3, Triiodothyronine Free 3.35 pg/mL (2.77-5.27); Free T4, Direct Thyroxine 1.11 ng/dL (0.78-2.19)
[2024-10-16 10:59] LABS: Thyroid Stimulating Hormone 3.13 uIU/mL (0.47-4.68)
[2024-10-18 05:10] LABS: Thyroid Peroxidase Antibodies 33 IU/mL (0-34)
[2024-10-19 10:36] LABS: Anti Thyroglobulin Antibody 222.8 IU/mL (0.0-0.9)
== END ==
PROVIDERS: Family Provider Family Medicine; PCP Family Medicine; Referring Provider Family Medicine; Visit Provider Family Medicine
DX: E03.9 Hypothyroidism, unspecified (principal)
CPT/HCPCS: 36415; 84439; 84443; 84481; 86376; 86800

== ENCOUNTER → 2025-01-19 11:49 | Outpatient (CLI) | payer MEDICARE, OTHER, SELFPAY ==
[2023-04-09 17:46] VITALS: BMI 20.2
[2025-01-19 12:40] LABS: Influenza A - CEPHEID Flu A NEGATIVE (NEGATIVE); Influenza B - CEPHEID Flu B NEGATIVE (NEGATIVE); Respiratory Syncytial Virus Negative (Negative)
[2025-01-19 12:41] LABS: COVID-19 CEPHEID 4-PLEX PCR Negative (Negative)
== END ==
PROVIDERS: Family Provider Family Medicine; PCP Family Medicine; Visit Provider Physician Assistant
DX: R09.89 Other specified symptoms and signs involving the circulatory and respiratory systems (principal); R05.9 Cough, unspecified; J32.9 Chronic sinusitis, unspecified
CPT/HCPCS: 0241U

== ENCOUNTER → 2025-05-06 15:50 | Outpatient (CLI) | payer MEDICARE, OTHER, SELFPAY ==
[2023-04-09 17:46] VITALS: BMI 20.2
== END ==
PROVIDERS: Family Provider Family Medicine; PCP Family Medicine; Visit Provider Student in an Organized Health Care Education/Training Program
DX: R30.0 Dysuria (principal)
CPT/HCPCS: 87086

== ENCOUNTER → 2025-05-10 11:11 | Outpatient (CLI) | payer MEDICARE, OTHER, SELFPAY ==
[2023-04-09 17:46] VITALS: BMI 20.2
--- NOTE | 2025-05-10 11:14 | DI.MG.S_ITS ---
MM screening mammo BI: 05/10/2025. BI-RADS: 1 CLINICAL: 80-year old female for bilateral screening mammogram. Tyrer-Cuzick lifetime risk of 0.8%. No personal or first-degree family history of breast cancer. PRIOR EXAMS 03/12/2024, 03/21/2023, 03/05/2023, 03/01/2022. MAMMOGRAPHY TECHNIQUE: 2D and 3D (tomosynthesis) digital mammographic views obtained, with additional images as needed for full coverage. Current study was also evaluated with a Computer Aided Detection (CAD) system. DENSITY C. The breasts are heterogeneously dense, which may obscure small masses. MAMMOGRAPHY FINDINGS Bilateral: No suspicious mass, asymmetry, microcalcification, or other abnormality seen. IMPRESSION: * No evidence of malignancy. RECOMMENDATIONS Bilateral * Annual screening mammography. OVERALL ASSESSMENT CATEGORY BI-RADS-1: Negative. The [employer] recommends annual screening mammography beginning at age 40 for women with average risk of breast cancer. ELECTRONICALLY SIGNED: Judith Wilhelm M.D. on 05/10/2025 at 09:01:09 PM PT Interpreting Station ID: [id number]
== END ==
PROVIDERS: Family Provider Family Medicine; PCP Family Medicine; Referring Provider Family Medicine; Visit Provider Family Medicine
DX: Z12.31 Encounter for screening mammogram for malignant neoplasm of breast (principal); R92.333 Mammographic heterogeneous density, bilateral breasts
CPT/HCPCS: 77063; 77067

== ENCOUNTER → 2025-10-16 13:01 | Outpatient (CLI) | payer MEDICARE, OTHER, SELFPAY ==
[2023-04-09 17:46] VITALS: BMI 20.2
== END ==
PROVIDERS: Family Provider Family Medicine; PCP Family Medicine; Visit Provider Chiropractor
DX: R30.0 Dysuria (principal)
CPT/HCPCS: 87077; 87086

== ENCOUNTER → 2025-10-16 13:21 | Outpatient (CLI) | payer MEDICARE, OTHER, SELFPAY ==
[2023-04-09 17:46] VITALS: BMI 20.2
--- NOTE | 2025-10-16 13:23 | DI.RAD.S_ITS ---
PROCEDURE: XR THORACIC SPINE 2V INDICATIONS: r/o Fx T/L junction area TECHNIQUE: Two views of the thoracic spine were acquired. COMPARISON: [facility], CR, XR THORACIC SPINE 3V, 03/20/2023, 8:36. FINDINGS: Bones: Diffuse demineralization. Focal kyphosis due to wedge-shaped thoracic vertebral body deformity in the midthoracic spine probably T7. There is [id number] wedge-shaped deformity of T8, T10, and superior endplate scalloping of L1. Bone alignment is normal. Anterior disc height loss in the upper to midthoracic spine. Soft tissues: No paravertebral stripe thickening. IMPRESSION: No definite acute fracture. Several compression fractures above appear chronic. T8 and T10 have progressed since 2022. Dictated by: Arielle Philip M.D. on 10/17/2025 at 0:19 Approved by: Arielle Philip M.D. on 10/17/2025 at 0:22
--- NOTE | 2025-10-16 13:23 | DI.RAD.S_ITS ---
PROCEDURE: XR LUMBAR SPINE 2-3V INDICATIONS: r/o Fx T/L junction area TECHNIQUE: Three views of the lumbar spine were acquired. COMPARISON: [facility], CR, XR LUMBAR SPINE 2-3V, 03/20/2023, 8:36. FINDINGS: Bones: Five [id number] vertebrae are present. Mild right lateral subluxation L3 on four. Normal AP alignment. Moderate to severe disc height loss L5-S1 and L3-4. Mild disc height loss at other levels. Chronic appearing superior endplate scalloping of L1 vertebral body, similar compared to the prior exam. No other acute fractures noted. No suspicious bony lesions. Soft tissues: Overlying bowel gas pattern is normal. No suspicious soft tissue calcifications. IMPRESSION: No definite acute vertebral body fracture. Stable spondylosis described above. Dictated by: Arielle Philip M.D. on 10/17/2025 at 0:22 Approved by: Arielle Philip M.D. on 10/17/2025 at 0:23
== END ==
PROVIDERS: Family Provider Family Medicine; PCP Family Medicine; Referring Provider Chiropractor; Visit Provider Chiropractor
DX: S30.0XXA Contusion of lower back and pelvis, initial encounter (principal); S20.229A Contusion of unspecified back wall of thorax, initial encounter; M48.54XA Collapsed vertebra, not elsewhere classified, thoracic region, initial encounter for fracture; M47.816 Spondylosis without myelopathy or radiculopathy, lumbar region; M47.817 Spondylosis without myelopathy or radiculopathy, lumbosacral region; R30.0 Dysuria
CPT/HCPCS: 72070; 72100; 87077; 87086; 87186